=== PATIENT | female | born 1945 | race Caucasian/White ===

== ENCOUNTER → 2016-08-09 | Outpatient (CLI) | payer MEDICARE ==
--- NOTE | 2016-08-09 19:37 | MR ---
MRI of the brain with and without contrast HISTORY: MS follow-up COMPARISON: 04/15/2015 TECHNIQUE: T1-weighted sagittal, T2, FLAIR, and diffusion axial, postcontrast T1 axial and coronal vi ews of the brain are submitted. CONTRAST: 14 mL MultiHance FINDINGS: There is no evidence of acute ischemia. The ventricles, basal cisterns, and sulci overlying the co nvexities are consistent with the patient's age. There is no mass effect or enhancing mass. Changes of mild chronic sinusitis noted. Craniocervical junction maintained. Sella turcica has a norm al appearance. WHITE MATTER: There are proximally 60-70 focal areas of abnormal signal within the white matter bilaterally. The la rgest measures 1.2 cm. No enhancing lesions. There are lesions perpendicular to the ventricular syste m. There is a single callosal lesion. IMPRESSION: 1. No acute intracranial process. 2. Nonspecific white matter changes can be seen with demyelinating process including a mass. The numb er of lesions, size and morphology are stable of previous exam with no new or enhancing lesions.
== END | disposition home or self-care (01) ==
LOC: RADMRIMAIN 17:10
PROVIDERS: ATTEND Psychiatry & Neurology Neurology
DX: G35 Multiple sclerosis (principal)
CPT/HCPCS: 82565; 70553; A9577

== ENCOUNTER → 2017-08-15 | Outpatient (CLI) | payer MEDICARE ==
--- NOTE | 2017-08-15 16:00 | MR ---
EXAMINATION TYPE: MR brain wo/w con DATE OF EXAM: 08/15/2017 COMPARISON: 08/09/2016 HISTORY: Dizziness, Left side weakness, MS TECHNIQUE: Multiplanar, multisequence images of the brain and brainstem is performed without and with IV contras t, utilizing 7 mL intravenous Gadavist . FINDINGS: Diffusion weighted images demonstrate no evidence of a recent infarct or other diffusion ab normality. Mild to moderate generalized degenerative change seen. No midline shift or mass effect. Abnormal sign al within the basal ganglia is nonspecific but suggestive of remote lacunar infarction. Midline structures demonstrate normal morphology. The craniocervical junction appears within normal limits. Post contrast images demonstrate no abnormal enhancement. The dural venous sinuses appear pa tent. WHITE MATTER: There are approximately 60-70 focal areas of abnormal signal within the white matter bi laterally. The largest measures 1.2 cm. No enhancing lesions. There are lesions perpendicular to the ventricular system. There is a single callosal lesion. Lesions appear stable in size, number and morphology. IMPRESSION: 1. No acute intracranial process. 2. Nonspecific white matter changes are stable. Differential diagnosis includes demyelinating process including a multiple sclerosis, remote microvascular ischemia, although other etiologies not exclude d. The number of lesions, size and morphology are stable compared to the previous exam with no new or en hancing lesions.
== END | disposition home or self-care (01) ==
LOC: RADMRIMAIN 14:34
PROVIDERS: ATTEND Psychiatry & Neurology Neurology
DX: G93.9 Disorder of brain, unspecified (principal)
CPT/HCPCS: 70553; A9581

== ENCOUNTER 2018-02-09 16:24 | Emergency (ER) | payer MEDICARE ==
[2018-02-09 16:33] VITALS: RESP 18; TEMP 98.6
--- NOTE | 2018-02-09 17:13 | XR ---
EXAMINATION TYPE: XR wrist complete LT, XR forearm LT DATE OF EXAM: 02/09/2018 CLINICAL HISTORY: Fall injury with pain. TECHNIQUE: Two views of the left forearm are obtained. 4 views of left wrist are acquired. COMPARISON: None. FINDINGS: Demineralization is present. There is acute oblique minimally displaced fracture distal clive physis of left ulna. There is slight distraction and ulnar angulation of distal fracture fragment. Ad jacent radius is intact. There is partial visualization of surgical change in the distal left humerus . The overlying soft tissue appears within normal limits. There is no additional acute fracture or dislocation in the left wrist. Carpal joint spaces are prese rved. Overlying soft tissue is unremarkable. IMPRESSION: There is acute oblique minimally displaced fracture distal diaphysis of left ulna. (Initial encounter closed type post traumatic fracture)
[2018-02-09] MEDS ORDERED: ACETAMINOPHEN TAB 325 MG TAB PO STA (17:14)
--- NOTE | 2018-02-09 17:20 | ED ---
General Adult HPI - General Chief complaint: Extremity Injury, Upper Stated complaint: LEFT ARM INJURY Time Seen by Provider: 02/09/18 16:39 Source: patient, RN notes reviewed Mode of arrival: ambulatory Limitations: no limitations - History of Present Illness Initial comments: 72-year-old female presents to the emergency determine for a chief complaint of left forearm pain. Patient states she was bending down to look under her tractor when she fell in her arm hit the foot peg. Patient states the remainder of her body weight did fall on her left arm. Patient states that after that she was pulling up her pants and heard a crack in her arm. Patient denies any other injuries. Patient did not hit her head during the fall. Patient has a history of multiple sclerosis. Patient has no other complaints at this time including shortness of breath, chest pain, abdominal pain, nausea or vomiting, headache, or visual changes. - Related Data Allergies Allergy/AdvReac Type Severity Reaction Status Date / Time No Known Allergies Allergy Verified 02/09/18 16:28 Review of Systems ROS Statement: Those systems with pertinent positive or pertinent negative responses have been documented in the HPI. ROS Other: All systems not noted in ROS Statement are negative. Past Medical History Additional Past Medical History / Comment(s): MS History of Any Multi-Drug Resistant Organisms: None Reported Past Surgical History: Cholecystectomy Past Psychological History: No Psychological Hx Reported Smoking Status: Never smoker Past Alcohol Use History: None Reported Past Drug Use History: None Reported General Exam Limitations: no limitations General appearance: alert, in no apparent distress Head exam: Present: atraumatic, normocephalic, normal inspection Eye exam: Present: normal appearance. Absent: scleral icterus, conjunctival injection ENT exam: Present: normal exam, mucous membranes moist Neck exam: Present: normal inspection, full ROM. Absent: tenderness, meningismus, lymphadenopathy Respiratory exam: Present: normal lung sounds bilaterally. Absent: respiratory distress, wheezes, rales, rhonchi, stridor Cardiovascular Exam: Present: regular rate, normal rhythm, normal heart sounds. Absent: systolic murmur, diastolic murmur, rubs, gallop, clicks Extremities exam: Present: tenderness (Tenderness to the ulnar aspect of the left mid forearm), normal capillary refill (Capillary refill less than 2 seconds and radial pulse 2+ in the left upper extremity), other (There is minor ecchymosis noted along the ulnar aspect of the mid left forearm. Sensation intact.). Absent: full ROM (Patient has 110 of flexion of the left elbow with full extension. Patient is able to move the wrist but it is painful in her arm. She has about 30 flexion and extension.) Neurological exam: Present: alert, oriented X3, CN II-XII intact Psychiatric exam: Present: normal affect, normal mood Course Vital Signs 02/09/18 16:28 Temperature 98.6 F Pulse Rate 120 H Respiratory 18 Rate Blood Pressure 135/79 O2 Sat by Pulse 98 Oximetry Procedures - Procedures Initial comment: Neurovascular intact before splint application Indication: Left ulnar fracture Type: Sugar tong Wounds: no abrasions or lacerations underneath splint Neurovascular status: patient has sensation and movement of digits extending outside the splint, there is no cyanosis, capillary refill < 2 seconds Follow-up: patient given number for orthopedics and instructed to phone to make an appointment. Patient aware she can return to the Emergency Department if any difficulties. Medical Decision Making - Medical Decision Making 72-year-old female presents to the emergency determine for chief complaint of left forearm pain times one day. Patient states that earlier today she fell on a foot headache of a tractor on her left arm. Patient states her full-body weight then also fell onto her left arm. On exam patient has mild ecchymosis noted of the ulnar aspect of the left forearm. She is able to move the elbow and flex to about 110 and extend fully. Patient is able to flex and extend the wrist about 30. Programmer strength 4 out of 5 in the left upper 70 due to pain. Patient has tenderness of the ulnar left forearm. No tenderness in the elbow. No tenderness in the wrist or hand. No scaphoid tenderness. X-ray shows an acute oblique minimally displaced fracture distal diaphysis of left ulna. There is slight distraction and ulnar angulation of the distal fracture fragment. Radius is intact. Patient was splinted in a sugar tong splint. Neurovascular intact after splint applied. Patient will follow up with orthopedics on Sunday. Patient has [place] at home that she will take for pain. I did offer patient pain medication here in the emergency department which she refused. She states she only wants Tylenol. Patient will return to the emergency Department if she has any worsening symptoms. Disposition Clinical Impression: Left ulnar fracture Disposition: HOME SELF-CARE Condition: Good Instructions: Arm Fracture in Adults (ED) Additional Instructions: Please continue to take your home pain medications. Rest ice and elevate the left arm. Follow-up with orthopedics on Sunday morning. Return to the emergency department if you have any worsening symptoms. Is patient prescribed a controlled substance at d/c from ED?: No Referrals: Honorio Curiel MD [Primary Care Provider] - 1-2 days Elan Garcia MD [STAFF PHYSICIAN] - 1-2 days Time of Disposition: 17:34
[2018-02-09 17:39] VITALS: BP 130/97; PULSE 97
== END 2018-02-09 17:41 | disposition home or self-care (01) ==
LOC: EC 16:24
DX: S52.232A Displaced oblique fracture of shaft of left ulna, initial encounter for closed fracture (principal); V84.9XXA Unspecified occupant of special agricultural vehicle injured in nontraffic accident, initial encounter; Y93.89 Activity, other specified
CPT/HCPCS: 29125; 99283

== ENCOUNTER 2018-11-22 13:32 | Day surgery (SDC) | payer MEDICARE ==
[~2018-11-22 13:32] MED LIST: DEXAMETHASONE SOD PHOSPHATE 10 MG/ML 1 ML VIAL IV ONE; HYDROmorphone 0.5 MG/0.5 ML SYRINGE IVP PRN; LACTATED RINGERS 1,000 ML IV SCH; LIDOCAINE 1% 20 ML VIAL (10MG/ML) FOR IV START INTRADERMA PRN; ONDANSETRON 4 MG/2 ML VIAL IVP ONE; SCOPOLAMINE 1.5MG/72HR PATCH TRANSDERM ONE; ceFAZolin IN SWFI 2 GM/20 ML SYRINGE IVP ONE
[2018-11-22] MEDS ORDERED: MIDAZOLAM (PF) 2 MG/2 ML VIAL IVP ONE (14:17)
--- NOTE | 2018-11-22 14:32 | P.ANPRN ---
Procedure Note - Anesthesia - Nerve Block Performed Right Infraclavicular Single Time Out Performed: Yes Date of Procedure: 11/22/18 Procedure Start Time: 14:16 Procedure Stop Time: 14:20 Location of Patient Procedure: PreOp Indication: Acute Post-Operative Pain, Analgesia, Requested by physician Sedation Type: Sedate with meaningful contact maintained Preparation: Sterile Prep Position: Supine Catheter: None Needle Types: Pajunk Needle Gauge: 21 Technique: Ultrasound Injectate: 0.5% Ropivacaine (see comment for volume) (20cc) Adjunct: Epinephrine (see comment for dilution ratio) (1:200k) Blood Aspirated: No Pain Paresthesia on Injection Noted: No Resistance on Injection: Normal Events: Uneventful and Well Tolerated
[2018-11-22] MEDS ORDERED: PROPOFOL 10 MG/ML 20 ML VIAL IV ONE (15:19)
[2018-11-22] MEDS ORDERED: PHENYLEPHRINE-0.9% NACL SYG 1 MG/10 ML SYRINGE ONE (15:19)
[2018-11-22] MEDS ORDERED: BUPIVACAINE-EPI 0.5%-1:200,000 10 ML VIAL ONE (15:19)
[2018-11-22] MEDS ORDERED: fentaNYL (PF) 50 MCG/ML 2 ML AMP ONE (15:19)
[2018-11-22] MEDS ORDERED: MIDAZOLAM 2 MG/2 ML VIAL ONE (15:19)
[2018-11-22] MEDS ORDERED: BUPIVACAIN-EPI 0.25%-1:200,000 30 ML VIAL SQ ONE ×2 (17:37)
[2018-11-22 18:27] VITALS: BMI 26.2
[2018-11-22 19:42] VITALS: BP 106/68; PULSE 91; RESP 16; TEMP 98.2
--- NOTE | 2018-11-23 11:34 | FL ---
EXAMINATION TYPE: FL guidance operating room, XR hand complete RT DATE OF EXAM: 11/22/2018 CLINICAL HISTORY: Right hand fracture. TECHNIQUE: Fluoroscopy. Intraoperative complete 3 views right hand. COMPARISON: None. FINDINGS: Fluoroscopic guidance was provided during open reduction internal fixation procedure perfo rmed by Dr. Meehan. A total of 49 seconds of fluoroscopic time was utilized during the procedure and 6 spot intraoperative images are acquired. Intraoperative images obtained show placement of a lateral fixating plate through oblique displaced f racture proximal to mid shaft of fifth metacarpal with satisfactory alignment seen after reduction an d fixation. IMPRESSION: As Above.
--- NOTE | 2018-11-26 12:00 | P.OP ---
Date of Procedure: 11/22/18 Preoperative Diagnosis: Displaced, right fifth metacarpal shaft fracture Postoperative Diagnosis: Displaced, right fifth metacarpal shaft fracture with intra-articular extension into the CMC joint Procedure(s) Performed: Open reduction and internal fixation of displaced right fifth metacarpal shaft/intra-articular base fracture Implants: Biomet ALPS 1.5 mm locking plate with locking and cortical screws Anesthesia: MAC, regional, local Surgeon: Aristides Meehan Stone Mason #1: Kary Preciado Estimated Blood Loss (ml): 3 Disposition: observation Indications for Procedure: The patient is a 73-year-old female who was diagnosed with a displaced right fifth metacarpal shaft fracture. Both nonoperative and surgical treatment options were discussed, as well as their respective risks and benefits; the patient expressed understanding and elected to proceed with surgery. Consent forms were signed. The surgical site was confirmed and marked preoperatively. Description of Procedure: The patient was administered a regional nerve block by the anesthesia team and then was brought to the operating suite. The patient was positioned supine with the operative limb on an arm board. All bony prominences were well-padded. Anesthesia was administered uneventfully. Prophylactic IV antibiotics were administered. A tourniquet was placed on the operative arm which was then prepped and draped in standard, sterile fashion. A timeout was performed which confirmed the patient, the operative side, the site and the procedure to be performed: all team members expressed agreement. The limb was exsanguinated with an Esmarch and the tourniquet was inflated. A longitudinal incision was marked over the fifth metacarpal shaft. The skin was sharply incised. Subcutaneous tissues were bluntly divided. Small sensory nerve branches were identified on both sides of the incision. These were carefully mobilized and protected throughout the case. The extensor tendon was mobilized and the fifth metacarpal shaft was exposed. The periosteum was sharply incised and reflected to reveal the fracture site. The fracture pattern was a long oblique, with intra-articular extension into the CMC joint with a small, dorsal butterfly fragment at the metaphysis. The main fracture site at the midshaft level was carefully opened and cleaned of hematoma and fibrous tissue. This was manually reduced and a reduction clamp was placed but this did not adequately stabilize the fracture. Her bone was too soft to permit use of pointed reduction clamps. A 3-0 Vicryl suture was passed around the fracture site and used as a temporary cerclage wire. Good initial reduction was obtained and confirmed on imaging. A 1.5 mm locking plate was selected and cut to the appropriate size. The ECU tendon insertion was partially released to facilitate fracture reduction and plate placement. The plate was bent to fit and then positioned on the bone. This was held in place with K wires. A combination of locking and cortical screws was used to secure the plate to the bone. Her bone quality was suboptimal. One of the central cortical screws failed to achieve purchase and this was replaced with a locking screw. Final x-rays were obtained which revealed satisfactory reduction of the fracture. The metacarpal was then stressed under live fluoroscopy - no motion of the fracture fragments or fixation construct was appreciated. The wound was thoroughly irrigated with normal saline. The ECU insertion was repaired with nonabsorbable sutures. The periosteum was repaired over the plate with interrupted 3-0 Vicryl suture. The tourniquet was released. Good hemostasis was obtained. The incision was closed with a 4-0 nylon sutures. Additional local anesthetic was injected into the perioperative subcutaneous tissues for adjunctive postoperative pain control. A sterile dressing was applied followed by a resting, ulnar gutter plaster splint with the MCP joints free. All sponge, needle and instrument counts were correct at the end of the case. The patient tolerated the procedure well and was taken to the recovery room in stable condition.
== END 2018-11-22 20:00 | disposition home or self-care (01) ==
LOC: OR 13:32 → 1SOBS 17:59 → OR 20:00
PROVIDERS: ATTEND Orthopaedic Surgery
DX: S62.326A Displaced fracture of shaft of fifth metacarpal bone, right hand, initial encounter for closed fracture (principal); W23.0XXA Caught, crushed, jammed, or pinched between moving objects, initial encounter; Y93.H2 Activity, gardening and landscaping; Y92.096 Garden or yard of other non-institutional residence as the place of occurrence of the external cause; K21.9 Gastro-esophageal reflux disease without esophagitis; G35 Multiple sclerosis; I10 Essential (primary) hypertension; E78.2 Mixed hyperlipidemia; F33.0 Major depressive disorder, recurrent, mild; F41.8 Other specified anxiety disorders; N28.1 Cyst of kidney, acquired; Z79.899 Other long term (current) drug therapy; Z82.3 Family history of stroke; Z80.0 Family history of malignant neoplasm of digestive organs
CPT/HCPCS: 26615; 64415; 73130; C1713; J2250 ×2; J1100; J2405; J3010; J2370; J2704; J0690

== ENCOUNTER → 2018-12-24 | Outpatient (CLI) | payer MEDICARE ==
--- NOTE | 2018-12-24 14:26 | BD ---
EXAMINATION TYPE: Axial Bone Density DATE OF EXAM: 12/24/2018 COMPARISON: 2006 CLINICAL HISTORY: osteoporosis Height: 5'1 Weight: 146 FRAX RISK QUESTIONS: History of Fracture in Adulthood: y Secondary Osteoporosis: 3. Menopause before 45: y RISK FACTORS HISTORY OF: Hx fracture: left forearm 2018 Diet low in dairy products/other sources of calcium: y Postmenopausal woman: y MEDICATIONS: Additional Medications: blood pressure, cholesterol, xanax, norco acid reflux Additional History: pt has MS , 19 years EXAM MEASUREMENTS: Bone mineral densitometry was performed using the [employer]. Bone mineral density as measured about the Lumbar spine is: ----- L1-L4(G/cm2): 1.015 T Score Values are as follows: ----- L2: -3.1 ----- L3: -1.9 ----- L4: -0.3 ----- L1-L4: -1.4 Bone mineral density has: Decreased -6.0% since study of: 04/19/2007 Bone mineral density about the R hip (g/cm2): 0.694 Bone mineral density about the L hip (g/cm2): 0.654 T Score values are as follows: -----R Neck: -2.5 -----L Neck: -2.8 -----R Total: -2.7 -----L Total: -2.9 Bone mineral density has: Decreased -13.1% since study of: 04/19/2007 IMPRESSION: Osteoporosis (T Score less than -2.5). There is increased fracture risk and therapy is usually indicated based on age. Re-Screen 1-2 years. NOTE: T-SCORE=SD OF THE YOUNG ADULT MEAN.
== END | disposition home or self-care (01) ==
LOC: RADBDWWP 13:15
PROVIDERS: ATTEND Family Medicine
DX: M81.0 Age-related osteoporosis without current pathological fracture (principal)
CPT/HCPCS: 77080

== ENCOUNTER 2019-01-24 12:12 | Emergency (ER) | payer MEDICARE ==
[2019-01-24 12:29] VITALS: TEMP 98.6
--- NOTE | 2019-01-24 13:14 | ED ---
Weakness HPI - General Chief complaint: Weakness Stated complaint: UTI, frequent falls Time Seen by Provider: 01/24/19 13:07 Source: patient Mode of arrival: ambulatory Limitations: no limitations - History of Present Illness Initial comments: Patient complains of weakness in the legs. She has a history of MS. She has taken no medicines. Nothing makes her symptoms better or worse. She was not doing anything when her symptoms began to get worse. She is having falls. She fell and hit her head while ago. She has no headache, neck pain or stiffness. She has no change in vision or hearing. She states that the past she has had a kidney infection would cause her to have this MS flare. - Related Data Home Medications Medication Instructions Recorded Confirmed Citalopram Hydrobromide [CeleXA] 40 mg PO DAILY 11/20/18 01/24/19 Gabapentin 600 mg PO HS 11/20/18 01/24/19 Losartan-Hctz 50-12.5 mg [Hyzaar 1 tab PO DAILY 11/20/18 01/24/19 50-12.5] Omeprazole [PriLOSEC] 40 mg PO DAILY 11/20/18 01/24/19 Potassium Chloride [Klor-Con 10] 10 meq PO DAILY 11/20/18 01/24/19 Simvastatin [Zocor] 80 mg PO DAILY 11/20/18 01/24/19 ALPRAZolam [Xanax] 0.25 mg PO TID PRN 01/24/19 01/24/19 Calcium Carbonate/Vitamin D3 1 tab PO DAILY 01/24/19 01/24/19 [Calcium 600-Vit D3 400 Caplet] HYDROcodone/APAP 7.5-325MG [[place] 1 tab PO TID PRN 01/24/19 01/24/19 7.5-325] Ibuprofen 800 mg PO TID 01/24/19 01/24/19 Previous Rx's Medication Instructions Recorded methylPREDNISolone Dose Pack 4 mg PO DIRECTED #21 package 01/24/19 [Medrol Dose Pack] Allergies Allergy/AdvReac Type Severity Reaction Status Date / Time No Known Allergies Allergy Verified 01/24/19 12:55 Review of Systems ROS Statement: Those systems with pertinent positive or pertinent negative responses have been documented in the HPI. ROS Other: All systems not noted in ROS Statement are negative. Neurological: Reports: weakness Past Medical History Past Medical History: GERD/Reflux, Hyperlipidemia, Hypertension, Neurologic Disorder Additional Past Medical History / Comment(s): Right 5th metacarpal fx, hand in soft cast, neuropathy, MS History of Any Multi-Drug Resistant Organisms: None Reported Past Surgical History: Cholecystectomy Past Anesthesia/Blood Transfusion Reactions: No Reported Reaction Past Psychological History: No Psychological Hx Reported Smoking Status: Never smoker Past Alcohol Use History: None Reported Past Drug Use History: None Reported - Past Family History Sister(s) Family Medical History: Cancer Son(s) Family Medical History: Deep Vein Thrombosis (DVT) General Exam Limitations: no limitations General appearance: alert, in no apparent distress Head exam: Present: atraumatic, normocephalic, normal inspection Eye exam: Present: normal appearance, PERRL, EOMI. Absent: scleral icterus, conjunctival injection, periorbital swelling ENT exam: Present: normal exam, mucous membranes moist Neck exam: Present: normal inspection. Absent: tenderness, meningismus, lymphadenopathy Respiratory exam: Present: normal lung sounds bilaterally. Absent: respiratory distress, wheezes, rales, rhonchi, stridor Cardiovascular Exam: Present: regular rate, normal rhythm, normal heart sounds. Absent: systolic murmur, diastolic murmur, rubs, gallop, clicks GI/Abdominal exam: Present: soft, normal bowel sounds. Absent: distended, tenderness, guarding, rebound, rigid Extremities exam: Present: normal inspection, full ROM, normal capillary refill. Absent: tenderness, pedal edema, joint swelling, calf tenderness Back exam: Present: normal inspection Neurological exam: Present: alert, oriented X3, CN II-XII intact, abnormal gait Psychiatric exam: Present: normal affect, normal mood Skin exam: Present: warm, dry, intact, normal color. Absent: rash Course Vital Signs 01/24/19 01/24/19 12:26 14:08 Temperature 98.6 F Pulse Rate 88 70 Respiratory 18 16 Rate Blood Pressure 113/69 131/85 O2 Sat by Pulse 99 100 Oximetry Medical Decision Making - Medical Decision Making Patient complained of weakness. Her laboratory workup is unremarkable. I find no evidence of infection at this time. I gave her a dose of IV Solu-Medrol. I offered the patient admission to the hospital with a neurology consult. She states that she needs to go home because she has to take care of her dog. I instructed her to follow-up with her doctor as soon as possible as well as her neurologist. I told her that she should return to the emergency department for further treatment and management if her symptoms worsen or if she develops any other problems or complaints. - Lab Data Result diagrams: 01/24/19 13:01 01/24/19 13:01 Lab Results 01/24/19 01/24/19 01/24/19 Range/Units 13: 13: 13:01 WBC 4.1 (3.8-10.6) k/uL RBC 3.83 (3.80-5.40) m/uL Hgb 11.7 (11.4-16.0) gm/dL Hct 35.3 (34.0-46.0) % MCV 92.3 (80.0-100.0) fL MCH 30.6 (25.0-35.0) pg MCHC 33.1 (31.0-37.0) g/dL RDW 14.3 (11.5-15.5) % Plt Count 171 (150-450) k/uL Neutrophils % 60 % Lymphocytes % 25 % Monocytes % 7 % Eosinophils % 3 % Basophils % 1 % Neutrophils # 2.5 (1.3-7.7) k/uL Lymphocytes # 1.0 (1.0-4.8) k/uL Monocytes # 0.3 (0-1.0) k/uL Eosinophils # 0.1 (0-0.7) k/uL Basophils # 0.0 (0-0.2) k/uL PT (9.0-12.0) sec INR (<1.2) APTT (22.0-30.0) sec Sodium 140 (137-145) mmol/L Potassium 4.4 (3.5-5.1) mmol/L Chloride 104 (98-107) mmol/L Carbon Dioxide 28 (22-30) mmol/L Anion Gap 8 mmol/L BUN 22 H (7-17) mg/dL Creatinine 1.43 H (0.52-1.04) mg/dL Est GFR (CKD-EPI)AfAm 42 (>60 ml/min/1.73 sqM) Est GFR (CKD-EPI)NonAf 37 (>60 ml/min/1.73 sqM) Glucose 90 (74-99) mg/dL Plasma Lactic Acid Santos 1.4 (0.7-2.0) mmol/L Calcium 9.3 (8.4-10.2) mg/dL Magnesium 1.3 L (1.6-2.3) mg/dL Total Bilirubin 1.0 (0.2-1.3) mg/dL AST 25 (14-36) U/L ALT 16 (9-52) U/L Alkaline Phosphatase 57 (38-126) U/L Troponin I (0.000-0.034) ng/mL NT-Pro-B Natriuret Pep pg/mL Total Protein 7.1 (6.3-8.2) g/dL Albumin 4.1 (3.5-5.0) g/dL Urine Color Urine Appearance (Clear) Urine pH (5.0-8.0) Ur Specific Groom (1.001-1.035) Urine Protein (Negative) Urine Glucose (UA) (Negative) Urine Ketones (Negative) Urine Blood (Negative) Urine Nitrite (Negative) Urine Bilirubin (Negative) Urine Urobilinogen (<2.0) mg/dL Ur Leukocyte Esterase (Negative) 01/24/19 01/24/19 01/24/19 Range/Units 13:01 13:01 13:01 WBC (3.8-10.6) k/uL RBC (3.80-5.40) m/uL Hgb (11.4-16.0) gm/dL Hct (34.0-46.0) % MCV (80.0-100.0) fL MCH (25.0-35.0) pg MCHC (31.0-37.0) g/dL RDW (11.5-15.5) % Plt Count (150-450) k/uL Neutrophils % % Lymphocytes % % Monocytes % % Eosinophils % % Basophils % % Neutrophils # (1.3-7.7) k/uL Lymphocytes # (1.0-4.8) k/uL Monocytes # (0-1.0) k/uL Eosinophils # (0-0.7) k/uL Basophils # (0-0.2) k/uL PT 10.7 (9.0-12.0) sec INR 1.0 (<1.2) APTT 25.6 (22.0-30.0) sec Sodium (137-145) mmol/L Potassium (3.5-5.1) mmol/L Chloride (98-107) mmol/L Carbon Dioxide (22-30) mmol/L Anion Gap mmol/L BUN (7-17) mg/dL Creatinine (0.52-1.04) mg/dL Est GFR (CKD-EPI)AfAm (>60 ml/min/1.73 sqM) Est GFR (CKD-EPI)NonAf (>60 ml/min/1.73 sqM) Glucose (74-99) mg/dL Plasma Lactic Acid Santos (0.7-2.0) mmol/L Calcium (8.4-10.2) mg/dL Magnesium (1.6-2.3) mg/dL Total Bilirubin (0.2-1.3) mg/dL AST (14-36) U/L ALT (9-52) U/L Alkaline Phosphatase (38-126) U/L Troponin I <0.012 (0.000-0.034) ng/mL NT-Pro-B Natriuret Pep 153 pg/mL Total Protein (6.3-8.2) g/dL Albumin (3.5-5.0) g/dL Urine Color Urine Appearance (Clear) Urine pH (5.0-8.0) Ur Specific Groom (1.001-1.035) Urine Protein (Negative) Urine Glucose (UA) (Negative) Urine Ketones (Negative) Urine Blood (Negative) Urine Nitrite (Negative) Urine Bilirubin (Negative) Urine Urobilinogen (<2.0) mg/dL Ur Leukocyte Esterase (Negative) 01/24/19 Range/Units 13:01 WBC (3.8-10.6) k/uL RBC (3.80-5.40) m/uL Hgb (11.4-16.0) gm/dL Hct (34.0-46.0) % MCV (80.0-100.0) fL MCH (25.0-35.0) pg MCHC (31.0-37.0) g/dL RDW (11.5-15.5) % Plt Count (150-450) k/uL Neutrophils % % Lymphocytes % % Monocytes % % Eosinophils % % Basophils % % Neutrophils # (1.3-7.7) k/uL Lymphocytes # (1.0-4.8) k/uL Monocytes # (0-1.0) k/uL Eosinophils # (0-0.7) k/uL Basophils # (0-0.2) k/uL PT (9.0-12.0) sec INR (<1.2) APTT (22.0-30.0) sec Sodium (137-145) mmol/L Potassium (3.5-5.1) mmol/L Chloride (98-107) mmol/L Carbon Dioxide (22-30) mmol/L Anion Gap mmol/L BUN (7-17) mg/dL Creatinine (0.52-1.04) mg/dL Est GFR (CKD-EPI)AfAm (>60 ml/min/1.73 sqM) Est GFR (CKD-EPI)NonAf (>60 ml/min/1.73 sqM) Glucose (74-99) mg/dL Plasma Lactic Acid Santos (0.7-2.0) mmol/L Calcium (8.4-10.2) mg/dL Magnesium (1.6-2.3) mg/dL Total Bilirubin (0.2-1.3) mg/dL AST (14-36) U/L ALT (9-52) U/L Alkaline Phosphatase (38-126) U/L Troponin I (0.000-0.034) ng/mL NT-Pro-B Natriuret Pep pg/mL Total Protein (6.3-8.2) g/dL Albumin (3.5-5.0) g/dL Urine Color Yellow Urine Appearance Clear (Clear) Urine pH 7.0 (5.0-8.0) Ur Specific Groom 1.013 (1.001-1.035) Urine Protein Negative (Negative) Urine Glucose (UA) Negative (Negative) Urine Ketones Negative (Negative) Urine Blood Negative (Negative) Urine Nitrite Negative (Negative) Urine Bilirubin Negative (Negative) Urine Urobilinogen 2.0 (<2.0) mg/dL Ur Leukocyte Esterase Negative (Negative) Disposition Clinical Impression: Multiple sclerosis Disposition: HOME SELF-CARE Condition: Good Instructions (If sedation given, give patient instructions): Multiple Sclerosis (DC) Prescriptions: methylPREDNISolone Dose Pack [Medrol Dose Pack] 4 mg PO DIRECTED #21 package Is patient prescribed a controlled substance at d/c from ED?: No Referrals: Honorio Curiel MD [Primary Care Provider] - 1-2 days
[2019-01-24 13:31] LABS: Basophils % (A) 1 %; Eosinophils # (A) 0.1 k/uL (0-0.7); Eosinophils % (A) 3 %; HCT 35.3 % (34.0-46.0); HGB 11.7 gm/dL (11.4-16.0); Lymphocytes % (A) 25 %; MCH 30.6 pg (25.0-35.0); MCHC 33.1 g/dL (31.0-37.0); MCV 92.3 fL (80.0-100.0); Mean Platelet Volume 7.1; Monocytes # (A) 0.3 k/uL (0-1.0); Monocytes % (A) 7 %; Neutrophils # (A) 2.5 k/uL (1.3-7.7); Neutrophils % (A) 60 %; Platelet Count 171 k/uL (150-450); RBC 3.83 m/uL (3.80-5.40); RDW 14.3 % (11.5-15.5); WBC 4.1 k/uL (3.8-10.6)
[2019-01-24 13:37] LABS: Appearance,Urine Clear (Clear); Bilirubin,Urine Negative (Negative); Blood,Urine Negative (Negative); Color,Urine Yellow; Glucose,Urine (UA) Negative (Negative); Ketones,Urine Negative (Negative); Leukocyte Esterase,Urine Negative (Negative); Nitrite,Urine Negative (Negative); Protein,Urine Negative (Negative); Specific Gravity,Urine 1.013 (1.001-1.035)
[2019-01-24 13:40] LABS: Albumin 4.1 g/dL (3.5-5.0); Calcium 9.3 mg/dL (8.4-10.2); Magnesium 1.3 mg/dL (1.6-2.3); Potassium 4.4 mmol/L (3.5-5.1); Total Protein 7.1 g/dL (6.3-8.2)
[2019-01-24 13:42] LABS: Partial Thromboplastin Time 25.6 sec (22.0-30.0); Prothrombin Time 10.7 sec (9.0-12.0)
--- NOTE | 2019-01-24 13:47 | XR ---
EXAMINATION TYPE: XR chest 2V DATE OF EXAM: 01/24/2019 COMPARISON: NONE HISTORY: Weakness TECHNIQUE: Frontal and lateral views of the chest are obtained. FINDINGS: There is no focal air space opacity, pleural effusion, or pneumothorax seen. The cardiac silhouette size is upper limits of normal. The osseous structures are intact. Bridging anterior ost eophytes are seen within the thoracic spine. Diffuse osseous demineralization is present. Cholecystec zachary clips are visualized. IMPRESSION: No acute cardiopulmonary process.
[2019-01-24] MEDS ORDERED: methylPREDNISolone SOD SUCCI 125 MG/2 ML VIAL IV STA (13:57)
[2019-01-24 14:09] VITALS: BP 131/85; PULSE 70; RESP 16
== END 2019-01-24 14:38 | disposition home or self-care (01) ==
LOC: EC 12:12
DX: G35 Multiple sclerosis (principal); R29.6 Repeated falls; G62.9 Polyneuropathy, unspecified; E78.5 Hyperlipidemia, unspecified; I10 Essential (primary) hypertension; K21.9 Gastro-esophageal reflux disease without esophagitis; Z79.1 Long term (current) use of non-steroidal anti-inflammatories (NSAID); Z79.899 Other long term (current) drug therapy; Z91.81 History of falling; Z83.2 Family history of diseases of the blood and blood-forming organs and certain disorders involving the immune mechanism
CPT/HCPCS: 36415; 93005; 83880; 80053; 83605; 83735; 84484; 85025; 85610; 85730; 81003; 71046; 99284; 96374; J2930

== ENCOUNTER 2019-04-16 16:27 | Emergency (ER) | payer OTHER, MEDICARE ==
[2019-04-16 16:41] VITALS: RESP 18
[2019-04-16] MEDS ORDERED: SODIUM CHLORIDE 0.9% 1,000 ML IV STA (16:54)
[2019-04-16] MEDS ORDERED: ACETAMINOPHEN TAB 500 MG TAB PO STA (16:54)
[2019-04-16 17:32] LABS: Basophils % (A) 1 %; Eosinophils # (A) 0.1 k/uL (0-0.7); Eosinophils % (A) 2 %; HCT 33.9 % (34.0-46.0); HGB 11.7 gm/dL (11.4-16.0); Lymphocytes # (A) 1.1 k/uL (1.0-4.8); Lymphocytes % (A) 19 %; MCH 31.8 pg (25.0-35.0); MCHC 34.4 g/dL (31.0-37.0); MCV 92.5 fL (80.0-100.0); Mean Platelet Volume 6.2; Monocytes # (A) 0.3 k/uL (0-1.0); Monocytes % (A) 6 %; Neutrophils % (A) 70 %; Platelet Count 182 k/uL (150-450); RBC 3.67 m/uL (3.80-5.40); RDW 12.8 % (11.5-15.5); WBC 5.7 k/uL (3.8-10.6)
[2019-04-16 17:35] LABS: ALT 18 U/L (9-52); AST 28 U/L (14-36); African American GFR (CKD) 48 (>60 ml/min/1.73 sqM); Albumin 3.9 g/dL (3.5-5.0); Alcohol <10 mg/dL; Alkaline Phosphatase 56 U/L (38-126); Anion Gap 7 mmol/L; Blood Urea Nitrogen 15 mg/dL (7-17); Calcium 9.1 mg/dL (8.4-10.2); Carbon Dioxide 26 mmol/L (22-30); Chloride 105 mmol/L (98-107); Glucose 87 mg/dL (74-99); Partial Thromboplastin Time 25.3 sec (22.0-30.0); Potassium 4.3 mmol/L (3.5-5.1); Prothrombin Time 10.9 sec (9.0-12.0); Sodium 138 mmol/L (137-145); Total Bilirubin 0.8 mg/dL (0.2-1.3)
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
--- NOTE | 2019-04-16 19:27 | XR ---
EXAMINATION TYPE: XR wrist complete LT DATE OF EXAM: 04/16/2019 COMPARISON: 02/09/2018 HISTORY: Wrist pain TECHNIQUE: 4 views FINDINGS: There is old ununited healing fracture distal shaft of the ulna. There is some bridging srikanth karolina. Fracture line is still visible. I see no acute fracture nor dislocation. The carpal bones are in tact. There is osteopenia. Carpal bones show fairly normal joint spaces. IMPRESSION: No acute value the left wrist. No adverse change.
[2019-04-16 20:28] VITALS: BP 130/76; PULSE 85; TEMP 97.7
== END 2019-04-16 19:58 | disposition home or self-care (01) ==
LOC: EC 16:27
DX: M25.532 Pain in left wrist (principal); R07.89 Other chest pain; R10.9 Unspecified abdominal pain; R53.1 Weakness; K21.9 Gastro-esophageal reflux disease without esophagitis; E78.5 Hyperlipidemia, unspecified; I10 Essential (primary) hypertension; G35 Multiple sclerosis; G62.9 Polyneuropathy, unspecified; Z79.82 Long term (current) use of aspirin; Z79.899 Other long term (current) drug therapy; Z90.49 Acquired absence of other specified parts of digestive tract; V43.52XA Car driver injured in collision with other type car in traffic accident, initial encounter; Y93.89 Activity, other specified; Y92.410 Unspecified street and highway as the place of occurrence of the external cause
CPT/HCPCS: 99285; 96360; 36415; 93005; 86900; 86901; 80053; 84484; 85025; 85610; 85730; 86850; 80320; 73110; 72125; 70450; 71260; 74177; Q9967

== ENCOUNTER 2019-04-27 00:58 | Observation (INO) | payer MEDICARE ==
[2019-04-27 01:00] LABS: Basophils # (A) 0.1 k/uL (0-0.2); Basophils % (A) 1 %; Eosinophils # (A) 0.3 k/uL (0-0.7); Eosinophils % (A) 4 %; HGB 10.7 gm/dL (11.4-16.0); Lymphocytes % (A) 16 %; MCH 30.5 pg (25.0-35.0); MCHC 33.3 g/dL (31.0-37.0); MCV 91.6 fL (80.0-100.0); Mean Platelet Volume 6.8; Monocytes # (A) 0.4 k/uL (0-1.0); Monocytes % (A) 7 %; Neutrophils # (A) 4.1 k/uL (1.3-7.7); Neutrophils % (A) 68 %; Platelet Count 197 k/uL (150-450); RDW 13.9 % (11.5-15.5)
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
[2019-04-27 01:10] LABS: Albumin 3.4 g/dL (3.5-5.0); Calcium 8.8 mg/dL (8.4-10.2); Potassium 3.4 mmol/L (3.5-5.1); Total Bilirubin 0.4 mg/dL (0.2-1.3); Total Protein 6.3 g/dL (6.3-8.2)
[2019-04-27 01:13] LABS: INR 1.1 (<1.2); Partial Thromboplastin Time 23.9 sec (22.0-30.0); Prothrombin Time 11.2 sec (9.0-12.0)
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
[2019-04-27 01:32] LABS: Appearance,Urine Clear (Clear); Bilirubin,Urine Negative (Negative); Blood,Urine Negative (Negative); Color,Urine Yellow; Glucose,Urine (UA) Negative (Negative); Ketones,Urine Negative (Negative); Leukocyte Esterase,Urine Small (Negative); Nitrite,Urine Negative (Negative); Protein,Urine Trace (Negative); Urobilinogen,Urine <2.0 mg/dL (<2.0)
[2019-04-27 01:33] LABS: Bacteria,Urine Rare /hpf; Hyaline Casts,Urine 22 /lpf (0-2); Mucus,Urine Rare /hpf; RBC,Urine 4 /hpf (0-5); Squamous Epithelial Cell,Urine 2 /hpf (0-4); WBC,Urine 7 /hpf (0-5)
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
[2019-04-27] MEDS ORDERED: NALOXONE 0.4 MG/ML 1 ML VIAL IV PRN (03:58)
[2019-04-27] MEDS ORDERED: ONDANSETRON 4 MG/2 ML VIAL IVP PRN (03:58)
[2019-04-27] MEDS ORDERED: ALPRAZolam 0.25 MG TAB PO PRN (04:00)
[2019-04-27] MEDS: SODIUM CHLORIDE 0.9% 1,000 ML IV SCH (04:29)
[2019-04-27] MEDS: LOSARTAN-HCTZ 50-12.5 MG 1 EACH TAB PO SCH (08:58)
[2019-04-27] MEDS: PANTOPRAZOLE 40 MG TABLET PO SCH (08:58)
[2019-04-27] MEDS: CHOLECALCIFEROL 1,000 UNIT TAB PO SCH (08:58)
[2019-04-27] MEDS: ATORVASTATIN 40 MG TAB PO SCH (08:58)
[2019-04-27] MEDS: POTASSIUM CHLORIDE ER 10 MEQ TAB.ER.PRT PO SCH (08:58)
[2019-04-27] MEDS: CITALOPRAM HYDROBROMIDE 20 MG TAB PO SCH (08:58)
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
--- NOTE | 2019-04-27 11:38 | XR ---
EXAMINATION TYPE: XR chest 2V DATE OF EXAM: 04/27/2019 HISTORY: pneumothorax. REFERENCE: Previous study of earlier today. FINDINGS: The heart is mildly enlarged. There is vascular congestion and pulmonary edema. There branden nues to be a tiny left apical pneumothorax. IMPRESSION: 1. TINY LEFT APICAL PNEUMOTHORAX. 2. INTERVAL DEVELOPMENT OF CONGESTIVE HEART FAILURE.
--- NOTE | 2019-04-27 12:20 | CT ---
EXAMINATION TYPE: CT lumbar spine wo con DATE OF EXAM: 04/27/2019 11:25 AM COMPARISON: None. HISTORY: Low back pain CT DLP: 1012 mGycm Automated exposure control for dose reduction was used. Unenhanced CT of the lumbar spine was performed. Bone and soft tissue window settings are submitted as well as coronal and sagittal reconstructions. FINDINGS: There is a 6.6 cm exophytic mass arising from the anterior aspect of the upper pole of the left kidney. The gallbladder has been removed. There is atheromatous calcification of the visualized arterial tree. There is partial sacralization of the L5 vertebral body. Vertebral body alignment is maintained. Ther e is a superior endplate infraction of T12 vertebral body. The age of this is not determined but it a ppears chronic. Vertebral body height is otherwise maintained. L1-L2: Intervertebral foramina are well maintained. There is no significant compressive discopathy. T here is minimal hypertrophic change in the facets. L2-3: The intervertebral foramina are well maintained. There is a diffuse disc displacement. There is mild hypertrophic changes within the facets. L3-4: There is severe disc space loss and a vacuum phenomena. There is mild, bilateral intervertebral foraminal narrowing. There is a diffuse disc displacement. There are marked hypertrophic changes in the facets. There is mild to moderate central canal stenosis. L4-5: There is severe disc space loss and a vacuum phenomena. There is bony spurring posteriorly. Thi s is impinging upon the left intervertebral foramina. There is however, bilateral intervertebral fora rashid narrowing. There is moderate to severe central canal stenosis. There are hypertrophic changes i n the facets. L5-S1: No definite abnormality is seen. IMPRESSION: 1. DEGENERATIVE DISC DISEASE MOST MARKED AT L3-4 AND L4-5. 2. VARYING DEGREES OF CENTRAL CANAL COMPROMISE, MOST MARKED AT L4-5. 3. MULTILEVEL INTERVERTEBRAL FORAMINAL NARROWING. 4. 6.6 CM EXOPHYTIC MASS ARISING THE UPPER POLE OF THE LEFT KIDNEY MAY REPRESENT A CYST. ULTRASOUND W OULD BE SUGGESTED. 5. SUPERIOR ENDPLATE INFRACTION OF T12, AGE NOT DETERMINED.
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
[2019-04-27] MEDS: ALPRAZolam 0.25 MG TAB PO SCH (19:50)
[2019-04-27] MEDS: GABAPENTIN 300 MG CAP PO SCH (19:51)
[2019-04-27] MEDS: HYDROcodone/APAP 7.5-325MG 1 EACH TAB PO PRN (23:37)
[2019-04-28] MEDS: SODIUM CHLORIDE 0.9% 1,000 ML IV SCH (04:50)
[2019-04-28] MEDS: CITALOPRAM HYDROBROMIDE 20 MG TAB PO SCH (07:45)
[2019-04-28] MEDS: ATORVASTATIN 40 MG TAB PO SCH (07:45)
[2019-04-28] MEDS: CHOLECALCIFEROL 1,000 UNIT TAB PO SCH (07:45)
[2019-04-28] MEDS: POTASSIUM CHLORIDE ER 10 MEQ TAB.ER.PRT PO SCH (07:45)
[2019-04-28] MEDS: PANTOPRAZOLE 40 MG TABLET PO SCH (07:46)
[2019-04-28] MEDS: LOSARTAN-HCTZ 50-12.5 MG 1 EACH TAB PO SCH (09:25)
--- NOTE | 2019-04-28 10:35 | XR ---
EXAMINATION TYPE: XR chest 1V portable DATE OF EXAM: 04/28/2019 COMPARISON: 04/27/2019 HISTORY: Shortness of breath TECHNIQUE: Single frontal view of the chest is obtained. FINDINGS: There is a stable less than 5% left apical pneumothorax. No overt failure. Left lower lobe consolidation and small effusion. Heart size prominent and stable. Diffuse osteopenia noted. IMPRESSION: 1. Stable less than 5% left apical pneumothorax. 2. Left lower lobe consolidation and pleural effusion. 3. Interstitium appears to be improved relative to the prior exam.
--- NOTE | 2019-04-28 10:54 | US ---
EXAMINATION TYPE: US kidneys/renal and bladder DATE OF EXAM: 04/28/2019 COMPARISON: CT 2018, US 2013 CLINICAL HISTORY: cyst left kidney. Left kidney cyst, exam done portable. EXAM MEASUREMENTS: Right Kidney: 9.0 x 4.6 x 4.6 cm Left Kidney: 10.3 x 4.6 x 4.4 cm Right Kidney: 1.4 x 1.4 x 1.4cm hypoechoic area lateral mid pole Left Kidney: 6.0 x 5.1 x 6.1cm exophytic cyst mid pole Bladder: wnl Bilateral Jets seen: no No hydronephrosis or nephrolithiasis. IMPRESSION: 1. 6.1 cm simple left renal cyst. 2. Hypoechoic nodule in the right kidney is too small to characterize by ultrasound.
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
[2019-04-28] MEDS: HYDROcodone/APAP 7.5-325MG 1 EACH TAB PO PRN (20:36)
[2019-04-28] MEDS: GABAPENTIN 300 MG CAP PO SCH (20:37)
[2019-04-28] MEDS: ALPRAZolam 0.25 MG TAB PO SCH (20:37)
[2019-04-29] MEDS: SODIUM CHLORIDE 0.9% 1,000 ML IV SCH (06:39)
[2019-04-29] MEDS: ATORVASTATIN 40 MG TAB PO SCH (07:41)
[2019-04-29] MEDS: CITALOPRAM HYDROBROMIDE 20 MG TAB PO SCH (07:41)
[2019-04-29] MEDS: LOSARTAN-HCTZ 50-12.5 MG 1 EACH TAB PO SCH (07:41)
[2019-04-29] MEDS: POTASSIUM CHLORIDE ER 10 MEQ TAB.ER.PRT PO SCH (07:41)
[2019-04-29] MEDS: CHOLECALCIFEROL 1,000 UNIT TAB PO SCH (07:41)
[2019-04-29] MEDS: PANTOPRAZOLE 40 MG TABLET PO SCH (07:41)
[2019-04-29 08:33] VITALS: BP 103/59; PULSE 83; RESP 12; TEMP 98.8
--- NOTE | 2019-04-29 10:46 | ECHOF ---
Referral Reason:pleural effusion MEASUREMENTS -------- HEIGHT: 154.9 cm WEIGHT: 58.1 kg BP: 97/61 RVIDd: 3.2 cm (< 3.3) IVSd: 1.2 cm (0.6 - 1.1) LVIDd: 3.7 cm (3.9 - 5.3) LVPWd: 1.3 cm (0.6 - 1.1) IVSs: 1.3 cm LVIDs: 2.1 cm LVPWs: 0.9 cm LAESV Index (A-L): 21.04 ml/m Ao Diam: 3.8 cm (2.0 - 3.7) AV Cusp: 1.7 cm (1.5 - 2.6) MV E Kendall: 0.58 m/s MV DecT: 222 ms MV A Kendall: 0.84 m/s MV E/A Ratio: 0.69 RAP: 5.00 mmHg RVSP: 26.15 mmHg FINDINGS -------- Sinus rhythm. This was a technically difficult study with suboptimal views. There is mild concentric left ventricular hypertrophy. Overall left ventricular systolic function i s normal with, an EF between 55 - 60 %. The diastolic filling pattern is normal for the age of the patient 11.79. The right ventricle is normal in size. Normal LA size by volume 22+/-6 ml/m2. The right atrial size is normal. 5.0mg of Lumason was utilized for enhancement of images Interatrial and interventricular septum intact. The aortic valve was not well visualized. There is no evidence of aortic regurgitation. There is no evidence of aortic stenosis. Mild mitral regurgitation is present. Mild tricuspid regurgitation present. There is no evidence of pulmonary hypertension. The right v entricular systolic pressure, as measured by Doppler, is 26.15mmHg. The pulmonic valve was not well visualized. The aortic root is mildy dilated. IVC Not well visulized. There is a small, generalized pericardial effusion present. CONCLUSIONS -------- 1. Sinus rhythm. 2. This was a technically difficult study with suboptimal views. 3. There is mild concentric left ventricular hypertrophy. 4. Overall left ventricular systolic function is normal with, an EF between 55 - 60 %. 5. The diastolic filling pattern is normal for the age of the patient 11.79 6. The right ventricle is normal in size. 7. Normal LA size by volume 22+/-6 ml/m2. 8. The right atrial size is normal. 9. 5.0mg of Lumason was utilized for enhancement of images 10. Interatrial and interventricular septum intact. 11. The aortic valve was not well visualized. 12. There is no evidence of aortic regurgitation. 13. There is no evidence of aortic stenosis. 14. Mild mitral regurgitation is present. 15. Mild tricuspid regurgitation present. 16. There is no evidence of pulmonary hypertension. 17. The right ventricular systolic pressure, as measured by Doppler, is 26.15mmHg. 18. The pulmonic valve was not well visualized. 19. The aortic root is mildy dilated. 20. IVC Not well visulized. SPRAYER INSECTICIDE: Claire Sweeney RDCS
== END 2019-04-29 13:48 ==
LOC: EC 00:58 → 4SSUR 04:00
PROVIDERS: ADMIT Internal Medicine; ATTEND Internal Medicine
DX: R53.1 Weakness (principal); J93.83 Other pneumothorax; J90 Pleural effusion, not elsewhere classified; I10 Essential (primary) hypertension; G35 Multiple sclerosis; M17.11 Unilateral primary osteoarthritis, right knee; K21.9 Gastro-esophageal reflux disease without esophagitis; I49.1 Atrial premature depolarization; E78.5 Hyperlipidemia, unspecified; G62.9 Polyneuropathy, unspecified; F41.9 Anxiety disorder, unspecified; M51.36 Other intervertebral disc degeneration, lumbar region; M48.061 Spinal stenosis, lumbar region without neurogenic claudication; F33.9 Major depressive disorder, recurrent, unspecified; M81.0 Age-related osteoporosis without current pathological fracture; E55.9 Vitamin D deficiency, unspecified; W18.30XA Fall on same level, unspecified, initial encounter; Y92.009 Unspecified place in unspecified non-institutional (private) residence as the place of occurrence of the external cause; Z79.82 Long term (current) use of aspirin; Z79.83 Long term (current) use of bisphosphonates; Z79.899 Other long term (current) drug therapy; Z87.81 Personal history of (healed) traumatic fracture; Z87.828 Personal history of other (healed) physical injury and trauma; Z91.81 History of falling; Z90.49 Acquired absence of other specified parts of digestive tract; Z80.9 Family history of malignant neoplasm, unspecified; Z82.49 Family history of ischemic heart disease and other diseases of the circulatory system
CPT/HCPCS: 99285; 36415; 93005; 97116; 97162; 97535; 97165; 80053; 83605; 84484; 85025; 85610; 85730; 81001; 73562; 71045; 71046; 76770; 72131; G0378 ×3; C8929; Q9950; 93306

== ENCOUNTER → 2020-04-28 | Outpatient (CLI) | payer MEDICARE ==
--- NOTE | 2020-04-28 20:13 | MR ---
EXAMINATION TYPE: MR brain/cspine wo DATE OF EXAM: 04/28/2020 COMPARISON: 04/15/2015 HISTORY: Frequent falls, MS CONTRAST: Performed utilizing 0 mL intravenous Gadavist gadolinium contrast. TECHNIQUE: Multiplanar, multisequence imaging of the brain is performed on a 3.0 Tayla magnet. Demye linating disease protocol with additional Sagittal Flair sequence is performed. Study is performed wi thin 24 hours of arrival to the hospital. FINDINGS: T2 White Matter Lesions Present : Yes Approximate Number of Lesions: Multiple scattered Locations Identified : Centrum semiovale, periventricular Size of Largest Lesion(s): 1. 1.0 x 0.8 x 1.1 cm. Location: Right posterior centrum semiovale vertex Sequence 501 Image 24 (axi al) and Sequence 601 Image 24 (sagittal). 2. 1.6 x 1.5 x 1.7 cm. Location: Adjacent to the left posterior horn left lateral ventricle Sequenc e 501 Image 19 (axial) and Sequence 601 Image 15 (sagittal). Enhancing Lesion(s) Present: No Change from Prior: The left posterior horn lateral ventricular white matter plaque is enlarged over t he interval. The right centrum semiovale plaque is stable from comparison. A right centrum semiovale frontal lobe plaque has diminished over the interval. Adjacent plaque howev er has enlarged. Diffusion-weighted imaging is performed. No abnormal hyperintensity is present to suggest an acute i ntracranial infarct or acute ischemic change. Ventricles and sulci are appropriate for the patient age. There are no abnormal extra-axial fluid collections. The ventricular system and cisternal spaces are normal in size and appearance. The brain volume is age appropriate. The craniocervical junction ronald ears within normal limits. The dural venous sinuses appear patent. The visualized sinuses are clear. Visualized orbits are unremarkable. IMPRESSION: 1. Multiple plaques within the bilateral deep white matter. Some of these have enlarged over the int erval. No significant increase in number. EXAMINATION TYPE: MR brain/cspine wo DATE OF EXAM: 04/28/2020 COMPARISON: 04/15/2020 HISTORY: Frequent falls, MS CONTRAST: Performed utilizing 0 mL intravenous Gadavist gadolinium contrast. TECHNIQUE: Multiplanar multiecho imaging on a 3.0 Tayla magnet is performed through the cervical spin e. FINDINGS: The craniovertebral junction is normal. Vertebral body alignment is normal. There is a w edilson matter plaque posterior to the C2-C3 posterior spinal cord measuring approximately 0.4 x 2.0 cm. Series 1301, image 9. There is a 0.9 cmr by 0.3 cm more subtle white matter plaque within the spinal cord posterior to the C5-6 level. Disc heights appear preserved. Vertebral body heights are preserved. Alignment is normal. IMPRESSIONS: 1. There may be a couple of new plaques within the cervical spinal cord which can be compatible with multiple sclerosis.
== END | disposition home or self-care (01) ==
LOC: RADMRIMAIN 17:03
PROVIDERS: ATTEND Psychiatry & Neurology Neurology
DX: G35 Multiple sclerosis (principal); R90.82 White matter disease, unspecified
CPT/HCPCS: 70551; 72141

== ENCOUNTER 2020-06-01 11:47 | Inpatient (IN) | payer MEDICARE ==
[2020-06-01] MEDS ORDERED: SODIUM CHLORIDE 0.9% 1,000 ML IV ONE (12:09)
--- NOTE | 2020-06-01 12:14 | ED ---
Fall HPI - General Source: patient, EMS, RN notes reviewed, old records reviewed Mode of arrival: EMS <Judith Brown - Last Filed: 06/01/20 14:23> <Enrike Schultzah Caryl - Last Filed: 06/07/20 19:18> - General Chief Complaint: Fall Stated Complaint: Fall Time Seen by Provider: 06/01/20 11:55 - History of Present Illness Initial Comments: Since 74-year-old female who presents the emergency department today with chief complaint of multiple falls. She has history of MS and thinks she is having a flareup. Patient reports that she fell at 2:00 in the morning and was laying on the ground unable to get up because she was too weak. Patient reports that she was laying on the ground until being able to contact her son and EMS was morning. Patient denies any current chest pain. She complains of some right hip and left shoulder discomfort. Patient is not on blood thinners that she is aware of. (Judith Brown) - Related Data Home Medications Medication Instructions Recorded Confirmed Omeprazole [PriLOSEC] 40 mg PO DAILY 11/20/18 06/01/20 Simvastatin [Zocor] 80 mg PO DAILY 11/20/18 06/01/20 Alendronate Sodium [Fosamax] 70 mg PO MCMAHON 04/16/19 06/01/20 ALPRAZolam [Xanax] 0.25 mg PO TID PRN 04/28/19 06/01/20 Gabapentin 600 mg PO BID 04/28/19 06/01/20 Hydrocodone/Acetaminophen [[place] 1 tab PO TID PRN 04/28/19 06/01/20 7.5-325] Ibuprofen [Motrin] 800 mg PO TID PRN 06/01/20 06/01/20 Losartan Potassium [Cozaar] 50 mg PO DAILY 06/01/20 06/01/20 levETIRAcetam [Keppra] 250 mg PO BID 06/01/20 06/01/20 Previous Rx's Medication Instructions Recorded Cyanocobalamin [Vitamin B-12] 1,000 mcg PO DAILY #30 tablet 06/05/20 Allergies Allergy/AdvReac Type Severity Reaction Status Date / Time morphine Allergy PER PCP Verified 06/01/20 13:39 IV STEROIDS AdvReac Nausea Uncoded 06/01/20 14:49 Review of Systems ROS Other: All systems not noted in ROS Statement are negative. <Judith Brown - Last Filed: 06/01/20 14:23> ROS Other: All systems not noted in ROS Statement are negative. <Nancy Schultz - Last Filed: 06/07/20 19:18> ROS Statement: Those systems with pertinent positive or pertinent negative responses have been documented in the HPI. Past Medical History Past Medical History: GERD/Reflux, Hyperlipidemia, Hypertension, Neurologic Disorder Additional Past Medical History / Comment(s): Right 5th metacarpal fx, hand in soft cast, neuropathy, MS History of Any Multi-Drug Resistant Organisms: None Reported Past Surgical History: Cholecystectomy Additional Past Surgical History / Comment(s): History of right hand surgery. Past Anesthesia/Blood Transfusion Reactions: No Reported Reaction Past Psychological History: No Psychological Hx Reported Past Alcohol Use History: None Reported Past Drug Use History: None Reported - Past Family History Sister(s) Family Medical History: Cancer Son(s) Family Medical History: Deep Vein Thrombosis (DVT) <Judith Brown - Last Filed: 06/01/20 14:23> General Exam Limitations: physical limitation Head exam: Present: atraumatic, normocephalic, normal inspection Eye exam: Present: normal appearance ENT exam: Present: normal exam, mucous membranes moist, other (Patient is in c- collar) Neck exam: Present: normal inspection. Absent: tenderness, meningismus, lymphadenopathy Respiratory exam: Present: normal lung sounds bilaterally. Absent: respiratory distress, wheezes, rales, rhonchi, stridor Cardiovascular Exam: Present: regular rate, normal rhythm, normal heart sounds. Absent: systolic murmur, diastolic murmur, rubs, gallop, clicks GI/Abdominal exam: Present: soft, normal bowel sounds. Absent: distended, tenderness, guarding, rebound, rigid Extremities exam: Present: normal inspection, full ROM, normal capillary refill. Absent: tenderness, pedal edema, joint swelling, calf tenderness Left Shoulder Exam: Present: normal inspection, full ROM, tenderness (over distal clavicle), swelling Upper Arm exam: Present: normal inspection, full ROM Elbow exam: Present: normal inspection, full ROM Forearm Wrist exam: Present: normal inspection, full ROM Right Hip exam: Present: normal inspection, full ROM, tenderness (Status palpation of the greater trochanter) Upper Leg exam: Present: normal inspection, full ROM Lower Leg exam: Present: normal inspection, full ROM Neurovascular tendon exam: Present: no vascular compromise Back exam: Present: normal inspection Neurological exam: Present: alert, oriented X3, CN II-XII intact Psychiatric exam: Present: normal affect, normal mood Skin exam: Present: warm, dry, intact, normal color. Absent: rash <Judith Brown - Last Filed: 06/01/20 14:23> - General Exam Comments Initial Comments: 74-year-old female. Patient appears in moderate discomfort. In a c-collar. (Judith Brown) Course Vital Signs 06/01/20 06/01/20 06/01/20 12:02 14:35 15:15 Temperature 97.8 F Pulse Rate 79 96 95 Respiratory 18 18 18 Rate Blood Pressure 147/68 144/84 136/89 O2 Sat by Pulse 96 97 96 Oximetry 06/01/20 19:05 Temperature 98.9 F Pulse Rate 90 Respiratory 18 Rate Blood Pressure 146/81 O2 Sat by Pulse 95 Oximetry Medical Decision Making - Lab Data Result diagrams: 06/01/20 12:26 06/01/20 12:26 - Radiology Data Radiology results: report reviewed <Judith Brown - Last Filed: 06/01/20 14:23> - Lab Data Result diagrams: 06/05/20 07:08 06/05/20 07:08 <Nancy Schultz - Last Filed: 06/07/20 19:18> - Medical Decision Making 74-year-old female presents emergency department today for evaluation for multiple falls. Concern for MS exacerbation. She fell to the ground and 2:30 in the morning and was too weak to get up. She complains of some left shoulder and muscle aches. Patient labwork was reviewed. She has an elevated creatinine kinase consistent with some mild rhabdomyolysis from laying on the ground. Patient was given IV hydration. She was started on IV steroids her ALLERGY listed is nausea and vomiting. Started for concern for MS exacerbation general weakness. Patient CT brain and C-spine reviewed negative for acute process. Shoulder x-rays reviewed and show a mildly displaced distal clavicle fracture. Pelvis x-ray was otherwise normal. Patient was informed of all these results and I discussed with patient's son. Son states that she may benefit from rehab afterwards that she does live alone at home. I discussed case with Dr. Schultz. (Judith Brown) I was available for consultation in the emergency department. The history and physical exam were done by the midlevel provider. I was consulted for this patients care. I reviewed the case with the midlevel provider and based on their presentation of the patient, I agree with the assessment, medical decision making and plan of care as documented. Chart was dictated using [employer] dictation software. Attempts were made to correct any dictation errors however some typographical errors may persist. Patient was seen during a [facility] of emergency due to the Covid-19 pandemic. (Nancy Schultz) - Lab Data Lab Results 06/01/20 06/01/20 06/01/20 Range/Units 12:26 12:26 12:26 WBC 7.0 (3.8-10.6) k/uL RBC 3.51 L (3.80-5.40) m/uL Hgb 11.8 (11.4-16.0) gm/dL Hct 33.7 L (34.0-46.0) % MCV 96.1 (80.0-100.0) fL MCH 33.7 (25.0-35.0) pg MCHC 35.1 (31.0-37.0) g/dL RDW 13.9 (11.5-15.5) % Plt Count 150 (150-450) k/uL MPV 7.8 Neutrophils % 83 % Lymphocytes % 7 % Monocytes % 7 % Eosinophils % 0 % Basophils % 0 % Neutrophils # 5.8 (1.3-7.7) k/uL Lymphocytes # 0.5 L (1.0-4.8) k/uL Monocytes # 0.5 (0-1.0) k/uL Eosinophils # 0.0 (0-0.7) k/uL Basophils # 0.0 (0-0.2) k/uL PT 11.2 (9.0-12.0) sec INR 1.1 (<1.2) APTT 20.3 L (22.0-30.0) sec Sodium 138 (137-145) mmol/L Potassium 3.7 (3.5-5.1) mmol/L Chloride 108 H (98-107) mmol/L Carbon Dioxide 26 (22-30) mmol/L Anion Gap 4 mmol/L BUN 18 H (7-17) mg/dL Creatinine 1.06 H (0.52-1.04) mg/dL Est GFR (CKD-EPI)AfAm 60 (>60 ml/min/1.73 sqM) Est GFR (CKD-EPI)NonAf 52 (>60 ml/min/1.73 sqM) Glucose 109 H (74-99) mg/dL Calcium 8.4 (8.4-10.2) mg/dL Total Bilirubin 1.2 (0.2-1.3) mg/dL AST 40 H (14-36) U/L ALT 12 (4-34) U/L Alkaline Phosphatase 55 (38-126) U/L Creatine Kinase 1051 H* (30-135) U/L Troponin I (0.000-0.034) ng/mL Total Protein 6.4 (6.3-8.2) g/dL Albumin 3.5 (3.5-5.0) g/dL Urine Color Urine Appearance (Clear) Urine pH (5.0-8.0) Ur Specific [place] (1.001-1.035) Urine Protein (Negative) Urine Glucose (UA) (Negative) Urine Ketones (Negative) Urine Blood (Negative) Urine Nitrite (Negative) Urine Bilirubin (Negative) Urine Urobilinogen (<2.0) mg/dL Ur Leukocyte Esterase (Negative) Urine RBC (0-5) /hpf Urine WBC (0-5) /hpf Ur Squamous Epith Cells (0-4) /hpf Urine Mucus (None) /hpf 06/01/20 06/01/20 Range/Units 12:26 13:03 WBC (3.8-10.6) k/uL RBC (3.80-5.40) m/uL Hgb (11.4-16.0) gm/dL Hct (34.0-46.0) % MCV (80.0-100.0) fL MCH (25.0-35.0) pg MCHC (31.0-37.0) g/dL RDW (11.5-15.5) % Plt Count (150-450) k/uL MPV Neutrophils % % Lymphocytes % % Monocytes % % Eosinophils % % Basophils % % Neutrophils # (1.3-7.7) k/uL Lymphocytes # (1.0-4.8) k/uL Monocytes # (0-1.0) k/uL Eosinophils # (0-0.7) k/uL Basophils # (0-0.2) k/uL PT (9.0-12.0) sec INR (<1.2) APTT (22.0-30.0) sec Sodium (137-145) mmol/L Potassium (3.5-5.1) mmol/L Chloride (98-107) mmol/L Carbon Dioxide (22-30) mmol/L Anion Gap mmol/L BUN (7-17) mg/dL Creatinine (0.52-1.04) mg/dL Est GFR (CKD-EPI)AfAm (>60 ml/min/1.73 sqM) Est GFR (CKD-EPI)NonAf (>60 ml/min/1.73 sqM) Glucose (74-99) mg/dL Calcium (8.4-10.2) mg/dL Total Bilirubin (0.2-1.3) mg/dL AST (14-36) U/L ALT (4-34) U/L Alkaline Phosphatase (38-126) U/L Creatine Kinase (30-135) U/L Troponin I <0.012 (0.000-0.034) ng/mL Total Protein (6.3-8.2) g/dL Albumin (3.5-5.0) g/dL Urine Color Yellow Urine Appearance Clear (Clear) Urine pH 6.0 (5.0-8.0) Ur Specific [place] 1.014 (1.001-1.035) Urine Protein Negative (Negative) Urine Glucose (UA) Negative (Negative) Urine Ketones Negative (Negative) Urine Blood Small H (Negative) Urine Nitrite Negative (Negative) Urine Bilirubin Negative (Negative) Urine Urobilinogen <2.0 (<2.0) mg/dL Ur Leukocyte Esterase Negative (Negative) Urine RBC 1 (0-5) /hpf Urine WBC 2 (0-5) /hpf Ur Squamous Epith Cells 1 (0-4) /hpf Urine Mucus Rare H (None) /hpf 06/01/20 12:16 EKG shows sinus tachycardia with premature supraventricular complexes. Cannot rule out inferior infarct. Age-indeterminate. Ventricular rate of 102 bpm. PA interval is 132 ms. She scientologist is 88 ms. QT QTc is 44/526 ms. (Judith Brown) - Radiology Data CT of the brain and C-spine shows no acute fracture dislocation evident cervical spine. Demineralization multilevel degenerative changes are again seen. No acute intracranial hemorrhage or midline shift is seen. Moderate diffuse cervical atrophy and chronic small vessel ischemic changes are redemonstrated. L shoulder shows osseous structures are markedly demineralized with radiographic sensitivity. No acute fracture evident left shoulder. Monitor severe before meals joint narrowing. Distal acromial morphology is unremarkable. Moderate narrowing at the glenohumeral joint. Partial visualization of the mid distal humerus. Multiple age indeterminate but suspected old anterolateral lateral left mild rib fractures. Acute mildly displaced fracture of the left proximal clavicle was confirmed Chest x-ray shows no acute process of the airspace opacity pleural effusion or pneumothorax. Cardiac silhouette size is normal. Overlying cardiac leads. Aortic tactic. Osseous structures intact. Old left-sided rib fractures noted the fifth and sixth rib pelvis x-ray shows no acute fracture subluxation or dislocation in the pelvis or hip (Judith Brown) Disposition Is patient prescribed a controlled substance at d/c from ED?: No Time of Disposition: 14:34 <Judith Brown - Last Filed: 06/01/20 14:23> <Nancy Schultz - Last Filed: 06/07/20 19:18> Clinical Impression: Multiple falls, Clavicle fracture, MS (multiple sclerosis), Rhabdomyolysis Disposition: ADMITTED IP TO THIS HOSP Condition: Good
[2020-06-01 12:37] LABS: Basophils % (A) 0 %; Eosinophils % (A) 0 %; HCT 33.7 % (34.0-46.0); HGB 11.8 gm/dL (11.4-16.0); Lymphocytes # (A) 0.5 k/uL (1.0-4.8); Lymphocytes % (A) 7 %; MCH 33.7 pg (25.0-35.0); MCHC 35.1 g/dL (31.0-37.0); MCV 96.1 fL (80.0-100.0); Mean Platelet Volume 7.8; Monocytes # (A) 0.5 k/uL (0-1.0); Monocytes % (A) 7 %; Neutrophils # (A) 5.8 k/uL (1.3-7.7); Neutrophils % (A) 83 %; Platelet Count 150 k/uL (150-450); RBC 3.51 m/uL (3.80-5.40); RDW 13.9 % (11.5-15.5)
[2020-06-01 12:47] LABS: Albumin 3.5 g/dL (3.5-5.0); Calcium 8.4 mg/dL (8.4-10.2); Potassium 3.7 mmol/L (3.5-5.1); Total Bilirubin 1.2 mg/dL (0.2-1.3); Total Protein 6.4 g/dL (6.3-8.2)
[2020-06-01 12:54] LABS: INR 1.1 (<1.2); Prothrombin Time 11.2 sec (9.0-12.0)
[2020-06-01 13:02] LABS: Partial Thromboplastin Time 20.3 sec (22.0-30.0)
[2020-06-01 13:34] LABS: Appearance,Urine Clear (Clear); Bilirubin,Urine Negative (Negative); Blood,Urine Small (Negative); Color,Urine Yellow; Glucose,Urine (UA) Negative (Negative); Ketones,Urine Negative (Negative); Leukocyte Esterase,Urine Negative (Negative); Mucus,Urine Rare /hpf; Nitrite,Urine Negative (Negative); Protein,Urine Negative (Negative); RBC,Urine 1 /hpf (0-5); Specific Gravity,Urine 1.014 (1.001-1.035); Squamous Epithelial Cell,Urine 1 /hpf (0-4); Urobilinogen,Urine <2.0 mg/dL (<2.0); WBC,Urine 2 /hpf (0-5)
--- NOTE | 2020-06-01 13:36 | CT ---
EXAMINATION TYPE: CT brain cspine wo con DATE OF EXAM: 06/01/2020 COMPARISON: CT brain and cervical spine April 16, 2019. MRI brain cervical spine April 28, 2020. HISTORY: frequent falls with headache and neck pain. CT DLP: 1346.1 mGycm. Automated Exposure Control for Dose Reduction was Utilized. TECHNIQUE: CT scan of the head and cervical spine are performed without contrast. FINDINGS: There is no acute intracranial hemorrhage or midline shift identified. [id number] d iffuse ventricular and sulcal prominence greatest over the bilateral frontal lobes. Moderate low-atte nuation in the deep and periventricular white matter. No hydrocephalus. The calvarium is intact. The globes are intact and the visualized sinuses are clear. Cervical spine is visualized in its entirety from C1 through upper thoracic levels and redemonstrates straightened alignment without evidence of acute fracture or dislocation. Prevertebral soft tissue appears within normal limits. Osseous structures remain demineralized. The C1-C2 articulation remains within normal limits on the coronal images. Vertebral body heights and disc space heights are mainta ined. Large bridging anterior osteophytes in the thoracic spine are redemonstrated. Spinal canal is p reserved. Axial images should demonstrate multilevel uncovertebral facet degenerative changes contrib uting to multilevel bilateral neural foraminal narrowing. Lung apices show no pneumothorax. Small-siz ed thyroid redemonstrated. Moderate calcified plaque left carotid bulb again seen. There is new acute minimally displaced fracture left proximal clavicle without sternoclavicular joint dislocation . . A scending aortic aneurysm up to 3.9 cm axial image 95 redemonstrated. IMPRESSION: 1. There is no acute fracture or dislocation evident in the cervical spine. Demineralization and mult ilevel degenerative changes again seen. 2. No acute intracranial hemorrhage or midline shift is seen. Moderate diffuse cerebral atrophy and c hronic small vessel ischemic changes redemonstrated. 3. New acute minimally displaced fracture left proximal clavicle coronal image 10 for reference.
--- NOTE | 2020-06-01 14:07 | XR ---
EXAMINATION TYPE: XR shoulder complete LT DATE OF EXAM: 06/01/2020 CLINICAL HISTORY: Pain after fall. TECHNIQUE: Three views of the left shoulder are obtained. COMPARISON: Same day CT cervical spine study.. FINDINGS: Osseous structures are markedly demineralized which is noted to a radiographic sensitivity . There is no acute fracture/dislocation evident in the left shoulder. Moderate to severe narrowing a t the acromioclavicular joint. Distal acromial morphology is unremarkable. Mild to moderate narrowing at the glenohumeral joint. Partial visualization of fixating plate mid to distal humerus. There are multiple age-indeterminate but suspected old anterolateral and lateral left mid rib fractures. Correl ate clinically. Acute mildly displaced fracture left proximal clavicle is confirmed. IMPRESSION: As above.
--- NOTE | 2020-06-01 14:08 | XR ---
EXAMINATION TYPE: XR Hip RT and AP Pelvis DATE OF EXAM: 06/01/2020 COMPARISON: NONE HISTORY: Trauma and pain TECHNIQUE: A single AP view of the pelvis is obtained. Two views of the right hip are obtained. FINDINGS: There is no acute fracture/dislocation evident in the pelvis. The hip and sacroiliac join ts appear symmetric and unremarkable. The overlying soft tissue appears unremarkable. Two views of right hip show no acute fracture or dislocation. No focal lytic or sclerotic lesion see n in the proximal right femur. The overlying soft tissue is unremarkable. Bone mineralization is mi ldly reduced. There are vascular calcifications noted incidentally. Superficial calcifications latera lly within the proximal soft tissues of the right lower extremity may represent phleboliths. Degenera tive disc changes are noted in the visualized spine. IMPRESSION: There is no acute fracture or dislocation in the pelvis or right hip.
--- NOTE | 2020-06-01 14:10 | XR ---
EXAMINATION TYPE: XR chest 1V DATE OF EXAM: 06/01/2020 COMPARISON: Prior chest x-ray 04/28/2019 HISTORY: Trauma and pain TECHNIQUE: Single frontal view of the chest is obtained. FINDINGS: There is no focal air space opacity, pleural effusion, or pneumothorax seen. The cardiac silhouette size is stable. Patient is rotated. There are overlying cardiac leads. Aorta is ectatic. The osseous structures are intact, old left-sided rib fracture noted at the fifth rib, possibly sixth rib. IMPRESSION: No acute process. Additional findings above.
[2020-06-01] MEDS ORDERED: ONDANSETRON 4 MG/2 ML VIAL IVP STA (14:23)
[2020-06-01] MEDS ORDERED: MORPHINE SULFATE 4 MG/ML SYRINGE IV PRN (14:35)
[2020-06-01] MEDS ORDERED: ACETAMINOPHEN TAB 325 MG TAB PO PRN (14:35)
[2020-06-01] MEDS ORDERED: HYDROmorphone 0.5 MG/0.5 ML SYRINGE IVP PRN (14:35)
[2020-06-01] MEDS ORDERED: NALOXONE 0.4 MG/ML 1 ML VIAL IV PRN (14:35)
[2020-06-01] MEDS ORDERED: ONDANSETRON 4 MG/2 ML VIAL IVP PRN (14:35)
[2020-06-01] MEDS: SODIUM CHLORIDE 0.9% 1,000 ML IV SCH (15:14)
[2020-06-01] MEDS ORDERED: HYDROcodone/APAP 7.5-325MG 1 EACH TAB PO PRN (19:26)
[2020-06-01] MEDS ORDERED: ALPRAZolam 0.25 MG TAB PO PRN (19:26)
--- NOTE | 2020-06-01 19:40 | P.HPIM ---
History of Present Illness H&P Date: 06/01/20 Chief Complaint: MS excessive patient, worsening left-sided weakness, multiple falls, hypert 74-year-old female one of Dr. Honorio Curiel's patient with past medical history of multiple sclerosis, hypertension, hyperlipidemia and osteoporosis who had also severe neuropathy and weakness in the left side with history of seizure and treated with Dr. Purvis neurology for the last few years. Patient had 3 falls this last week with generalized trauma with no fracture bone. Was seen in demurs department today not been able to ambulate or walk with worsening pain and discomfort in her left side. Patient has significant worsening multiple sclerosis last time had a flareup and treatment was over 2 years ago. Patient was started on steroid IV we'll consult neurology admit patient to the hospital look for any secondary cause such as an infection like pneumonia or UTI. Review of Systems CONSTITUTIONAL: Well-developed no acute respiratory distress. EYES: No icterus sclerae, no conjunctivitis. EARS, NOSE, MOUTH, THROAT, and FACE: No sore throat, lymphadenopathy, carotid bruits or deformity. RESPIRATORY: No SOB cough or wheezes. CARDIOVASCULAR: No CP, Palpitation, PND, Orthopnea, or angina. GASTROINTESTINAL: No Abd pain, Nausea or vomiting, no Diarrhea or constipation, No GI Bleed, no distention or masses. GENITOURINARY: Negative for Hematuria or UTI, no kidney stones. Significant incontinence INTEGUMENT/BREAST: Negative for any muscular injury with mild osteoarthritis.. Generalized arthralgia and muscle pain. HEMATOLOGIC/LYMPHATIC: Negative for bleed or purpura. MUSCULOSKELTAL: Negative for Myalgia or arthralgia. NEURLOGICAL: No LOC, Sz or syncope, blurred vision dizziness or abnormality significant weakness of the left fifth right side is unknown balance and gait BEHAVIORAL/PSYCH: Negative. ENDOCRINE: Negative. Past Medical History Past Medical History: GERD/Reflux, Hyperlipidemia, Hypertension, Neurologic Disorder Additional Past Medical History / Comment(s): Right 5th metacarpal fx, hand in soft cast, neuropathy, MS History of Any Multi-Drug Resistant Organisms: None Reported Past Surgical History: Cholecystectomy Additional Past Surgical History / Comment(s): History of right hand surgery. Past Anesthesia/Blood Transfusion Reactions: No Reported Reaction Past Psychological History: No Psychological Hx Reported Past Alcohol Use History: None Reported Past Drug Use History: None Reported - Past Family History Sister(s) Family Medical History: Cancer Son(s) Family Medical History: Deep Vein Thrombosis (DVT) Medications and Allergies Home Medications Medication Instructions Recorded Confirmed Type Omeprazole [PriLOSEC] 40 mg PO DAILY 11/20/18 06/01/20 History Simvastatin [Zocor] 80 mg PO DAILY 11/20/18 06/01/20 History Alendronate Sodium [Fosamax] 70 mg PO MCMAHON 04/16/19 06/01/20 History ALPRAZolam [Xanax] 0.25 mg PO TID PRN 04/28/19 06/01/20 History Gabapentin 600 mg PO BID 04/28/19 06/01/20 History Hydrocodone/Acetaminophen [[place] 1 tab PO TID PRN 04/28/19 06/01/20 History 7.5-325] Ibuprofen [Motrin] 800 mg PO TID PRN 06/01/20 06/01/20 History Losartan Potassium [Cozaar] 50 mg PO DAILY 06/01/20 06/01/20 History levETIRAcetam [Keppra] 250 mg PO BID 06/01/20 06/01/20 History Allergies Allergy/AdvReac Type Severity Reaction Status Date / Time morphine Allergy PER PCP Verified 06/01/20 13:39 IV STEROIDS AdvReac Nausea Uncoded 06/01/20 14:49 Physical Exam Vitals: Vital Signs Temp Pulse Resp BP Pulse Ox 06/01/20 19:05 98.9 F 90 18 146/81 95 06/01/20 15:15 95 18 136/89 96 06/01/20 14:35 96 18 144/84 97 06/01/20 12:02 97.8 F 79 18 147/68 96 Intake and Output 06/01/20 06/01/20 06/01/20 06:59 14:59 22:59 Other: Weight 51.256 kg General Appearance: Alert, cooperative, no distress, appears stated age. Neck HEENT: Supple, no lymphadenopathy, no thyroid enlargement, no carotid bruits. Lungs: Clear to auscultation without crackles or wheezes no rhonchi, no deformity. Chest Wall: Chest wall normal expansion with deep inspiration no tenderness and no deformity was found on exam, no costochondral pain or discomfort. Heart: Regular rate and rhythm, S1, S2 normal, no murmur, rub or gallop. Back: Symmetric, no curvature, ROM normal, no CVA tenderness. Abdomen: Soft, non-tender, bowel sounds active all four quadrants, no masses, no organomegaly. Extremities: Extremities normal, atraumatic, no cyanosis or edema. Slight arthritis with scar tissue in the left upper extremity from previous surgery Pulses: 2+ and symmetric. Skin: Skin color, texture, tugor normal, no rashes or lesions. Neurologic: Alert oriented x3 cranial nerves II through XII intact, positive significant weakness in the left upper extremity compared to the right side with slight weakness in the left lower side stronger. Not able to do gait exam Results CBC & Chem 7: 06/01/20 12:06/01/20 12: Labs: Abnormal Lab Results - Last 24 Hours (Table) 06/01/20 06/01/20 06/01/20 Range/Units 12: 12: 12: RBC 3.51 L (3.80-5.40) m/uL Hct 33.7 L (34.0-46.0) % Lymphocytes # 0.5 L (1.0-4.8) k/uL APTT 20.3 L (22.0-30.0) sec Chloride 108 H (98-107) mmol/L BUN 18 H (7-17) mg/dL Creatinine 1.06 H (0.52-1.04) mg/dL Glucose 109 H (74-99) mg/dL AST 40 H (14-36) U/L Creatine Kinase 1051 H* (30-135) U/L Urine Blood (Negative) Urine Mucus (None) /hpf 06/01/20 Range/Units 13:03 RBC (3.80-5.40) m/uL Hct (34.0-46.0) % Lymphocytes # (1.0-4.8) k/uL APTT (22.0-30.0) sec Chloride (98-107) mmol/L BUN (7-17) mg/dL Creatinine (0.52-1.04) mg/dL Glucose (74-99) mg/dL AST (14-36) U/L Creatine Kinase (30-135) U/L Urine Blood Small H (Negative) Urine Mucus Rare H (None) /hpf Thrombosis Risk Factor Assmnt - DVT/VTE Prophylaxis DVT/VTE Prophylaxis: Mechanical Prophylaxis ordered Assessment and Plan Assessment: 1 multiple sclerosis exacerbation: Patient was started on steroid IV continue 250 mg IV every 8 hours and consult neurology for further management patient is currently not on any suppressive agent for MS she is seen neurology as an outpatient with no maintenance dose or course of this point. Continue to look for any secondary reason for MS exacerbation such as an infection. Continue pain control and management. 2 multiple falls with no bony trauma or injury continue to watch and was start PTOT at this point. 3 history of seizure with no flareup or seizure activity continue Keppra 250 mg twice a day. 4 hypertension: Remain on losartan 50 mg daily. 5 hyperlipidemia: Patient should not be on simvastatin 80 mg 2 found with extreme dose specially in her age with a multiple sclerosis will drop the dose to 40 mg at this point and furthermore probably switching it to different type of statin less side effect with muscle pain. 6 chronic neuropathy: Has been on gabapentin 6 in the milligrams twice a day. 7 osteoporosis: Has been on Fosamax along with calcium and vitamin D. 8 GI prophylaxis: Continue patient on pantoprazole 40 mg daily. 9 DVT prophylaxis: Patient will be on heparin 5000 units subcutaneous twice a day. CODE STATUS: Full code. Admit patient to the inpatient service for more than 2 night stay.
[2020-06-01] MEDS: GABAPENTIN 300 MG CAP PO SCH (23:24)
[2020-06-01] MEDS: levETIRAcetam 250 MG TAB PO SCH (23:24)
[2020-06-02] MEDS: SODIUM CHLORIDE 0.9% 1,000 ML IV SCH ×3 (00:41→15:26)
[2020-06-02 06:55] LABS: Glucose,Whole Blood 123 mg/dL (75-99)
[2020-06-02] MEDS: GABAPENTIN 300 MG CAP PO SCH ×2 (08:48→21:22)
[2020-06-02] MEDS: ATORVASTATIN 20 MG TAB PO SCH (08:48)
[2020-06-02] MEDS: LOSARTAN 50 MG TAB PO SCH (08:48)
[2020-06-02] MEDS: PANTOPRAZOLE 40 MG/10 ML VIAL IV SCH (08:49)
[2020-06-02] MEDS ORDERED: NON FORMULARY DRUG (Omeprazole 40 MG Capsule.Dr) PO SCH (09:00)
[2020-06-02] MEDS: levETIRAcetam 250 MG TAB PO SCH ×2 (09:12→21:22)
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
[2020-06-02 11:38] LABS: Glucose,Whole Blood 136 mg/dL (75-99)
--- NOTE | 2020-06-02 15:03 | P.PN ---
Subjective Progress Note Date: 06/02/20 HISTORY OF PRESENT ILLNESS 74-year-old female one of Dr. Honorio Curiel's patient with past medical history of multiple sclerosis, hypertension, hyperlipidemia and osteoporosis who had also severe neuropathy and weakness in the left side with history of seizure and treated with Dr. Purvis neurology for the last few years. Patient had 3 falls this last week with generalized trauma with no fracture bone. Was seen in demurs department today not been able to ambulate or walk with worsening pain and discomfort in her left side. Patient has significant worsening multiple sclerosis last time had a flareup and treatment was over 2 years ago. Patient was started on steroid IV we'll consult neurology admit patient to the hospital look for any secondary cause such as an infection like pneumonia or UTI. 06/02: Patient has been seen by neurology for possible MS exacerbation. He is change Solu-Medrol to 1 g IV piggyback daily for 3-5 days. B12, folate, TSH and vitamin D levels ordered. Consult with PT and OT added. Patient states she is feeling better today. Patient has been afebrile, heart rate 70, blood pressure 5/59, pulse ox 93-97% on room air. Patient normally follows with Dr. Purvis in the outpatient setting. REVIEW OF SYSTEMS CONSTITUTIONAL: Well-developed no acute respiratory distress. Weakness. EYES: No icterus sclerae, no conjunctivitis. EARS, NOSE, MOUTH, THROAT, and FACE: No sore throat, lymphadenopathy, carotid bruits or deformity. RESPIRATORY: No SOB cough or wheezes. CARDIOVASCULAR: No CP, Palpitation, PND, Orthopnea, or angina. GASTROINTESTINAL: No Abd pain, Nausea or vomiting, no Diarrhea or constipation, No GI Bleed, no distention or masses. GENITOURINARY: Negative for Hematuria or UTI, no kidney stones. Significant incontinence INTEGUMENT/BREAST: Negative for any muscular injury with mild osteoarthritis.. Generalized arthralgia and muscle pain. HEMATOLOGIC/LYMPHATIC: Negative for bleed or purpura. MUSCULOSKELTAL: Negative for Myalgia or arthralgia. NEURLOGICAL: No LOC, Sz or syncope, blurred vision dizziness or abnormality significant weakness of the left fifth right side is unknown balance and gait BEHAVIORAL/PSYCH: Negative. ENDOCRINE: Negative. PHYSICAL EXAMINATION General Appearance: Alert, cooperative, no distress, appears stated age. Neck HEENT: Supple, no lymphadenopathy, no thyroid enlargement, no carotid bruits. Lungs: Clear to auscultation without crackles or wheezes no rhonchi, no deformity. Chest Wall: Chest wall normal expansion with deep inspiration no tenderness and no deformity was found on exam, no costochondral pain or discomfort. Heart: Regular rate and rhythm, S1, S2 normal, no murmur, rub or gallop. Back: Symmetric, no curvature, ROM normal, no CVA tenderness. Abdomen: Soft, non-tender, bowel sounds active all four quadrants, no masses, no organomegaly. Extremities: Extremities normal, atraumatic, no cyanosis or edema. Slight arthritis with scar tissue in the left upper extremity from previous surgery Pulses: 2+ and symmetric. Skin: Skin color, texture, tugor normal, no rashes or lesions. Neurologic: Alert oriented x3 cranial nerves II through XII intact, positive significant weakness in the left upper extremity compared to the right side with slight weakness in the left lower side stronger. ASSESSMENT AND PLAN 1 multiple sclerosis exacerbation. Consult with neurology appreciated. Patient's currently on Solu-Medrol 1 g IV piggyback daily for 3-5 days. Blood work ordered for B12, folate, TSH and vitamin D levels. PT and OT consultation. Continue pain control and management. 2 multiple falls with no bony trauma or injury continue to watch and was start PTOT at this point. 3 history of seizure with no flareup or seizure activity continue Keppra 250 mg twice a day. 4 hypertension: Remain on losartan 50 mg daily. 5 hyperlipidemia: Patient should not be on simvastatin 80 mg 2 found with extreme dose specially in her age with a multiple sclerosis will drop the dose to 40 mg at this point and furthermore probably switching it to different type of statin less side effect with muscle pain. 6 chronic neuropathy: Has been on gabapentin 6 in the milligrams twice a day. 7 osteoporosis: Has been on Fosamax along with calcium and vitamin D. 8 GI prophylaxis: Continue patient on pantoprazole 40 mg daily. 9 DVT prophylaxis: Patient will be on heparin 5000 units subcutaneous twice a day. CODE STATUS: Full code. DISCHARGE PLAN Probable subacute rehab. PT and OT consults. Impression and plan of care have been directed as dictated by the signing phys marcia. Purvi Jimenez nurse practitioner acting as scribe for signing physician. Objective - Vital Signs Vital signs: Vital Signs Temp 97.5 F L 12/09/20 07:14 Pulse 69 06/02/20 07:14 Resp 16 06/02/20 07:14 BP 134/79 06/02/20 07:14 Pulse Ox 97 06/02/20 07:14 Intake & Output 06/01/20 06/02/20 06/02/20 18:59 06:59 18:59 Intake Total 1200 Balance 1200 Weight 51.256 kg 51.256 kg Intake: Intake, IV Titration 1200 Amount Sodium Chloride 0.9% 1, 1000 000 ml @ 130 mls/hr IV . Q7H42M JOSE Rx#:[id number] methylPREDNISolone SOD 200 SUCC 250 mg In Sodium Chloride 0.9% 100 ml @ 200 mls/hr IVPB Q6H JOSE Rx#:[id number] Other: # Voids 1 - Labs CBC & Chem 7: 06/01/20 12:26 06/01/20 12:26 Labs: Abnormal Lab Results - Last 24 Hours (Table) 06/01/20 06/01/20 06/01/20 Range/Units 12:26 12:26 12:26 RBC 3.51 L (3.80-5.40) m/uL Hct 33.7 L (34.0-46.0) % Lymphocytes # 0.5 L (1.0-4.8) k/uL APTT 20.3 L (22.0-30.0) sec Chloride 108 H (98-107) mmol/L BUN 18 H (7-17) mg/dL Creatinine 1.06 H (0.52-1.04) mg/dL Glucose 109 H (74-99) mg/dL POC Glucose (mg/dL) (75-99) mg/dL AST 40 H (14-36) U/L Creatine Kinase 1051 H* (30-135) U/L Urine Blood (Negative) Urine Mucus (None) /hpf 06/01/20 06/02/20 Range/Units 13:03 06:53 RBC (3.80-5.40) m/uL Hct (34.0-46.0) % Lymphocytes # (1.0-4.8) k/uL APTT (22.0-30.0) sec Chloride (98-107) mmol/L BUN (7-17) mg/dL Creatinine (0.52-1.04) mg/dL Glucose (74-99) mg/dL POC Glucose (mg/dL) 123 H (75-99) mg/dL AST (14-36) U/L Creatine Kinase (30-135) U/L Urine Blood Small H (Negative) Urine Mucus Rare H (None) /hpf
[2020-06-02 17:06] LABS: Glucose,Whole Blood 127 mg/dL (75-99)
[2020-06-02 20:30] LABS: Glucose,Whole Blood 138 mg/dL (75-99)
[2020-06-03] MEDS: SODIUM CHLORIDE 0.9% 1,000 ML IV SCH ×2 (00:57→05:40)
[2020-06-03 02:56] LABS: Folate, Serum 6.9 ng/mL
[2020-06-03 07:55] LABS: Glucose,Whole Blood 147 mg/dL (75-99)
[2020-06-03] MEDS: GABAPENTIN 300 MG CAP PO SCH ×2 (08:57→22:28)
[2020-06-03] MEDS: LOSARTAN 50 MG TAB PO SCH (08:57)
[2020-06-03] MEDS: levETIRAcetam 250 MG TAB PO SCH ×2 (08:57→22:28)
[2020-06-03] MEDS: ATORVASTATIN 20 MG TAB PO SCH (08:57)
[2020-06-03] MEDS: PANTOPRAZOLE 40 MG/10 ML VIAL IV SCH (08:58)
[2020-06-03] MEDS ORDERED: methylPREDNISolone SOD SUCC 1,000 MG in SODIUM CHLORIDE 0.9% 250 ML IVPB SCH (09:00)
[2020-06-03 10:22] LABS: African American GFR (CKD) 51.9 (60.0-200.0); Albumin 3.8 g/dL (3.80-4.90); Albumin/Globulin Ratio 1.81 (1.60-3.17); Anion Gap 12.4 mmol/L (4.00-12.00); BUN/Creat Ratio 22.5 Ratio (12.00-20.00); Calcium 7.9 mg/dL (8.7-10.3); Carbon Dioxide 19.6 mmol/L (21.6-31.8); Globulin 2.1 g/dL (1.6-3.3); Non-African American GFR(CKD) 44.8 (60.0-200.0); Potassium 3.5 mmol/L (3.5-5.5); Total Protein 5.9 g/dL (6.2-8.2)
--- NOTE | 2020-06-03 11:23 | P.PN ---
Subjective Progress Note Date: 06/03/20 HISTORY OF PRESENT ILLNESS 74-year-old female one of Dr. Honorio Curiel's patient with past medical history of multiple sclerosis, hypertension, hyperlipidemia and osteoporosis who had also severe neuropathy and weakness in the left side with history of seizure and treated with Dr. Purvis neurology for the last few years. Patient had 3 falls this last week with generalized trauma with no fracture bone. Was seen in demurs department today not been able to ambulate or walk with worsening pain and discomfort in her left side. Patient has significant worsening multiple sclerosis last time had a flareup and treatment was over 2 years ago. Patient was started on steroid IV we'll consult neurology admit patient to the hospital look for any secondary cause such as an infection like pneumonia or UTI. 06/02: Patient has been seen by neurology for possible MS exacerbation. He is change Solu-Medrol to 1 g IV piggyback daily for 3-5 days. B12, folate, TSH and vitamin D levels ordered. Consult with PT and OT added. Patient states she is feeling better today. Patient has been afebrile, heart rate 70, blood pressure 5/59, pulse ox 93-97% on room air. Patient normally follows with Dr. Purvis in the outpatient setting. 06/03: Patient started Solu-Medrol on the evening of June 01. This morning, we will change her to sign Medrol 1 g daily as advised by neurology. Patient feels that her strength is improving. She states she has been up to the bathroom without help. Patient complains that she was unable to sleep as her IV was sleeping all night. Patient has been afebrile, heart rate 86, blood pressure 115/71, pulse ox 97% on room air. Repeat blood work reveals CO2 19, potassium 3.5. Blood sugars running between 138 and 147. Anticipate discharge home sosa rrow. Discharge plan for the patient is to return home and son and [id number] help. REVIEW OF SYSTEMS CONSTITUTIONAL: Well-developed no acute respiratory distress. Weakness improving. EYES: No icterus sclerae, no conjunctivitis. EARS, NOSE, MOUTH, THROAT, and FACE: No sore throat, lymphadenopathy, carotid bruits or deformity. RESPIRATORY: No SOB cough or wheezes. CARDIOVASCULAR: No CP, Palpitation, PND, Orthopnea, or angina. GASTROINTESTINAL: No Abd pain, Nausea or vomiting, no Diarrhea or constipation, No GI Bleed, no distention or masses. GENITOURINARY: Negative for Hematuria or UTI, no kidney stones. Significant incontinence INTEGUMENT/BREAST: Negative for any muscular injury with mild osteoarthritis.. Generalized arthralgia and muscle pain. HEMATOLOGIC/LYMPHATIC: Negative for bleed or purpura. MUSCULOSKELTAL: Negative for Myalgia or arthralgia. NEURLOGICAL: No LOC, Sz or syncope, blurred vision dizziness or abnormality significant weakness of the left fifth right side is unknown balance and gait BEHAVIORAL/PSYCH: Negative. ENDOCRINE: Negative. PHYSICAL EXAMINATION General Appearance: Alert, cooperative, no distress, appears stated age. Neck HEENT: Supple, no lymphadenopathy, no thyroid enlargement, no carotid bruits. Lungs: Clear to auscultation without crackles or wheezes no rhonchi, no deformity. Chest Wall: Chest wall normal expansion with deep inspiration no tenderness and no deformity was found on exam, no costochondral pain or discomfort. Heart: Regular rate and rhythm, S1, S2 normal, no murmur, rub or gallop. Back: Symmetric, no curvature, ROM normal, no CVA tenderness. Abdomen: Soft, non-tender, bowel sounds active all four quadrants, no masses, no organomegaly. Extremities: Extremities normal, atraumatic, no cyanosis or edema. Slight arthritis with scar tissue in the left upper extremity from previous surgery Pulses: 2+ and symmetric. Skin: Skin color, texture, tugor normal, no rashes or lesions. Neurologic: Alert oriented x3 cranial nerves II through XII intact, positive weakness in the left upper extremity compared to the right side with slight weakness in the left lower side stronger. ASSESSMENT AND PLAN 1 multiple sclerosis exacerbation. Consult with neurology appreciated. Patient's currently on Solu-Medrol 1 g IV piggyback daily for 3-5 days. Blood work ordered for B12, folate, TSH and vitamin D levels. PT and OT consultation. Continue pain control and management. 2 multiple falls with no bony trauma or injury continue to watch and was start PTOT at this point. 3 history of seizure with no flareup or seizure activity continue Keppra 250 mg twice a day. 4 hypertension: Remain on losartan 50 mg daily. 5 hyperlipidemia: Patient should not be on simvastatin 80 mg 2 found with extreme dose specially in her age with a multiple sclerosis will drop the dose to 40 mg at this point and furthermore probably switching it to different type of statin less side effect with muscle pain. 6 chronic neuropathy: Has been on gabapentin 6 in the milligrams twice a day. 7 osteoporosis: Has been on Fosamax along with calcium and vitamin D. 8 GI prophylaxis: Continue patient on pantoprazole 40 mg daily. 9 DVT prophylaxis: Patient will be on heparin 5000 units subcutaneous twice a day. CODE STATUS: Full code. DISCHARGE PLAN Home with [facility] on Sunday. Impression and plan of care have been directed as dictated by the signing physician. Purvi Jimenez nurse practitioner acting as scribe for signing physician. Objective - Vital Signs Vital signs: Vital Signs Temp 97.8 F 06/03/20 02:08 Pulse 86 06/03/20 02:08 Resp 16 06/03/20 02:08 BP 115/71 06/03/20 02:08 Pulse Ox 97 06/03/20 02:08 Intake & Output 06/02/20 06/03/20 06/03/20 18:59 06:59 18:59 Other: # Voids 1 1 - Labs CBC & Chem 7: 06/01/20 12:26 06/03/20 06:29 Labs: Abnormal Lab Results - Last 24 Hours (Table) 06/02/20 06/02/20 06/02/20 Range/Units 11:29 11:36 17:02 POC Glucose (mg/dL) 136 H 127 H (75-99) mg/dL Vitamin B12 181.0 L (200.0-944.0) pg/mL Vitamin D 25-Hydroxy 9.8 L (30.0-100.0) ng/mL 06/02/20 Range/Units 20:28 POC Glucose (mg/dL) 138 H (75-99) mg/dL Vitamin B12 (200.0-944.0) pg/mL Vitamin D 25-Hydroxy (30.0-100.0) ng/mL
[2020-06-03 11:40] LABS: Glucose,Whole Blood 135 mg/dL (75-99)
[2020-06-03 16:44] LABS: Glucose,Whole Blood 141 mg/dL (75-99)
[2020-06-03] MEDS: CHOLECALCIFEROL 1,000 UNIT TAB PO SCH (17:21)
--- NOTE | 2020-06-03 17:28 | P.PN ---
Subjective Progress Note Date: 06/03/20 The patient was seen at bedside and she says that she feels the somewhat better today compared that to her initial presentation. She stated that the she's been having recurrent falls for the last 1 month. She denies of feeling lightheaded as, dizziness or diplopia. She said she just falls. She had about 5 falls she stated in the last 1 month. She denies any neck pain or back pain associated with this or any focal weakness when this happens. She denies her legs giving out when this happens. Denies any urinary bowel incontinence. She said for the last 1 month she would have a sensation of hot temperature going up her left lower extremity as well as upper extremity prior to the fall episodes. She denies any chest pain palpitation prior to episode. She denies any loss of consciousness with these episodes. She said that she had an MRI of the brain at outpatient where she sees Dr. Purvis and he did an EEG and as she said that he didn't not know the cause of her falls. She said that she is to be on Copaxone the but not any longer since her neurologist felt like her multiple sclerosis is doing better. She said that she was started on the Keppra for seizure prophylaxis. She said that that Dr. Purvis felt like possibly these episodes were seizure. She is on 250 mg 1 tablet twice a day. She said that she does have old weakness over the left side which is chronic but she doesn't use a walker. Upon reviewing the patient's record looks like the patient had MRI of the brain as well as a cervical spine on 04/28/2020 facility and was reported that it's the MRI of the brain was reported as multiple plaque within the bilateral deep white matter. Some of these have enlarged overt interval. No significant increase in number. While the MRI of the cervical spine is reported as there ma y be a couple of new plaques with in the cervical spine cord which can be compatible with multiple sclerosis. From this, I feel the patient probably had the falls are more than 4 weeks. Objective - Vital Signs Vital signs: Vital Signs Temp 99 F 06/03/20 14:00 Pulse 80 06/03/20 14:00 Resp 16 06/03/20 14:00 BP 110/51 06/03/20 14:00 Pulse Ox 95 06/03/20 14:00 Intake & Output 06/02/20 06/03/20 06/03/20 18:59 06:59 18:59 Intake Total 118 Balance 118 Intake: Oral 118 Other: # Voids 1 1 - Exam On examination patient is an elderly female, in no acute distress. Patient is alert and awake oriented to self place and time. Patient is following simple and complex commands. On cranial nerve examination pupils are round and reacting visual sterling are full, extra muscles are intact. Facial sensations normal. Face is symmetric and tongue protrudes the midline. Palatal elevation sensation normal. Hearing is slightly decreased, shoulder shrug normal. Speech is clear with no aphasia or dysarthria. Motor: Gait is assessed and patient had slow cautious steps. She was not swaying towards one side or the other. Muscle strength testing (right/left):Deltoid 5/5-, biceps 5/5-, triceps 5-/4+5-, front desk admin 5/5-. In the lower limbs hip flexion is 5-, knees/ankles and toes are normal bilaterally. Tone is mildly increased bulk of muscles is overall slightly decreased. Cerebellar: No significant dysmetria or ataxia was appreciated with finger to nose or heel to stokes. Sensory touch is equal throughout. Reflexes are brisk. Patient has upgoing bilaterally. - Labs CBC & Chem 7: 06/01/20 12:26 06/03/20 06:29 Labs: Abnormal Lab Results - Last 24 Hours (Table) 06/02/20 06/02/20 06/02/20 Range/Units 11:29 17:02 20:28 Chloride (96-109) mmol/L Carbon Dioxide (21.6-31.8) mmol/L Anion Gap (4.00-12.00) mmol/L Est GFR (CKD-EPI)AfAm (60.0-200.0) Est GFR (CKD-EPI)NonAf (60.0-200.0) BUN/Creatinine Ratio (12.00-20.00) Ratio Glucose (70-110) mg/dL POC Glucose (mg/dL) 127 H 138 H (75-99) mg/dL Calcium (8.7-10.3) mg/dL AST (13-35) U/L Total Protein (6.2-8.2) g/dL Vitamin B12 181.0 L (200.0-944.0) pg/mL Vitamin D 25-Hydroxy 9.8 L (30.0-100.0) ng/mL 06/03/20 06/03/20 06/03/20 Range/Units 06:29 07:53 11:39 Chloride 110 H (96-109) mmol/L Carbon Dioxide 19.6 L (21.6-31.8) mmol/L Anion Gap 12.40 H (4.00-12.00) mmol/L Est GFR (CKD-EPI)AfAm 51.9 L (60.0-200.0) Est GFR (CKD-EPI)NonAf 44.8 L (60.0-200.0) BUN/Creatinine Ratio 22.50 H (12.00-20.00) Ratio Glucose 143 H (70-110) mg/dL POC Glucose (mg/dL) 147 H 135 H (75-99) mg/dL Calcium 7.9 L (8.7-10.3) mg/dL AST 73 H (13-35) U/L Total Protein 5.9 L (6.2-8.2) g/dL Vitamin B12 (200.0-944.0) pg/mL Vitamin D 25-Hydroxy (30.0-100.0) ng/mL Assessment and Plan Assessment: * Recurrent falls, possible MS exacerbation. * Patient has ataxia, left more than right, uncertain new or old finding. * Acute Vitamin B12 deficiency * Mild delirium, likely due to steroids. * Relapsing remitting MS. * Vitamin D deficiency * Possible seizure disorder, on Keppra, controlled. * Left clavicle and rib fractures from previous fall * Osteoporosis. Plan: * Solu-Medrol 1 g IVPB daily for 3-5 days for possible MS exacerbation (today is day #2). I will change Solu-Medrol 1 g daily to 500 mg twice a day, reason for that is the 1gm there is a lot of side effects such as psychosis. * I will get MRI of the brain and the cervical spine with and without to rule out any new lesions. I understand the patient had MRI of the brain about a month ago in our facility. * Patient is not on any disease modifying drug for her multiple sclerosis which I highly recommend that she be and starts on one. She is to be on Copaxone but was discontinued according to the patient because her neurologist felt the she was doing well. May be one of the consideration is for the patient to follow-up in the multiple sclerosis clinic. * Vitamin B12: 181 is low. Therefore, I will START THE PATIENT ON THE VITAMIN B12 1000 G IM DAILY FOR THE NEXT 3 DAYS THEN SWITCH OVER TO BY MOUTH. * serum folate: 6.9 (normal). * TSH: 0.860 (normal) * Vitamin D: 9.8 (low). Will start Vitamin 1000 IU daily. * Patient is on Keppra 250 mg 1 tab twice a day started by her neurologist (Dr. Purvis) for seizure prophylaxis. I feel the dose is low if it is for seizure prophylaxis he should be at least 500 mg 1 tablet twice a day. From the sounds of that the patient states that she does not lose consciousness prior to the falls or after the falls, I highly doubt these are seizures. She said that she had an EEG at at her neurologist clinic and unsure of the finding. * PT OT evaluate gait. Patient may be a candidate for rehab. * The plan was discussed with the patient as well as the patient's nurse. Time with Patient: Greater than 30
[2020-06-03] MEDS: CYANOCOBALAMIN 1,000 MCG/ML 1 ML VIAL IM SCH (17:50)
[2020-06-03 21:14] LABS: Glucose,Whole Blood 143 mg/dL (75-99)
[2020-06-04 07:10] LABS: Glucose,Whole Blood 144 mg/dL (75-99)
[2020-06-04] MEDS: LOSARTAN 50 MG TAB PO SCH (07:11)
[2020-06-04] MEDS: CHOLECALCIFEROL 1,000 UNIT TAB PO SCH (07:11)
[2020-06-04] MEDS: CYANOCOBALAMIN 1,000 MCG/ML 1 ML VIAL IM SCH (07:11)
[2020-06-04] MEDS: GABAPENTIN 300 MG CAP PO SCH ×2 (07:11→21:27)
[2020-06-04] MEDS: ATORVASTATIN 20 MG TAB PO SCH (07:11)
[2020-06-04] MEDS: PANTOPRAZOLE 40 MG TABLET PO SCH (10:13)
[2020-06-04] MEDS: levETIRAcetam 250 MG TAB PO SCH ×2 (10:13→21:28)
--- NOTE | 2020-06-04 12:00 | P.PN ---
Subjective Progress Note Date: 06/04/20 HISTORY OF PRESENT ILLNESS 74-year-old female one of Dr. Honorio Curiel's patient with past medical history of multiple sclerosis, hypertension, hyperlipidemia and osteoporosis who had also severe neuropathy and weakness in the left side with history of seizure and treated with Dr. Purvis neurology for the last few years. Patient had 3 falls this last week with generalized trauma with no fracture bone. Was seen in demurs department today not been able to ambulate or walk with worsening pain and discomfort in her left side. Patient has significant worsening multiple sclerosis last time had a flareup and treatment was over 2 years ago. Patient was started on steroid IV we'll consult neurology admit patient to the hospital look for any secondary cause such as an infection like pneumonia or UTI. 06/02: Patient has been seen by neurology for possible MS exacerbation. He is change Solu-Medrol to 1 g IV piggyback daily for 3-5 days. B12, folate, TSH and vitamin D levels ordered. Consult with PT and OT added. Patient states she is feeling better today. Patient has been afebrile, heart rate 70, blood pressure 5/59, pulse ox 93-97% on room air. Patient normally follows with Dr. Purvis in the outpatient setting. 06/03: Patient started Solu-Medrol on the evening of June 01. This morning, we will change her to sign Medrol 1 g daily as advised by neurology. Patient feels that her strength is improving. She states she has been up to the bathroom without help. Patient complains that she was unable to sleep as her IV was sleeping all night. Patient has been afebrile, heart rate 86, blood pressure 115/71, pulse ox 97% on room air. Repeat blood work reveals CO2 19, potassium 3.5. Blood sugars running between 138 and 147. Anticipate discharge home sos[facility]. Discharge plan for the patient is to return home and son and [id number] help. 06/04: Neurology has changed dosing on Solu-Medrol to 500 mg every 12 hours and this seems to be better for the patient with less side effects. Neurology has also ordered MRI of the brain and cervical spine to rule out any new lesions. He is also recommended disease modifying drug to be considered when she follows up with Dr. Purvis. He has started her on vitamin B12 1000 g IM daily for the next 3 days then oral. Also vitamin D was started. There is also concern regarding dosing of Breath may be low for seizure control and this can also be evaluated by Dr. Purvis in the outpatient setting. She has been afebrile, heart rate 70, blood pressure 146/77, pulse ox 96% on room air. Plan for discharge home tomorrow. REVIEW OF SYSTEMS CONSTITUTIONAL: Well-developed no acute respiratory distress. Weakness improving. No fever. EYES: No icterus sclerae, no conjunctivitis. EARS, NOSE, MOUTH, THROAT, and FACE: No sore throat, lymphadenopathy, carotid bruits or deformity. RESPIRATORY: No SOB cough or wheezes. CARDIOVASCULAR: No CP, Palpitation, PND, Orthopnea, or angina. GASTROINTESTINAL: No Abd pain, Nausea or vomiting, no Diarrhea or constipation, No GI Bleed, no distention or masses. GENITOURINARY: Negative for Hematuria or UTI, no kidney stones. Significant incontinence INTEGUMENT/BREAST: Negative for any muscular injury with mild osteoarthritis.. Generalized arthralgia and muscle pain. HEMATOLOGIC/LYMPHATIC: Negative for bleed or purpura. MUSCULOSKELTAL: Negative for Myalgia or arthralgia. NEURLOGICAL: No LOC, Sz or syncope, blurred vision dizziness or abnormality significant weakness of the left fifth right side is unknown balance and gait BEHAVIORAL/PSYCH: Negative. ENDOCRINE: Negative. PHYSICAL EXAMINATION General Appearance: Alert, cooperative, no distress, appears stated age. Patient is found in bed, she appears to be in no acute distress. Weakness is improving. Neck HEENT: Supple, no lymphadenopathy, no thyroid enlargement, no carotid bruits. Lungs: Clear to auscultation without crackles or wheezes no rhonchi, no deformity. Chest Wall: Chest wall normal expansion with deep inspiration no tenderness and no deformity was found on exam, no costochondral pain or discomfort. Heart: Regular rate and rhythm, S1, S2 normal, no murmur, rub or gallop. Back: Symmetric, no curvature, ROM normal, no CVA tenderness. Abdomen: Soft, non-tender, bowel sounds active all four quadrants, no masses, no organomegaly. Extremities: Extremities normal, atraumatic, no cyanosis or edema. Slight arth ritis with scar tissue in the left upper extremity from previous surgery Pulses: 2+ and symmetric. Skin: Skin color, texture, tugor normal, no rashes or lesions. Neurologic: Alert oriented x3 cranial nerves II through XII intact, positive weakness in the left upper extremity compared to the right side with slight weakness in the left lower side stronger. ASSESSMENT AND PLAN 1 multiple sclerosis exacerbation. Consult with neurology appreciated. Patient's currently on Solu-Medrol 500 mg IV piggyback every 12 hours, vitamin B12 1000 g IM daily for 3 days and then oral, vitamin D, consider disease modifying drug when she follows up with Dr. Purvis. 2 multiple falls with no bony trauma or injury continue to watch and was start PTOT at this point. 3 history of seizure with no flareup or seizure activity continue Keppra 250 mg twice a day. 4 hypertension: Remain on losartan 50 mg daily. 5 hyperlipidemia: Patient should not be on simvastatin 80 mg 2 found with extreme dose specially in her age with a multiple sclerosis will drop the dose to 40 mg at this point and furthermore probably switching it to different type of statin less side effect with muscle pain. 6 chronic neuropathy: Has been on gabapentin 6 in the milligrams twice a day. 7 osteoporosis: Has been on Fosamax along with calcium and vitamin D. 8 GI prophylaxis: Continue patient on pantoprazole 40 mg daily. 9 DVT prophylaxis: Patient will be on heparin 5000 units subcutaneous twice a day. CODE STATUS: Full code. DISCHARGE PLAN Home with [facility] on Sunday Impression and plan of care have been directed as dictated by the signing physician. Purvi Jimenez nurse practitioner acting as scribe for signing physician. Objective - Vital Signs Vital signs: Vital Signs Temp 98.1 F 06/04/20 02:00 Pulse 68 06/04/20 02:00 Resp 16 06/04/20 02:00 BP 136/78 06/04/20 02:00 Pulse Ox 94 L 06/04/20 02:00 Intake & Output 06/03/20 06/04/20 06/04/20 18:59 06:59 18:59 Intake Total 340 Balance 340 Intake: Oral 340 Other: # Voids 2 3 - Labs CBC & Chem 7: 06/01/20 12:26 06/03/20 06:29 Labs: Abnormal Lab Results - Last 24 Hours (Table) 06/03/20 06/03/20 06/03/20 Range/Units 06:29 11:39 16:42 Chloride 110 H (96-109) mmol/L Carbon Dioxide 19.6 L (21.6-31.8) mmol/L Anion Gap 12.40 H (4.00-12.00) mmol/L Est GFR (CKD-EPI)AfAm 51.9 L (60.0-200.0) Est GFR (CKD-EPI)NonAf 44.8 L (60.0-200.0) BUN/Creatinine Ratio 22.50 H (12.00-20.00) Ratio Glucose 143 H (70-110) mg/dL POC Glucose (mg/dL) 135 H 141 H (75-99) mg/dL Calcium 7.9 L (8.7-10.3) mg/dL AST 73 H (13-35) U/L Total Protein 5.9 L (6.2-8.2) g/dL 06/03/20 06/04/20 Range/Units 21:13 07:09 Chloride (96-109) mmol/L Carbon Dioxide (21.6-31.8) mmol/L Anion Gap (4.00-12.00) mmol/L Est GFR (CKD-EPI)AfAm (60.0-200.0) Est GFR (CKD-EPI)NonAf (60.0-200.0) BUN/Creatinine Ratio (12.00-20.00) Ratio Glucose (70-110) mg/dL POC Glucose (mg/dL) 143 H 144 H (75-99) mg/dL Calcium (8.7-10.3) mg/dL AST (13-35) U/L Total Protein (6.2-8.2) g/dL
[2020-06-04 12:06] LABS: Glucose,Whole Blood 115 mg/dL (75-99)
[2020-06-04 16:57] LABS: Glucose,Whole Blood 130 mg/dL (75-99)
--- NOTE | 2020-06-04 18:17 | P.PN ---
Subjective Progress Note Date: 06/04/20 The patient was seen at bedside she said that she's doing much better today compared to her initial presentation. She feels much stronger today compared to her initial presentation. She said that she's been using her walker to get around without any difficulty. She is on the IV steroids 500 mg 1 tab twice a day at. Patient was started on the IV steroids on the June 01 2020 which will make A day #4. Objective - Vital Signs Vital signs: Vital Signs Temp 98.3 F 06/04/20 14:30 Pulse 84 06/04/20 13:13 Resp 18 06/04/20 13:13 BP 123/74 06/04/20 13:13 Pulse Ox 100 06/04/20 13:13 Intake & Output 06/03/20 06/04/20 06/04/20 18:59 06:59 18:59 Intake Total 340 236 Balance 340 236 Intake: Oral 340 236 Other: # Voids 2 3 - Exam On examination patient is an elderly female, in no acute distress. Patient is alert and awake oriented to self place and time. Patient is following simple and complex commands. On cranial nerve examination pupils are round and reacting visual sterling are full, extra muscles are intact. Facial sensations normal. Face is symmetric and tongue protrudes the midline. Palatal elevation sensation normal. Hearing is slightly decreased, shoulder shrug normal. Speech is clear with no aphasia or dysarthria. Motor: Gait is assessed and patient had slow cautious steps. She was not swaying towards one side or the other. Muscle strength testing (right/left):Deltoid 5/5-, biceps 5/5-, triceps 5-/4+5-, busher helper 5/5-. In the lower limbs hip flexion is 5-, knees/ankles and toes are normal bilaterally. Tone is mildly increased bulk of muscles is overall slightly decreased. Cerebellar: No significant dysmetria or ataxia was appreciated with finger to nose or heel to stokes. Sensory touch is equal throughout. Reflexes are brisk. Patient has upgoing bilaterally. - Labs CBC & Chem 7: 06/01/20 12:26 06/03/20 06:29 Labs: Abnormal Lab Results - Last 24 Hours (Table) 06/03/20 06/04/20 06/04/20 Range/Units 21:13 07:09 12:05 POC Glucose (mg/dL) 143 H 144 H 115 H (75-99) mg/dL 06/04/20 Range/Units 16:56 POC Glucose (mg/dL) 130 H (75-99) mg/dL Assessment and Plan Assessment: * Recurrent falls, possible MS exacerbation * Acute Vitamin B12 deficiency * Mild delirium, likely due to steroids. * Relapsing remitting MS. * Vitamin D deficiency * Possible seizure disorder, on Keppra, controlled. * Left clavicle and rib fractures from previous fall * Osteoporosis. Plan: * Solu-Medrol 1 g IVPB daily for 3-5 days for possible MS exacerbation (today is day #4). Continue IV Solu-Medrol 500 mg 1 tablet twice a day. * Pending MRI of the brain and the cervical spine to rule out any new and enhancing lesion. * Patient is not on any disease modifying drug for her multiple sclerosis which I highly recommend that she be and starts on one. * Vitamin B12: 181 is low. Continue VITAMIN B12 1000 G IM DAILY FOR THE NEXT 2 DAYS THEN SWITCH OVER TO BY MOUTH. * serum folate: 6.9 (normal). * TSH: 0.860 (normal) * Vitamin D: 9.8 (low). Continue Vitamin 1000 IU daily. * Patient is on Keppra 250 mg 1 tab twice a day started by her neurologist (Dr. Purvis) for seizure prophylaxis. I feel the dose is low if it is for seizure prophylaxis he should be at least 500 mg 1 tablet twice a day. From the sounds of that the patient states that she does not lose consciousness prior to the falls or after the falls, I highly doubt these are seizures. She said that she had an EEG at at her neurologist clinic and unsure of the finding. * PT OT evaluate gait. Patient may be a candidate for rehab. * Upon discharge the patient needs to follow-up with her neurologist (Dr. Purvis) within 1-2 weeks. The plan was discussed with the patient as well as the patient's nurse. Dr. Huddleston is covering neurology service over this weekend Time with Patient: Less than 30
--- NOTE | 2020-06-04 18:18 | MR ---
EXAMINATION TYPE: MR brain/cspine wo/w DATE OF EXAM: 06/04/2020 COMPARISON: 04/28/2020 HISTORY: Recurrent falls CONTRAST: Performed utilizing 5 mL intravenous Gadavist gadolinium contrast. TECHNIQUE: Multiplanar, multiecho imaging on a 3.0 Tayla magnet is performed through the brain. Stud y is performed within 24 hours of arrival to the hospital. The craniovertebral junction is normal. The pituitary is normal. Diffusion-weighted imaging is performed. No abnormal hyperintensity is present to suggest an acute i ntracranial infarct or acute ischemic change. Patchy infiltrates are present in the periventricular and deep white matter, findings were present pr eviously. Reference lesions right centrum semiovale 1.0 x 0.6 cm. Previous measurement 1.0 x 0.8 cm.Left trilob ar region measuring 2.3 x 1.1 cm. Previous measurement 1.6 x 1.5 cm Ventricles and sulci are appropriate for the patient age. IMPRESSIONS: 1. Patchy periventricular white matter changes, present previously can be related to multiple scleros is. Reference lesions are similar in size. Differential diagnosis includes microvascular ischemic dayna nge. EXAMINATION TYPE: MR brain/cspine wo/w DATE OF EXAM: 06/04/2020 COMPARISON: 04/28/2020 HISTORY: Recurrent falls CONTRAST: Performed utilizing 5 mL intravenous Gadavist gadolinium contrast. TECHNIQUE: Multiplanar multiecho imaging on a 3.0 Tayla magnet is performed through the cervical spin e. FINDINGS: The craniovertebral junction is normal. Vertebral body alignment is normal. Increased signals within the posterior cervical spinal cord posterior to the C3 level measuring 0.9 c m in size. A small area of increased signal is within the spinal cord measuring 0.5 cm posterior to t he C7 level. The upper spinal cord finding appears diminished in size over the interval. A mid cervical spine plaq ue is not visualized currently in the lower cervical spine signal abnormality appears to be new over the interval. No suspicious spinal canal stenosis or neural foraminal stenosis is present. No abnormal enhancement is evident. Vertebral body alignment is normal. IMPRESSIONS: 1. Signal abnormality within the cervical spine. A superior spinal cord signal abnormality is diminis hed in size over the interval with the lower cervical spine abnormality being new. A mid cervical spi ne abnormal signal area has resolved.
[2020-06-04 20:57] LABS: Glucose,Whole Blood 146 mg/dL (75-99)
[2020-06-05 07:25] LABS: Glucose,Whole Blood 139 mg/dL (75-99)
[2020-06-05 07:56] LABS: HCT 32.8 % (34.0-46.0); HGB 10.9 gm/dL (11.4-16.0); MCH 32.9 pg (25.0-35.0); MCHC 33.3 g/dL (31.0-37.0); MCV 98.8 fL (80.0-100.0); Macrocytosis Slight; Mean Platelet Volume 8.5; Platelet Count 176 k/uL (150-450); RBC 3.32 m/uL (3.80-5.40); RDW 14.9 % (11.5-15.5); WBC 6.5 k/uL (3.8-10.6)
[2020-06-05] MEDS: PANTOPRAZOLE 40 MG TABLET PO SCH (09:21)
[2020-06-05] MEDS: GABAPENTIN 300 MG CAP PO SCH (09:21)
[2020-06-05] MEDS: CHOLECALCIFEROL 1,000 UNIT TAB PO SCH (09:21)
[2020-06-05] MEDS: LOSARTAN 50 MG TAB PO SCH (09:21)
[2020-06-05] MEDS: CYANOCOBALAMIN 1,000 MCG/ML 1 ML VIAL IM SCH (09:22)
[2020-06-05] MEDS: ATORVASTATIN 20 MG TAB PO SCH (09:22)
[2020-06-05] MEDS: levETIRAcetam 250 MG TAB PO SCH (09:22)
[2020-06-05 09:31] VITALS: BP 141/81; PULSE 61; RESP 16; TEMP 98.4
[2020-06-05 11:31] LABS: Glucose,Whole Blood 126 mg/dL (75-99)
--- NOTE | 2020-06-05 12:16 | P.DS ---
Providers Date of admission: 06/01/20 14:35 Attending physician: Tito Perry Consults: 06/01/20 14:35 Consult Physician Stat Consulting Provider: Susie Prince Consult Reason/Comments: MS exacerbation, multiple falls Do you want consulting provider notified?: Yes Primary care physician: Honorio Curiel [facility] Course: 74-year-old female one of Dr. Honorio Curiel's patient with past medical history of multiple sclerosis, hypertension, hyperlipidemia and osteoporosis who had also severe neuropathy and weakness in the left side with history of seizure and treated with Dr. Purvis neurology for the last few years. Patient had 3 falls this last week with generalized trauma with no fracture bone. Was seen in demurs department today not been able to ambulate or walk with worsening pain and discomfort in her left side. Patient has significant worsening multiple sclerosis last time had a flareup and treatment was over 2 years ago. Patient was started on steroid IV we'll consult neurology admit patient to the hospital look for any secondary cause such as an infection like pneumonia or UTI. 06/02: Patient has been seen by neurology for possible MS exacerbation. He is change Solu-Medrol to 1 g IV piggyback daily for 3-5 days. B12, folate, TSH and vitamin D levels ordered. Consult with PT and OT added. Patient states she is feeling better today. Patient has been afebrile, heart rate 70, blood pressure 5/59, pulse ox 93-97% on room air. Patient normally follows with Dr. Purvis in the outpatient setting. 06/03: Patient started Solu-Medrol on the evening of June 01. This morning, we will change her to sign Medrol 1 g daily as advised by neurology. Patient feels that her strength is improving. She states she has been up to the bathroom without help. Patient complains that she was unable to sleep as her IV was sleeping all night. Patient has been afebrile, heart rate 86, blood pressure 115/71, pulse ox 97% on room air. Repeat blood work reveals CO2 19, potassium 3.5. Blood sugars running between 138 and 147. Anticipate discharge home tomorrow. Discharge plan for the patient is to return home and son and [id number] help. 06/04: Neurology has changed dosing on Solu-Medrol to 500 mg every 12 hours and this seems to be better for the patient with less side effects. Neurology has also ordered MRI of the brain and cervical spine to rule out any new lesions. He is also recommended disease modifying drug to be considered when she follows up with Dr. Purvis. He has started her on vitamin B12 1000 g IM daily for the next 3 days then oral. Also vitamin D was started. There is also concern regarding dosing of Breath may be low for seizure control and this can also be evaluated by Dr. Purvis in the outpatient setting. She has been afebrile, heart rate 70, blood pressure 146/77, pulse ox 96% on room air. Plan for discharge home tomorrow. 06/05: Patient is ambulatory in room. She is not having any complaints or concerns at this time. Patient is anxious to go home today. She has been afebrile. She will complete her last dose of vitamin B12 prior to discharge. Discharge diagnosis: 1 multiple sclerosis exacerbation. 2 multiple falls with no bony trauma or injury 3 history of seizure with no flareup or seizure activity 4 hypertension: 5 hyperlipidemia: 6 chronic neuropathy: 7 osteoporosis: DISCHARGE DISPOSITION Home with [facility] Impression and plan of care have been directed as dictated by the signing physician. Mirta Harrington nurse practitioner acting as scribe for signing physician. Patient Condition at Discharge: Good Plan - Discharge Summary Discharge Rx Participant: No New Discharge Prescriptions: New Cyanocobalamin [Vitamin B-12] 1,000 mcg PO DAILY #30 tablet Continue Simvastatin [Zocor] 80 mg PO DAILY Omeprazole [PriLOSEC] 40 mg PO DAILY Alendronate Sodium [Fosamax] 70 mg PO MCMAHON ALPRAZolam [Xanax] 0.25 mg PO TID PRN PRN Reason: Anxiety Hydrocodone/Acetaminophen [[place] 7.5-325] 1 tab PO TID PRN PRN Reason: Pain Gabapentin 600 mg PO BID levETIRAcetam [Keppra] 250 mg PO BID Losartan Potassium [Cozaar] 50 mg PO DAILY Ibuprofen [Motrin] 800 mg PO TID PRN PRN Reason: Pain Discharge Medication List Omeprazole [PriLOSEC] 40 mg PO DAILY 11/20/18 [History] Simvastatin [Zocor] 80 mg PO DAILY 11/20/18 [History] Alendronate Sodium [Fosamax] 70 mg PO MCMAHON 04/16/19 [History] ALPRAZolam [Xanax] 0.25 mg PO TID PRN 04/28/19 [History] Gabapentin 600 mg PO BID 04/28/19 [History] Hydrocodone/Acetaminophen [[place] 7.5-325] 1 tab PO TID PRN 04/28/19 [History] Ibuprofen [Motrin] 800 mg PO TID PRN 06/01/20 [History] Losartan Potassium [Cozaar] 50 mg PO DAILY 06/01/20 [History] levETIRAcetam [Keppra] 250 mg PO BID 06/01/20 [History] Cyanocobalamin [Vitamin B-12] 1,000 mcg PO DAILY #30 tablet 06/05/20 [Rx] Follow up Appointment(s)/Referral(s): Noah Purvis DO [STAFF PHYSICIAN] - 2 Weeks Honorio Curiel MD [Primary Care Provider] - 1-2 days Discharge Disposition: HOME SELF-CARE
[2020-06-05 12:33] LABS: African American GFR (CKD) 51.9 (60.0-200.0); Albumin 3.7 g/dL (3.80-4.90); Albumin/Globulin Ratio 1.76 (1.60-3.17); Anion Gap 11.9 mmol/L (4.00-12.00); BUN/Creat Ratio 23.33 Ratio (12.00-20.00); Calcium 7.6 mg/dL (8.7-10.3); Carbon Dioxide 24.1 mmol/L (21.6-31.8); Globulin 2.1 g/dL (1.6-3.3); Non-African American GFR(CKD) 44.8 (60.0-200.0); Potassium 2.9 mmol/L (3.5-5.5); Total Bilirubin 0.9 mg/dL (0.2-1.2); Total Protein 5.8 g/dL (6.2-8.2)
== END 2020-06-05 11:56 | disposition home or self-care (01) | DRG 59 ==
LOC: EC 11:47 → 5NMEDONC 14:35
PROVIDERS: ADMIT Internal Medicine Geriatric Medicine; ATTEND Internal Medicine Geriatric Medicine
DX: G35 Multiple sclerosis (principal); M62.82 Rhabdomyolysis; F05 Delirium due to known physiological condition; K21.9 Gastro-esophageal reflux disease without esophagitis; R29.6 Repeated falls; E78.5 Hyperlipidemia, unspecified; I10 Essential (primary) hypertension; G62.9 Polyneuropathy, unspecified; T38.0X5A Adverse effect of glucocorticoids and synthetic analogues, initial encounter; M81.0 Age-related osteoporosis without current pathological fracture; E55.9 Vitamin D deficiency, unspecified; R56.9 Unspecified convulsions; I49.1 Atrial premature depolarization; E53.8 Deficiency of other specified B group vitamins; R27.0 Ataxia, unspecified; S42.002A Fracture of unspecified part of left clavicle, initial encounter for closed fracture; W19.XXXA Unspecified fall, initial encounter; Z79.899 Other long term (current) drug therapy; Z91.81 History of falling; Z79.83 Long term (current) use of bisphosphonates; Z88.5 Allergy status to narcotic agent; Z88.8 Allergy status to other drugs, medicaments and biological substances; Z90.49 Acquired absence of other specified parts of digestive tract; Z98.890 Other specified postprocedural states; Z82.49 Family history of ischemic heart disease and other diseases of the circulatory system; Z80.9 Family history of malignant neoplasm, unspecified
CPT/HCPCS: 36415; 70450; 70553; 71045; 72125; 72156; 73502; 80053; 81001; 82306; 82550; 82607; 82746; 84443; 84484; 85025; 85027; 85610; 85730; 93005; 96361; 96365; 96366; 96375; 99285

== ENCOUNTER 2023-03-07 11:12 | Inpatient (IN) | payer MEDICARE ==
[2023-03-07] MEDS ORDERED: SODIUM CHLORIDE 0.9% 1,000 ML IV STA (11:55)
[2023-03-07] MEDS ORDERED: fentaNYL (PF) 50 MCG/ML 2 ML AMP IVP STA (11:56)
--- NOTE | 2023-03-07 12:47 | XR ---
EXAMINATION TYPE: XR chest 2V DATE OF EXAM: 03/07/2023 COMPARISON: 06/01/2020 TECHNIQUE: PA and lateral views submitted. HISTORY: Pain FINDINGS: The lungs are clear and there is no pneumothorax, pleural effusion, or focal pneumonia. Heart size normal and no overt failure. Osseous structures demonstrate hypertrophic and degenerative changes of the spine. Postsurgical change involving the humerus. Ectasia of the aorta suspected calcified lymph nodes and hilar. Diffuse osteopenia noted throughout the shoulders. Chronic appearing deformity of th e lateral left rib cage. Mild loss of superior endplate height thoracolumbar junction appears present on prior x-ray of 2019. IMPRESSION: 1. No acute process.
--- NOTE | 2023-03-07 12:48 | XR ---
EXAMINATION TYPE: XR elbow complete LT DATE OF EXAM: 03/07/2023 COMPARISON: NONE HISTORY: Pain FINDINGS: Three views of the elbow demonstrate soft tissue edema centered around elbow. Diffuse osteopenia and postsurgical change involving humerus. There appears to be a cortical step-off in the supracondylar p ortion of the humerus suggestive of an acute fracture. IMPRESSION: 1. Findings suggest acute supracondylar fracture of the humerus with displacement. Correlation with C T scan can be obtained for confirmation and to assess the previous surgical plate.
--- NOTE | 2023-03-07 12:50 | XR ---
EXAMINATION TYPE: XR forearm LT DATE OF EXAM: 03/07/2023 COMPARISON: NONE HISTORY: Pain Two views of the forearm demonstrate soft tissue edema centered around elbow. Diffuse osteopenia and postsurgical change involving humerus. There appears to be a cortical step-off in the supracondylar p ortion of the humerus suggestive of an acute fracture. Chronic deformity of the distal ulna. Radiocar pal joint and first carpometacarpal joint arthropathy. IMPRESSION: 1. Findings suggest acute supracondylar fracture of the humerus with displacement. Correlation with C T scan can be obtained for confirmation and to assess the previous surgical plate.
--- NOTE | 2023-03-07 12:51 | XR ---
EXAMINATION TYPE: XR humerus LT DATE OF EXAM: 03/07/2023 COMPARISON: NONE HISTORY: Pain TECHNIQUE: 2 views submitted. FINDINGS: Two views of the humerus demonstrate soft tissue edema centered around elbow. Diffuse osteopenia and postsurgical change involving humerus. There appears to be a cortical step-off in the supracondylar p ortion of the humerus suggestive of an acute fracture. Chronic appearing rib deformities are noted. A C joint arthropathy. IMPRESSION: 1. Findings suggest acute supracondylar fracture of the humerus with displacement. Correlation with C T scan can be obtained for confirmation and to assess the previous surgical plate.
--- NOTE | 2023-03-07 12:54 | XR ---
EXAMINATION TYPE: XR pelvis AP view DATE OF EXAM: 03/07/2023 COMPARISON: NONE HISTORY: Pain Findings: There is severe degenerative change lower lumbar spine. SI joint arthropathy. Assessment of the right hip is limited due to internal rotation. Chronic appearing deformity of the pubic rami on the right. Concentric narrowing in joint bilaterally with diffuse osteopenia. Vascular calcifications noted. No acute fracture is seen. Visualized bowel gas pattern is nonspecific. IMPRESSION: 1. Assessment the right hip is limited due to internal rotation there is right hip pain recommend CT scan. 2. Chronic appearing deformity of the right pubic rami correlate with point tenderness.
[2023-03-07 13:39] LABS: Basophils % (A) 0 %; Eosinophils % (A) 1 %; HCT 35.9 % (34.0-46.0); HGB 11.9 gm/dL (11.4-16.0); Lymphocytes # (A) 0.7 k/uL (1.0-4.8); Lymphocytes % (A) 11 %; MCH 30.3 pg (25.0-35.0); MCHC 33.2 g/dL (31.0-37.0); MCV 91.3 fL (80.0-100.0); Mean Platelet Volume 7.8; Monocytes # (A) 0.5 k/uL (0-1.0); Monocytes % (A) 7 %; Neutrophils # (A) 5.3 k/uL (1.3-7.7); Neutrophils % (A) 80 %; Platelet Count 147 k/uL (150-450); RBC 3.93 m/uL (3.80-5.40); RDW 14.5 % (11.5-15.5); WBC 6.7 k/uL (3.8-10.6)
[2023-03-07 13:47] LABS: Partial Thromboplastin Time 23.3 sec (22.0-30.0); Prothrombin Time 10.3 sec (9.0-12.0)
[2023-03-07 13:59] LABS: ALT 14 U/L (4-34); African American GFR (CKD) 64 (>60 ml/min/1.73 sqM); Albumin 3.7 g/dL (3.5-5.0); Anion Gap 6 mmol/L; Blood Urea Nitrogen 15 mg/dL (7-17); Calcium 8.8 mg/dL (8.4-10.2); Carbon Dioxide 25 mmol/L (22-30); Chloride 107 mmol/L (98-107); Glucose 107 mg/dL (74-99); Magnesium 1.3 mg/dL (1.6-2.3); Non-African American GFR(CKD) 56 (>60 ml/min/1.73 sqM); Sodium 138 mmol/L (137-145); Total Bilirubin 1.3 mg/dL (0.2-1.3); Total Protein 6.5 g/dL (6.3-8.2)
[2023-03-07 14:02] LABS: Potassium 5.2 mmol/L (3.5-5.1)
[2023-03-07 14:03] LABS: AST 48 U/L (14-36); Alkaline Phosphatase 78 U/L (38-126)
[2023-03-07] MEDS ORDERED: NALOXONE 0.4 MG/ML 1 ML VIAL IV PRN (14:10)
[2023-03-07] MEDS ORDERED: ALPRAZolam 0.25 MG TAB PO PRN (14:12)
[2023-03-07] MEDS ORDERED: IBUPROFEN 800 MG TAB PO PRN (14:12)
[2023-03-07] MEDS ORDERED: HYDROcodone/APAP 7.5-325MG 1 EACH TAB PO PRN (14:12)
[2023-03-07] MEDS ORDERED: MAGNESIUM SULFATE-D5W PMX 1 GM in DEXTROSE/WATER 1 100ML.BAG IVPB ONE (14:34)
--- NOTE | 2023-03-07 14:58 | CT ---
EXAMINATION TYPE: CT elbow LT wo con CT DLP: 568.1 mGycm, Automated exposure control for dose reduction was used. DATE OF EXAM: 03/07/2023 2:38 PM COMPARISON: . Extremity radiograph same day. CLINICAL INDICATION:Female, 77 years old with history of Left distal humerus fracture; PHH, Left elbo w pain post fall. TECHNIQUE: Axial images were obtained of the left elbow . Additional coronal and sagittal reformatte d images and soft tissue and bone window were obtained for review. . Contrast used: On Oral contrast used: None FINDINGS: Comminuted distal humerus fracture with intra-articular extension. Fixation hardware partia lly visualized and appears intact. No definitive fracture line extending along the fixation hardware. Streak artifact and artifact from patient's body limits evaluation. Lucency seen on series 202 image 23 through the olecranon process is also visualized. IMPRESSION: 1. Comminuted right distal humerus superior condylar fracture with intra-articular extension. Evalua tion somewhat limited given patient positioning. 2. Possible olecranon process fracture with curvilinear lucency seen on one image only. Finding coul d represent nutrient foramen.
--- NOTE | 2023-03-07 15:48 | ED ---
General Adult HPI - General Chief complaint: Fall Stated complaint: Fall, no Thinners Time Seen by Provider: 03/07/23 11:25 Source: patient Mode of arrival: EMS Limitations: physical limitation - History of Present Illness Initial comments: Patient is a 77 -year-old female who presents emergency Department after a fall. Patient is a history of MS as well as frequent falls. States she intermittently feels lightheaded. States she was walking when she fell off balance and fell again. Recently fell last year and broke her pelvis on the right as well as fell a few months ago and broke some ribs. Currently is only complaining of left elbow pain. Did not hit her head. Did not lose consciousness. His no other acute complaints or injuries. He does have a walker at baseline. Lives by herself. Is not on blood thinners. Does have a history of prior left humeral repair when she was younger. His no other acute complaints at this time. Presents after fall over concern for injury to her left elbow. - Related Data Home Medications Medication Instructions Recorded Confirmed Omeprazole [PriLOSEC] 40 mg PO DAILY 11/20/18 03/07/23 Simvastatin [Zocor] 80 mg PO DAILY 11/20/18 03/07/23 ALPRAZolam [Xanax] 0.25 mg PO HS 04/28/19 03/07/23 Hydrocodone/Acetaminophen [[place] 1 tab PO TID PRN 04/28/19 03/07/23 7.5-325] Ibuprofen [Motrin] 800 mg PO TID PRN 06/01/20 03/07/23 ALPRAZolam [Xanax] 0.25 mg PO BID PRN 03/07/23 03/07/23 DULoxetine HCL [Cymbalta] 20 mg PO BID 03/07/23 03/07/23 Potassium Chloride ER [K-Dur 10] 10 meq PO DAILY 03/07/23 03/07/23 Allergies Allergy/AdvReac Type Severity Reaction Status Date / Time morphine Allergy PER PCP Verified 03/07/23 13:35 IV STEROIDS AdvReac Nausea Uncoded 03/07/23 13:35 Review of Systems ROS Statement: Those systems with pertinent positive or pertinent negative responses have been documented in the HPI. Review of Systems: CONST: Denies fever EYES: Denies blurry vision ENT: Denies nasal congestion C/V: Denies Chest pain RESP: Denies shortness of breath GI: Denies abdominal pain : Denies dysuria SKIN: Denies rash. MSK: Endorses left elbow pain. NEURO: Denies headache ROS Other: All systems not noted in ROS Statement are negative. Past Medical History Past Medical History: GERD/Reflux, Hyperlipidemia, Hypertension, Neurologic Disorder Additional Past Medical History / Comment(s): Right 5th metacarpal fx, hand in soft cast, neuropathy, MS History of Any Multi-Drug Resistant Organisms: None Reported Past Surgical History: Cholecystectomy Additional Past Surgical History / Comment(s): History of right hand surgery. Past Anesthesia/Blood Transfusion Reactions: No Reported Reaction Past Psychological History: No Psychological Hx Reported Smoking Status: Never smoker Past Alcohol Use History: None Reported Past Drug Use History: None Reported - Past Family History Sister(s) Family Medical History: Cancer Son(s) Family Medical History: Deep Vein Thrombosis (DVT) General Exam - General Exam Comments Initial Comments: General: Appears in mild distress. HEAD: Normal with no signs of head trauma. Negative harrison sign. Negative raccoon eyes. EYES: PERRLA, EOMI, conjunctiva normal, no discharge. Pupils are 2 mm and equal bilaterally. ENT: Hearing grossly intact, normal oropharynx. RESPIRATORY: Clear breath sounds bilaterally. No wheezes, rales, or rhonchi. C/V: Regular rate and rhythm. S1 and S2 auscultated, peripheral pulses 2+ and intact throughout ABD: Abd is soft, nontender, nondistended EXT: Tetanus palpation over the left elbow. No obvious deformity palpated. Reduced range of motion of the left elbow as well. Neurovascular intact in left upper extremity. SKIN: No abrasions or lacerations or skin changes. NEURO: Alert and oriented 4. GCS of 15. Limitations: physical limitation Course Vital Signs 03/07/23 11:24 Temperature 97.6 F Pulse Rate 79 Respiratory 15 Rate Blood Pressure 132/75 O2 Sat by Pulse 97 Oximetry Procedures - Orthopedic Splinting/Casting Injury #1 Side: left Upper Extremity Injury Location: long arm Upper Extremity Immobilizer: posterior splint, sugar tong splint Medical Decision Making - Medical Decision Making Was pt. sent in by a medical professional or institution (, PA, FAUCETS ASSEMBLER, urgent care, hospital, or correction...) When possible be specific @ -No Did you speak to anyone other than the patient for history (EMS, parent, family, police, friend...)? What history was obtained from this source @ -Patient's son is at bedside. After discussion patient's son and patient, patient would like to be admitted for placement as she lives by herself and is unsafe discharge home with a broken elbow. She is walker dependent. Did you review nursing and triage notes (agree or disagree)? Why? @ -I reviewed and agree with nursing and triage notes Were old charts reviewed (outside hosp., previous admission, EMS record, old EKG, old radiological studies, urgent care reports/EKG's, correction records)? Report findings @ -No old charts were reviewed Differential Diagnosis (chest pain, altered mental status, abdominal pain women, abdominal pain men, vaginal bleeding, weakness, fever, dyspnea, syncope, headache, dizziness, GI bleed, back pain, seizure, CVA, palpatations, mental health, musculoskeletal)? @ -Differential Musculoskeletal Muscular strain, contusion, ligament sprain, fracture, arthritis, septic arthritis, bursitis, cellulitis, muscle spasm, nerve compression, DVT, arterial occlusion, herpes zoster, electrolyte abnormality, tumor.... This is not meant to be in all inclusive list EKG interpreted by me (3pts min.). @ -As above X-rays interpreted by me (1pt min.). @ -X-rays of the chest unremarkable for any acute process. X-ray of the pelvis shows the old pubic rami fracture. This is known to the patient. It is 1-year-old. Patient's left upper extremity x-rays reveal a left supracondylar fracture. CT interpreted by me (1pt min.). @ -Pending U/S interpreted by me (1pt. min.). @ -None done What testing was considered but not performed or refused? (CT, X-rays, U/S, labs)? Why? @ -None What meds were considered but not given or refused? Why? @ -None Did you discuss the management of the patient with other professionals (professionals i.e. , PA, FAUCETS ASSEMBLER, lab, RT, psych nurse, social studies department chair, dimension warehouse supervisor, teacher, contract officer, therapeutic case manager)? Give summary @ -Discussed with Esme Elizondo Branch of orthopedics who after discussion believes they may not intervene on this fracture. Recommended medicine admission with them on his consult. He'll order a CT of the left elbow as well. Spoke with Dr. Charlie Jung [facility] accepted the admission. Was smoking cessation discussed for >3mins.? @ -No Was critical care preformed (if so, how long)? @ -No Were there social determinants of health that impacted care today? How? (Homelessness, low income, unemployed, alcoholism, drug addiction, transportation, low edu. Level, literacy, decrease access to med. care, penitentiary, rehab)? @ -No Was there de-escalation of care discussed even if they declined (Discuss DNR or withdrawal of care, Hospice)? DNR status @ -No What co-morbidities impacted this encounter? (DM, HTN, Smoking, COPD, CAD, Cancer, CVA, ARF, Chemo, Hep., AIDS, mental health diagnosis, sleep apnea, morbid obesity)? @ -None Was patient admitted / discharged? Hospital course, mention meds given and route, prescriptions, significant lab abnormalities, going to OR and other pertinent info. @ -Based On the patient's presentation and physical exam, I'm concerned for left elbow injury. We will obtain basic labs, screening EKG, as well as imaging of the chest, pelvis, left arm. She was in agreement this plan. Vital signs within acceptable limits. She'll be given a IV fluid bolus, as well as IV pain medications. Imaging remarkable for left supracondylar fracture of the elbow. There is also a chronic pubic rami fracture on x-ray of the pelvis. Labs remarkable for a hypomagnesemia of 1.3. This was replenished. I updated the patient. Patient was splinted and tolerated the procedure well. I spoke with orthopedics on-call, IMTA elizondo who recommended medicine admitted due to patient's comorbidities he is unsure if surgery will be obtained. Recommend ed CT imaging and he will order to further evaluate the fracture. Is in agreement with this plan. She'll be admitted for Minimal placement, and possible intervention by orthopedics. I spoke with the admitting team, Dr. Araujo who accepted the admission. Undiagnosed new problem with uncertain prognosis? @ -No Drug Therapy requiring intensive monitoring for toxicity (Heparin, Nitro, Insulin, Cardizem)? @ -No Were any procedures done? @ -No Diagnosis/symptom? @ -Fall, left supracondylar fracture, hypomagnesemia Acute, or Chronic, or Acute on Chronic? @ -Acute Uncomplicated (without systemic symptoms) or Complicated (systemic symptoms)? @ -Complicated Side effects of treatment? @ -No Exacerbation, Progression, or Severe Exacerbation? @ -No Poses a threat to life or bodily function? How? (Chest pain, [place], [place], pneumonia, PE, COPD, DKA, ARF, appy, cholecystitis, CVA, Diverticulitis, Homicidal, Suicidal, threat to staff... and all critical care pts) @ -No Diagnosis/symptom? @ -Admitted for placement Acute, or Chronic, or Acute on Chronic? @ -Acute Uncomplicated (without systemic symptoms) or Complicated (systemic symptoms)? @ -Uncomplicated Side effects of treatment? @ -none Exacerbation, Progression, or Severe Exacerbation] @ -no Poses a threat to life or bodily function? @ -no - Lab Data Result diagrams: 03/07/23 13:21 03/07/23 13:21 Lab Results 03/07/23 03/07/23 03/07/23 Range/Units 13:21 13:21 13:21 WBC 6.7 (3.8-10.6) k/uL RBC 3.93 (3.80-5.40) m/uL Hgb 11.9 (11.4-16.0) gm/dL Hct 35.9 (34.0-46.0) % MCV 91.3 (80.0-100.0) fL MCH 30.3 (25.0-35.0) pg MCHC 33.2 (31.0-37.0) g/dL RDW 14.5 (11.5-15.5) % Plt Count 147 L (150-450) k/uL MPV 7.8 Neutrophils % 80 % Lymphocytes % 11 % Monocytes % 7 % Eosinophils % 1 % Basophils % 0 % Neutrophils # 5.3 (1.3-7.7) k/uL Lymphocytes # 0.7 L (1.0-4.8) k/uL Monocytes # 0.5 (0-1.0) k/uL Eosinophils # 0.0 (0-0.7) k/uL Basophils # 0.0 (0-0.2) k/uL PT 10.3 (9.0-12.0) sec INR 1.0 (<1.2) APTT 23.3 (22.0-30.0) sec Sodium 138 (137-145) mmol/L Potassium 5.2 H (3.5-5.1) mmol/L Chloride 107 (98-107) mmol/L Carbon Dioxide 25 (22-30) mmol/L Anion Gap 6 mmol/L BUN 15 (7-17) mg/dL Creatinine 0.99 (0.52-1.04) mg/dL Est GFR (CKD-EPI)AfAm 64 (>60 ml/min/1.73 sqM) Est GFR (CKD-EPI)NonAf 56 (>60 ml/min/1.73 sqM) Glucose 107 H (74-99) mg/dL Calcium 8.8 (8.4-10.2) mg/dL Magnesium 1.3 L (1.6-2.3) mg/dL Total Bilirubin 1.3 (0.2-1.3) mg/dL AST 48 H (14-36) U/L ALT 14 (4-34) U/L Alkaline Phosphatase 78 (38-126) U/L Total Protein 6.5 (6.3-8.2) g/dL Albumin 3.7 (3.5-5.0) g/dL - EKG Data -: EKG Interpreted by Me EKG Comments: 12-lead Electrocardiogram Interpretation Note EKG was reviewed and interpreted by myself. 12-lead ECG performed at 1315 is interpreted by me as revealing normal sinus rhythm at a rate of 84 beats per minute. [place] is normal. RI interval is 174 seconds, QRS durations 102 ms, QTc is 443 ms.. There were no ST or T wave abnormalities to suggest myocardial ischemia or injury. R wave progression across the precordium was satisfactory. By my interpretation this EKG is non-diagnostic for acute ischemia. Disposition Clinical Impression: Fall, Hypomagnesemia, Left supracondylar humerus fracture Disposition: ADMITTED IP TO THIS HOSP Condition: Stable Time of Disposition: 13:55
--- NOTE | 2023-03-07 18:13 | P.HPOR ---
History of Present Illness H&P Date: 03/07/23 Chief Complaint: Left elbow supracondylar fracture Patient is a 77 showed female who was brought to [facility] today for evaluation after a fall. Patient has a history of MS with frequent falls. Patient states that she lost her balance today falling onto her left upper extremity. Patient had immediate pain and discomfort of the left elbow. Upon arrival to the hospital, imaging and lab tests were obtained. Images did demonstrate a highly displaced left supracondylar fracture. I was contacted by the emergency room staff regarding this patient, I was able to review the case with my attending Dr. Poe. Patient was admitted under internal medicine with plan for likely subacute rehab placement, our orthopedic team was then placed on consult. Patient was evaluated both by my attending and myself today in the emergency room. Patient was placed in a well-padded posterior splint to the left upper extremity, she has been utilizing a sling also. Patient has multiple family members with her today at bedside. She is resting comfortably, she does note some minor discomfort in the left elbow with movement. She denies any pain of the bilateral lower extremities or right upper extremity. She denies any headaches, lightheadedness, vision changes, chest pain or shortness of breath at this time. She denies hitting her head during the fall. She denies any numbness or tingling to the left upper extremity at this time. Patient has a history of a fall a few months ago which resulted in some fractures that she's been dealing with on the right-hand side. She denies any previous history to the left wrist. She does have a history of a previous left humerus fracture that involved surgical repair when she was in her early 20s. Review of Systems Constitutional: Reports as per HPI Past Medical History Past Medical History: GERD/Reflux, Hyperlipidemia, Hypertension, Neurologic Disorder Additional Past Medical History / Comment(s): Right 5th metacarpal fx, hand in soft cast, neuropathy, MS History of Any Multi-Drug Resistant Organisms: None Reported Past Surgical History: Cholecystectomy Additional Past Surgical History / Comment(s): History of right hand surgery. Past Anesthesia/Blood Transfusion Reactions: No Reported Reaction Past Psychological History: No Psychological Hx Reported Smoking Status: Never smoker Past Alcohol Use History: None Reported Past Drug Use History: None Reported - Past Family History Sister(s) Family Medical History: Cancer Son(s) Family Medical History: Deep Vein Thrombosis (DVT) Medications and Allergies Home Medications Medication Instructions Recorded Confirmed Type RX: Omeprazole [PriLOSEC] 40 mg PO DAILY 11/20/18 03/07/23 History RX: Simvastatin [Zocor] 80 mg PO DAILY 11/20/18 03/07/23 History RX: ALPRAZolam [Xanax] 0.25 mg PO HS 04/28/19 03/07/23 History RX: Hydrocodone/Acetaminophen 1 tab PO TID PRN 04/28/19 03/07/23 History [Erin 7.5-325] RX: Ibuprofen [Motrin] 800 mg PO TID PRN 06/01/20 03/07/23 History ALPRAZolam [Xanax] 0.25 mg PO BID PRN 03/07/23 03/07/23 History DULoxetine HCL [Cymbalta] 20 mg PO BID 03/07/23 03/07/23 History Potassium Chloride ER [K-Dur 10] 10 meq PO DAILY 03/07/23 03/07/23 History Allergies Allergy/AdvReac Type Severity Reaction Status Date / Time morphine Allergy PER PCP Verified 03/07/23 13:35 IV STEROIDS AdvReac Nausea Uncoded 03/07/23 13:35 Physical Examination Osteopathic Statement: *. No significant issues noted on an osteopathic structural exam other than those noted in the History and Physical/Consult. Left upper extremity: Patient is in a well-padded posterior arm splint that extends from mid humerus down past the elbow and the hand. She is utilizing a sling at this time. Patient is able to wiggle all the fingers with no difficulty. Her sensation to light touch both distal and proximal to the splint are intact. Her cap refill is less than 3 seconds. Patient has no pain with passive range of motion of the shoulder. Gen. orthopedic exam: No point tenderness with palpation throughout the right upper extremity and bilateral lower extremities. Range of motion is intact in all major muscle groups of the right upper extremity and bilateral lower extremities, no focal deficits. Results - Labs Labs: Abnormal Lab Results - Last 24 Hours (Table) 03/07/23 03/07/23 Range/Units 13:21 13:21 Plt Count 147 L (150-450) k/uL Lymphocytes # 0.7 L (1.0-4.8) k/uL Potassium 5.2 H (3.5-5.1) mmol/L Glucose 107 H (74-99) mg/dL Magnesium 1.3 L (1.6-2.3) mg/dL AST 48 H (14-36) U/L H & H 03/07/23 Range/Units 13:21 Hgb 11.9 (11.4-16.0) gm/dL Hct 35.9 (34.0-46.0) % Coagulation 03/07/23 Range/Units 13:21 INR 1.0 (<1.2) Result Diagrams: 03/07/23 13:21 03/07/23 13:21 - Diagnostic results Elbow x-ray: report reviewed, image reviewed (Images and reports reviewed of the left elbow. Images did demonstrate displaced left supracondylar fracture. Previous hardware of the distal humerus remains intact, no obvious lucencies) Elbow CT: report reviewed (Images and reports reviewed of the elbow CT on the left side, images to demonstrate displaced supracondylar fracture.), image reviewed Hip x-ray: report reviewed, image reviewed (Pelvic x-ray demonstrated previous pubic rami fracture on the right-hand side, no acute fractures or dislocations appreciated) Assessment and Plan Assessment: Displaced left elbow supracondylar fracture Status post fall from standing History of frequent falls MS Other medical comorbidities Plan: I was able to discuss the case, this including the physical exam findings and imaging studies with my attending Dr. Poe, he was also able to evaluate the patient today while in the emergency room. Plan is to continue with conservative measures, patient will utilize the posterior arm splint with use of arm sling. I did explain to the patient we would fit her tomorrow for a better arm sling. Recommending ice and elevation of that left upper extremity. Nonweightbearing with the left upper extremity at this time Pain control, recommend use of Tylenol/NSAIDs versus low-dose pain medication if needed DVT prophylaxis per primary medical service We'll continue to follow the patient during hospital stay, recommending follow- up in the outpatient setting in the next 7-10 days for x-ray evaluation Time with Patient: Less than 30
[2023-03-07] MEDS ORDERED: ONDANSETRON 4 MG/2 ML VIAL IVP STA (19:51)
[2023-03-07] MEDS: MORPHINE SULFATE 4 MG/ML SYRINGE IV PRN (20:12)
[2023-03-07] MEDS: HEPARIN SODIUM,PORCINE 5,000 UNIT/ML 1 ML VIAL SQ SCH (21:16)
[2023-03-07] MEDS: ALPRAZolam 0.25 MG TAB PO SCH (21:16)
[2023-03-07] MEDS: DULoxetine HCL 20 MG CAPSULE.DR PO SCH (21:16)
--- NOTE | 2023-03-08 00:30 | P.HPIM ---
History of Present Illness H&P Date: 03/07/23 Chief Complaint: Left elbow pain Patient is a 77-year-old female with a past medical history of hypertension, hyperlipidemia, GERD presents to ER status post fall. Patient states that she has history of [place] and has been having frequent falls. Patient states that she lost her balance and fell on her left side. Patienthaleatha is not taking having left elbow pain since then and presented to ER for evaluation. Otherwise denies any fever or chills. No recent illnesses. Denies any dysuria or hematuria. No cough or sputum production. Chest x-ray showed no acute process. Elbow x-ray showed findings suggestive of acute supracondylar fracture of the humerus with displacement. Correlate with CT scan. X-ray of the forearm and humerus was done. Pelvic x-ray showed Essman the right hip is limited due to internal rotation. If there is right hip pain recommend CT scan. CT of the left elbow showed comminuted distal humerus superior condylar fracture with intra-articular extension. Possible olecranon process fracture with curvilinear lucency seen on 1 mm only. EKG showed sinus rhythm. Review of Systems Constitutional: Patient denies any fever or chills . no Generalized weakness. Abdomen: Patient denied any nausea or vomiting or abd. pain Cardiovascular: Patient denies any chest pain or short of breath no palpitations. Respiratory: patient denied any cough . no sputum production. No shortness of breath Neurologic: Patient denied any numbness or tingling headache. Musculoskeletal: Patient complains of left elbow pain. No other joint swelling or deformity. Skin: Negative Psychiatric: Negative Endocrine: No heat or cold intolerance. No recent weight gain. Genitourinary: No dysuria or hematuria. All other 14 point ROS negative except the above Past Medical History Past Medical History: GERD/Reflux, Hyperlipidemia, Hypertension, Neurologic Disorder Additional Past Medical History / Comment(s): Right 5th metacarpal fx, hand in soft cast, neuropathy, MS History of Any Multi-Drug Resistant Organisms: None Reported Past Surgical History: Cholecystectomy Additional Past Surgical History / Comment(s): History of right hand surgery. Past Anesthesia/Blood Transfusion Reactions: No Reported Reaction Past Psychological History: No Psychological Hx Reported Smoking Status: Never smoker Past Alcohol Use History: None Reported Past Drug Use History: None Reported - Past Family History Sister(s) Family Medical History: Cancer Son(s) Family Medical History: Deep Vein Thrombosis (DVT) Medications and Allergies Home Medications Medication Instructions Recorded Confirmed Type Omeprazole [PriLOSEC] 40 mg PO DAILY 11/20/18 03/07/23 History Simvastatin [Zocor] 80 mg PO DAILY 11/20/18 03/07/23 History ALPRAZolam [Xanax] 0.25 mg PO HS 04/28/19 03/07/23 History Hydrocodone/Acetaminophen [[place] 1 tab PO TID PRN 04/28/19 03/07/23 History 7.5-325] Ibuprofen [Motrin] 800 mg PO TID PRN 06/01/20 03/07/23 History ALPRAZolam [Xanax] 0.25 mg PO BID PRN 03/07/23 03/07/23 History DULoxetine HCL [Cymbalta] 20 mg PO BID 03/07/23 03/07/23 History Potassium Chloride ER [K-Dur 10] 10 meq PO DAILY 03/07/23 03/07/23 History Allergies Allergy/AdvReac Type Severity Reaction Status Date / Time morphine Allergy PER PCP Verified 03/07/23 13:35 IV STEROIDS AdvReac Nausea Uncoded 03/07/23 13:35 Physical Exam Vitals: Vital Signs Temp Pulse Resp BP Pulse Ox 03/07/23 11:24 97.6 F 79 15 132/75 97 Intake and Output 03/07/23 03/07/23 03/07/23 06:59 14:59 22:59 Other: Weight 66.678 kg PHYSICAL EXAMINATION: Patient is lying in the bed comfortably, no acute distress, awake alert and oriented.. HEENT: Normocephalic. Neck is supple. Pupils reactive. Nostrils clear. Oral cavity is moist. Neck reveals no JVD, carotid bruits, or thyromegaly. CHEST EXAMINATION: Trachea is central. Symmetrical expansion. Lung sterling clear to auscultation and percussion. CARDIAC: Normal S1, S2 with no gallops. No murmurs ABDOMEN: Soft. Bowel sounds present. Nontender. No organomegaly. No abdominal bruits. Extremities: reveal no edema. No clubbing or cyanosis Neurologically awake, alert, oriented x3 with well-coordinated movements. No focal deficits noted Skin: No rash or skin lesions. Psychiatric: Coperative. Nonsuicidal, Musculoskeletal: No joint swelling or deformity. Left elbow decreased range of motion. Results CBC & Chem 7: 03/07/23 13:21 03/07/23 13:21 Labs: Abnormal Lab Results - Last 24 Hours (Table) 03/07/23 03/07/23 Range/Units 13:21 13:21 Plt Count 147 L (150-450) k/uL Lymphocytes # 0.7 L (1.0-4.8) k/uL Potassium 5.2 H (3.5-5.1) mmol/L Glucose 107 H (74-99) mg/dL Magnesium 1.3 L (1.6-2.3) mg/dL AST 48 H (14-36) U/L Thrombosis Risk Factor Assmnt - DVT/VTE Prophylaxis DVT/VTE Prophylaxis: Pharmacologic Prophylaxis ordered Assessment and Plan Assessment: Comminuted left distal humerus supracondylar fracture with intra-articular exten christo. Status post fall. History of MS and Prior history of falls. Hypertension Hyperlipidemia Hyperkalemia 5.2 with slight hemolysis. Hypomagnesemia. Replacing. Depression DVT prophylaxis with heparin subcu. Plan: Patient will be continued on pain management. Orthopedic surgery was consulted for evaluation of the supracondylar fracture of the left elbow. Recommended conservative management with posterior arm splint and use of arm sling. Nonweightbearing with left upper extremity at this time. Continue with pain management with Tylenol/NSAIDs Replace magnesium. Continue with home medications and follow-up closely. PT OT will be consulted and patient may need rehab transfer. Time with Patient: Greater than 30
[2023-03-08] MEDS: MORPHINE SULFATE 4 MG/ML SYRINGE IV PRN (02:42)
[2023-03-08] MEDS: ATORVASTATIN 40 MG TAB PO SCH (08:36)
[2023-03-08] MEDS: HEPARIN SODIUM,PORCINE 5,000 UNIT/ML 1 ML VIAL SQ SCH ×2 (08:36→20:41)
[2023-03-08] MEDS: PANTOPRAZOLE 40 MG TABLET PO SCH (08:36)
[2023-03-08] MEDS: DULoxetine HCL 20 MG CAPSULE.DR PO SCH ×2 (08:36→20:41)
[2023-03-08] MEDS: POTASSIUM CHLORIDE ER 10 MEQ TAB.ER.PRT PO SCH (08:36)
[2023-03-08 10:57] LABS: Basophils # (A) 0.05 X 10*3/uL (0.00-0.10); Basophils % (A) 0.9 %; Eosinophils # (A) 0.14 X 10*3/uL (0.04-0.35); Eosinophils % (A) 2.5 %; HCT 34.1 % (37.2-46.3); HGB 11.1 d/dL (12.0-15.0); Lymphocytes # (A) 0.96 X 10*3/uL (0.90-5.00); Lymphocytes % (A) 17.4 %; MCH 30.2 pg (27.0-32.0); MCHC 32.6 d/dL (32.0-37.0); MCV 92.7 FL (80.0-97.0); Monocytes # (A) 0.58 X 10*3/uL (0.20-1.00); Monocytes % (A) 10.5 %; NRBC Per 100 WBC 0 X 10*3/uL (0.00-0.01); Neutrophils # (A) 3.77 X 10*3/uL (1.80-7.70); Neutrophils % (A) 68.5 %; Platelet Count 152 X 10*3/uL (140-440); RBC 3.68 X 10*6/uL (4.10-5.20); RDW 14.5 % (11.5-14.5); WBC 5.51 X 10*3/uL (4.50-10.00)
[2023-03-08 11:10] LABS: Blood Urea Nitrogen 14.4 mg/dL (9.0-27.0); Calcium 8.5 mg/dL (8.7-10.3); Carbon Dioxide 24.9 mmol/L (21.6-31.8); Chloride 107 mmol/L (96-109); Glucose 98 mg/dL (70-110); Potassium 3.5 mmol/L (3.5-5.5); Sodium 142 mmol/L (135-145)
--- NOTE | 2023-03-08 14:53 | P.PN ---
Subjective Progress Note Date: 03/08/23 Principal diagnosis: Left elbow supracondylar fracture patient was evaluated today, she is still in the emergency room, they're working on bed placement. She is utilizing the posterior arm splint with sling. She's having minimal discomfort at this. She has no other orthopedic complaints at this time. Objective - Vital Signs Vital signs: Vital Signs Temp 98.6 F 03/08/23 11:48 Pulse 101 H 03/08/23 11:48 Resp 16 03/08/23 11:48 BP 131/78 03/08/23 11:48 Pulse Ox 93 L 03/08/23 11:48 FiO2 Intake & Output 03/07/23 03/08/23 03/08/23 18:59 06:59 18:59 Weight 66.678 kg 66.678 kg - Exam Left upper extremity: Patient is in a well-padded posterior arm splint that extends from mid humerus down past the elbow and the hand. She is utilizing a sling at this time. Patient is able to wiggle all the fingers with no difficulty. Her sensation to light touch both distal and proximal to the splint are intact. Her cap refill is less than 3 seconds. Patient has no pain with passive range of motion of the shoulder. Gen. orthopedic exam: No point tenderness with palpation throughout the right upper extremity and bilateral lower extremities. Range of motion is intact in all major muscle groups of the right upper extremity and bilateral lower extremities, no focal deficits. - Labs CBC & Chem 7: 03/08/23 07:23 03/08/23 07:23 Labs: Abnormal Lab Results - Last 24 Hours (Table) 03/08/23 03/08/23 Range/Units 07:23 07:23 RBC 3.68 L (4.10-5.20) X 10*6/uL Hgb 11.1 L (12.0-15.0) d/dL Hct 34.1 L (37.2-46.3) % Calcium 8.5 L (8.7-10.3) mg/dL Assessment and Plan Assessment: Minimally displaced left elbow supracondylar fracture Status post fall from standing History of frequent falls MS Other medical comorbidities Plan: Continue conservative measures at this time, no orthopedic surgical intervention recommended at this time New sling was placed on patient today, she can take breaks from this utilizing a pillow under the arm for elevation Recommending ice and elevation of that left upper extremity. Nonweightbearing with the left upper extremity at this time Pain control, recommend use of Tylenol/NSAIDs versus low-dose pain medication if needed DVT prophylaxis per primary medical service Orthopedically patient remains stable, plan for follow-up in the office in 7-10 days for clinical and x-ray evaluation with Dr. Poe Time with Patient: Less than 30
[2023-03-08 17:16] LABS: Appearance,Urine Clear (Clear); Bilirubin,Urine Negative (Negative); Blood,Urine Negative (Negative); Color,Urine Yellow; Glucose,Urine (UA) Negative (Negative); Ketones,Urine Negative (Negative); Leukocyte Esterase,Urine Negative (Negative); Nitrite,Urine Negative (Negative); Protein,Urine Trace (Negative); Specific Gravity,Urine 1.017 (1.001-1.035)
[2023-03-08] MEDS: ALPRAZolam 0.25 MG TAB PO SCH (20:41)
[2023-03-09] MEDS: HEPARIN SODIUM,PORCINE 5,000 UNIT/ML 1 ML VIAL SQ SCH ×2 (08:37→21:15)
[2023-03-09] MEDS: ATORVASTATIN 40 MG TAB PO SCH (08:37)
[2023-03-09] MEDS: PANTOPRAZOLE 40 MG TABLET PO SCH (08:37)
[2023-03-09] MEDS: DULoxetine HCL 20 MG CAPSULE.DR PO SCH ×2 (08:37→21:15)
[2023-03-09] MEDS: POTASSIUM CHLORIDE ER 10 MEQ TAB.ER.PRT PO SCH (08:51)
[2023-03-09] MEDS ORDERED: POTASSIUM CHLORIDE ER 20 MEQ TAB.ER PO STA (09:49)
--- NOTE | 2023-03-09 09:51 | P.PN ---
Subjective Progress Note Date: 03/08/23 Patient is a 77-year-old female with a past medical history of hypertension, hyperlipidemia, GERD presents to ER status post fall. Patient states that she has history of [place] and has been having frequent falls. Patient states that she lost her balance and fell on her left side. Yusef is not taking having left elbow pain since then and presented to ER for evaluation. Otherwise denies any fever or chills. No recent illnesses. Denies any dysuria or hematuria. No cough or sputum production. Chest x-ray showed no acute process. Elbow x-ray showed findings suggestive of acute supracondylar fracture of the humerus with displacement. Correlate with CT scan. X-ray of the forearm and humerus was done. Pelvic x-ray showed Essman the right hip is limited due to internal rotation. If there is right hip pain recommend CT scan. CT of the left elbow showed comminuted distal humerus superior condylar fracture with intra-articular extension. Possible olecranon process fracture with curvilinear lucency seen on 1 mm only. EKG showed sinus rhythm. 03/08/2023 Patient is currently in the ER. Awake alert and oriented. Left elbow pain is better. Patient is on posterior arm splint with sling. Otherwise denied any complaints of chest pain or shortness of breath. No headache or dizziness or lightheadedness. Patient has generalized weakness. PTOT is on board. Continue on pain management. Laboratory data showed there was a 5.5 hemoglobin 11.1 and platelets 152 sodium 1.2 potassium 3.5 chloride 107 bicarb is 24.9 BUN 14.4 and creatinine of 0.9 Neurology was consulted due to frequent falls and history of MS. current medications reviewed. Objective - Vital Signs Vital signs: Vital Signs Temp 96.8 F L 03/09/23 08:11 Pulse 109 H 03/09/23 08:11 Resp 20 03/09/23 08:11 BP 115/73 03/09/23 08:11 Pulse Ox 90 L 03/09/23 09:43 FiO2 Intake & Output 03/08/23 03/09/23 03/09/23 18:59 06:59 18:59 Intake Total 90 Balance 90 Weight 66.678 kg Intake: Oral 90 Other: # Voids 2 2 - Exam PHYSICAL EXAMINATION: Patient is lying in the bed comfortably, no acute distress, awake alert and oriented.. HEENT: Normocephalic. Neck is supple. Pupils reactive. Nostrils clear. Oral cavity is moist. Neck reveals no JVD, carotid bruits, or thyromegaly. CHEST EXAMINATION: Trachea is central. Symmetrical expansion. Lung sterling clear to auscultation and percussion. CARDIAC: Normal S1, S2 with no gallops. No murmurs ABDOMEN: Soft. Bowel sounds present. Nontender. No organomegaly. No abdominal bruits. Extremities: reveal no edema. No clubbing or cyanosis Neurologically awake, alert, oriented x3 with well-coordinated movements. No focal deficits noted Skin: No rash or skin lesions. Psychiatric: Coperative. Nonsuicidal, Musculoskeletal: No joint swelling or deformity. Left elbow decreased range of motion. Arm sling in place. - Labs CBC & Chem 7: 03/08/23 07:23 03/08/23 07:23 Labs: Abnormal Lab Results - Last 24 Hours (Table) 03/08/23 03/08/23 03/08/23 Range/Units 07:23 07:23 16:55 RBC 3.68 L (4.10-5.20) X 10*6/uL Hgb 11.1 L (12.0-15.0) d/dL Hct 34.1 L (37.2-46.3) % Calcium 8.5 L (8.7-10.3) mg/dL Urine Protein Trace H (Negative) Assessment and Plan Assessment: Comminuted left distal humerus supracondylar fracture with intra-articular extension. Status post fall. posterior arm splint and sling in place. History of MS and frequent falls. Prior history of falls. Hypertension Hyperlipidemia Hyperkalemia 5.2 with slight hemolysis. Hypomagnesemia. Replacing. Depression DVT prophylaxis with heparin subcu. Plan: Patient will be continued on pain management. Orthopedic surgery was consulted for evaluation of the supracondylar fracture of the left elbow. Recommended conservative management with posterior arm splint and use of arm sling. Nonweightbearing with left upper extremity at this time. Continue with pain management with Tylenol/NSAIDs Replace magnesium and potassium. Neurology was consulted due to history of MS. Continue with home medications and follow-up closely. PT OT will be consulted and patient may need rehab transfer. Time with Patient: Greater than 30
--- NOTE | 2023-03-09 12:06 | P.CNNES ---
History of Present Illness Consult date: 03/09/23 Requesting physician: Karly Araujo Reason for Consult: MS, increased weakness History of Present Illness: This is a 77-year-old woman with history of relapsing remitting multiple sclerosis who has not been on any disease modifying therapy for 10 years, recurrent falls presented emergency department after a fall. Patient is accompanied with her son and it seems the patient has a recurrent falls and seems worse in the last 2 months according to the son was at bedside. She feels her walking is unsteady. Her neurologist Dr. Purvis has stopped her disease modifying therapy and she used to be on Copaxone and he notified her that she does not need to be on medication. She continues to follow-up with her neurolog ist as an outpatient. She notified them that she was notified that she needs to be on disease modifying therapy that she was notified by somebody else but she did not get any response according to patient. With these falls she is usually awake. She has minimally displaced left humerus supracondylar fracture that was noted s/p splint and sling in place and fracture from fall. Patient denies of any neck pain. She has chronic lower back pain. She does have chronic lower extremity weakness mostly left lower extremity and she walks with a walker. Of note I personally reviewed the patient medical record and she was at [place] but my colleague Dr. Feliciano on May 2020 and his note that the patient had recurrent falls and he felt possible MS exacerbation. He also stated his note that the patient has possible seizures order and was on Keppra which was controlled. Please refer to his note for further details. Upon asking the patient regarding getting history of seizures and her being on Keppra she does not recall that and does not recall having seizures. She stated that she is not on Keppra and unsure if she was on Keppra in the past or not Review of Systems 10 point system was reviewed and pertinent positive and negative as per HPI. Past Medical History Past Medical History: GERD/Reflux, Hyperlipidemia, Hypertension, Neurologic Disorder Additional Past Medical History / Comment(s): Right 5th metacarpal fx, hand in soft cast, neuropathy, MS History of Any Multi-Drug Resistant Organisms: None Reported Past Surgical History: Cholecystectomy Additional Past Surgical History / Comment(s): History of right hand surgery. Past Anesthesia/Blood Transfusion Reactions: No Reported Reaction Past Psychological History: No Psychological Hx Reported Smoking Status: Never smoker Past Alcohol Use History: None Reported Past Drug Use History: None Reported - Past Family History Sister(s) Family Medical History: Cancer Son(s) Family Medical History: Deep Vein Thrombosis (DVT) Medications and Allergies Home Medications Medication Instructions Recorded Confirmed Type Omeprazole [PriLOSEC] 40 mg PO DAILY 11/20/18 03/07/23 History Simvastatin [Zocor] 80 mg PO DAILY 11/20/18 03/07/23 History ALPRAZolam [Xanax] 0.25 mg PO HS 04/28/19 03/07/23 History Hydrocodone/Acetaminophen [Leoti 1 tab PO TID PRN 04/28/19 03/07/23 History 7.5-325] Ibuprofen [Motrin] 800 mg PO TID PRN 06/01/20 03/07/23 History ALPRAZolam [Xanax] 0.25 mg PO BID PRN 03/07/23 03/07/23 History DULoxetine HCL [Cymbalta] 20 mg PO BID 03/07/23 03/07/23 History Potassium Chloride ER [K-Dur 10] 10 meq PO DAILY 03/07/23 03/07/23 History Allergies Allergy/AdvReac Type Severity Reaction Status Date / Time morphine Allergy PER PCP Verified 03/07/23 13:35 IV STEROIDS AdvReac Nausea Uncoded 03/07/23 13:35 Physical Examination - Vital Signs Vital Signs: Vital Signs Temp Pulse Resp BP Pulse Ox 03/09/23 09:43 90 L 03/09/23 08:11 96.8 F L 109 H 20 115/73 93 L 03/09/23 02:00 98.2 F 103 H 18 118/71 90 L 03/08/23 20:42 99 F 107 H 18 164/88 95 03/08/23 16:00 99.2 F 100 16 148/81 90 L 03/08/23 11:48 98.6 F 101 H 16 131/78 93 L Intake and Output 03/08/23 03/09/23 03/09/23 22:59 06:59 14:59 Intake Total 90 Balance 90 Intake: Oral 90 Other: # Voids 2 2 GENERAL: The patient is lying in bed and is not in acute distress. NEUROLOGICAL: Higher mental function: The patient is awake, alert, oriented to self, place and time. Patient is following commands. No aphasia and no neglect. Cranial nerves: The pupils are round, equal and reactive to light. Visual sterling are full to confrontation throughout. Extraocular movement is intact no nystagmus is noted. Facial sensation is normal to touch throughout. The facial strength is normal throughout. Hearing is moderately decreased bilaterally to hand rub. Tongue is midline and moved [id number] without any difficulty. No dysarthria is noted. Shoulder shrug is normal bilaterally. Motor: The strength is limited because of overall condition. He left upper extremity is in sling. Right upper extremity is 5/5. Right lower is 5/5. Left lower extremity is 4+ (old). Cerebellum: Normal finger to nose on right. Sensation: Sensation is normal to touch throughout. Reflexes (right/left): Unable to assess left upper extremity. Otherwise 1+ throughout. Plantars are mute bilaterally. Results - Laboratory Findings CBC and BMP: 03/09/23 11:50 03/09/23 11:50 Abnormal Lab Findings: Abnormal Labs 03/07/23 03/07/23 03/08/23 13:21 13:21 07:23 RBC 3.68 L Hgb 11.1 L Hct 34.1 L Plt Count 147 L Lymphocytes # 0.7 L Potassium 5.2 H Glucose 107 H Calcium Magnesium 1.3 L AST 48 H Urine Protein 03/08/23 03/08/23 07:23 16:55 RBC Hgb Hct Plt Count Lymphocytes # Potassium Glucose Calcium 8.5 L Magnesium AST Urine Protein Trace H Assessment and Plan Assessment: This is a 77-year-old woman with relapsing remitting multiple sclerosis and has been off of disease modifying therapy (Copaxone) by her neurologist about 10 years ago since was told does not need it, who is having recurrent falls who presents because of recent fall and was found to have mild displaced left supracondylar humeral fracture and result has splint with sling. Recurrent falls and unsure if due to exacerbation of her Multiple Sclerosis vs seizure Mild displaced left supracondylar humeral fracture result from fall and result has splint with sling Chief recurrent falls as back at least 2019 according to her previous medical record History of possible seizures per Dr. Prince note in 05/2020 and was on Keppra but patient does not recall having seizure or being on keppra. Residual left lower extremity weakness History of MS and is not on disease modyifying therapy for 10 years per her neurologist recommendation (was on Copaxone) History of recurrent falls Plan: I ordered MRI of the brain and cervical spine with and without to rule out new enhancing lesions or any new lesion that would warrant IV steroids. I ordered a routine EEG because of her recurrent falls to rule any underlying seizure discharges I ordered vitamin B12, hemoglobin A1c, CK level, TSH Ordered orthostatic vitals if the patient can cooperate for that. We'll defer the rest of the medical management to the primary other specialists Recommend the patient to follow-up with a neurologist which she follows up with Dr. Purvis possible consideration of reintroducing the disease modifying therapy The plan was discussed with the patient and her son was at bedside Thank you for consultation. UPDATE: Preliminary routine EEG: Patient has epileptiform discharges over the left temporal region. No seizures noted. We'll start the patient on Keppra 500 mg over 12 hours. I notified the patient about side effects of the the medication of mood/behavioral changes. She does not recall being on Keppra in the past but per Dr. Prince's note it is mentioned that she was on Keppra for possible seizure. Time with Patient: Greater than 30
[2023-03-09 12:19] LABS: Basophils % (A) 0 %; Eosinophils # (A) 0.1 k/uL (0-0.7); Eosinophils % (A) 1 %; HCT 33.3 % (34.0-46.0); Lymphocytes # (A) 0.8 k/uL (1.0-4.8); Lymphocytes % (A) 14 %; MCH 30.9 pg (25.0-35.0); MCV 93.6 fL (80.0-100.0); Mean Platelet Volume 8.1; Monocytes # (A) 0.5 k/uL (0-1.0); Monocytes % (A) 9 %; Neutrophils # (A) 3.9 k/uL (1.3-7.7); Neutrophils % (A) 73 %; Platelet Count 135 k/uL (150-450); RBC 3.56 m/uL (3.80-5.40); RDW 14.5 % (11.5-15.5); WBC 5.4 k/uL (3.8-10.6)
[2023-03-09 12:34] LABS: African American GFR (CKD) 70 (>60 ml/min/1.73 sqM); Anion Gap 3 mmol/L; Blood Urea Nitrogen 19 mg/dL (7-17); Calcium 8.6 mg/dL (8.4-10.2); Carbon Dioxide 29 mmol/L (22-30); Chloride 106 mmol/L (98-107); Creatine Kinase 51 U/L (30-135); Glucose 138 mg/dL (74-99); Non-African American GFR(CKD) 61 (>60 ml/min/1.73 sqM); Sodium 138 mmol/L (137-145)
--- NOTE | 2023-03-09 18:52 | EEG ---
ELECTROENCEPHALOGRAM REPORT CLINICAL HISTORY: This is a 77-year-old woman with recurrent falls. The video EEG is obtained to evaluate for seizure and epileptiform activity. RELEVANT MEDICATIONS: Xanax. EEG TYPE: A routine 21-channel EEG is performed with video using the 10/20 electrode placement system. DESCRIPTION: Wakefulness is obtained. During awake state, the posterior-dominant rhythm consists of [id number] voltage of 8 Hz activity. At times, the background consists of diffuse delta with theta activity. There is no physiological stage II sleep architecture. There is no focal slowing. INTERICTAL AND ICTAL: There are sharp and slow waves over T5/T3 lead. There is no seizure noted during the study. ACTIVATION PROCEDURE: Photic stimulation did not evoke a posterior driving response. There is no abnormality during the photic stimulation. Hyperventilation is not performed. CLINICAL INTERPRETATION: This is an abnormal routine EEG. The background slowing is suggestive of mild encephalopathy. The epileptiform discharges over the left temporal region increase risk for seizure and status epilepticus. Otherwise, there is no focal slowing. There is no seizure noted during the study. Clinical correlation is recommended. MMODL / IJN: [id number] /
[2023-03-09] MEDS: levETIRAcetam 500 MG TAB PO SCH (21:15)
[2023-03-09] MEDS: ALPRAZolam 0.25 MG TAB PO SCH (21:15)
--- NOTE | 2023-03-09 21:56 | P.PN ---
Subjective Progress Note Date: 03/09/23 Patient is a 77-year-old female with a past medical history of hypertension, hyperlipidemia, GERD presents to ER status post fall. Patient states that she has history of CA and has been having frequent falls. Patient states that she lost her balance and fell on her left side. Yusef is not taking having left elbow pain since then and presented to ER for evaluation. Otherwise denies any fever or chills. No recent illnesses. Denies any dysuria or hematuria. No cough or sputum production. Chest x-ray showed no acute process. Elbow x-ray showed findings suggestive of acute supracondylar fracture of the humerus with displacement. Correlate with CT scan. X-ray of the forearm and humerus was done. Pelvic x-ray showed Essman the right hip is limited due to internal rotation. If there is right hip pain recommend CT scan. CT of the left elbow showed comminuted distal humerus superior condylar fracture with intra-articular extension. Possible olecranon process fracture with curvilinear lucency seen on 1 mm only. EKG showed sinus rhythm. 03/08/2023 Patient is currently in the ER. Awake alert and oriented. Left elbow pain is better. Patient is on posterior arm splint with sling. Otherwise denied any complaints of chest pain or shortness of breath. No headache or dizziness or lightheadedness. Patient has generalized weakness. PTOT is on board. Continue on pain management. Laboratory data showed there was a 5.5 hemoglobin 11.1 and platelets 152 sodium 1.2 potassium 3.5 chloride 107 bicarb is 24.9 BUN 14.4 and creatinine of 0.9 Neurology was consulted due to frequent falls and history of MS. 03/09/2023 Patient is currently lying in bed. Awake alert and oriented x3. No complaints of chest pain or shortness of breath. Able to tolerate oral diet. Patient did have a bowel movement today. Otherwise patient is saturating well on room air. Patient still feels very weak. Left arm sling in place. Patient was seen by neurology and had frequent falls thought to be due to possible seizures versus MS exacerbation. Work-up including MRI of the brain and EEG was ordered. Otherwise patient has been afebrile. Laboratory data showed WBC 5.4 hemoglobin 11.0 and platelets 135 BUN 19 and creatinine 0.92 and blood sugar 138. TSH within normal limits. Urinalysis is negative for infection. current medications reviewed. Objective - Vital Signs Vital signs: Vital Signs Temp 99.5 F 03/09/23 18:38 Pulse 102 H 03/09/23 18:38 Resp 20 03/09/23 18:38 BP 122/71 03/09/23 18:38 Pulse Ox 93 L 03/09/23 18:38 FiO2 Intake & Output 03/09/23 03/09/23 03/10/23 06:59 18:59 06:59 Intake Total 830 Balance 830 Intake: Oral 830 Other: # Voids 2 4 # Bowel Movements 1 - Exam PHYSICAL EXAMINATION: Patient is lying in the bed comfortably, no acute distress, awake alert and oriented.. HEENT: Normocephalic. Neck is supple. Pupils reactive. Nostrils clear. Oral cavity is moist. Neck reveals no JVD, carotid bruits, or thyromegaly. CHEST EXAMINATION: Trachea is central. Symmetrical expansion. Lung sterling clear to auscultation and percussion. CARDIAC: Normal S1, S2 with no gallops. No murmurs ABDOMEN: Soft. Bowel sounds present. Nontender. No organomegaly. No abdominal bruits. Extremities: reveal no edema. No clubbing or cyanosis Neurologically awake, alert, oriented x3 with well-coordinated movements. No focal deficits noted Skin: No rash or skin lesions. Psychiatric: Coperative. Nonsuicidal, Musculoskeletal: No joint swelling or deformity. Left elbow decreased range of motion. Arm sling in place. - Labs CBC & Chem 7: 03/09/23 11:50 03/09/23 11:50 Labs: Abnormal Lab Results - Last 24 Hours (Table) 03/09/23 03/09/23 Range/Units 11:50 11:50 RBC 3.56 L (3.80-5.40) m/uL Hgb 11.0 L (11.4-16.0) gm/dL Hct 33.3 L (34.0-46.0) % Plt Count 135 L (150-450) k/uL Lymphocytes # 0.8 L (1.0-4.8) k/uL BUN 19 H (7-17) mg/dL Glucose 138 H (74-99) mg/dL Assessment and Plan Assessment: Comminuted left distal humerus supracondylar fracture with intra-articular extension. Status post fall. posterior arm splint and sling in place. History of MS and frequent falls Could be due to seizures versus MS exacerbation.. Prior history of falls. Hypertension Hyperlipidemia Hyperkalemia 5.2 with slight hemolysis. Hypomagnesemia. Replacing. Depression DVT prophylaxis with heparin subcu. Plan: Patient will be continued on pain management. Orthopedic surgery was consulted for evaluation of the supracondylar fracture of the left elbow. Recommended conservative management with posterior arm splint and use of arm sling. Nonweightbearing with left upper extremity at this time. Continue with pain management with Tylenol/NSAIDs Replaced magnesium and potassium. Patient was seen by neurology and recommends MRI of the brain and also EEG. TSH B12 and folate levels ordered.. Continue with home medications and follow-up closely. PT OT will be consulted and patient may need rehab transfer. Time with Patient: Greater than 30
[2023-03-10] MEDS: PANTOPRAZOLE 40 MG TABLET PO SCH (09:25)
[2023-03-10] MEDS: levETIRAcetam 500 MG TAB PO SCH ×2 (09:25→21:20)
[2023-03-10] MEDS: ATORVASTATIN 40 MG TAB PO SCH (09:25)
[2023-03-10] MEDS: HEPARIN SODIUM,PORCINE 5,000 UNIT/ML 1 ML VIAL SQ SCH ×2 (09:26→21:20)
[2023-03-10] MEDS: POTASSIUM CHLORIDE ER 10 MEQ TAB.ER.PRT PO SCH (09:26)
[2023-03-10] MEDS: DULoxetine HCL 20 MG CAPSULE.DR PO SCH ×2 (09:49→21:48)
[2023-03-10] MEDS ORDERED: CYANOCOBALAMIN 1,000 MCG/ML 1 ML VIAL IM ONE (12:17)
--- NOTE | 2023-03-10 12:18 | P.PN ---
Subjective Progress Note Date: 03/10/23 I am following up with the patient and she feels about the same. Denies of any new neurological issues. Again she does not recall history of seizure disorder or been on Keppra in the past. Objective - Vital Signs Vital signs: Vital Signs Temp 98.6 F 03/10/23 07:58 Pulse 97 03/10/23 07:58 Resp 18 03/10/23 09:00 BP 118/71 03/10/23 07:58 Pulse Ox 97 03/10/23 07:58 FiO2 Intake & Output 03/09/23 03/10/23 03/10/23 18:59 06:59 18:59 Intake Total 830 300 Balance 830 300 Intake: Oral 830 300 Other: Voiding Method Bedside Commode Bedside Commode # Voids 4 2 # Bowel Movements 1 - Exam GENERAL: The patient is lying in bed and is not in acute distress. NEUROLOGICAL: Higher mental function: The patient is awake, alert, oriented to self, place and time. Patient is following commands. No aphasia and no neglect. Cranial nerves: The pupils are round, equal and reactive to light. Visual sterling are full to confrontation throughout. Extraocular movement is intact no nystagmus is noted. Facial sensation is normal to touch throughout. The facial strength is normal throughout. Hearing is moderately decreased bilaterally to hand rub. Tongue is midline and moved [id number] without any difficulty. No dysarthria is noted. Shoulder shrug is normal bilaterally. Motor: The strength is limited because of overall condition. He left upper extremity is in sling. Right upper extremity is 5/5. Right lower is 5/5. Left lower extremity is 4+ (old). Cerebellum: Normal finger to nose on right. Sensation: Sensation is normal to touch throughout. Reflexes (right/left): Unable to assess left upper extremity. Otherwise 1+ throughout. Plantars are mute bilaterally. SOME OF THE WORK-UP DURING THIS HOSPITAL VISIT CONSISTED OF: Folate level is 3.90 Vitamin B12 is 245 ARCHANA globe A1c is 5.4 TSH is 1.310 Routine EEGs abnormal. The background slowing suggestive of mild encephalopathy. The epileptiform discharge over the left temporal region increases risk for seizure and status epilepticus. Otherwise there is no focal slowing. There is no seizure noted during the study. Clinical correlation is recommended. - Labs CBC & Chem 7: 03/09/23 11:50 09/15/23 11:50 Labs: Abnormal Lab Results - Last 24 Hours (Table) 03/09/23 03/09/23 03/09/23 Range/Units 11:50 11:50 11:50 RBC 3.56 L (3.80-5.40) m/uL Hgb 11.0 L (11.4-16.0) gm/dL Hct 33.3 L (34.0-46.0) % Plt Count 135 L (150-450) k/uL Lymphocytes # 0.8 L (1.0-4.8) k/uL BUN 19 H (7-17) mg/dL Glucose 138 H (74-99) mg/dL Folate 3.90 L (4.40-31.00) ng/mL Assessment and Plan Assessment: This is a 77-year-old woman with relapsing remitting multiple sclerosis and has been off of disease modifying therapy (Copaxone) by her neurologist about 10 years ago since was told does not need it, who is having recurrent falls who presents because of recent fall and was found to have mild displaced left supracondylar humeral fracture and result has splint with sling. Recurrent falls and unsure if due to exacerbation of her Multiple Sclerosis vs seizure Mild displaced left supracondylar humeral fracture result from fall and result has splint with sling Folate deficiency (3.9) Borderline normal B12 (245) History of recurrent falls as back at least 2019 according to her previous medical record History of possible seizures per Dr. Prince note in 05/2020 and was on Keppra but patient does not recall having seizure or being on keppra. Residual left lower extremity weakness History of MS and is not on disease modyifying therapy for 10 years per her neurologist recommendation (was on Copaxone) History of recurrent falls Plan: Pending MRI of the brain and cervical spine with and without to rule out new enhancing lesions or any new lesion that would warrant IV steroids. Because of epileptiform discharge over the left temporal, I started her on Ke ppra 500mg bid. For folate deficiency I started the patient on folic acid 1 mg daily For borderline normal vital B12 I started the patient on vitamin B-12 1000 g IM once and after that PO. Recommend within 3 weeks to reevaluate vitamin B12 if continues to be deficient further evaluation of cause. Ordered orthostatic vitals if the patient can cooperate for that. We'll defer the rest of the medical management to the primary other specialists Recommend the patient to follow-up with a neurologist which she follows up with Dr. Purvis possible consideration of reintroducing the disease modifying therapy Will continue to follow. Time with Patient: Less than 30
[2023-03-10] MEDS: FOLIC ACID 1 MG TAB PO SCH (12:40)
[2023-03-10 14:03] VITALS: BMI 26.0
[2023-03-10] MEDS: ALPRAZolam 0.25 MG TAB PO SCH (21:20)
[2023-03-11] MEDS: CYANOCOBALAMIN 500 MCG TAB PO SCH (09:50)
[2023-03-11] MEDS: POTASSIUM CHLORIDE ER 10 MEQ TAB.ER.PRT PO SCH (09:50)
[2023-03-11] MEDS: ATORVASTATIN 40 MG TAB PO SCH (09:50)
[2023-03-11] MEDS: DULoxetine HCL 20 MG CAPSULE.DR PO SCH ×2 (09:50→20:05)
[2023-03-11] MEDS: HEPARIN SODIUM,PORCINE 5,000 UNIT/ML 1 ML VIAL SQ SCH ×2 (09:50→20:05)
[2023-03-11] MEDS: PANTOPRAZOLE 40 MG TABLET PO SCH (09:50)
[2023-03-11] MEDS: FOLIC ACID 1 MG TAB PO SCH (09:50)
[2023-03-11] MEDS: levETIRAcetam 500 MG TAB PO SCH ×2 (09:50→20:05)
--- NOTE | 2023-03-11 11:38 | P.PN ---
Subjective Progress Note Date: 03/11/23 I am following-up with patient and she feels about the same. Still pending MRI's. Objective - Vital Signs Vital signs: Vital Signs Temp 98.7 F 03/11/23 07:49 Pulse 68 03/11/23 07:49 Resp 16 03/11/23 07:49 BP 122/61 03/11/23 07:49 Pulse Ox 95 03/11/23 07:49 FiO2 Intake & Output 03/10/23 03/11/23 03/11/23 18:59 06:59 18:59 Intake Total 200 Output Total 1 1 Balance -1 199 Weight 66.678 kg Intake: Oral 200 Output: Stool 1 1 Other: Voiding Method Bedside Commode Bedside Commode # Voids 3 1 - Exam GENERAL: The patient is lying in bed and is not in acute distress. NEUROLOGICAL: Higher mental function: The patient is awake, alert, oriented to self, place and time. Patient is following commands. No aphasia and no neglect. Cranial nerves: The pupils are round, equal and reactive to light. Visual sterling are full to confrontation throughout. Extraocular movement is intact no nystagmus is noted. Facial sensation is normal to touch throughout. The facial strength is normal throughout. Hearing is moderately decreased bilaterally to hand rub. Tongue is midline and moved [id number] without any difficulty. No dysarthria is noted. Shoulder shrug is normal bilaterally. Motor: The strength is limited because of overall condition. He left upper extremity is in sling. Right upper extremity is 5/5. Right lower is 5/5. Left lower extremity is 4+ (old). Cerebellum: Normal finger to nose on right. Sensation: Sensation is normal to touch throughout. Reflexes (right/left): Unable to assess left upper extremity. Otherwise 1+ throughout. Plantars are mute bilaterally. SOME OF THE WORK-UP DURING THIS HOSPITAL VISIT CONSISTED OF: Folate level is 3.90 Vitamin B12 is 245 ARCHANA globe A1c is 5.4 TSH is 1.310 Routine EEGs abnormal. The background slowing suggestive of mild encephalopathy. The epileptiform discharge over the left temporal region increases risk for seizure and status epilepticus. Otherwise there is no focal slowing. There is no seizure noted during the study. Clinical correlation is recommended. - Labs CBC & Chem 7: 03/09/23 11:50 09/15/23 11:50 Assessment and Plan Assessment: This is a 77-year-old woman with relapsing remitting multiple sclerosis and has been off of disease modifying therapy (Copaxone) by her neurologist about 10 years ago since was told does not need it, who is having recurrent falls who presents because of recent fall and was found to have mild displaced left supracondylar humeral fracture and result has splint with sling. Recurrent falls and unsure if due to exacerbation of her Multiple Sclerosis vs seizure Mild displaced left supracondylar humeral fracture result from fall and result has splint with sling Folate deficiency (3.9) Borderline normal B12 (245) History of recurrent falls as back at least 2019 according to her previous [facility] hospital record History of possible seizures per Dr. Prince note in 05/2020 and was on Keppra but patient does not recall having seizure or being on keppra. Residual left lower extremity weakness History of MS and is not on disease modyifying therapy for 10 years per her neurologist recommendation (was on Copaxone) History of recurrent falls Plan: Pending MRI of the brain and cervical spine with and without to rule out new enhancing lesions or any new lesion that would warrant IV steroids. Because of epileptiform discharge over the left temporal, I started her on Keppra 500mg bid. It seems per Dr. Prince's note from past (05/2020) she has history of Possible seizure and was on Keppra in past but she does not recall. For folate deficiency I started the patient on folic acid 1 mg daily For borderline normal vital B12 I started the patient on vitamin B-12 1000 g IM once and after that PO. Recommend within 3 weeks to reevaluate vitamin B12 if continues to be deficient further evaluation of cause. Ordered orthostatic vitals if the patient can cooperate for that. We'll defer the rest of the medical management to the primary other specialists Recommend the patient to follow-up with a neurologist which she follows up with Dr. Purvis possible consideration of reintroducing the disease modifying therapy Will continue to follow. Dr. Prince will start neurology service tomorrow A.M. Time with Patient: Less than 30
[2023-03-11] MEDS: ALPRAZolam 0.25 MG TAB PO SCH (20:06)
--- NOTE | 2023-03-12 02:59 | P.PN ---
Subjective Progress Note Date: 03/11/23 Patient is a 77-year-old female with a past medical history of hypertension, hyperlipidemia, GERD presents to ER status post fall. Patient states that she has history of [place] and has been having frequent falls. Patient states that she lost her balance and fell on her left side. Yusef is not taking having left elbow pain since then and presented to ER for evaluation. Otherwise denies any fever or chills. No recent illnesses. Denies any dysuria or hematuria. No cough or sputum production. Chest x-ray showed no acute process. Elbow x-ray showed findings suggestive of acute supracondylar fracture of the humerus with displacement. Correlate with CT scan. X-ray of the forearm and humerus was done. Pelvic x-ray showed Essman the right hip is limited due to internal rotation. If there is right hip pain recommend CT scan. CT of the left elbow showed comminuted distal humerus superior condylar fracture with intra-articular extension. Possible olecranon process fracture with curvilinear lucency seen on 1 mm only. EKG showed sinus rhythm. 03/08/2023 Patient is currently in the ER. Awake alert and oriented. Left elbow pain is better. Patient is on posterior arm splint with sling. Otherwise denied any complaints of chest pain or shortness of breath. No headache or dizziness or lightheadedness. Patient has generalized weakness. PTOT is on board. Continue on pain management. Laboratory data showed there was a 5.5 hemoglobin 11.1 and platelets 152 sodium 1.2 potassium 3.5 chloride 107 bicarb is 24.9 BUN 14.4 and creatinine of 0.9 Neurology was consulted due to frequent falls and history of MS. 03/09/2023 Patient is currently lying in bed. Awake alert and oriented x3. No complaints of chest pain or shortness of breath. Able to tolerate oral diet. Patient did have a bowel movement today. Otherwise patient is saturating well on room air. Patient still feels very weak. Left arm sling in place. Patient was seen by neurology and had frequent falls thought to be due to possible seizures versus MS exacerbation. Work-up including MRI of the brain and EEG was ordered. Otherwise patient has been afebrile. Laboratory data showed WBC 5.4 hemoglobin 11.0 and platelets 135 BUN 19 and creatinine 0.92 and blood sugar 138. TSH within normal limits. Urinalysis is negative for infection. current medications reviewed. Objective - Vital Signs Vital signs: Vital Signs Temp 98.5 F 03/11/23 14:03 Pulse 107 H 03/11/23 14:03 Resp 19 03/11/23 14:03 BP 105/67 03/11/23 14:03 Pulse Ox 93 L 03/11/23 14:03 FiO2 Intake & Output 03/11/23 03/11/23 03/12/23 06:59 18:59 06:59 Intake Total 200 Output Total 1 Balance 199 Intake: Oral 200 Output: Stool 1 Other: Voiding Method Bedside Commode Bedside Commode # Voids 1 3 # Bowel Movements 1 - Exam PHYSICAL EXAMINATION: Patient is lying in the bed comfortably, no acute distress, awake alert and oriented.. HEENT: Normocephalic. Neck is supple. Pupils reactive. Nostrils clear. Oral cavity is moist. Neck reveals no JVD, carotid bruits, or thyromegaly. CHEST EXAMINATION: Trachea is central. Symmetrical expansion. Lung sterling clear to auscultation and percussion. CARDIAC: Normal S1, S2 with no gallops. No murmurs ABDOMEN: Soft. Bowel sounds present. Nontender. No organomegaly. No abdominal bruits. Extremities: reveal no edema. No clubbing or cyanosis Neurologically awake, alert, oriented x3 with well-coordinated movements. No focal deficits noted Skin: No rash or skin lesions. Psychiatric: Coperative. Nonsuicidal, Musculoskeletal: No joint swelling or deformity. Left elbow decreased range of motion. Arm sling in place. - Labs CBC & Chem 7: 03/09/23 11:50 03/09/23 11:50 Assessment and Plan Assessment: Comminuted left distal humerus supracondylar fracture with intra-articular extension. Status post fall. posterior arm splint and sling in place. History of MS and frequent falls Could be due to seizures versus MS exacerbation.. Prior history of falls. Hypertension Hyperlipidemia Hyperkalemia 5.2 with slight hemolysis. Hypomagnesemia. Replacing. Depression DVT prophylaxis with heparin subcu. Plan: Patient will be continued on pain management. Orthopedic surgery was consulted for evaluation of the supracondylar fracture of the left elbow. Recommended conservative management with posterior arm splint and use of arm sling. Nonweightbearing with left upper extremity at this time. Continue with pain management with Tylenol/NSAIDs Replaced magnesium and potassium. Patient was seen by neurology and recommends MRI of the brain and also EEG. TSH B12 and folate levels ordered.. Continue with home medications and follow-up closely. PT OT will be consulted and patient may need rehab transfer.
--- NOTE | 2023-03-12 02:59 | P.PN ---
Subjective Progress Note Date: 03/10/23 Patient is a 77-year-old female with a past medical history of hypertension, hyperlipidemia, GERD presents to ER status post fall. Patient states that she has history of [place] and has been having frequent falls. Patient states that she lost her balance and fell on her left side. Yusef is not taking having left elbow pain since then and presented to ER for evaluation. Otherwise denies any fever or chills. No recent illnesses. Denies any dysuria or hematuria. No cough or sputum production. Chest x-ray showed no acute process. Elbow x-ray showed findings suggestive of acute supracondylar fracture of the humerus with displacement. Correlate with CT scan. X-ray of the forearm and humerus was done. Pelvic x-ray showed Essman the right hip is limited due to internal rotation. If there is right hip pain recommend CT scan. CT of the left elbow showed comminuted distal humerus superior condylar fracture with intra-articular extension. Possible olecranon process fracture with curvilinear lucency seen on 1 mm only. EKG showed sinus rhythm. 03/08/2023 Patient is currently in the ER. Awake alert and oriented. Left elbow pain is better. Patient is on posterior arm splint with sling. Otherwise denied any complaints of chest pain or shortness of breath. No headache or dizziness or lightheadedness. Patient has generalized weakness. PTOT is on board. Continue on pain management. Laboratory data showed there was a 5.5 hemoglobin 11.1 and platelets 152 sodium 1.2 potassium 3.5 chloride 107 bicarb is 24.9 BUN 14.4 and creatinine of 0.9 Neurology was consulted due to frequent falls and history of MS. 03/09/2023 Patient is currently lying in bed. Awake alert and oriented x3. No complaints of chest pain or shortness of breath. Able to tolerate oral diet. Patient did have a bowel movement today. Otherwise patient is saturating well on room air. Patient still feels very weak. Left arm sling in place. Patient was seen by neurology and had frequent falls thought to be due to possible seizures versus MS exacerbation. Work-up including MRI of the brain and EEG was ordered. Otherwise patient has been afebrile. Laboratory data showed WBC 5.4 hemoglobin 11.0 and platelets 135 BUN 19 and creatinine 0.92 and blood sugar 138. TSH within normal limits. Urinalysis is negative for infection. current medications reviewed. Objective - Vital Signs Vital signs: Vital Signs Temp 99.1 F 03/10/23 14:35 Pulse 110 H 03/10/23 14:35 Resp 18 03/10/23 14:35 BP 97/60 03/10/23 14:35 Pulse Ox 92 L 03/10/23 14:35 FiO2 Intake & Output 03/10/23 03/10/23 03/11/23 06:59 18:59 06:59 Intake Total 300 Output Total 1 Balance 300 -1 Weight 66.678 kg Intake: Oral 300 Output: Stool 1 Other: Voiding Method Bedside Commode Bedside Commode # Voids 2 3 - Exam PHYSICAL EXAMINATION: Patient is lying in the bed comfortably, no acute distress, awake alert and oriented.. HEENT: Normocephalic. Neck is supple. Pupils reactive. Nostrils clear. Oral cavity is moist. Neck reveals no JVD, carotid bruits, or thyromegaly. CHEST EXAMINATION: Trachea is central. Symmetrical expansion. Lung sterling clear to auscultation and percussion. CARDIAC: Normal S1, S2 with no gallops. No murmurs ABDOMEN: Soft. Bowel sounds present. Nontender. No organomegaly. No abdominal bruits. Extremities: reveal no edema. No clubbing or cyanosis Neurologically awake, alert, oriented x3 with well-coordinated movements. No focal deficits noted Skin: No rash or skin lesions. Psychiatric: Coperative. Nonsuicidal, Musculoskeletal: No joint swelling or deformity. Left elbow decreased range of motion. Arm sling in place. - Labs CBC & Chem 7: 03/09/23 11:50 03/09/23 11:50 Labs: Abnormal Lab Results - Last 24 Hours (Table) 03/09/23 Range/Units 11:50 Folate 3.90 L (4.40-31.00) ng/mL Assessment and Plan Assessment: Comminuted left distal humerus supracondylar fracture with intra-articular extension. Status post fall. posterior arm splint and sling in place. History of MS and frequent falls Could be due to seizures versus MS exacerbation.. Prior history of falls. Hypertension Hyperlipidemia Hyperkalemia 5.2 with slight hemolysis. Hypomagnesemia. Replacing. Depression DVT prophylaxis with heparin subcu. Plan: Patient will be continued on pain management. Orthopedic surgery was consulted for evaluation of the supracondylar fracture of the left elbow. Recommended conservative management with posterior arm splint and use of arm sling. Nonweightbearing with left upper extremity at this time. Continue with pain management with Tylenol/NSAIDs Replaced magnesium and potassium. Patient was seen by neurology and recommends MRI of the brain and also EEG. TSH B12 and folate levels ordered.. Continue with home medications and follow-up closely. PT OT will be consulted and patient may need rehab transfer.
[2023-03-12] MEDS: POTASSIUM CHLORIDE ER 10 MEQ TAB.ER.PRT PO SCH (07:54)
[2023-03-12] MEDS: levETIRAcetam 500 MG TAB PO SCH ×2 (07:54→20:34)
[2023-03-12] MEDS: HEPARIN SODIUM,PORCINE 5,000 UNIT/ML 1 ML VIAL SQ SCH ×2 (07:54→20:34)
[2023-03-12] MEDS: PANTOPRAZOLE 40 MG TABLET PO SCH (07:54)
[2023-03-12] MEDS: FOLIC ACID 1 MG TAB PO SCH (07:54)
[2023-03-12] MEDS: CYANOCOBALAMIN 500 MCG TAB PO SCH (07:54)
[2023-03-12] MEDS: DULoxetine HCL 20 MG CAPSULE.DR PO SCH ×2 (07:54→20:34)
[2023-03-12] MEDS: ATORVASTATIN 40 MG TAB PO SCH (07:55)
[2023-03-12 10:52] LABS: Basophils # (A) 0.04 X 10*3/uL (0.00-0.10); Basophils % (A) 0.7 %; Eosinophils % (A) 1.8 %; HCT 31.7 % (37.2-46.3); HGB 9.9 d/dL (12.0-15.0); Lymphocytes # (A) 1.15 X 10*3/uL (0.90-5.00); Lymphocytes % (A) 20.8 %; MCH 29.2 pg (27.0-32.0); MCHC 31.2 d/dL (32.0-37.0); MCV 93.5 FL (80.0-97.0); Mean Platelet Volume 11.5 FL (9.5-12.2); Monocytes # (A) 0.46 X 10*3/uL (0.20-1.00); Monocytes % (A) 8.3 %; NRBC Per 100 WBC 0 X 10*3/uL (0.00-0.01); Neutrophils # (A) 3.78 X 10*3/uL (1.80-7.70); Neutrophils % (A) 68.2 %; Platelet Count 166 X 10*3/uL (140-440); RBC 3.39 X 10*6/uL (4.10-5.20); RDW 14.4 % (11.5-14.5); WBC 5.54 X 10*3/uL (4.50-10.00)
[2023-03-12 11:15] LABS: Blood Urea Nitrogen 17.1 mg/dL (9.0-27.0); Calcium 8.8 mg/dL (8.7-10.3); Chloride 105 mmol/L (96-109); Glucose 96 mg/dL (70-110); Potassium 4.6 mmol/L (3.5-5.5); Sodium 141 mmol/L (135-145)
[2023-03-12] MEDS: TETRAHYDROZOLINE 0.05% OPHTH DROPS 15 ML BTL BOTH EYES PRN ×2 (13:37→20:37)
--- NOTE | 2023-03-12 14:25 | MR ---
EXAMINATION TYPE: MR brain/cspine wo/w DATE OF EXAM: 03/12/2023 1:43 PM CLINICAL INDICATION:Female, 77 years old with history of recurrent falls, hx of MS; PHH, Recurrent fa lls, hx of MS. COMPARISON: 06/04/2020. 06/01/2020 TECHNIQUE: Multi planar, multi sequence imaging was performed through the brain including: T1, T2, Inversion rec overy, Diffusion weighted imaging, and gradient echo imaging. No gadolinium was given. Multi planar, multi sequence imaging was performed utilizing: T1-weighted, T2-weighted, and turbo inv ersion recovery imaging of the cervical spine. IV Contrast: 6.5 cc Gadavist FINDINGS: Mild motion artifact throughout the brain. Cerebral atrophy and with proportional dilation of ventricular system. Patchy areas and scattered foc i of high T2 signal intensity are seen within the periventricular white matter. Some of the white mat ter changes are perpendicular to the lateral ventricles. Midline structures show no abnormality. Diff usion-weighted imaging shows no evidence of restricted diffusion. The susceptibility weighted images microhemorrhage in the right frontal lobe centrum semiovale with punctate focus of blooming artifact. Additional area seen within the right occipital lobe. No abnormal postcontrast enhancement. The bone marrow signal is within normal limits. Paranasal sinuses and mastoid air cells: No significant paranasal sinus disease. Visualized orbits: Bilaterally aphakia Alignment: The cervical vertebral bodies have preserved heights. Alignment is within Bones: Bone signal is within normal limits. No abnormal bone marrow edema on inversion recovery seque nces. No abnormal postcontrast enhancement. Cord: Motion artifact limits evaluation of the cord, there is increased cord signal at the level of C 3 which is seen on 05/06/2022. Area at the level of C2 inferior endplates of C3 measures up to 9 mm w hich is similar prior. No abnormal postcontrast enhancement. Discs: Multilevel disc desiccation is present. C2-C3: No significant disc pathology. The spinal canal is patent. No neural foraminal stenosis. C3-C4: No significant disc pathology. The spinal canal is patent. Bilateral facet and uncovertebral joint arthropathy are present with mild bilateral neural foraminal stenosis. C4-C5: No significant disc pathology. The spinal canal is patent. Bilateral facet and uncovertebral joint arthropathy are present with moderate bilateral neural foraminal stenosis. C5-C6: No significant disc pathology. The spinal canal is patent. Bilateral facet and uncovertebral joint arthropathy are present with moderate to severe right and moderate left neural foraminal stenos is. C6-C7: No significant disc pathology. The spinal canal is patent. Bilateral facet and uncovertebral joint arthropathy are present with moderate mild left neural foraminal stenosis. C7-T1: No significant disc pathology. The spinal canal is patent. No neural foraminal stenosis. Other: None. IMPRESSION: Cervical spine: 1. Similar appearing cord signal changes at the level of C3 which are poorly visualized due to motion . Square signal seen at the level of C7 not well appreciated on this exam. No additional areas of abn ormal cord signal visualized. 2. No evidence for disc herniation or significant spinal canal stenosis. 3. Mild disc degeneration with associated osteoarthritic changes. Brain: 1. No evidence of intracranial mass or acute/subacute infarct. 2. Moderate white matter changes seen throughout the brain some of which are orthogonal to the latera l ventricles. Findings compatible with patient's history of multiple sclerosis. No evidence for enhan cement or restricted diffusion to suggest active demyelination.
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
[2023-03-12] MEDS: ALPRAZolam 0.25 MG TAB PO SCH (20:34)
--- NOTE | 2023-03-13 02:42 | P.PN ---
Subjective Progress Note Date: 03/12/23 Patient is a 77-year-old female with a past medical history of hypertension, hyperlipidemia, GERD presents to ER status post fall. Patient states that she has history of HI and has been having frequent falls. Patient states that she lost her balance and fell on her left side. Yusef is not taking having left elbow pain since then and presented to ER for evaluation. Otherwise denies any fever or chills. No recent illnesses. Denies any dysuria or hematuria. No cough or sputum production. Chest x-ray showed no acute process. Elbow x-ray showed findings suggestive of acute supracondylar fracture of the humerus with displacement. Correlate with CT scan. X-ray of the forearm and humerus was done. Pelvic x-ray showed Essman the right hip is limited due to internal rotation. If there is right hip pain recommend CT scan. CT of the left elbow showed comminuted distal humerus superior condylar fracture with intra-articular extension. Possible olecranon process fracture with curvilinear lucency seen on 1 mm only. EKG showed sinus rhythm. 03/08/2023 Patient is currently in the ER. Awake alert and oriented. Left elbow pain is better. Patient is on posterior arm splint with sling. Otherwise denied any complaints of chest pain or shortness of breath. No headache or dizziness or lightheadedness. Patient has generalized weakness. PTOT is on board. Continue on pain management. Laboratory data showed there was a 5.5 hemoglobin 11.1 and platelets 152 sodium 1.2 potassium 3.5 chloride 107 bicarb is 24.9 BUN 14.4 and creatinine of 0.9 Neurology was consulted due to frequent falls and history of MS. current medications reviewed. 03/09/2023 Patient is seen and evaluated in follow-up today with son at the bedside. Patient does have left arm in a sling and reports the pain is currently controlled. Patient with significant weakness awaiting PT/OT therapy evaluation. Neurology also following and is ordering MRI for further evaluation. 03/12/2023 She was seen and evaluated in follow-up today currently sitting up in the chair. Patient has been working with physical therapy and continues with weakness and will be going to [facility] on discharge. Awaiting insurance authorization. Patient also scheduled for MRI this morning with neurology following. Patient is currently afebrile with no reported chest pain or shortness of breath. Patient is tolerating diet with no reported nausea or vomiting. Needs encouragement with oral intake. Social work following and has submitted for insurance authorization which is currently pending. Review of systems: Constitutional: No reports of fatigue, fever, or chills Cardiovascular: No reports of chest pain or palpitations Respiratory: No reports of shortness of breath or cough GI: No reports of nausea, vomiting, or diarrhea : No reports of dysuria or retention Neurovascular: reports of generalized weakness some left upper extremity pain All medications have been reviewed PHYSICAL EXAMINATION: Patient is sitting up in the chair, awake alert and oriented.. Well-developed well-nourished HEENT: Normocephalic. Neck is supple. Pupils reactive. Nostrils clear. Oral cavity is moist. Neck reveals no JVD, carotid bruits, or thyromegaly. CHEST EXAMINATION: Trachea is central. Symmetrical expansion. Lung sterling clear to auscultation and percussion. CARDIAC: S1, S2 are muffled ABDOMEN: Soft. Obese. Bowel sounds present. Nontender. No organomegaly. No abdominal bruits. Extremities: reveal no edema. No clubbing or cyanosis, left upper extremity in a sling Neurologically awake, alert, oriented x3 with well-coordinated movements. No focal deficits noted. Diffusely weak Skin: No rash or skin lesions. Psychiatric: Cooperative. Non-suicidal Musculoskeletal: No joint swelling or deformity. Left elbow decreased range of motion. Arm sling in place. Assessment: Comminuted left distal humerus supracondylar fracture with intra-articular extension. Status post fall. posterior arm splint and sling in place. History of MS and frequent falls. Prior history of falls. Hypertension Hyperlipidemia Hyperkalemia 5.2 with slight hemolysis. Hypomagnesemia. Replaced History of Depression DVT prophylaxis with heparin subcu. GI prophylaxis No code Plan: Patient will be continued on pain management. Orthopedic surgery evaluated for the supracondylar fracture of the left elbow. Recommended conservative m anagement with posterior arm splint and use of arm sling. Nonweightbearing with left upper extremity at this time. Continue with pain management with Tylenol/NSAIDs Neurology following and has ordered MRI of the brain/cervical spine which is currently pending. Patient follows with Dr. Purvis in the outpatient setting as her neurologist and will need follow-up Social work following as well working on discharge planning the ECF and has submitted for insurance authorization which is pending Due to multiple complex medical issues, prognosis is guarded Possible discharge in 24 hours to ECF The impression and plan of care has been dictated by Jocelyne Luis, Nurse Practitioner as directed. Dr. Cristóbal MD I have performed a history and examination and MDM of this patient, discussed the same with the dictator, and agree with the dictator's assessment and plan as written ,documented as a scribe. Based on total visit time, I have performed more than 50% of the visit. Objective - Vital Signs Vital signs: Vital Signs Temp 98.4 F 03/12/23 11:55 Pulse 94 03/12/23 11:55 Resp 17 03/12/23 11:55 BP 120/73 03/12/23 11:55 Pulse Ox 95 03/12/23 11:55 FiO2 Intake & Output 03/11/23 03/12/23 03/12/23 18:59 06:59 18:59 Intake Total 600 Balance 600 Intake: Oral 600 Other: Voiding Method Bedside Commode Bedside Commode Bedside Commode Diaper Incontinent # Voids 3 1 2 # Bowel Movements 1 - Labs CBC & Chem 7: 03/12/23 06:14 03/12/23 06:14 Labs: Abnormal Lab Results - Last 24 Hours (Table) 03/12/23 03/12/23 Range/Units 06:14 06:14 RBC 3.39 L (4.10-5.20) X 10*6/uL Hgb 9.9 L (12.0-15.0) d/dL Hct 31.7 L (37.2-46.3) % MCHC 31.2 L (32.0-37.0) d/dL Est GFR (CKD-EPI) 58 L (>=60)
[2023-03-13] MEDS: FOLIC ACID 1 MG TAB PO SCH (09:21)
[2023-03-13] MEDS: HEPARIN SODIUM,PORCINE 5,000 UNIT/ML 1 ML VIAL SQ SCH (09:21)
[2023-03-13] MEDS: levETIRAcetam 500 MG TAB PO SCH (09:21)
[2023-03-13] MEDS: CYANOCOBALAMIN 500 MCG TAB PO SCH (09:21)
[2023-03-13] MEDS: PANTOPRAZOLE 40 MG TABLET PO SCH (09:21)
[2023-03-13] MEDS: POTASSIUM CHLORIDE ER 10 MEQ TAB.ER.PRT PO SCH (09:21)
[2023-03-13] MEDS: DULoxetine HCL 20 MG CAPSULE.DR PO SCH (09:21)
[2023-03-13] MEDS: ATORVASTATIN 40 MG TAB PO SCH (09:21)
[2023-03-13 12:15] VITALS: BP 114/73; PULSE 105; RESP 18; TEMP 98.2
--- NOTE | 2023-03-13 13:09 | P.DS ---
Providers Date of admission: 03/07/23 14:11 Expected date of discharge: 03/13/23 Attending physician: Karly Araujo Consults: 03/07/23 14:10 Consult Physician Routine Consulting Provider: Alphonse Poe Consult Reason/Comments: left supracondylar fracture Do you want consulting provider notified?: Yes 03/08/23 17:23 Consult Physician Routine Consulting Provider: Berry Stafford Consult Reason/Comments: MS, increased weakness Do you want consulting provider notified?: Yes Primary care physician: Honorio Curiel [place] [facility] Course: Final diagnosis Comminuted left distal humerus supracondylar fracture with intra-articular extension. Status post fall. posterior arm splint and sling in place. History of MS and frequent falls. Prior history of falls. Hypertension Hyperlipidemia Hyperkalemia 5.2 with slight hemolysis. Improved Hypomagnesemia. Replaced History of Depression DVT prophylaxis with heparin subcu. GI prophylaxis No code Discharge disposition Patient is being discharged in a stable condition with guarded prognosis to [facility]. Patient will follow-up with Dr. Honorio Curiel in the outpatient setting upon discharge. Patient is to continue with [facility] and close outpatient follow-up with neurology Dr. Purvis as scheduled. Patient to follow- up with orthopedics outpatient as well. Total time taken is greater than 35 minutes. Hospital course This is a 77-year-old female who was recently admitted with weakness and falls being closely monitored. Patient underwent neurological workup including MRI as patient has not had one in the last 3-4 years with no new enhancing lesions noted. Findings are consistent with MS. Patient also with conservative management of the left upper extremity from a fall and evaluated by orthopedics recommending partial casting with continued sling and follow-up outpatient in the next 2-3 weeks. Patient with continued weakness has been having progressive weakness over the last few weeks and more frequent falls was evaluated by physical therapy recommending rehab and patient is agreeable. Patient has been accepted at [facility] and insurance authorization was obtained. Please refer to other consultation notes for further HPI. Patient is cleared for discharge today. Currently no reports of chest pain, shortness of breath, or palpitations. Patient is afebrile. No reports of nausea or vomiting and patient is tolerating diet. Patient will be going to [facility] today. Physical exam: Gen: This is a 77 rolled female who is awake, alert and oriented 3, well- developed, well-nourished HEENT: Head is atraumatic, normocephalic. Pupils equal, round. Sclerae is anicteric. NECK: Supple. No JVD. No lymphadenopathy. No thyromegaly. LUNGS: Clear to auscultation. No wheezes or rhonchi. No intercostal retractions. HEART: Regular rate and rhythm. No murmur. ABDOMEN: Soft. Bowel sounds are present. No masses. No tenderness. EXTREMITIES: No pedal edema. No calf tenderness. Left arm currently in sling, positive pulses with cap refill less than 3 and able to move all fingers NEUROLOGICAL: Patient is awake, alert and oriented x3. Cranial nerves 2 through 12 are grossly intact. Please refer to medication reconciliation sheet for a list of medications. The impression and plan of care has been dictated by Jocelyne Luis, Nurse Practitioner as directed. Dr. Cristóbal MD I have performed a history and examination and MDM of this patient, discussed the same with the dictator, and agree with the dictator's assessment and plan as written ,documented as a scribe. Based on total visit time, I have performed more than 50% of the visit. Patient Condition at Discharge: Stable Plan - Discharge Summary New Discharge Prescriptions: New levETIRAcetam [Keppra] 500 mg PO Q12HR tab Folic Acid 1 mg PO DAILY tab Heparin Sodium,Porcine (1 ml) [Heparin Sodium] 5,000 unit SQ Q12HR each HYDROcodone/APAP 7.5-325MG [[place] 7.5-325] 1 each PO TID PRN #6 tab PRN Reason: Pain Tetrahydrozoline 0.05% Ophth [Visine Eye Drops] 1 drops BOTH EYES QID PRN ml PRN Reason: Eye Irritation Cyanocobalamin [Vitamin B-12] 1,000 mcg PO DAILY tab ALPRAZolam [Xanax] 0.25 mg PO HS #2 tab Continue Simvastatin [Zocor] 80 mg PO DAILY Omeprazole [PriLOSEC] 40 mg PO DAILY Ibuprofen [Motrin] 800 mg PO TID PRN PRN Reason: Pain DULoxetine HCL [Cymbalta] 20 mg PO BID Potassium Chloride ER [K-Dur 10] 10 meq PO DAILY ALPRAZolam [Xanax] 0.25 mg PO BID PRN #4 tab PRN Reason: Anxiety Discontinued ALPRAZolam [Xanax] 0.25 mg PO HS Hydrocodone/Acetaminophen [[place] 7.5-325] 1 tab PO TID PRN PRN Reason: Pain Discharge Medication List Omeprazole [PriLOSEC] 40 mg PO DAILY 11/20/18 [History] Simvastatin [Zocor] 80 mg PO DAILY 11/20/18 [History] Ibuprofen [Motrin] 800 mg PO TID PRN 06/01/20 [History] DULoxetine HCL [Cymbalta] 20 mg PO BID 03/07/23 [History] Potassium Chloride ER [K-Dur 10] 10 meq PO DAILY 03/07/23 [History] ALPRAZolam [Xanax] 0.25 mg PO BID PRN #4 tab 03/13/23 [Rx] ALPRAZolam [Xanax] 0.25 mg PO HS #2 tab 03/13/23 [Rx] Cyanocobalamin [Vitamin B-12] 1,000 mcg PO DAILY tab 03/13/23 [Rx] Folic Acid 1 mg PO DAILY tab 03/13/23 [Rx] HYDROcodone/APAP 7.5-325MG [[place] 7.5-325] 1 each PO TID PRN #6 tab 03/13/23 [Rx] Heparin Sodium,Porcine (1 ml) [Heparin Sodium] 5,000 unit SQ Q12HR each 03/13/23 [Rx] Tetrahydrozoline 0.05% Ophth [Visine Eye Drops] 1 drops BOTH EYES QID PRN ml 03/13/23 [Rx] levETIRAcetam [Keppra] 500 mg PO Q12HR tab 03/13/23 [Rx] Follow up Appointment(s)/Referral(s): Alphonse Poe DO [Doctor of Osteopathic Medicine] - 1 Week Noah Purvis DO [STAFF PHYSICIAN] - 1 Week Activity/Diet/Wound Care/Special Instructions: Patient is going to ECF Activity as tolerated Follow-up with your neurologist Dr. Purvis in 1-2 weeks Follow-up orthopedics outpatient Orthopedic discharge instructions: 1. Utilize arm sling 2. Ice and elevate the left upper extremity 3. Nonweightbearing left upper extremity 4. Do not remove splint, keep intact, keep clean and dry while showering 5. Plan for follow up at [facility] in [address] Poe, contact office with any questions [phone] Discharge Disposition: TRANSFER TO SNF/ECF
== END 2023-03-13 13:27 | DRG 101 ==
LOC: EC 11:12 → 6NMEDSUR 14:11 → 5NMEDONC 15:27 → 1SOBS 03-08 15:17 → 5NMEDONC 03-09 16:29
PROVIDERS: ADMIT Internal Medicine; ATTEND Internal Medicine
PROC: 4A10X4Z Monitoring of Central Nervous Electrical Activity, External Approach (ICD-10-PCS; principal; 2023-03-09)
DX: R56.9 Unspecified convulsions (principal); S42.422A Displaced comminuted supracondylar fracture without intercondylar fracture of left humerus, initial encounter for closed fracture; S32.599A Other specified fracture of unspecified pubis, initial encounter for closed fracture; G35 Multiple sclerosis; E83.42 Hypomagnesemia; E78.5 Hyperlipidemia, unspecified; I10 Essential (primary) hypertension; E87.5 Hyperkalemia; R29.6 Repeated falls; E53.8 Deficiency of other specified B group vitamins; G89.29 Other chronic pain; M54.50 Low back pain, unspecified; Z91.81 History of falling; K21.9 Gastro-esophageal reflux disease without esophagitis; M19.90 Unspecified osteoarthritis, unspecified site; W01.0XXA Fall on same level from slipping, tripping and stumbling without subsequent striking against object, initial encounter; Z79.899 Other long term (current) drug therapy; I25.2 Old myocardial infarction; Z88.5 Allergy status to narcotic agent; Z90.49 Acquired absence of other specified parts of digestive tract; Z87.81 Personal history of (healed) traumatic fracture
CPT/HCPCS: 36415; 70553; 71046; 72156; 72170; 80048; 80053; 81003; 82550; 82607; 82746; 83036; 83735; 84443; 85025; 85610; 85730; 93005; 94760; 95816; 96361; 96365; 96372; 96375; 96376; 99285

== ENCOUNTER 2023-05-10 21:47 | Emergency (ER) | payer MEDICARE ==
[2023-05-10] MEDS ORDERED: KETOROLAC 15 MG/ML 1 ML VIAL IM STA (22:22)
[2023-05-10] MEDS ORDERED: LIDOCAINE 2%-EPI 1:100,000 20 ML VIAL SQ STA (22:23)
--- NOTE | 2023-05-10 22:24 | ED ---
Fall HPI - General Chief Complaint: Fall Stated Complaint: Fall Time Seen by Provider: 05/10/23 21:59 Source: EMS Mode of arrival: EMS - History of Present Illness Initial Comments: 77-year-old female with a past medical history for MS presenting to the ED with a chief complaint of fall. She notes history of MS however notes that she is still ambulatory with assistance of her cane. Today, states that she was walking to bed when she she either got tripped on the carpet or a cord causing her to fall forward and hit the left side of her forehead on a TV stand. There was no LOC at this time. Patient denies blood thinners use. Now notes headache. Denies any other injury at this time. There is no light headedness, dizziness, chest pain, or shortness of breath preceding the fall. No other complaints. - Related Data Home Medications Medication Instructions Recorded Confirmed Omeprazole [PriLOSEC] 40 mg PO DAILY 11/20/18 03/07/23 Simvastatin [Zocor] 80 mg PO DAILY 11/20/18 03/07/23 Ibuprofen [Motrin] 800 mg PO TID PRN 06/01/20 03/07/23 DULoxetine HCL [Cymbalta] 20 mg PO BID 03/07/23 03/07/23 Potassium Chloride ER [K-Dur 10] 10 meq PO DAILY 03/07/23 03/07/23 Previous Rx's Medication Instructions Recorded ALPRAZolam [Xanax] 0.25 mg PO BID PRN #4 tab 03/13/23 ALPRAZolam [Xanax] 0.25 mg PO HS #2 tab 03/13/23 Cyanocobalamin [Vitamin B-12] 1,000 mcg PO DAILY tab 03/13/23 Folic Acid 1 mg PO DAILY tab 03/13/23 HYDROcodone/APAP 7.5-325MG [[place] 1 each PO TID PRN #6 tab 03/13/23 7.5-325] Heparin Sodium,Porcine (1 ml) 5,000 unit SQ Q12HR each 03/13/23 [Heparin Sodium] Tetrahydrozoline 0.05% Ophth 1 drops BOTH EYES QID PRN ml 03/13/23 [Visine Eye Drops] levETIRAcetam [Keppra] 500 mg PO Q12HR tab 09/19/23 Allergies Allergy/AdvReac Type Severity Reaction Status Date / Time morphine Allergy PER PCP Verified 05/10/23 21:54 IV STEROIDS AdvReac Nausea Uncoded 05/10/23 21:54 Review of Systems ROS Statement: Those systems with pertinent positive or pertinent negative responses have been documented in the HPI. ROS Other: All systems not noted in ROS Statement are negative. Past Medical History Past Medical History: GERD/Reflux, Hyperlipidemia, Hypertension, Neurologic Disorder Additional Past Medical History / Comment(s): Right 5th metacarpal fx, hand in soft cast, neuropathy, MS History of Any Multi-Drug Resistant Organisms: None Reported Past Surgical History: Cholecystectomy Additional Past Surgical History / Comment(s): History of right hand surgery. Past Anesthesia/Blood Transfusion Reactions: No Reported Reaction Past Psychological History: No Psychological Hx Reported Smoking Status: Never smoker Past Alcohol Use History: None Reported Past Drug Use History: None Reported - Past Family History Sister(s) Family Medical History: Cancer Son(s) Family Medical History: Deep Vein Thrombosis (DVT) General Exam Limitations: physical limitation (wearing A cervical collar) General appearance: alert, in no apparent distress Head exam: Present: other (No harrison sign or raccoon eyes. Patient does have approximately 3 cm laceration on the left side of her forehead.) Respiratory exam: Present: normal lung sounds bilaterally Cardiovascular Exam: Present: regular rate, normal rhythm GI/Abdominal exam: Present: soft Extremities exam: Present: other (Per patient, full active range of motion for her with history of MS and weakness of bilateral upper lower extremities. ) Neurological exam: Present: alert, oriented X3 Skin exam: Present: warm, dry Course Vital Signs 05/10/23 21:51 Temperature 98.5 F Pulse Rate 102 H Respiratory 20 Rate Blood Pressure 108/75 O2 Sat by Pulse 95 Oximetry Procedures - Laceration Laceration #1 Indication: laceration Site: face Size (cm): 3 Description: linear Anesthetic Used: lidocaine 2%, with epi Anesthesia Technique: local infiltration Amount (mls): 2 Pre-repair: wound explored, irrigated extensively Size of Sutures: 6-0 Number of Sutures: 5 Technique: simple, interrupted Patient Tolerated Procedure: well, no complications Medical Decision Making - Medical Decision Making Was pt. sent in by a medical professional or institution (, PA, BOAT CAMP OPERATOR, urgent care, hospital, or [place] health care facility...) When possible be specific @ -No Did you speak to anyone other than the patient for history (EMS, parent, family, police, friend...)? What history was obtained from this source @ -No Did you review nursing and triage notes (agree or disagree)? Why? @ -I reviewed and agree with nursing and triage notes Were old charts reviewed (outside hosp., previous admission, EMS record, old EKG, old radiological studies, urgent care reports/EKG's, [place] health care facility records)? Report findings @ -No old charts were reviewed Differential Diagnosis (chest pain, altered mental status, abdominal pain women, abdominal pain men, vaginal bleeding, weakness, fever, dyspnea, syncope, headache, dizziness, GI bleed, back pain, seizure, CVA, palpatations, mental health, musculoskeletal)? @ -Acute traumatic hemorrhage, acute fracture. This not meant to be an all inclusive list. EKG interpreted by me (3pts min.). @ -None X-rays interpreted by me (1pt min.). @ -None done CT interpreted by me (1pt min.). @ -CT brain and C-spine interpreted by me showing no evidence of bleed, fracture, acute finding. U/S interpreted by me (1pt. min.). @ -None done What testing was considered but not performed or refused? (CT, X-rays, U/S, labs)? Why? @ -None What meds were considered but not given or refused? Why? @ -None Did you discuss the management of the patient with other professionals (professionals i.e. , PA, BOAT CAMP OPERATOR, lab, RT, psych nurse, social services director, stage settings painter, teacher, animal park code enforcement officer, family independence case manager)? Give summary @ -No Was smoking cessation discussed for >3mins.? @ -No Was critical care preformed (if so, how long)? @ -No Were there social determinants of health that impacted care today? How? (Homelessness, low income, unemployed, alcoholism, drug addiction, transportation, low edu. Level, literacy, decrease access to med. care, custodial, rehab)? @ -No Was there de-escalation of care discussed even if they declined (Discuss DNR or withdrawal of care, Hospice)? DNR status @ -No What co-morbidities impacted this encounter? (DM, HTN, Smoking, COPD, CAD, Cancer, CVA, ARF, Chemo, Hep., AIDS, mental health diagnosis, sleep apnea, morbid obesity)? @ -None Was patient admitted / discharged? Hospital course, mention meds given and route, prescriptions, significant lab abnormalities, going to OR and other pertinent info. @ -Discharge 77-year-old female presenting to the ED status post mechanical fall with head injury. No LOC. None on blood thinners. CT brain C-spine showed no acute findings. Patient reported no other injuries. Patient did sustain a laceration to her forehead. This was repaired. For further details please see procedure note. This was covered in bacitracin. Discharged home in stable condition. Discussed return precautions patient family who verbalized route. Undiagnosed new problem with uncertain prognosis? @ -No Drug Therapy requiring intensive monitoring for toxicity (Heparin, Nitro, Insulin, Cardizem)? @ -No Were any procedures done? @ -Yes Diagnosis/symptom? @ -s/p mechanical fall, head injury Acute, or Chronic, or Acute on Chronic? @ -Acute Uncomplicated (without systemic symptoms) or Complicated (systemic symptoms)? @ -Uncomplicated Side effects of treatment? @ -No Exacerbation, Progression, or Severe Exacerbation? @ -No Poses a threat to life or bodily function? How? (Chest pain, [place], [place], pneumonia, PE, COPD, DKA, ARF, appy, cholecystitis, CVA, Diverticulitis, Homicidal, Suicidal, threat to staff... and all critical care pts) @ -No Disposition Clinical Impression: Laceration Disposition: HOME SELF-CARE Condition: Good Instructions (If sedation given, give patient instructions): Fall Prevention for Older Adults (ED) Additional Instructions: Please return to the Emergency Department if symptoms worsen or any other c oncerns. Please return in 4-5 days for suture removal. Monitor for signs of infection. Is patient prescribed a controlled substance at d/c from ED?: No Referrals: Tito Curiel MD [Primary Care Provider] - 1-2 days Time of Disposition: 01:52
--- NOTE | 2023-05-11 00:49 | CT ---
EXAM: CT Head Without Intravenous Contrast CLINICAL HISTORY: ITS.REASON CT Reason: s/p fall r/o bleed TECHNIQUE: Axial computed tomography images of the head/brain without intravenous contrast. CTDI is 45.2 mGy and DLP is 1031 mGy-cm. This CT exam was performed using one or more of the following dose reduction techniques: automated exposure control, adjustment of the mA and/or kV according to patient size, and/or use of iterative reconstruction technique. COMPARISON: No relevant prior studies available. FINDINGS: Brain: No intracranial hemorrhage. Atrophy and chronic microvascular ischemic changes. Ventricles: Unremarkable. Bones/joints: Unremarkable. No fracture. Soft tissues: Posterior scalp contusion. Sinuses: No acute sinusitis. Mastoid air cells: Unremarkable as visualized. IMPRESSION: 1. No intracranial hemorrhage. 2. Posterior scalp contusion. EXAM: CT Cervical Spine Without Intravenous Contrast CLINICAL HISTORY: ITS.REASON CT Reason: s/p fall r/o bleed TECHNIQUE: Axial computed tomography images of the cervical spine without intravenous contrast. CTDI is 8.1 mGy and DLP is 235.5 mGy-cm. This CT exam was performed using one or more of the following dose reduction techniques: automated exposure control, adjustment of the mA and/or kV according to patient size, and/or use of iterative reconstruction technique. COMPARISON: No relevant prior studies available. FINDINGS: Vertebrae: No acute fracture. Soft tissues: Unremarkable. IMPRESSION: No acute fracture.
[2023-05-11 02:32] VITALS: BP 111/67; PULSE 82; RESP 16; TEMP 98
== END 2023-05-11 02:12 | disposition home or self-care (01) ==
LOC: EC 21:47
DX: S01.81XA Laceration without foreign body of other part of head, initial encounter (principal); K21.9 Gastro-esophageal reflux disease without esophagitis; E78.5 Hyperlipidemia, unspecified; I10 Essential (primary) hypertension; Z79.899 Other long term (current) drug therapy; Z88.5 Allergy status to narcotic agent; Z88.8 Allergy status to other drugs, medicaments and biological substances; W01.10XA Fall on same level from slipping, tripping and stumbling with subsequent striking against unspecified object, initial encounter
CPT/HCPCS: 72125; 70450; 99285; 96372; 12013; J1885

== ENCOUNTER → 2024-03-21 | Day surgery (SDC) | payer MEDICARE ==
--- NOTE | 2024-03-20 13:26 | P.GSHP ---
History of Present Illness H&P Date: 03/20/24 Chief Complaint: Melanoma 78-year-old female recently diagnosed with locally metastatic right upper extremity melanoma. Patient with history of multiple sclerosis. Ambulates with a walker. Patient met with oncology. Stage IIIc melanoma currently. Patient is starting immunotherapy at this time. 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 Melanoma stage 3C, 3 lymph nodes removed, keytruda immune therapy q 3 weeks. last seizure 03/2023 (Electric disruption looses balanace) History of Any Multi-Drug Resistant Organisms: None Reported Past Surgical History: Cholecystectomy Additional Past Surgical History / Comment(s): History of right hand surgery. left arm surgery Past Anesthesia/Blood Transfusion Reactions: No Reported Reaction Smoking Status: Never smoker - Past Family History Sister(s) Family Medical History: Cancer Son(s) Family Medical History: Deep Vein Thrombosis (DVT) Medications and Allergies Home Medications Medication Instructions Recorded Confirmed Type Omeprazole [PriLOSEC] 40 mg PO DAILY 11/20/18 03/17/24 History Simvastatin [Zocor] 80 mg PO DAILY 11/20/18 03/17/24 History Ibuprofen [Motrin] 800 mg PO TID PRN 06/01/20 03/17/24 History DULoxetine HCL [Cymbalta] 20 mg PO BID 03/07/23 03/17/24 History ALPRAZolam [Xanax] 0.25 mg PO BID PRN #4 tab 03/13/23 03/17/24 Rx Folic Acid 1 mg PO DAILY tab 03/13/23 03/17/24 Rx HYDROcodone/APAP 7.5-325MG [[place] 1 each PO TID PRN #6 tab 03/13/23 03/17/24 Rx 7.5-325] Tetrahydrozoline 0.05% Ophth 1 drops BOTH EYES QID PRN ml 03/13/23 03/17/24 Rx [Visine Eye Drops] levETIRAcetam [Keppra] 500 mg PO Q12HR tab 03/13/23 03/17/24 Rx ALPRAZolam [Xanax] 0.5 mg PO HS 03/17/24 03/17/24 History Unk Keytruda 1 bag IV Q21D 03/17/24 03/17/24 History Allergies Allergy/AdvReac Type Severity Reaction Status Date / Time morphine Allergy PER PCP Verified 03/17/24 11:03 IV STEROIDS AdvReac Nausea Uncoded 03/17/24 11:03 Surgical - Exam Physical exam: General: Well-developed, well-nourished HEENT: Normocephalic, sclerae nonicteric Abdomen: Nontender, nondistended Extremities: No edema, right upper extremity surgical sites noted Neuro: Alert and oriented Assessment and Plan (1) Melanoma Narrative/Plan: Will proceed with Port-A-Cath placement. Risks of bleeding, infection, DVT, pneumothorax, catheter malfunction, anesthesia related complications were discussed. The patient understands and wishes to proceed. Status: Acute Code(s): C43.9 - MALIGNANT MELANOMA OF SKIN, UNSPECIFIED SNOMED Code(s): 411084861
[~2024-03-21] MED LIST changes: +ACETAMINOPHEN TAB 325 MG TAB PO PRN; -DEXAMETHASONE SOD PHOSPHATE 10 MG/ML 1 ML VIAL IV ONE; -HYDROmorphone 0.5 MG/0.5 ML SYRINGE IVP PRN; -LACTATED RINGERS 1,000 ML IV SCH; +LIDOCAINE 1% (10MG/ML) FOR IV START INTRADERMA PRN; -LIDOCAINE 1% 20 ML VIAL (10MG/ML) FOR IV START INTRADERMA PRN; +LIDOCAINE 1% INJ 10MG/ML (20 ML MDV) ONE; +MIDAZOLAM 2 MG/2 ML VIAL ONE; +NALOXONE 0.4 MG/ML 1 ML VIAL IV PRN; -ONDANSETRON 4 MG/2 ML VIAL IVP ONE; +PHENYLEPHRINE 10 MG/ML VIAL ONE; +PROPOFOL 10 MG/ML 20 ML VIAL IV ONE; +Pre Op ABX Message 1 EACH MISC MISCELLANE ONE; -SCOPOLAMINE 1.5MG/72HR PATCH TRANSDERM ONE; -ceFAZolin IN SWFI 2 GM/20 ML SYRINGE IVP ONE; +fentaNYL (PF) 50 MCG/ML 2 ML AMP IV PRN; +fentaNYL (PF) 50 MCG/ML 2 ML AMP ONE
[2024-03-21] MEDS: IV FLUID CONTINUATION 1,000 ML IV ONE (07:05)
[2024-03-21] MEDS: ONDANSETRON 4 MG/2 ML VIAL IVP ONE (07:13)
[2024-03-21] MEDS: LACTATED RINGERS 1,000 ML IV SCH (07:13)
[2024-03-21] MEDS: FAMOTIDINE 20 MG/2 ML VIAL IV STA (07:16)
[2024-03-21] MEDS: LIDOCAINE 1% INJ 10MG/ML (20 ML MDV) SQ ONE ×3 (07:50→07:55)
--- NOTE | 2024-03-21 08:30 | P.OP ---
Date of Procedure: 03/21/24 Procedure(s) Performed: PREOPERATIVE DIAGNOSIS: Melanoma POSTOPERATIVE DIAGNOSIS: Same PROCEDURE: Port-A-Cath placement with fluoroscopic and ultrasound guidance SURGEON: Altagracia EBL: 5 cc ANESTHESIA: General COMPLICATIONS: None OPERATIVE PROCEDURE: Patient was brought and placed on the operative table in the supine position. The patient was placed under general anesthesia at that time. The chest and neck were prepped and draped in usual sterile fashion. The ultrasound probe was used to identify the location of the right internal jugular vein. The skin was localized with lidocaine. The Seldinger needle was advanced into the IJ under ultrasound guidance. The wire was advanced through the needle under fluoroscopic guidance into the superior vena cava. A port pocket was created in the right infraclavicular location. The catheter was tunneled from the wire entrance site to the port pocket. The port was then connected to the catheter. The dilator introducer was threaded over the guidewire. The guidewire and dilator were then removed. The catheter was advanced through the introducer and introducer was then removed. The tip was seen to be in the right atrial junction via fluoroscopy. A picture of the radiograph showing the tip of the catheter was taken. Port was flushed with both saline and a Hep-Lock solution. There was good flow both in and out of the port. The port was sutured in underlying tissues using 3-0 silk sutures. The subcutaneous tissues were reapproximated using 3-0 Vicryl sutures and the skin at both locations using 4-0 Monocryl sutures. Skin glue and sterile dressings then applied. DISPOSITION: Stable to recovery room
[2024-03-21 08:42] VITALS: TEMP 97.1
[2024-03-21 09:43] VITALS: BP 135/71; PULSE 80; RESP 12
--- NOTE | 2024-03-21 09:58 | XR ---
EXAMINATION TYPE: XR chest 1V portable DATE OF EXAM: 03/21/2024 COMPARISON: 03/07/2023 HISTORY: Ulcerative Mediport TECHNIQUE: Single frontal view of the chest is obtained. FINDINGS: Surgical clips axilla. Mediport seen with the tip overlying the SVC. No sizable pneumothor ax. Limited inspiration. There is atherosclerotic change and ectasia the aorta. No sizable pleural ef fusion. Osteopenia, degenerative changes spine and arthropathy of the shoulders. Left-sided rib defor mities suggest prior trauma. IMPRESSION: Mediport catheter placement with no sizable pneumothorax. Tip of the catheter at the lev el of the SVC. [facility], , 03/21/2024 8:50 AM
--- NOTE | 2024-03-31 16:26 | FL ---
EXAMINATION TYPE: FL guided central line placemt DATE OF EXAM: 03/21/2024 8:17 AM COMPARISON: Pre Operative Images if available both CT/MRI or plain film CLINICAL INDICATION: Female, 78 years old with history of C43.60 MELANOMA; TECHNIQUE: FL guided central line placemt, multiple fluoroscopic images provided for procedure. Total fluoroscopy time: 4 seconds Total submitted images to PACS: 2 DAP: 0.4032 mGym2 Gycm2 uGym2 cGycm2 or equivalent. FINDINGS: Fluoroscopic imaging for Port-A-Cath insertion, no evidence for pneumothorax. Multilevel degeneration changes of the spine. Surgical clips project over the right axilla. IMPRESSION: 1. No evidence for intraoperative complication. 2. Please see the operative/procedural note for further details. [facility], , 03/31/2024 4:23 PM
== END ==
LOC: OR 06:14
PROVIDERS: ATTEND Surgery
DX: C43.60 Malignant melanoma of unspecified upper limb, including shoulder
CPT/HCPCS: 71045; 77001

== ENCOUNTER 2024-05-30 13:54 | Emergency (ER) | payer MEDICARE ==
--- NOTE | 2024-05-30 15:21 | ED ---
Fall HPI - General Chief Complaint: Fall Stated Complaint: Fall, head injury, hand injury Time Seen by Provider: 05/30/24 14:10 Source: patient, RN notes reviewed Mode of arrival: wheelchair - History of Present Illness Initial Comments: This is a 78-year-old female with history of MS presenting to the emergency department for chief complaint of fall. Patient states that she was ambulating out to her car when she used a friend's cane instead of her walker when she tripped over her foot and fell injuring bilateral hands and onto her face. Patient denies loss of consciousness at the time of the injury. She denies presyncopal symptoms before the time of the event stating that she tripped over her feet. Family at bedside states that this occurs frequently for the patient as she is weak on her feet due to the diagnosis of MS. Is endorsing pain of bilateral hands and of her nasal bridge. States she is up-to-date on her tetanus vaccination. No other acute complaints at this time. - Related Data Home Medications Medication Instructions Recorded Confirmed Omeprazole [PriLOSEC] 40 mg PO DAILY 11/20/18 03/21/24 Simvastatin [Zocor] 80 mg PO DAILY 11/20/18 03/21/24 Ibuprofen [Motrin] 800 mg PO TID PRN 06/01/20 03/21/24 DULoxetine HCL [Cymbalta] 20 mg PO BID 03/07/23 03/21/24 ALPRAZolam [Xanax] 0.5 mg PO HS 03/17/24 03/21/24 Unk Keytruda 1 bag IV Q21D 03/17/24 03/21/24 Previous Rx's Medication Instructions Recorded ALPRAZolam [Xanax] 0.25 mg PO BID PRN #4 tab 03/13/23 Folic Acid 1 mg PO DAILY tab 03/13/23 HYDROcodone/APAP 7.5-325MG [[place] 1 each PO TID PRN #6 tab 03/13/23 7.5-325] Tetrahydrozoline 0.05% Ophth 1 drops BOTH EYES QID PRN ml 03/13/23 [Visine Eye Drops] levETIRAcetam [Keppra] 500 mg PO Q12HR tab 03/13/23 Allergies Allergy/AdvReac Type Severity Reaction Status Date / Time morphine Allergy PER PCP Verified 05/30/24 14:12 IV STEROIDS AdvReac Nausea Uncoded 05/30/24 14:12 Review of Systems ROS Statement: Those systems with pertinent positive or pertinent negative responses have been documented in the HPI. ROS Other: All systems not noted in ROS Statement are negative. 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 Melanoma stage 3C, 3 lymph nodes removed, keytruda immune therapy q 3 weeks. last seizure 03/2023 (Electric disruption looses balanace) History of Any Multi-Drug Resistant Organisms: None Reported Past Surgical History: Cholecystectomy, Orthopedic Surgery Additional Past Surgical History / Comment(s): History of right hand surgery. left arm surgery Past Anesthesia/Blood Transfusion Reactions: No Reported Reaction Past Psychological History: Anxiety, Depression Smoking Status: Never smoker Past Alcohol Use History: None Reported Past Drug Use History: None Reported - Past Family History Sister(s) Family Medical History: Cancer Son(s) Family Medical History: Deep Vein Thrombosis (DVT) General Exam Limitations: no limitations Expanded Head exam: Present: abrasion (nasal bridge, left superior), contusion (left superior) Eye exam: Present: normal appearance, PERRL, EOMI. Absent: scleral icterus, conjunctival injection, periorbital swelling Neck exam: Present: normal inspection. Absent: tenderness, meningismus, lymphadenopathy Respiratory exam: Present: normal lung sounds bilaterally. Absent: respiratory distress, wheezes, rales, rhonchi, stridor Cardiovascular Exam: Present: regular rate, normal rhythm, normal heart sounds. Absent: systolic murmur, diastolic murmur, rubs, gallop, clicks GI/Abdominal exam: Present: soft, normal bowel sounds. Absent: distended, tenderness, guarding, rebound, rigid Extremities exam: Present: normal inspection, full ROM, normal capillary refill, other (bilateral hand distal ecchymosis and edema of metacarpal-phalngeal joints, no active bleeding). Absent: tenderness, pedal edema, joint swelling, calf tenderness Neurological exam: Present: alert, oriented X3, CN II-XII intact Course Vital Signs 05/30/24 05/30/24 14:12 16:54 Temperature 97.6 F 98.0 F Pulse Rate 95 86 Respiratory 18 19 Rate Blood Pressure 112/78 155/89 O2 Sat by Pulse 95 98 Oximetry Medical Decision Making - Medical Decision Making Was pt. sent in by a medical professional or institution ([facility], ENTERTAINMENT MUSICIAN, urgent care, hospital, or shelter...) When possible be specific @ -No Did you speak to anyone other than the patient for history (EMS, parent, family, police, friend...)? What history was obtained from this source @ -No Did you review nursing and triage notes (agree or disagree)? Why? @ -I reviewed and agree with nursing and triage notes Were old charts reviewed (outside hosp., previous admission, EMS record, old EKG, old radiological studies, urgent care reports/EKG's, shelter records)? Report findings @ -No old charts were reviewed Differential Diagnosis (chest pain, altered mental status, abdominal pain women, abdominal pain men, vaginal bleeding, weakness, fever, dyspnea, syncope, headache, dizziness, GI bleed, back pain, seizure, CVA, palpatations, mental health, musculoskeletal)? @ -Intracranial hemorrhage, subarachnoid hemorrhage, cervical spine fracture, hand fracture, concussion, contusion, this list is not all inclusive EKG interpreted by me (3pts min.). @ -None X-rays interpreted by me (1pt min.). @ -X-ray of bilateral hands reveals no acute osseous pathology CT interpreted by me (1pt min.). @ - CT of the brain, C-spine, and facial bones reveals no acute intracranial process with no acute facial bone fracture no evidence of cervical spine fracture and a soft tissue swelling of the nose with soft tissue contusion of the left forehead U/S interpreted by me (1pt. min.). @ -None done What testing was considered but not performed or refused? (CT, X-rays, U/S, labs)? Why? @ -None What meds were considered but not given or refused? Why? @ -None Did you discuss the management of the patient with other professionals (professionals i.e. [facility], ENTERTAINMENT MUSICIAN, lab, RT, psych nurse, social and human services assistant, financial planning adviser, teacher, commercial loan officer, case monitor)? Give summary @ -No Was smoking cessation discussed for >3mins.? @ -No Was critical care preformed (if so, how long)? @ -No Were there social determinants of health that impacted care today? How? (Homelessness, low income, unemployed, alcoholism, drug addiction, transportation, low edu. Level, literacy, decrease access to med. care, skilled nursing, rehab)? @ -No Was there de-escalation of care discussed even if they declined (Discuss DNR or withdrawal of care, Hospice)? DNR status @ -No What co-morbidities impacted this encounter? (DM, HTN, Smoking, COPD, CAD, Cancer, CVA, ARF, Chemo, Hep., AIDS, mental health diagnosis, sleep apnea, morbid obesity)? @ -None Was patient admitted / discharged? Hospital course, mention meds given and route, prescriptions, significant lab abnormalities, going to OR and other pertinent info. @ -Discharge. 78-year-old female presenting after a fall. Patient noted to have bruising to the forehead with mild abrasions over the anterior nasal bridge. Vitals are stable. Patient was offered pain medication was declined. Imaging including CT of the brain and C-spine, facial bones, x-ray bilateral hands no acute osseous abnormality. Recommend patient continue to ice and use Tylenol Motrin as needed for pain relief. Discussed with Dr. Wilkins Undiagnosed new problem with uncertain prognosis? @ -No Drug Therapy requiring intensive monitoring for toxicity (Heparin, Nitro, Insulin, Cardizem)? @ -No Were any procedures done? @ -No Diagnosis/symptom? @ -fall, contusion, skin abrasion Acute, or Chronic, or Acute on Chronic? @ -acute Uncomplicated (without systemic symptoms) or Complicated (systemic symptoms)? @ -uncomplicated Side effects of treatment? @ -No Exacerbation, Progression, or Severe Exacerbation? @ -No Poses a threat to life or bodily function? How? (Chest pain, [place], [place], pneumonia, PE, COPD, DKA, ARF, appy, cholecystitis, CVA, Diverticulitis, Homicidal, Suicidal, threat to staff... and all critical care pts) @ -No Disposition Clinical Impression: Fall, Contusion, Skin abrasion Disposition: HOME SELF-CARE Condition: Good Instructions (If sedation given, give patient instructions): Fall Prevention for Older Adults (ED) Additional Instructions: Please return to the Emergency Department if symptoms worsen or any other concerns. Is patient prescribed a controlled substance at d/c from ED?: No Referrals: Honorio Curiel MD [Primary Care Provider] - 1-2 days Time of Disposition: 15:48
--- NOTE | 2024-05-30 15:38 | CT ---
EXAMINATION TYPE: CT brain cspine wo con, CT facial bones wo con CT DLP: combined 967.5 mGycm, Automated exposure control for dose reduction was used. DATE OF EXAM: 05/30/2024 3:26 PM COMPARISON: MRI brain C-spine 03/12/2023, 06/04/2020, CT brain C-spine 05/10/2023, 06/01/2020 CLINICAL INDICATION:Female, 78 years old with history of fall; Fall with facial trauma, no thinners. TECHNIQUE: Brain: Multiple axial CT images of the brain were obtained without IV contrast. Cspine: Axial CT images from the skull base to the inferior aspect of T2 we obtained without intraven ous contrast. Coronal and sagittal reformatted images were also reviewed. Facial bones; axial CT images of the facial bones were obtained without contrast and soft tissue and bone windows. Coronal and sagittal reformatted images were also reviewed. FINDINGS: Brain: Extra-axial spaces: No abnormal extra-axial fluid collections. Ventricular system: Within normal limits Cerebral parenchyma: Cerebral atrophy. No acute intraparenchymal hemorrhage or mass effect. The schumacher -white junction is well differentiated. Scattered hypoattenuating areas are seen within the periventr icular and subcortical white matter. Nonspecific left basal ganglia calcification. Cerebellum: Unremarkable. Mass effect: No evidence of midline shift. Intracranial vasculature: Atherosclerotic calcifications of the intracranial vessels. Soft tissues: Small left forehead soft tissue contusion. Calvarium: No depressed skull fracture. Paranasal sinuses and mastoid air cells: Clear. Visualized orbits: Bilateral aphakia Cervical spine: Fracture: None. Osseous structures: Multilevel degenerative disc disease changes with disc space narrowing and endpla te sclerosis. Vertebral alignment: Within normal limits. Spinal canal/Neural Foramina: No evidence of significant spinal canal narrowing. No evidence for sign ificant neural foraminal stenosis. Neck soft tissues: Prevertebral soft tissues are within normal limits. Other: The airway is patent. Linear scarring within the left apex. Bilateral carotid bulb calcificati ons. The anterior chest wall IJ Mediport catheter. Facial Bones: There is no evidence of fracture, subluxation, dislocation. Small left forehead soft tissue contusion . Soft tissue swelling of the nose. The orbital contents are unremarkable. Bilateral aphakia. The tem poral-mandibular joints appear symmetric. The visualized portion of the paranasal sinuses appear silva r. IMPRESSION: 1. No acute intracranial process. 2. Nonspecific white matter changes, likely secondary to chronic small vessel ischemic disease. 3. No acute facial bone fracture. 4. Soft tissue swelling of the nose with small left forehead soft tissue contusion. 5. No evidence of cervical spine fracture. 6. Mild multilevel degenerative disc disease. [facility], , 05/30/2024 3:36 PM
--- NOTE | 2024-05-30 15:45 | XR ---
EXAMINATION TYPE: XR hand complete bilateral DATE OF EXAM: 05/30/2024 3:26 PM COMPARISON: 03/07/2023 CLINICAL INDICATION: Female, 78 years old with history of fall, pain; PHH, pain TECHNIQUE: XR hand complete bilateral 3 views were obtained of each hand. FINDINGS: Right: Normal alignment of the visualized joints. No acute osseous pathology is identified. No evid ence of soft tissue swelling. Multifocal degeneration changes with joint space narrowing and osteophy te formation. fixation hardware involving the fifth metacarpal appears intact. Left:Right: Normal alignment of the visualized joints. No acute osseous pathology is identified. No evidence of soft tissue swelling. Multifocal degeneration changes with joint space narrowing and ost eophyte formation. IMPRESSION: 1. No acute osseous pathology. 2. 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 [facility], , 05/30/2024 3:42 PM
[2024-05-30] MEDS: BACITRACIN OINT 1 EACH PACKET TOPICAL ONE (16:54)
[2024-05-30 17:02] VITALS: BP 155/89; PULSE 86; RESP 19; TEMP 98
== END 2024-05-30 17:02 | disposition home or self-care (01) ==
LOC: EC 13:54
DX: S00.83XA Contusion of other part of head, initial encounter (principal); Z88.5 Allergy status to narcotic agent; Z88.8 Allergy status to other drugs, medicaments and biological substances; W01.0XXA Fall on same level from slipping, tripping and stumbling without subsequent striking against object, initial encounter
CPT/HCPCS: 70450; 70486; 72125; 99284

== ENCOUNTER 2024-07-08 16:36 | Observation (INO) | payer MEDICARE ==
--- NOTE | 2024-07-08 17:20 | ED ---
General Adult HPI - General Chief complaint: Nausea/Vomiting/Diarrhea Stated complaint: NVD Time Seen by Provider: 07/08/24 16:55 Source: patient, RN notes reviewed, old records reviewed Mode of arrival: EMS Limitations: no limitations - History of Present Illness Initial comments: Is a 78-year-old female who presents to the emergency department complaining of nausea vomiting diarrhea. Patient states this started yesterday and continues today. Patient denies any recent antibiotic use. Patient denies any fever chills. Patient denies any abdominal pain. Patient does states she has had a dry cough for the last 2 days as well. Patient denies any chest pain or difficulty breathing. Patient denies any back pain. Patient denies any dysuria hematuria urinary frequency. - Related Data Home Medications Medication Instructions Recorded Confirmed Omeprazole [PriLOSEC] 40 mg PO DAILY 11/20/18 03/21/24 Simvastatin [Zocor] 80 mg PO DAILY 11/20/18 03/21/24 Ibuprofen [Motrin] 800 mg PO TID PRN 06/01/20 03/21/24 DULoxetine HCL [Cymbalta] 20 mg PO BID 03/07/23 03/21/24 ALPRAZolam [Xanax] 0.5 mg PO HS 03/17/24 03/21/24 Unk Keytruda 1 bag IV Q21D 03/17/24 03/21/24 Previous Rx's Medication Instructions Recorded ALPRAZolam [Xanax] 0.25 mg PO BID PRN #4 tab 03/13/23 Folic Acid 1 mg PO DAILY tab 03/13/23 HYDROcodone/APAP 7.5-325MG [[place] 1 each PO TID PRN #6 tab 03/13/23 7.5-325] Tetrahydrozoline 0.05% Ophth 1 drops BOTH EYES QID PRN ml 03/13/23 [Visine Eye Drops] levETIRAcetam [Keppra] 500 mg PO Q12HR tab 03/13/23 Allergies Allergy/AdvReac Type Severity Reaction Status Date / Time morphine Allergy PER PCP Verified 07/08/24 16:56 IV STEROIDS AdvReac Nausea Uncoded 07/08/24 16:56 Review of Systems ROS Statement: Those systems with pertinent positive or pertinent negative responses have been documented in the HPI. ROS Other: All systems not noted in ROS Statement are negative. 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 Melanoma stage 3C, 3 lymph nodes removed, keytruda immune therapy q 3 weeks. last seizure 03/2023 (Electric disruption looses balanace) History of Any Multi-Drug Resistant Organisms: None Reported Past Surgical History: Cholecystectomy, Orthopedic Surgery Additional Past Surgical History / Comment(s): History of right hand surgery. left arm surgery Past Anesthesia/Blood Transfusion Reactions: No Reported Reaction Past Psychological History: Anxiety, Depression Smoking Status: Never smoker Past Alcohol Use History: None Reported Past Drug Use History: None Reported - Past Family History Sister(s) Family Medical History: Cancer Son(s) Family Medical History: Deep Vein Thrombosis (DVT) General Exam - General Exam Comments Initial Comments: GENERAL: Patient is well-developed and well-nourished. Patient is nontoxic and well- hydrated and is in mild distress. ENT: Neck is soft and supple. No significant lymphadenopathy is noted. Oropharynx is clear. Moist mucous membranes. Neck has full range of motion without eliciting any pain. EYES: The sclera were anicteric and conjunctiva were pink and moist. Extraocular movements were intact and pupils were equal round and reactive to light. Eyelids were unremarkable. PULMONARY: Unlabored respirations. Good breath sounds bilaterally. No audible rales rhonc hi or wheezing was noted. CARDIOVASCULAR: There is a regular rate and rhythm without any murmurs gallops or rubs. ABDOMEN: Soft and nontender with normal bowel sounds. SKIN: Skin is clear with no lesions or rashes and otherwise unremarkable. NEUROLOGIC: Patient is alert and oriented x3. Cranial nerves II through XII are grossly intact. Motor and sensory are also intact. Normal speech, volume and content. Symmetrical smile. MUSCULOSKELETAL: Normal extremities with adequate strength and full range of motion. LYMPHATICS: No significant lymphadenopathy is noted PSYCHIATRIC: Normal psychiatric evaluation. Limitations: no limitations Course Vital Signs 07/08/24 07/08/24 07/08/24 16:51 18:37 18:53 Temperature 100.4 F H 98.9 F Pulse Rate 119 H 82 80 Pulse Rate [ Sitting Conservation Educator] Pulse Rate [ Standing Conservation Educator ] Pulse Rate [ Supine Conservation Educator] Respiratory 16 18 18 Rate Blood Pressure 96/62 83/52 94/54 Blood Pressure [Left Arm Sitting] Blood Pressure [Left Arm Standing] Blood Pressure [Left Arm Supine] O2 Sat by Pulse 94 L 95 97 Oximetry 07/08/24 07/08/24 19:12 19:39 Temperature Pulse Rate 80 Pulse Rate [ 92 Sitting Conservation Educator] Pulse Rate [ 97 Standing Conservation Educator ] Pulse Rate [ 84 Supine Conservation Educator] Respiratory 18 Rate Blood Pressure 97/57 Blood Pressure 108/74 [Left Arm Sitting] Blood Pressure 105/72 [Left Arm Standing] Blood Pressure 107/62 [Left Arm Supine] O2 Sat by Pulse 97 Oximetry Medical Decision Making - Medical Decision Making Was pt. sent in by a medical professional or institution (, AD, CRIMINAL PROFILER, urgent care, hospital, or jail...) When possible be specific @ -No Did you speak to anyone other than the patient for history (EMS, parent, family, police, friend...)? What history was obtained from this source @ -No Did you review nursing and triage notes (agree or disagree)? Why? @ -I reviewed and agree with nursing and triage notes Were old charts reviewed (outside hosp., previous admission, EMS record, old EKG, old radiological studies, urgent care reports/EKG's, jail records)? Report findings @ -No old charts were reviewed Differential Diagnosis? @ -Gastritis, acute viral syndrome, acute diarrhea, gastroenteritis, this is not an all-inclusive list EKG interpreted by me (3pts min.). @ -As above X-rays interpreted by me (1pt min.). @ -Chest x-ray shows no acute abnormality CT interpreted by me (1pt min.). @ -None done U/S interpreted by me (1pt. min.). @ -None done What testing was considered but not performed or refused? (CT, X-rays, U/S, labs)? Why? @ -None What meds were considered but not given or refused? Why? @ -None Did you discuss the management of the patient with other professionals (professionals i.e. , AD, CRIMINAL PROFILER, lab, RT, psych nurse, social services specialist, tray drier operator, teacher, navy senior officer, registered nurse hh case manager)? Give summary @ -I spoke with Dr. Curiel he agreed to admit the patient admit the patient I wrote admitting orders Was smoking cessation discussed for >3mins.? @ -No Was critical care preformed (if so, how long)? @ -No Were there social determinants of health that impacted care today? How? (Homelessness, low income, unemployed, alcoholism, drug addiction, transportation, low edu. Level, literacy, decrease access to med. care, usp, rehab)? @ -No Was there de-escalation of care discussed even if they declined (Discuss DNR or withdrawal of care, Hospice)? DNR status @ -No What co-morbidities impacted this encounter? (DM, HTN, Smoking, COPD, CAD, C ancer, CVA, ARF, Chemo, Hep., AIDS, mental health diagnosis, sleep apnea, morbid obesity)? @ -None Was patient admitted / discharged? Hospital course, mention meds given and route, prescriptions, significant lab abnormalities, going to OR and other pertinent info. @ -Patient was given Zofran Lomotil in the emergency department and some IV fluids. Patient's blood pressure was slightly low and she was feeling very lightheaded and almost passed out patient was given 500 cc of normal saline. She was feeling better but because of the low potassium and the low blood pressure even though it has responded to fluids patient will be kept overnight. Undiagnosed new problem with uncertain prognosis? @ -No Drug Therapy requiring intensive monitoring for toxicity (Heparin, Nitro, Insulin, Cardizem)? @ -No Were any procedures done? @ -No Diagnosis/symptom? @ -Gastroenteritis Acute, or Chronic, or Acute on Chronic? @ -Acute Uncomplicated (without systemic symptoms) or Complicated (systemic symptoms)? @ -Complicated Side effects of treatment? @ -No Exacerbation, Progression, or Severe Exacerbation? @ -No Poses a threat to life or bodily function? How? (Chest pain, USA, NM, pneumonia, PE, COPD, DKA, ARF, appy, cholecystitis, CVA, Diverticulitis, Homicidal, Suicidal, threat to staff... and all critical care pts) @ -Yes this could lead to dehydration and a syncopal episode. Diagnosis/symptom? @ -Hypokalemia Acute, or Chronic, or Acute on Chronic? @ -Acute Uncomplicated (without systemic symptoms) or Complicated (systemic symptoms)? @ -Complicated Side effects of treatment? @ -None Exacerbation, Progression, or Severe Exacerbation] @ -No Poses a threat to life or bodily function? @ -No - Lab Data Result diagrams: 07/08/24 17:07 07/08/24 17:07 Lab Results 07/08/24 07/08/24 07/08/24 Range/Units 17:07 17:07 17:07 WBC 5.1 (3.8-10.6) k/uL RBC 3.79 L (3.80-5.40) m/uL Hgb 11.4 (11.4-16.0) gm/dL Hct 32.6 L (34.0-46.0) % MCV 86.0 (80.0-100.0) fL MCH 30.2 (25.0-35.0) pg MCHC 35.1 (31.0-37.0) g/dL RDW 13.0 (11.5-15.5) % Plt Count 137 L (150-450) k/uL MPV 7.6 Neutrophils % 79 % Lymphocytes % 8 % Monocytes % 9 % Eosinophils % 1 % Basophils % 0 % Neutrophils # 4.1 (1.3-7.7) k/uL Lymphocytes # 0.4 L (1.0-4.8) k/uL Monocytes # 0.5 (0-1.0) k/uL Eosinophils # 0.1 (0-0.7) k/uL Basophils # 0.0 (0-0.2) k/uL Sodium 137 (137-145) mmol/L Potassium 2.7 L* (3.5-5.1) mmol/L Chloride 100 (98-107) mmol/L Carbon Dioxide 28 (22-30) mmol/L Anion Gap 9 mmol/L BUN 26 H (7-17) mg/dL Creatinine 1.43 H (0.52-1.04) mg/dL Est GFR (CKD-EPI)AfAm 41 (>60 ml/min/1.73 sqM) Est GFR (CKD-EPI)NonAf 35 (>60 ml/min/1.73 sqM) Glucose 110 H (74-99) mg/dL Calcium 8.4 (8.4-10.2) mg/dL Total Bilirubin 1.0 (0.2-1.3) mg/dL AST 25 (14-36) U/L ALT 10 (4-34) U/L Alkaline Phosphatase 76 (38-126) U/L Total Protein 6.1 L (6.3-8.2) g/dL Albumin 3.5 (3.5-5.0) g/dL Influenza Type A (PCR) Not Detected (Not Detectd) Influenza Type B (PCR) Not Detected (Not Detectd) RSV (PCR) Not Detected (Not Detectd) SARS-CoV-2 (PCR) Not Detected (Not Detectd) Disposition Clinical Impression: Gastroenteritis Disposition: ADMITTED IP TO THIS [facility] Referrals: Tito Curiel MD [Primary Care Provider] - 1-2 days Time of Disposition: 20:34
[2024-07-08 17:28] LABS: Basophils % (A) 0 %; Eosinophils # (A) 0.1 k/uL (0-0.7); Eosinophils % (A) 1 %; HCT 32.6 % (34.0-46.0); HGB 11.4 gm/dL (11.4-16.0); Lymphocytes # (A) 0.4 k/uL (1.0-4.8); Lymphocytes % (A) 8 %; MCH 30.2 pg (25.0-35.0); MCHC 35.1 g/dL (31.0-37.0); Mean Platelet Volume 7.6; Monocytes # (A) 0.5 k/uL (0-1.0); Monocytes % (A) 9 %; Neutrophils # (A) 4.1 k/uL (1.3-7.7); Neutrophils % (A) 79 %; Platelet Count 137 k/uL (150-450); RBC 3.79 m/uL (3.80-5.40); WBC 5.1 k/uL (3.8-10.6)
[2024-07-08] MEDS: SODIUM CHLORIDE 0.9% 500 ML 500 ML IV ONE ×2 (17:33→18:40)
[2024-07-08] MEDS: ACETAMINOPHEN TAB 500 MG TAB PO STA (17:34)
[2024-07-08] MEDS: DIPHENOX-ATROP 2.5-0.025 MG 1 EACH TAB PO STA (17:34)
[2024-07-08 17:38] LABS: ALT 10 U/L (4-34); AST 25 U/L (14-36); African American GFR (CKD) 41 (>60 ml/min/1.73 sqM); Albumin 3.5 g/dL (3.5-5.0); Alkaline Phosphatase 76 U/L (38-126); Anion Gap 9 mmol/L; Blood Urea Nitrogen 26 mg/dL (7-17); Calcium 8.4 mg/dL (8.4-10.2); Carbon Dioxide 28 mmol/L (22-30); Chloride 100 mmol/L (98-107); Glucose 110 mg/dL (74-99); Non-African American GFR(CKD) 35 (>60 ml/min/1.73 sqM); Sodium 137 mmol/L (137-145); Total Protein 6.1 g/dL (6.3-8.2)
[2024-07-08] MEDS: ONDANSETRON 4 MG/2 ML VIAL IVP STA (17:49)
[2024-07-08 18:01] LABS: Influenza A Not Detected (Not Detectd); Influenza B Not Detected (Not Detectd); RSV Not Detected (Not Detectd)
[2024-07-08 18:02] LABS: Potassium 2.7 mmol/L (3.5-5.1)
--- NOTE | 2024-07-08 18:05 | XR ---
EXAMINATION TYPE: XR chest 2V DATE OF EXAM: 07/08/2024 5:59 PM COMPARISON: 03/21/2024 CLINICAL INDICATION: Female, 78 years old with history of Difficulty breathing , TECHNIQUE: XR chest 2V view(s) obtained. FINDINGS: The heart size is upper limits of normal. The pulmonary vasculature is normal. The lungs are clear. May be some increased hilar nodularity. This could be related to underlying mas ses or pulmonary vascular markings. Consider follow-up with CT when the patient is stable. Catheter is present on the right with the tip in the superior vena cava region. IMPRESSION: 1. There may be some mild increasing perihilar nodularity which may be related to vascularity. Underl geneva mass is not excluded, consider follow-up CT. [facility], , 07/08/2024 6:03 PM
[2024-07-08] MEDS: POTASSIUM CHLORIDE 10 MEQ in WATER FOR INJECTION 1 100ML.BAG IVPB STA (18:19)
[2024-07-08] MEDS: POTASSIUM CHLORIDE ER 20 MEQ TAB.ER PO STA (18:20)
[2024-07-08] MEDS: SODIUM CHLORIDE 0.9% 1,000 ML IV ONE (21:20)
[2024-07-09 08:18] LABS: Basophils % (A) 1 %; Eosinophils # (A) 0.1 k/uL (0-0.7); Eosinophils % (A) 2 %; HCT 32.8 % (34.0-46.0); HGB 10.6 gm/dL (11.4-16.0); Lymphocytes # (A) 0.7 k/uL (1.0-4.8); Lymphocytes % (A) 24 %; MCH 28.2 pg (25.0-35.0); MCHC 32.2 g/dL (31.0-37.0); MCV 87.4 fL (80.0-100.0); Mean Platelet Volume 8.1; Monocytes # (A) 0.4 k/uL (0-1.0); Monocytes % (A) 13 %; Neutrophils # (A) 1.6 k/uL (1.3-7.7); Neutrophils % (A) 57 %; Platelet Count 130 k/uL (150-450); RBC 3.76 m/uL (3.80-5.40); WBC 2.8 k/uL (3.8-10.6)
[2024-07-09 08:19] LABS: ALT 9 U/L (4-34); AST 28 U/L (14-36); African American GFR (CKD) 39 (>60 ml/min/1.73 sqM); Albumin 3.2 g/dL (3.5-5.0); Albumin/Globulin Ratio 1.3; Alkaline Phosphatase 63 U/L (38-126); Anion Gap 7 mmol/L; Blood Urea Nitrogen 27 mg/dL (7-17); Calcium 8.1 mg/dL (8.4-10.2); Carbon Dioxide 27 mmol/L (22-30); Chloride 105 mmol/L (98-107); Globulin 2.5 g/dL; Glucose 85 mg/dL (74-99); Non-African American GFR(CKD) 34 (>60 ml/min/1.73 sqM); Potassium 3.4 mmol/L (3.5-5.1); Sodium 139 mmol/L (137-145); Total Bilirubin 0.8 mg/dL (0.2-1.3); Total Protein 5.7 g/dL (6.3-8.2)
[2024-07-09] MEDS ORDERED: HYDROcodone/APAP 7.5-325MG 1 EACH TAB PO PRN (10:33)
[2024-07-09] MEDS: levETIRAcetam 500 MG TAB PO SCH (11:41)
[2024-07-09] MEDS: PANTOPRAZOLE 40 MG TABLET PO SCH (11:41)
[2024-07-09] MEDS: ENOXAPARIN 40 MG/0.4 ML SYRINGE SQ SCH (11:41)
[2024-07-09] MEDS: GABAPENTIN 300 MG CAP PO SCH (11:41)
[2024-07-09] MEDS: DULoxetine HCL 20 MG CAPSULE.DR PO SCH (11:41)
[2024-07-09] MEDS: LACTATED RINGERS 1,000 ML IV SCH (16:58)
--- NOTE | 2024-07-09 17:36 | P.HPIM ---
History of Present Illness H&P Date: 07/09/24 Chief Complaint: Diarrhea I am rounding for Dr. Tito Curiel, who is unwell Pleasant 78-year-old patient who follows with Dr. Reinaldo Curiel. Chronic medical conditions include GERD, hyperlipidemia, hypertension, seizure disorder, neuropathy to the hands. Diagnosed with melanoma stage IIIc. Had it removed from her left face and also 3 lymph nodes were removed. Currently receiving Keytruda. Patient does follow with Dr. Gallo. Patient now presents with multiple loose bowel movements for 3 days. No abdominal pain. Watery. No fever no chills. No abdominal pain. Has had 3 bowel movements today. Appetite is fair. Has a right chest port. Does feel weak and tired. Review of systems: GEN.: Tired EYES: None HEENT: Left facial stitches NECK: None RESPIRATORY: None CARDIOVASCULAR: None GASTROINTESTINAL: As above GENITOURINARY: None MUSCULOSKELETAL: Joint pains LYMPHATICS: None HEMATOLOGICAL: None PSYCHIATRY: None NEUROLOGICAL: None Social history [facility]. No smoking or alcohol. Does use a walker. Physical examination: VITAL SIGNS: 100.4, 119, 16, 96 x 62, 94% room air upon presentation GENERAL: BMI 26.5, laying in bed awake a bit tired. EYES: Pupils equal. Conjunctiva shai l. HEENT: External appearance of nose and ears normal, oral cavity grossly normal. Along incision her left cheek with stitches NECK: JVD not raised; masses not palpable. HEART: First and second heart sounds are normal; no edema. LUNGS: Respiratory rate normal; clear to auscultation. ABDOMEN: Soft, nontender, liver spleen not palpable, no masses palpable. PSYCH: Alert and oriented x3; mood and affect shai l. MUSCULOSKELETAL:No Clubbing/cyanosis;muscles-grossly intact. OA NEUROLOGICAL: Cranial nerves grossly intact; no facial asymmetry, power and sensation grossly intact. LYMPHATICS: No lymph nodes palpable in the axilla and neck INVESTIGATIONS, reviewed in the clinical context: July 09, 2024: White count 2.8 hemoglobin 10.6 platelets 130 sodium 139 potassium 3.4 p.o. 27 creatinine 1.48 Influenza type A, type B, RSV, COVID-19: Not detected July 08: White count 5.1 hemoglobin 11.4 platelets 137 potassium 2.7 BUN 26 creatinine 1.43 Chest x-ray film personally reviewed by me-maybe some mild increasing perihilar nodularity. Catheter present on the right. Previous labs: Creatinine 1.January Assessment plan: -Acute diarrhea the patient is receiving Keytruda. Has had low-grade fever. Multiple loose bowel movements for last 3 days. No abdominal pain. Tachycardic. Given patient's immunosuppressed state and diarrhea for 3 days will follow closely. Rule out C. difficile. Liquid diet. IV fluids -GERD Prilosec -Hyperlipidemia Crestor 5 mg nightly -Mild pancytopenia -Severe hypokalemia from diarrhea, replace potassium -Abnormal kidney function. Creatinine 1.43. IV hydration recheck potassium tomorrow. Check UA -Epilepsy disorder Keppra 5 mg every 12. Last seizure activity over 2 years ago -Multiple sclerosis with neuropathy -Melanoma stage IIIc with a mass removed from the left cheek. 3 lymph nodes were removed. Currently getting Keytruda. Follows with Dr. Gallo. Keytruda -Has a right chest wall port Care was discussed with patient. Questions answered. 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 Melanoma stage 3C, 3 lymph nodes removed, keytruda immune therapy q 3 weeks. last seizure 03/2023 (Electric disruption looses balanace) History of Any Multi-Drug Resistant Organisms: None Reported Past Surgical History: Cholecystectomy, Orthopedic Surgery Additional Past Surgical History / Comment(s): History of right hand surgery. left arm surgery Past Anesthesia/Blood Transfusion Reactions: No Reported Reaction Past Psychological History: Anxiety, Depression Smoking Status: Never smoker Past Alcohol Use History: None Reported Past Drug Use History: None Reported - Past Family History Sister(s) Family Medical History: Cancer Son(s) Family Medical History: Deep Vein Thrombosis (DVT) Medications and Allergies Home Medications Medication Instructions Recorded Confirmed Type Omeprazole [PriLOSEC] 40 mg PO DAILY 11/20/18 07/08/24 History Ibuprofen [Motrin] 800 mg PO TID PRN 06/01/20 07/08/24 History DULoxetine HCL [Cymbalta] 20 mg PO DAILY 03/07/23 07/08/24 History levETIRAcetam [Keppra] 500 mg PO Q12HR tab 03/13/23 07/08/24 Rx ALPRAZolam [Xanax] 0.5 mg PO HS 03/17/24 07/08/24 History Gabapentin 600 mg PO BID 07/08/24 07/08/24 History HYDROcodone/APAP 7.5-325MG [[place] 1 tab PO TID PRN 07/08/24 07/08/24 History 7.5-325] Rosuvastatin Calcium [Crestor] 5 mg PO HS 07/08/24 07/08/24 History Allergies Allergy/AdvReac Type Severity Reaction Status Date / Time morphine Allergy PER PCP Verified 07/08/24 20:52 IV STEROIDS AdvReac Nausea Uncoded 07/08/24 16:56 Physical Exam Vitals: Vital Signs Temp Pulse Pulse Pulse Pulse Resp BP 07/09/24 06:26 71 18 106/53 07/09/24 03:05 71 16 108/56 07/08/24 21:24 91 20 93/60 07/08/24 19:39 92 97 84 07/08/24 19:12 80 18 97/57 07/08/24 18:53 80 18 94/54 07/08/24 18:37 98.9 F 82 18 83/52 07/08/24 16:51 100.4 F H 119 H 16 96/62 BP BP BP Pulse Ox 07/09/24 06:26 97 07/09/24 03:05 96 07/08/24 21:24 98 07/08/24 19:39 108/74 105/72 107/62 07/08/24 19:12 97 07/08/24 18:53 97 07/08/24 18:37 95 07/08/24 16:51 94 L Intake and Output 07/08/24 07/09/24 07/09/24 22:59 06:59 14:59 Other: Weight 65.771 kg Results CBC & Chem 7: 07/09/24 07:34 07/09/24 07:34 Labs: Abnormal Lab Results - Last 24 Hours (Table) 01/14/25 01/14/25 01/15/25 Range/Units 17:07 17:07 07:34 WBC 2.8 L (3.8-10.6) k/uL RBC 3.79 L 3.76 L (3.80-5.40) m/uL Hgb 10.6 L (11.4-16.0) gm/dL Hct 32.6 L 32.8 L (34.0-46.0) % Plt Count 137 L 130 L (150-450) k/uL Lymphocytes # 0.4 L 0.7 L (1.0-4.8) k/uL Potassium 2.7 L* (3.5-5.1) mmol/L BUN 26 H (7-17) mg/dL Creatinine 1.43 H (0.52-1.04) mg/dL Glucose 110 H (74-99) mg/dL Calcium (8.4-10.2) mg/dL Total Protein 6.1 L (6.3-8.2) g/dL Albumin (3.5-5.0) g/dL 07/09/24 Range/Units 07:34 WBC (3.8-10.6) k/uL RBC (3.80-5.40) m/uL Hgb (11.4-16.0) gm/dL Hct (34.0-46.0) % Plt Count (150-450) k/uL Lymphocytes # (1.0-4.8) k/uL Potassium 3.4 L (3.5-5.1) mmol/L BUN 27 H (7-17) mg/dL Creatinine 1.48 H (0.52-1.04) mg/dL Glucose (74-99) mg/dL Calcium 8.1 L (8.4-10.2) mg/dL Total Protein 5.7 L (6.3-8.2) g/dL Albumin 3.2 L (3.5-5.0) g/dL
[2024-07-09] MEDS: ALPRAZolam 0.5 MG TAB PO SCH (20:33)
[2024-07-09] MEDS: ATORVASTATIN 10 MG TAB PO SCH (20:33)
[2024-07-10 07:24] LABS: Basophils % (A) 1 %; Eosinophils # (A) 0.1 k/uL (0-0.7); Eosinophils % (A) 4 %; HCT 30.6 % (34.0-46.0); HGB 10.3 gm/dL (11.4-16.0); Lymphocytes # (A) 0.7 k/uL (1.0-4.8); Lymphocytes % (A) 25 %; MCH 29.7 pg (25.0-35.0); MCHC 33.8 g/dL (31.0-37.0); MCV 87.9 fL (80.0-100.0); Mean Platelet Volume 7.7; Monocytes # (A) 0.2 k/uL (0-1.0); Monocytes % (A) 8 %; Neutrophils # (A) 1.6 k/uL (1.3-7.7); Neutrophils % (A) 59 %; Platelet Count 134 k/uL (150-450); RBC 3.49 m/uL (3.80-5.40); RDW 12.9 % (11.5-15.5); WBC 2.6 k/uL (3.8-10.6)
[2024-07-10 07:49] LABS: African American GFR (CKD) 44 (>60 ml/min/1.73 sqM); Anion Gap 5 mmol/L; Blood Urea Nitrogen 19 mg/dL (7-17); Calcium 8.3 mg/dL (8.4-10.2); Carbon Dioxide 29 mmol/L (22-30); Chloride 103 mmol/L (98-107); Glucose 88 mg/dL (74-99); Non-African American GFR(CKD) 38 (>60 ml/min/1.73 sqM); Sodium 137 mmol/L (137-145)
[2024-07-10] MEDS ORDERED: Potassium Replacement Protocol 1 EACH MISC MISCELLANE PRN (08:48)
[2024-07-10] MEDS: ENOXAPARIN 30 MG/0.3 ML SYRINGE SQ SCH (09:45)
[2024-07-10] MEDS: POTASSIUM CHLORIDE ER 20 MEQ TAB.ER PO SCH (09:46)
--- NOTE | 2024-07-10 18:45 | P.PN ---
Progress Note - Text Progress Note Date: 07/10/24 Chief Complaint: Diarrhea I am rounding for Dr. Tito Curiel, who is unwell Pleasant 78-year-old patient who follows with Dr. Reinaldo Curiel. Chronic medical conditions include GERD, hyperlipidemia, hypertension, seizure disorder, neuropathy to the hands. Diagnosed with melanoma stage IIIc. Had it removed from her left face and also 3 lymph nodes were removed. Currently receiving Keytruda. Patient does follow with Dr. Gallo. Patient now presents with multiple loose bowel movements for 3 days. No abdominal pain. Watery. No fever no chills. No abdominal pain. Has had 3 bowel movements today. Appetite is fair. Has a right chest port. Does feel weak and tired. July 10: Diarrhea much better. Only 1 bowel movement today. On full liquid diet. Advance to soft diet. Feeling much better. No abdominal pain. Increase activity. If continues to do well discharge tomorrow. Active Medications Hydrocodone Bitart/Acetaminophen (Hydrocodone/Apap 7.5-325mg 1 Each Tab) 1 each PO TID PRN PRN Reason: Pain Alprazolam (Alprazolam 0.5 Mg Tab) 0.5 mg PO HS [facility] Last Admin: 07/09/24 20:33 Dose: 0.5 mg Atorvastatin Calcium (Atorvastatin 10 Mg Tab) 10 mg PO HS [facility] Last Admin: 07/09/24 20:33 Dose: 10 mg Duloxetine HCl (Duloxetine Hcl 20 Mg Capsule.) 20 mg PO DAILY [facility] Last Admin: 07/10/24 09:45 Dose: 20 mg Enoxaparin Sodium (Enoxaparin 30 Mg/0.3 Ml Syringe) 30 mg SQ DAILY [facility] Last Admin: 07/10/24 09:45 Dose: 30 mg Gabapentin (Gabapentin 300 Mg Cap) 600 mg PO BID [facility] Last Admin: 07/10/24 09:45 Dose: 600 mg Lactated Ringer's (Lactated Ringers) 1,000 mls @ 100 mls/hr IV .Q10H [facility] Last Admin: 07/10/24 12:18 Dose: Not Given Levetiracetam (Levetiracetam 500 Mg Tab) 500 mg PO Q12HR [facility] Last Admin: 07/10/24 09:45 Dose: 500 mg Miscellaneous Information (Potassium Replacement Protocol 1 Each Misc) 1 each MISCELLANE DAILY PRN; Protocol PRN Reason: Per Protocol Pantoprazole Sodium (Pantoprazole 40 Mg Tablet) 40 mg PO AC-BRKFST JOSE Last Admin: 07/10/24 06:00 Dose: 40 mg Social history Lives at [facility]. No smoking or alcohol. Does use a walker. Physical examination: VITAL SIGNS: 98.3, 81, 18, 94 x 56, 97% room air GENERAL: BMI 26.5, laying in bed comfortable EYES: Pupils equal. Conjunctiva shai l. HEENT: External appearance of nose and ears normal, oral cavity grossly normal. Along incision her left cheek with stitches NECK: JVD not raised; masses not palpable. HEART: First and second heart sounds are normal; no edema. LUNGS: Respiratory rate normal; clear to auscultation. ABDOMEN: Soft, nontender, liver spleen not palpable, no masses palpable. PSYCH: Alert and oriented x3; mood and affect shai l. MUSCULOSKELETAL:No Clubbing/cyanosis;muscles-grossly intact. OA INVESTIGATIONS, reviewed in the clinical context: July 10: White count 2.6 hemoglobin 10.3 platelets 134 potassium 3 BUN 19 creatinine 1.35 July 09, 2024: White count 2.8 hemoglobin 10.6 platelets 130 sodium 139 potas sium 3.4 p.o. 27 creatinine 1.48 Influenza type A, type B, RSV, COVID-19: Not detected July 08: White count 5.1 hemoglobin 11.4 platelets 137 potassium 2.7 BUN 26 creatinine 1.43 Chest x-ray film personally reviewed by me-maybe some mild increasing perihilar nodularity. Catheter present on the right. Previous labs: Creatinine 1.January Assessment plan: -Acute diarrhea the patient is receiving Keytruda. Has had low-grade fever. Multiple loose bowel movements for last 3 days. No abdominal pain. Tachycardic.: Much better Only 1 bowel movement today Given patient's immunosuppressed state and diarrhea for 3 days will follow closely. Rule out C. difficile. Tolerated liquid diet. Advance to soft bland -GERD Prilosec -Hyperlipidemia Crestor 5 mg nightly -Mild pancytopenia -Severe hypokalemia from diarrhea, replace potassium -Abnormal kidney function. Creatinine 1.43. IV hydration recheck potassium tomorrow. Check UA -Epilepsy disorder Keppra 5 mg every 12. Last seizure activity over 2 years ago -Multiple sclerosis with neuropathy -Melanoma stage IIIc with a mass removed from the left cheek. 3 lymph nodes were removed. Currently getting Keytruda. Follows with Dr. Gallo. Keytruda -Has a right chest wall port Discussed with patient. Doing better. Increase activity. Advance to soft bland diet. Hopefully discharge tomorrow. 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 Melanoma stage 3C, 3 lymph nodes removed, keytruda immune therapy q 3 weeks. last seizure 03/2023 (Electric disruption looses balanace) History of Any Multi-Drug Resistant Organisms: None Reported Past Surgical History: Cholecystectomy, Orthopedic Surgery Additional Past Surgical History / Comment(s): History of right hand surgery. left arm surgery Past Anesthesia/Blood Transfusion Reactions: No Reported Reaction Past Psychological History: Anxiety, Depression Smoking Status: Never smoker Past Alcohol Use History: None Reported Past Drug Use History: None Reported
[2024-07-11 06:12] LABS: African American GFR (CKD) 45 (>60 ml/min/1.73 sqM); Anion Gap 5 mmol/L; Blood Urea Nitrogen 18 mg/dL (7-17); Calcium 8.8 mg/dL (8.4-10.2); Carbon Dioxide 29 mmol/L (22-30); Chloride 106 mmol/L (98-107); Glucose 88 mg/dL (74-99); Non-African American GFR(CKD) 39 (>60 ml/min/1.73 sqM); Potassium 3.7 mmol/L (3.5-5.1); Sodium 140 mmol/L (137-145)
[2024-07-11 07:53] VITALS: BP 109/66; PULSE 83; RESP 16; TEMP 99.1
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
== END 2024-07-11 11:47 | disposition home or self-care (01) ==
LOC: EC 16:36 → OBSVTOIN 20:36 → 5NMEDONC 20:36 → INTOOBSV 20:36 → 5NMEDONC 21:06 → 6NMEDSUR 07-09 15:54
PROVIDERS: ADMIT Family Medicine; ATTEND Family Medicine
DX: R19.7 Diarrhea, unspecified (principal); R50.9 Fever, unspecified; R00.0 Tachycardia, unspecified; D61.818 Other pancytopenia; E87.6 Hypokalemia; R94.4 Abnormal results of kidney function studies; G40.909 Epilepsy, unspecified, not intractable, without status epilepticus; G35 Multiple sclerosis; K21.9 Gastro-esophageal reflux disease without esophagitis; E78.5 Hyperlipidemia, unspecified; F41.9 Anxiety disorder, unspecified; F32.A Depression, unspecified; I12.9 Hypertensive chronic kidney disease with stage 1 through stage 4 chronic kidney disease, or unspecified chronic kidney disease; N18.30 Chronic kidney disease, stage 3 unspecified; Z85.820 Personal history of malignant melanoma of skin; Z79.899 Other long term (current) drug therapy; Z88.5 Allergy status to narcotic agent
CPT/HCPCS: 96372 ×3; 96361; 96365; 96375; 99285; 36415; 80053 ×2; 80048 ×2; 84132; 85025 ×3; 87324; 87636; 71046; G0378 ×4; J2405; J1650 ×3; J3480

== ENCOUNTER 2024-11-11 17:59 | Emergency (ER) | payer MEDICARE ==
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
[2024-11-11 19:06] VITALS: RESP 19
--- NOTE | 2024-11-11 19:51 | CT ---
EXAMINATION TYPE: CT brain cspine wo con, CT facial bones wo con CT DLP: 894.8 (accession [id number]), 690.8 (accession [id number]) mGycm, Automated exposure control for dose reduction was used. DATE OF EXAM: 11/11/2024 7:39 PM COMPARISON: CT Brain and cspine facial bones 05/30/2024 CLINICAL INDICATION:Female, 79 years old with history of fall; fall, right orbital contusion (accessi on [id number]), right orbital contusion (accession [id number]) TECHNIQUE: Brain: Multiple axial CT images of the brain were obtained without IV contrast. Cspine: Axial CT images from the skull base to the inferior aspect of T2 we obtained without intraven ous contrast. Coronal and sagittal reformatted images were also reviewed. Facial bones; axial CT images of the facial bones were obtained without contrast and soft tissue and bone windows. Coronal and sagittal reformatted images were also reviewed. FINDINGS: Brain: Extra-axial spaces: No abnormal extra-axial fluid collections. Ventricular system: Within normal limits Cerebral parenchyma: Cerebral atrophy. No acute intraparenchymal hemorrhage or mass effect. The schumacher -white junction is well differentiated. Scattered hypoattenuating areas are seen within the periventr icular and subcortical white matter. Nonspecific left basal ganglia calcification. Cerebellum: Unremarkable. Mass effect: No evidence of midline shift. Intracranial vasculature: Atherosclerotic calcifications of the intracranial vessels. Soft tissues: Small right periorbital soft tissue hematoma Calvarium: No depressed skull fracture. Paranasal sinuses and mastoid air cells: Clear. Visualized orbits: Bilateral aphakia Cervical spine: Fracture: None. Osseous structures: Multilevel degenerative disc disease changes with disc space narrowing and endpla te sclerosis. Degenerative changes of the right sternoclavicular joint. Vertebral alignment: Within normal limits. Spinal canal/Neural Foramina: No evidence of significant spinal canal narrowing. No evidence for sign ificant neural foraminal stenosis. Neck soft tissues: Prevertebral soft tissues are within normal limits. Other: The airway is patent. Linear scarring within the left apex. New left apex 8 mm groundglass nod ule. Additional new upper right lung lobe 9 mm groundglass nodule. Bilateral carotid bulb calcificati ons. The anterior chest wall IJ Mediport catheter. Facial Bones: There is no evidence of fracture, subluxation, dislocation. Small right periorbital soft tissue hemat jeaneth.The orbital contents are unremarkable. Bilateral aphakia. The temporal-mandibular joints appear s ymmetric. The visualized portion of the paranasal sinuses appear clear. IMPRESSION: 1. No acute intracranial process. 2. Nonspecific white matter changes, likely secondary to chronic small vessel ischemic disease. 3. No acute facial bone fracture. 4. Small right periorbital soft tissue hematoma. 5. No evidence of cervical spine fracture. 6. Mild multilevel degenerative disc disease of the cervical spine. 7. Development of bilateral upper lobe groundglass nodules which may represent an infectious/inflamm atory process. According to Fleischner criteria, follow-up CT chest in 3-6 months is recommended. [facility], , 11/11/2024 7:48 PM
[2024-11-11 21:01] VITALS: BP 120/66; PULSE 81; TEMP 97.8
== END 2024-11-11 21:19 | disposition home or self-care (01) ==
LOC: EC 17:59
DX: S00.11XA Contusion of right eyelid and periocular area, initial encounter (principal); Z88.5 Allergy status to narcotic agent; Z88.8 Allergy status to other drugs, medicaments and biological substances; W01.0XXA Fall on same level from slipping, tripping and stumbling without subsequent striking against object, initial encounter
CPT/HCPCS: 70450; 70486; 72125; 99284

== ENCOUNTER 2024-12-16 14:20 | Observation (INO) | payer MEDICARE ==
--- NOTE | 2024-12-16 15:02 | ED ---
General Adult HPI <Mali Skaggs - Last Filed: 12/16/24 15:01> - General Source: patient, RN notes reviewed Limitations: no limitations <Oleg Wooten - Last Filed: 12/16/24 21:23> - General Stated complaint: Shortness of breath Time Seen by Provider: 12/16/24 15:01 - History of Present Illness Initial comments: Quick note: 79-year-old female presented the ER for evaluation of fatigue. Patient states she has a history of multiple sclerosis and lymph node cancer not currently on chemotherapy or radiation. She follows up with Dr. Milan. Patient reports today she believes she may have been overheated and became mildly dizzy. She states given her medical history she called 911 for further evaluation. (Mali Skaggs) Patient is a 79-year-old female presenting to the emergency department with concerns for dyspnea. Patient states symptoms are with exertion. No dyspnea at rest. No significant cough. No upper respiratory symptoms. No fever. Patient has mild nausea. Patient does have history of recent chemotherapy discontinued 3 weeks ago for lymphoma. Symptoms have been present for 2 to 3 days. No leg edema or calf pain. No chest pain. (Oleg Wooten) - Related Data Home Medications Medication Instructions Recorded Confirmed Omeprazole [PriLOSEC] 40 mg PO DAILY 11/20/18 12/16/24 DULoxetine HCL [Cymbalta] 20 mg PO BID 03/07/23 12/16/24 Gabapentin 600 mg PO BID 07/08/24 12/16/24 HYDROcodone/APAP 7.5-325MG [[place] 1 tab PO Q8HR 07/08/24 12/16/24 7.5-325] Rosuvastatin Calcium [Crestor] 5 mg PO DAILY 07/08/24 12/16/24 ALPRAZolam [Xanax] 0.5 mg PO BID 12/16/24 12/16/24 Ibuprofen [Motrin] 800 mg PO Q8H 12/16/24 12/16/24 Mometasone 0.1% Cream 1 applic TOPICAL TID 12/16/24 12/16/24 Potassium Chloride ER [K-Dur 10] 10 meq PO DAILY 12/16/24 12/16/24 Previous Rx's Medication Instructions Recorded levETIRAcetam [Keppra] 500 mg PO Q12HR tab 03/13/23 Allergies Allergy/AdvReac Type Severity Reaction Status Date / Time morphine Allergy PER PCP Verified 12/16/24 19:25 IV STEROIDS AdvReac Nausea Uncoded 12/16/24 15:11 Review of Systems ROS Other: All systems not noted in ROS Statement are negative. <Mali Skaggs - Last Filed: 12/16/24 15:01> ROS Other: All systems not noted in ROS Statement are negative. Constitutional: Denies: fever Eyes: Denies: eye pain ENT: Denies: ear pain Respiratory: Reports: as per HPI, dyspnea. Denies: cough Cardiovascular: Denies: chest pain Endocrine: Reports: fatigue Gastrointestinal: Denies: abdominal pain Musculoskeletal: Denies: back pain Neurological: Denies: weakness <Oleg Wooten - Last Filed: 12/16/24 21:23> ROS Statement: Those systems with pertinent positive or pertinent negative responses have been documented in the HPI. 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 Melanoma stage 3C, 3 lymph nodes removed, keytruda immune therapy q 3 weeks. last seizure 03/2023 (Electric disruption looses balanace) History of Any Multi-Drug Resistant Organisms: None Reported Past Surgical History: Cholecystectomy, Orthopedic Surgery Additional Past Surgical History / Comment(s): History of right hand surgery. left arm surgery Past Anesthesia/Blood Transfusion Reactions: No Reported Reaction Past Psychological History: Anxiety, Depression Smoking Status: Never smoker Past Alcohol Use History: None Reported Past Drug Use History: None Reported - Past Family History Sister(s) Family Medical History: Cancer Son(s) Family Medical History: Deep Vein Thrombosis (DVT) <Mali Skaggs - Last Filed: 12/16/24 15:01> General Exam <Mali Skaggs - Last Filed: 12/16/24 15:01> Limitations: no limitations General appearance: alert Head exam: Present: normocephalic Eye exam: Present: normal appearance Neck exam: Present: normal inspection Respiratory exam: Present: normal lung sounds bilaterally. Absent: respiratory distress, wheezes, rales, decreased breath sounds Cardiovascular Exam: Present: regular rate, normal rhythm GI/Abdominal exam: Present: soft. Absent: tenderness Extremities exam: Present: normal inspection. Absent: pedal edema, calf tender ness Neurological exam: Present: alert Psychiatric exam: Present: normal affect, normal mood Skin exam: Present: normal color <Oleg Wooten - Last Filed: 12/16/24 21:23> - General Exam Comments Initial Comments: Visual Physical Exam Vital signs reviewed General: Well-appearing, nontoxic, no acute distress. Head: Normocephalic, atraumatic Eyes: PERRLA, EOMI ENT: Airway patent Chest: Nonlabored breathing Skin: No visual rash, normal skin tone Neuro: Alert and oriented 3 Musculoskeletal: No gross abnormalities (Mali Skaggs) Course Vital Signs 12/16/24 12/16/24 15:07 19:25 Temperature 97.6 F Pulse Rate 94 95 Respiratory 22 18 Rate Blood Pressure 98/69 93/76 O2 Sat by Pulse 98 98 Oximetry EKG Findings - EKG Results: EKG: interpreted by ERMD, sinus rhythm, normal axis, normal QRS, normal ST/T <Oleg Wooten - Last Filed: 12/16/24 21:23> Medical Decision Making <Mali Skaggs - Last Filed: 12/16/24 15:01> - Lab Data Result diagrams: 12/16/24 16:12 12/16/24 16:12 <Oleg Wooten - Last Filed: 12/16/24 21:23> - Medical Decision Making I performed the quick note portion of this chart. Electronically signed by Mali Skaggs PA-C (Mali Skaggs) Was pt. sent in by a medical professional or institution ([facility], [employer], urgent care, hospital, or assisted...) When possible be specific @ -No Did you speak to anyone other than the patient for history (EMS, parent, family, police, friend...)? What history was obtained from this source @ -No Did you review nursing and triage notes (agree or disagree)? Why? @ -I reviewed and agree with nursing and triage notes Were old charts reviewed (outside hosp., previous admission, EMS record, old EKG, old radiological studies, urgent care reports/EKG's, assisted records)? Report findings @ -No old charts were reviewed Differential Diagnosis (chest pain, altered mental status, abdominal pain women, abdominal pain men, vaginal bleeding, weakness, fever, dyspnea, syncope, headache, dizziness, GI bleed, back pain, seizure, CVA, palpatations, mental health, musculoskeletal)? @ -Differential Dyspnea: Coronary syndrome, arrhythmia, tamponade, asthma, COPD, pulmonary embolism, pneumonia, pneumothorax, pulmonary effusion, anaphylaxis, diabetic ketoacidosis, flailed chest, pulmonary contusion, diaphragmatic rupture, anemia, neuromuscular, this is not meant to be an all-inclusive list. EKG interpreted by me (3pts min.). @ -As above X-rays interpreted by me (1pt min.). @ -Chest x-ray shows no acute process CT interpreted by me (1pt min.). @ -None done U/S interpreted by me (1pt. min.). @ -None done What testing was considered but not performed or refused? (CT, X-rays, U/S, labs)? Why? @ -None What meds were considered but not given or refused? Why? @ -None Did you discuss the management of the patient with other professionals (prof sonyas i.e. , PA, [employer], lab, RT, psych nurse, manager social media, network engineer administrator, teacher, staff electronic warfare officer, field nurse case manager)? Give summary @ -No Was smoking cessation discussed for >3mins.? @ -No Was critical care preformed (if so, how long)? @ -No Were there social determinants of health that impacted care today? How? (Homelessness, low income, unemployed, alcoholism, drug addiction, transportation, low edu. Level, literacy, decrease access to med. care, custodial, rehab)? @ -No Was there de-escalation of care discussed even if they declined (Discuss DNR or withdrawal of care, Hospice)? DNR status @ - What co-morbidities impacted this encounter? (DM, HTN, Smoking, COPD, CAD, Cancer, CVA, ARF, Chemo, Hep., AIDS, mental health diagnosis, sleep apnea, morbid obesity)? @ -None Was patient admitted / discharged? Hospital course, mention meds given and route, prescriptions, significant lab abnormalities, going to OR and other pertinent info. @ -Patient presents with exertional dyspnea. Patient has elevated D-dimer. Considered CT scan however renal function is too poor. Patient will be admitted for further evaluation and VQ scan ordered. Admission orders written. Patient is updated on results and plan. Undiagnosed new problem with uncertain prognosis? @ -No Drug Therapy requiring intensive monitoring for toxicity (Heparin, Nitro, Insulin, Cardizem)? @ -No Were any procedures done? @ -No Diagnosis/symptom? @ -Exertional dyspnea Acute, or Chronic, or Acute on Chronic? @ -Acute Uncomplicated (without systemic symptoms) or Complicated (systemic symptoms)? @ -Default Side effects of treatment? @ -No Exacerbation, Progression, or Severe Exacerbation? @ -No Poses a threat to life or bodily function? How? (Chest pain, USA, OR, pneumonia, PE, COPD, DKA, ARF, appy, cholecystitis, CVA, Diverticulitis, Homicidal, Suicidal, threat to staff... and all critical care pts) @ -No (Oleg Wooten) - Lab Data Lab Results 12/16/24 12/16/24 12/16/24 Range/Units 16:12 16:12 16:54 WBC 7.25 (4.50-10.00) 10*3/uL RBC 4.12 (4.10-5.20) 10*6/uL Hgb 11.9 L (12.0-15.0) g/dL Hct 35.8 L (37.2-46.3) % MCV 86.9 (80.0-97.0) fL MCH 28.9 (27.0-32.0) pg MCHC 33.2 (32.0-37.0) g/dL Plt Count 230 (140-440) 10*3/uL MPV 9.7 (9.5-12.2) fL Immature Gran % (Auto) 0.3 % Neutrophils % 75.4 % Lymphocytes % 16.7 % Monocytes % 5.2 % Eosinophils % 1.7 % Basophils % 0.7 % Immature Gran # 0.02 (0.00-0.04) 10*3/uL Neutrophils # 5.47 (1.80-7.70) 10*3/uL Lymphocytes # 1.21 (0.90-5.00) 10*3/uL Monocytes # 0.38 (0.20-1.00) 10*3/uL Eosinophils # 0.12 (0.04-0.35) 10*3/uL Basophils # 0.05 (0.00-0.10) 10*3/uL Sodium 142 (137-145) mmol/L Potassium 3.3 L (3.5-5.1) mmol/L Chloride 105 (98-107) mmol/L Carbon Dioxide 27 (22-30) mmol/L Anion Gap 10 mmol/L BUN 27 H (7-17) mg/dL Creatinine 2.13 H (0.52-1.04) mg/dL Est GFR (CKD-EPI)AfAm 25 (>60 ml/min/1.73 sqM) Est GFR (CKD-EPI)NonAf 22 (>60 ml/min/1.73 sqM) Glucose 110 H (74-99) mg/dL Plasma Lactic Acid Santos (0.7-2.0) mmol/L Calcium 9.9 (8.4-10.2) mg/dL Magnesium 1.9 (1.6-2.3) mg/dL Total Bilirubin 0.9 (0.2-1.3) mg/dL AST 28 (14-36) U/L ALT 10 (4-34) U/L Alkaline Phosphatase 108 (38-126) U/L Troponin I (0.000-0.034) ng/mL NT-Pro-B Natriuret Pep 190 pg/mL Total Protein 7.3 (6.3-8.2) g/dL Albumin 4.4 (3.5-5.0) g/dL 12/16/24 12/16/24 Range/Units 18:42 18:42 WBC (4.50-10.00) 10*3/uL RBC (4.10-5.20) 10*6/uL Hgb (12.0-15.0) g/dL Hct (37.2-46.3) % MCV (80.0-97.0) fL MCH (27.0-32.0) pg MCHC (32.0-37.0) g/dL Plt Count (140-440) 10*3/uL MPV (9.5-12.2) fL Immature Gran % (Auto) % Neutrophils % % Lymphocytes % % Monocytes % % Eosinophils % % Basophils % % Immature Gran # (0.00-0.04) 10*3/uL Neutrophils # (1.80-7.70) 10*3/uL Lymphocytes # (0.90-5.00) 10*3/uL Monocytes # (0.20-1.00) 10*3/uL Eosinophils # (0.04-0.35) 10*3/uL Basophils # (0.00-0.10) 10*3/uL Sodium (137-145) mmol/L Potassium (3.5-5.1) mmol/L Chloride (98-107) mmol/L Carbon Dioxide (22-30) mmol/L Anion Gap mmol/L BUN (7-17) mg/dL Creatinine (0.52-1.04) mg/dL Est GFR (CKD-EPI)AfAm (>60 ml/min/1.73 sqM) Est GFR (CKD-EPI)NonAf (>60 ml/min/1.73 sqM) Glucose (74-99) mg/dL Plasma Lactic Acid Santos 1.7 (0.7-2.0) mmol/L Calcium (8.4-10.2) mg/dL Magnesium (1.6-2.3) mg/dL Total Bilirubin (0.2-1.3) mg/dL AST (14-36) U/L ALT (4-34) U/L Alkaline Phosphatase (38-126) U/L Troponin I <0.012 (0.000-0.034) ng/mL NT-Pro-B Natriuret Pep pg/mL Total Protein (6.3-8.2) g/dL Albumin (3.5-5.0) g/dL Disposition <Mali Skaggs - Last Filed: 12/16/24 15:01> Is patient prescribed a controlled substance at d/c from ED?: No Time of Disposition: 21:23 <Oleg Wooten - Last Filed: 12/16/24 21:23> Clinical Impression: Exertional dyspnea Disposition: ADMITTED IP TO THIS HOSP Referrals: Honorio Curiel MD [Primary Care Provider] - 1-2 days
[2024-12-16 16:24] LABS: Basophils # (A) 0.05 10*3/uL (0.00-0.10); Basophils % (A) 0.7 %; Eosinophils # (A) 0.12 10*3/uL (0.04-0.35); Eosinophils % (A) 1.7 %; HCT 35.8 % (37.2-46.3); HGB 11.9 g/dL (12.0-15.0); Lymphocytes # (A) 1.21 10*3/uL (0.90-5.00); Lymphocytes % (A) 16.7 %; MCH 28.9 pg (27.0-32.0); MCHC 33.2 g/dL (32.0-37.0); MCV 86.9 fL (80.0-97.0); Mean Platelet Volume 9.7 fL (9.5-12.2); Monocytes # (A) 0.38 10*3/uL (0.20-1.00); Monocytes % (A) 5.2 %; Neutrophils # (A) 5.47 10*3/uL (1.80-7.70); Neutrophils % (A) 75.4 %; Platelet Count 230 10*3/uL (140-440); RBC 4.12 10*6/uL (4.10-5.20); RDW 13.5 % (11.5-14.5); WBC 7.25 10*3/uL (4.50-10.00)
[2024-12-16 16:37] LABS: ALT 10 U/L (4-34); AST 28 U/L (14-36); African American GFR (CKD) 25 (>60 ml/min/1.73 sqM); Albumin 4.4 g/dL (3.5-5.0); Alkaline Phosphatase 108 U/L (38-126); Anion Gap 10 mmol/L; Blood Urea Nitrogen 27 mg/dL (7-17); Calcium 9.9 mg/dL (8.4-10.2); Carbon Dioxide 27 mmol/L (22-30); Chloride 105 mmol/L (98-107); Glucose 110 mg/dL (74-99); Non-African American GFR(CKD) 22 (>60 ml/min/1.73 sqM); Potassium 3.3 mmol/L (3.5-5.1); Sodium 142 mmol/L (137-145); Total Bilirubin 0.9 mg/dL (0.2-1.3); Total Protein 7.3 g/dL (6.3-8.2)
--- NOTE | 2024-12-16 17:30 | XR ---
EXAMINATION TYPE: XR chest 2V DATE OF EXAM: 12/16/2024 5:17 PM COMPARISON: Chest radiograph dated 07/08/2024. CLINICAL INDICATION: Female, 79 years old with history of wm; [facility] TECHNIQUE: XR chest 2V Frontal and lateral views of the chest. FINDINGS: Lungs/Pleura: There is no evidence of pleural effusion, focal consolidation, or pneumothorax. Pulmonary vascularity: Unremarkable. Heart/mediastinum: Cardiomediastinal silhouette is unremarkable. Musculoskeletal: No acute osseous pathology. Old left-sided rib fracture deformities. Other findings: None Lines/Tubes: Right-sided chest wall central venous catheter with distal catheter tip overlying the mid/distal SVC. IMPRESSION: No acute cardiopulmonary disease/process. [facility], , 12/16/2024 5:28 PM
[2024-12-16 18:11] LABS: Magnesium 1.9 mg/dL (1.6-2.3)
[2024-12-16 21:13] LABS: Prothrombin Time 11.3 sec (10.0-12.5)
[2024-12-16 21:20] LABS: Partial Thromboplastin Time 21.9 sec (22.0-30.0)
[2024-12-16] MEDS ORDERED: ACETAMINOPHEN TAB 325 MG TAB PO PRN (21:23)
[2024-12-16] MEDS ORDERED: NALOXONE 0.4 MG/ML 1 ML VIAL IV PRN (21:23)
[2024-12-16 22:04] LABS: Appearance,Urine Clear (Clear); Bilirubin,Urine Negative (Negative); Blood,Urine Small (Negative); Color,Urine Light Yellow; Glucose,Urine (UA) Negative (Negative); Ketones,Urine Negative (Negative); Leukocyte Esterase,Urine Moderate (Negative); Nitrite,Urine Negative (Negative); Protein,Urine Negative (Negative); RBC,Urine 10 /hpf (0-5); Specific Gravity,Urine 1.014 (1.001-1.035); Squamous Epithelial Cell,Urine 2 /hpf (0-4); Urobilinogen,Urine <2.0 mg/dL (<2.0); WBC,Urine 4 /hpf (0-5)
[2024-12-16] MEDS: HYDROcodone/APAP 7.5-325MG 1 EACH TAB PO SCH (22:31)
[2024-12-16] MEDS: SODIUM CHLORIDE 0.9% 1,000 ML IV SCH (22:32)
[2024-12-17 06:38] LABS: Basophils # (A) 0.07 10*3/uL (0.00-0.10); Basophils % (A) 1.2 %; Eosinophils # (A) 0.13 10*3/uL (0.04-0.35); Eosinophils % (A) 2.2 %; HGB 10.2 g/dL (12.0-15.0); Lymphocytes # (A) 1.18 10*3/uL (0.90-5.00); Lymphocytes % (A) 19.8 %; MCH 28.8 pg (27.0-32.0); MCHC 32.9 g/dL (32.0-37.0); MCV 87.6 fL (80.0-97.0); Mean Platelet Volume 10.2 fL (9.5-12.2); Monocytes # (A) 0.42 10*3/uL (0.20-1.00); Monocytes % (A) 7.1 %; Neutrophils # (A) 4.14 10*3/uL (1.80-7.70); Neutrophils % (A) 69.5 %; Platelet Count 211 10*3/uL (140-440); RBC 3.54 10*6/uL (4.10-5.20); RDW 13.4 % (11.5-14.5); WBC 5.95 10*3/uL (4.50-10.00)
[2024-12-17 07:05] LABS: ALT 9 U/L (4-34); AST 26 U/L (14-36); African American GFR (CKD) 31 (>60 ml/min/1.73 sqM); Albumin 3.7 g/dL (3.5-5.0); Alkaline Phosphatase 93 U/L (38-126); Anion Gap 10 mmol/L; Blood Urea Nitrogen 27 mg/dL (7-17); Calcium 9.1 mg/dL (8.4-10.2); Carbon Dioxide 23 mmol/L (22-30); Chloride 108 mmol/L (98-107); Glucose 101 mg/dL (74-99); Magnesium 1.7 mg/dL (1.6-2.3); Non-African American GFR(CKD) 27 (>60 ml/min/1.73 sqM); Sodium 141 mmol/L (137-145); Total Bilirubin 0.9 mg/dL (0.2-1.3); Total Protein 6.2 g/dL (6.3-8.2)
[2024-12-17] MEDS: GABAPENTIN 300 MG CAP PO SCH ×2 (09:08→21:22)
[2024-12-17] MEDS: PANTOPRAZOLE 40 MG TABLET PO SCH (09:08)
[2024-12-17] MEDS: ATORVASTATIN 10 MG TAB PO SCH (09:08)
[2024-12-17] MEDS: POTASSIUM CHLORIDE ER 10 MEQ TAB.ER.PRT PO SCH (09:08)
--- NOTE | 2024-12-17 09:08 | NM ---
EXAMINATION TYPE: NM pul vent and perfuse DATE OF EXAM: 12/17/2024 CLINICAL INDICATION: Female, 79 years old with history of dyspnea; shortness of breath COMPARISON: 12/16/2024 chest radiograph TECHNIQUE: Utilizing inhalation of 64.4 mCi Tc 99m DTPA aerosol and intravenous injection of 5.13 mC i of Tc 99m MAA, ventilation and perfusion images are acquired post injection in multiple projections . FINDINGS: Small fixed perfusion defect left apex. Otherwise, normal radiotracer distribution is noted in the coco ngs. There is no evidence of mismatched defects. IMPRESSION: Borderline low probability for pulmonary embolus by PIOPED criteria. [facility], Workstation: [facility], 12/17/2024 9:06 AM
[2024-12-17] MEDS: levETIRAcetam 500 MG TAB PO SCH (09:09)
[2024-12-17] MEDS: ALPRAZolam 0.5 MG TAB PO SCH (09:09)
[2024-12-17] MEDS: ONDANSETRON 4 MG/2 ML VIAL IVP PRN (09:19)
[2024-12-17] MEDS: DULoxetine HCL 20 MG CAPSULE.DR PO SCH (10:13)
[2024-12-17] MEDS: POTASSIUM CHLORIDE ER 20 MEQ TAB.ER PO SCH (13:17)
--- NOTE | 2024-12-17 16:15 | P.HPIM ---
History of Present Illness H&P Date: 12/17/24 This is a pleasant 79-year-old female with medical history significant for gastroesophageal reflux disease, hypertension, hyperlipidemia, seizure disorder, peripheral neuropathy, melanoma. Patient presented to the hospital with complaints of fatigue, dizziness and lightheadedness. This has been ongoing over the past few days. Denies any chest pain. Denies shortness of breath. No dysuria. No fever/chills or recent illness. States she oral intake hasnt been very good. [place] [facility] Her chest x-ray on admission reveals no acute cardiopulmonary process. EKG reveals normal sinus rhythm her blood work on admission reveals a D-dimer of 1.82, sodium level of 3.3 BUN of 27 creatinine of 2.13. Patient received saline running at 75 mL/h and her renal function has improved with a BUN of 27 and a creatinine of 1.79. Troponin level has been negative. Patient underwent pulmonary perfusion test which shows low probability for pulmonary embolism. She is currently on room air. REVIEW OF SYSTEMS: CONSTITUTIONAL: No fever, no malaise, no fatigue. HEENT: No recent visual problems or hearing problems. Denied any sore throat. CARDIOVASCULAR: No chest pain, orthopnea, PND, no palpitations, no syncope. PULMONARY: No shortness of breath, no cough, no hemoptysis. GASTROINTESTINAL: No diarrhea, no nausea, no vomiting, no abdominal pain. NEUROLOGICAL: No headaches, no weakness, no numbness. HEMATOLOGICAL: Denies any bleeding or petechiae. GENITOURINARY: Denies any burning micturition, frequency, or urgency. MUSCULOSKELETAL/RHEUMATOLOGICAL: Denies any joint pain, swelling, or any muscle pain. ENDOCRINE: Denies any polyuria or polydipsia. The rest of the 14-point review of systems is negative. PHYSICAL EXAMINATION: GENERAL: The patient is alert and oriented x3, not in any acute distress. Well developed, well nourished. HEENT: Pupils are round and equally reacting to light. EOMI. No scleral icterus. No conjunctival pallor. Normocephalic, atraumatic. No pharyngeal erythema. No thyromegaly. CARDIOVASCULAR: S1 and S2 present. No murmurs, rubs, or gallops. PULMONARY: Chest is clear to auscultation, no wheezing or crackles. ABDOMEN: Soft, nontender, nondistended, normoactive bowel sounds. No palpable organomegaly. MUSCULOSKELETAL: No joint swelling or deformity. EXTREMITIES: No cyanosis, clubbing, or pedal edema. NEUROLOGICAL: Gross neurological examination did not reveal any focal deficits. SKIN: No rashes. Assessment Fatigue dizziness and lightheadedness Acute kidney injury, prerenal dehydration History of multiple sclerosis Melanoma stage IIIc with lymphadenopathy on Keytruda in the past as well as surgical resection of facial melenoma and 3 lymph nodes Gastroesophageal reflux disease Hypertension Hyperlipidemia Seizure disorder maintained on Keppra Peripheral neuropathy Plan next Continue normal saline at 75 mls/hr Monitor renal function Cut back on the dose of gabapentin to 300 twice daily because of the renal dysfunction PT OT consultation and discharge planning possible NAZIA. The impression and plan of care has been dictated by Jennie Rm, Nurse Practitioner as directed. Dr. Bertha MD I have performed a history and physical examination and medical decision making of this patient, discussed the same with the dictator, and agree with the dictators assessment and plan as written, documented as a scribe. Based on total visit time, I have performed more than 50% of this visit. 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 Melanoma stage 3C, 3 lymph nodes removed, keytruda immune therapy last dose was 3 weeks ago. last seizure 03/2023 (Electric disruption looses balanace) History of Any Multi-Drug Resistant Organisms: None Reported Past Surgical History: Cholecystectomy, Orthopedic Surgery Additional Past Surgical History / Comment(s): History of right hand surgery. left arm surgery Past Anesthesia/Blood Transfusion Reactions: No Reported Reaction Smoking Status: Never smoker - Past Family History Sister(s) Family Medical History: Cancer Son(s) Family Medical History: Deep Vein Thrombosis (DVT) Medications and Allergies Home Medications Medication Instructions Recorded Confirmed Type Omeprazole [PriLOSEC] 40 mg PO DAILY 11/20/18 12/16/24 History DULoxetine HCL [Cymbalta] 20 mg PO BID 03/07/23 12/16/24 History levETIRAcetam [Keppra] 500 mg PO Q12HR tab 03/13/23 12/16/24 Rx Gabapentin 600 mg PO BID 07/08/24 12/16/24 History HYDROcodone/APAP 7.5-325MG [[place] 1 tab PO Q8HR 07/08/24 12/16/24 History 7.5-325] Rosuvastatin Calcium [Crestor] 5 mg PO DAILY 07/08/24 12/16/24 History ALPRAZolam [Xanax] 0.5 mg PO BID 12/16/24 12/16/24 History Ibuprofen [Motrin] 800 mg PO Q8H 12/16/24 12/16/24 History Mometasone 0.1% Cream 1 applic TOPICAL TID 12/16/24 12/16/24 History Potassium Chloride ER [K-Dur 10] 10 meq PO DAILY 12/16/24 12/16/24 History Allergies Allergy/AdvReac Type Severity Reaction Status Date / Time morphine Allergy PER PCP Verified 12/16/24 19:25 IV STEROIDS AdvReac Nausea Uncoded 12/16/24 15:11 Physical Exam Vitals: Vital Signs Temp Pulse Pulse Pulse Resp BP BP 12/17/24 08:45 97.4 F L 54 L 16 108/71 12/17/24 07:29 88 16 96/51 12/17/24 05:02 88 16 96/51 12/17/24 00:00 98.2 F 98 16 121/66 12/16/24 19:25 95 18 93/76 12/16/24 15:07 97.6 F 94 22 98/69 Pulse Ox 12/17/24 08:45 96 12/17/24 07:29 99 12/17/24 05:02 94 L 12/17/24 00:00 93 L 12/16/24 19:25 98 12/16/24 15:07 98 Intake and Output 12/16/24 12/17/24 12/17/24 22:59 06:59 14:59 Other: Voiding Method Bedside Commode # Voids 2 Weight 58.967 kg 58.967 kg Results CBC & Chem 7: 12/17/24 05:39 12/17/24 05:39 Labs: Abnormal Lab Results - Last 24 Hours (Table) 12/16/24 12/16/24 12/16/24 Range/Units 16:12 16:12 20:43 RBC (4.10-5.20) 10*6/uL Hgb 11.9 L (12.0-15.0) g/dL Hct 35.8 L (37.2-46.3) % APTT 21.9 L (22.0-30.0) sec D-Dimer 1.82 H (<0.60) mg/L FEU Potassium 3.3 L (3.5-5.1) mmol/L Chloride (98-107) mmol/L BUN 27 H (7-17) mg/dL Creatinine 2.13 H (0.52-1.04) mg/dL Glucose 110 H (74-99) mg/dL Total Protein (6.3-8.2) g/dL Urine Blood (Negative) Ur Leukocyte Esterase (Negative) Urine RBC (0-5) /hpf 12/16/24 12/17/24 12/17/24 Range/Units 21:48 05:39 05:39 RBC 3.54 L (4.10-5.20) 10*6/uL Hgb 10.2 L (12.0-15.0) g/dL Hct 31.0 L (37.2-46.3) % APTT (22.0-30.0) sec D-Dimer (<0.60) mg/L FEU Potassium 3.0 L (3.5-5.1) mmol/L Chloride 108 H (98-107) mmol/L BUN 27 H (7-17) mg/dL Creatinine 1.79 H (0.52-1.04) mg/dL Glucose 101 H (74-99) mg/dL Total Protein 6.2 L (6.3-8.2) g/dL Urine Blood Small H (Negative) Ur Leukocyte Esterase Moderate H (Negative) Urine RBC 10 H (0-5) /hpf Thrombosis Risk Factor Assmnt - Choose All That Apply Any of the Below Risk Factors Present?: No Other Risk Factors: Yes Each Risk Factor Represents 3 Points: Age 75 years or older Other congenital or acquired thrombophilia - If yes, enter type in comment: No Thrombosis Risk Factor Assessment Total Risk Factor Score: 3 Thrombosis Risk Factor Assessment Level: Moderate Risk Assessment and Plan Time with Patient: Less than 30
[2024-12-17] MEDS: HEPARIN SODIUM,PORCINE 5,000 UNIT/ML 1 ML VIAL SQ SCH (21:22)
[2024-12-18] MEDS ORDERED: ALPRAZolam 0.25 MG TAB PO PRN (14:29)
[2024-12-18 15:05] LABS: African American GFR (CKD) 34 (>60 ml/min/1.73 sqM); Anion Gap 7 mmol/L; Blood Urea Nitrogen 23 mg/dL (7-17); Calcium 8.2 mg/dL (8.4-10.2); Carbon Dioxide 19 mmol/L (22-30); Chloride 112 mmol/L (98-107); Glucose 111 mg/dL (74-99); Non-African American GFR(CKD) 29 (>60 ml/min/1.73 sqM); Potassium 3.8 mmol/L (3.5-5.1); Sodium 138 mmol/L (137-145)
--- NOTE | 2024-12-18 22:15 | P.PN ---
Subjective Progress Note Date: 12/18/24 This is a pleasant 79-year-old female with medical history significant for gastroesophageal reflux disease, hypertension, hyperlipidemia, seizure disorder, peripheral neuropathy, melanoma. Patient presented to the hospital with complaints of fatigue, dizziness and lightheadedness. This has been ongoing over the past few days. Denies any chest pain. Denies shortness of breath. No dysuria. No fever/chills or recent illness. States she oral intake hasnt been very good. Does live by herself at [facility]. Her chest x-ray on admission reveals no acute cardiopulmonary process. EKG reveals normal sinus rhythm her blood work on admission reveals a D-dimer of 1.82, sodium level of 3.3 BUN of 27 creatinine of 2.13. Patient received saline running at 75 mL/h and her renal function has improved with a BUN of 27 and a creatinine of 1.79. Troponin level has been negative. Patient underwent pulmonary perfusion test which shows low probability for pulmonary embolism. She is currently on room a ir. 12/18/2024 Patient is seen in follow-up today and reports to feeling lethargic continues to be weak and awaiting to be evaluated by physical therapy with social work following working on possible ECF on discharge. Patient normally lives at [facility] although patient is concerned she is extremely weak and family is concerned as well. Patient with AMBIKA and dehydration showing some improvement and creatinine is improved at 1.66 from 1.79 yesterday. Potassium was replaced and is currently 3.8 today. Will continue gentle hydration and follow-up on repeat labs. Encouraged increased activity as tolerated. Currently awaiting insurance authorization for ECF. Review of systems:No reports of fatigue, no fever, or chills Cardiovascular: No reports of chest pain or palpitations Respiratory: No reports of shortness of breath or cough GI: No reports of nausea, vomiting, or diarrhea : No reports of dysuria or retention Neurovascular: reports of generalized weakness All medications have been reviewed PHYSICAL EXAMINATION: GENERAL: The patient is alert and oriented x3, not in any acute distress. Well developed, well nourished. Elderly appearing HEENT: Pupils are round and equally reacting to light. EOMI. No scleral icterus. No conjunctival pallor. Normocephalic, atraumatic. No pharyngeal erythema. No thyromegaly. CARDIOVASCULAR: S1 and S2 muffled PULMONARY: Chest is clear to auscultation, no wheezing or crackles. ABDOMEN: Soft, nontender, nondistended, normoactive bowel sounds. No palpable organomegaly. MUSCULOSKELETAL: No joint swelling or deformity. EXTREMITIES: No cyanosis, clubbing, or pedal edema. NEUROLOGICAL: Gross neurological examination did not reveal any focal deficits. Diffusely weak SKIN: No rashes. Assessment: Fatigue dizziness and lightheadedness, possibly secondary to acute dehydration with acute kidney injury Acute kidney injury, prerenal dehydration, improving with gentle hydration History of multiple sclerosis Melanoma stage IIIc with lymphadenopathy on Keytruda in the past as well as surgical resection of facial melenoma and 3 lymph nodes Gastroesophageal reflux disease Hypertension Hyperlipidemia Seizure disorder maintained on Keppra Peripheral neuropathy GI prophylaxis DVT prophylaxis Full code Plan: Continue normal saline at 50 mls/hr with creatinine improving will follow-up on repeat labs in the a.m. PT OT evaluated the patient recommending rehab and patient does report she feels weak and has had recent hospitalization. Family is concerned about her safety as she currently resides at [facility]. Social work following will be submitting for insurance authorization to ECF Possible discharge planning to ECF in the next 24 hours. The impression and plan of care has been dictated by Jocelyne Luis, Nurse Practitioner as directed. Dr. Bertha MD I have performed a history and physical examination and medical decision making of this patient, discussed the same with the dictator, and agree with the dictators assessment and plan as written, documented as a scribe. Based on total visit time, I have performed more than 50% of this visit. Objective - Vital Signs Vital signs: Vital Signs Temp 98.2 F 12/18/24 07:20 Pulse 79 12/18/24 07:20 Resp 16 12/18/24 07:20 BP 94/58 12/18/24 07:20 Pulse Ox 93 L 12/18/24 07:20 FiO2 Intake & Output 12/17/24 12/18/24 12/18/24 18:59 06:59 18:59 Intake Total 200 Balance 200 Intake: Oral 200 Other: Voiding Method Bedside Commode # Voids 1 1 # Bowel Movements 1 - Labs CBC & Chem 7: 12/17/24 05:39 12/18/24 14:36
[2024-12-19 01:20] VITALS: RESP 16
[2024-12-19 10:39] LABS: Blood Urea Nitrogen 21.6 mg/dL (9.0-27.0); Calcium 7.7 mg/dL (8.7-10.3); Carbon Dioxide 21.8 mmol/L (21.6-31.8); Chloride 113 mmol/L (96-109); Glucose 94 mg/dL (70-110); Potassium 3.6 mmol/L (3.5-5.5); Sodium 141 mmol/L (135-145)
--- NOTE | 2024-12-19 14:17 | P.DS ---
Providers Date of admission: 12/16/24 21:25 Expected date of discharge: 12/19/24 Attending physician: Andrade Ambrocio Primary care physician: Honorio Curiel [facility] Course: Final diagnosis Fatigue dizziness and lightheadedness, secondary to acute dehydration with acute kidney injury Acute kidney injury, prerenal azotemia, dehydration, improved and trending down History of multiple sclerosis Melanoma stage IIIc with lymphadenopathy was on Keytruda in the past as well as surgical resection of facial melenoma and 3 lymph nodes, Keytruda has been discontinued per oncology for now and patient has not been taking for over 3 weeks Gastroesophageal reflux disease Hypertension Hyperlipidemia Seizure disorder maintained on Keppra Peripheral neuropathy GI prophylaxis DVT prophylaxis Full code Discharge disposition Patient is being discharged in a stable condition with guarded prognosis to [facility]. Patient will follow-up with Dr. Honorio Curiel in the outpatient setting upon discharge. Patient is to continue with repeat labs to monitor kidney functions including CBC, CMP, magnesium in 2 to 3 days. Total time taken is greater than 35 minutes. Hospital course This is a 79-year-old female who was recently admitted with generalized weakness and fatigue with dizziness and lightheadedness being closely monitored maintained on gentle hydration. Patient likely with acute dehydration and kidney injury which is improving and diuretics remain on hold. Patient current creatinine is 1.6 with a sodium of 141 and potassium is 3.6 improving and recommend repeat labs including CBC, CMP, magnesium in 2 to 3 days. Patient with generalized weakness and fatigue was evaluated by physical therapy recommending rehab and patient has been accepted at [facility]. Patient has received insurance authorization and will be going today. Patient had been taking Keytruda with oncology in the outpatient setting although patient was having some itching with concerns of possible allergic reaction and has been held for over 3 weeks. Patient is agreeable to withhold this medication while at [facility] and will follow-up with oncology once discharged from rehab. Currently no reports of chest pain, shortness of breath, or palpitations. Patient is afebrile. No reports of nausea or vomiting and patient is tolerating diet. Patient will be discharged to [facility] today. High risk for readmissions given significant comorbidities. Physical exam: Gen: This is a 79-year-old female who is awake, alert and oriented x 3, well- developed, elderly appearing HEENT: Head is atraumatic, normocephalic. Pupils equal, round. Sclerae is anicteric. NECK: Supple. No JVD. No lymphadenopathy. No thyromegaly. LUNGS: Diminished breath sounds bilaterally otherwise clear to auscultation. No wheezes or rhonchi. No intercostal retractions. HEART: S1, S2 are muffled ABDOMEN: Soft. Thin. Bowel sounds are present. No masses. No tenderness. EXTREMITIES: No pedal edema. No calf tenderness. NEUROLOGICAL: Patient is awake, alert and oriented x3. Cranial nerves 2 through 12 are grossly intact. Diffusely weak Please refer to medication reconciliation sheet for a list of medications. The impression and plan of care has been dictated by Jocelyne Luis, Nurse Practitioner as directed. Dr. Bertha MD I have performed a history and examination and MDM of this patient, discussed the same with the dictator, and agree with the dictator's assessment and plan as written ,documented as a scribe. Based on total visit time, I have performed more than 50% of the visit. Patient Condition at Discharge: Stable Plan - Discharge Summary Discharge Rx Participant: No New Discharge Prescriptions: New Heparin Sodium,Porcine (1 ml) [Heparin Sodium] 5,000 unit SQ Q12HR each ALPRAZolam [Xanax] 0.25 mg PO BID PRN #6 tab PRN Reason: Anxiety Atorvastatin [Lipitor] 10 mg PO DAILY tab Gabapentin [Neurontin] 300 mg PO BID cap Acetaminophen Tab [Tylenol] 650 mg PO Q6HR PRN tab PRN Reason: Mild Pain Or Fever > 100.5 Continue Omeprazole [PriLOSEC] 40 mg PO DAILY DULoxetine HCL [Cymbalta] 20 mg PO BID levETIRAcetam [Keppra] 500 mg PO Q12HR tab Mometasone 0.1% Cream 1 applic TOPICAL TID Potassium Chloride ER [K-Dur 10] 10 meq PO DAILY Changed HYDROcodone/APAP 7.5-325MG [[place] 7.5-325] 1 tab PO Q8HR PRN #4 tab PRN Reason: Pain Discontinued Rosuvastatin Calcium [Crestor] 5 mg PO DAILY Gabapentin 600 mg PO BID Ibuprofen [Motrin] 800 mg PO Q8H ALPRAZolam [Xanax] 0.5 mg PO BID Discharge Medication List Omeprazole [PriLOSEC] 40 mg PO DAILY 05/29/19 [History] DULoxetine HCL [Cymbalta] 20 mg PO BID 03/07/23 [History] levETIRAcetam [Keppra] 500 mg PO Q12HR tab 03/13/23 [Rx] Mometasone 0.1% Cream 1 applic TOPICAL TID 12/16/24 [History] Potassium Chloride ER [K-Dur 10] 10 meq PO DAILY 12/16/24 [History] ALPRAZolam [Xanax] 0.25 mg PO BID PRN #6 tab 12/19/24 [Rx] Acetaminophen Tab [Tylenol] 650 mg PO Q6HR PRN tab 12/19/24 [Rx] Atorvastatin [Lipitor] 10 mg PO DAILY tab 12/19/24 [Rx] Gabapentin [Neurontin] 300 mg PO BID cap 12/19/24 [Rx] HYDROcodone/APAP 7.5-325MG [[place] 7.5-325] 1 tab PO Q8HR PRN #4 tab 12/19/24 [Rx] Heparin Sodium,Porcine (1 ml) [Heparin Sodium] 5,000 unit SQ Q12HR each 12/19/24 [Rx] Follow up Appointment(s)/Referral(s): Honorio Curiel MD [Primary Care Provider] - 1-2 days Activity/Diet/Wound Care/Special Instructions: Patient is going to [facility] on the [address] [facility] as tolerated Follow-up with repeat CBC, CMP, magnesium in 2 to 3 days Continue with current medications Discharge Disposition: TRANSFER TO SNF/ECF
[2024-12-19 15:53] VITALS: BP 91/57; PULSE 87; TEMP 97.8
== END 2024-12-19 15:05 ==
LOC: EC 14:20 → 6NMEDSUR 21:25 → OBSVTOIN 21:26 → INTOOBSV 21:26 → 6NMEDSUR 12-17 06:30
PROVIDERS: ADMIT Hospitalist; ATTEND Hospitalist
DX: N17.9 Acute kidney failure, unspecified (principal); R53.83 Other fatigue; R42 Dizziness and giddiness; E86.0 Dehydration; G35 Multiple sclerosis; K21.9 Gastro-esophageal reflux disease without esophagitis; E78.5 Hyperlipidemia, unspecified; I10 Essential (primary) hypertension; G62.9 Polyneuropathy, unspecified; F41.9 Anxiety disorder, unspecified; F32.A Depression, unspecified; G40.909 Epilepsy, unspecified, not intractable, without status epilepticus; Z85.72 Personal history of non-Hodgkin lymphomas; Z85.820 Personal history of malignant melanoma of skin; Z79.899 Other long term (current) drug therapy; Z88.5 Allergy status to narcotic agent
CPT/HCPCS: 96361 ×2; 96372 ×3; 96374; 99285; 36415; 93005; 97530 ×2; 97161; 97166; 85379; 83880; 80053 ×2; 80048 ×2; 83605; 83735 ×2; 84484 ×2; 85025 ×2; 85610; 85730; 81001; 71046; 78582; G0378 ×4; A9540; A9567; J1644 ×3; J2405; 96360

== ENCOUNTER 2025-01-06 10:53 | Inpatient (IN) | payer MEDICARE ==
--- NOTE | 2025-01-06 11:38 | ED ---
General Adult HPI - General Chief complaint: Fall Stated complaint: Fall Time Seen by Provider: 01/06/25 10:58 Source: patient, EMS, RN notes reviewed, old records reviewed Mode of arrival: EMS - History of Present Illness Initial comments: 79-year-old female presenting status post fall at home. Patient states she tripped on a rug falling onto her left side. She complained of generalized pain but focal pain in the left elbow. Uncertain if she hit her head. No loss consciousness but the patient was unable to get up and the fall occurred at approximately 5 PM yesterday. She was brought to the emergency department at 11 AM today. She was placed in a c-collar by paramedics. She denies chest or abdominal pain. Denies lower extremity pain or swelling. - Related Data Home Medications Medication Instructions Recorded Confirmed Omeprazole [PriLOSEC] 40 mg PO DAILY 11/20/18 01/06/25 DULoxetine HCL [Cymbalta] 20 mg PO BID 03/07/23 01/06/25 Potassium Chloride ER [K-Dur 10] 10 meq PO DAILY 12/16/24 01/06/25 ALPRAZolam [Xanax] 0.5 mg PO BID PRN 01/06/25 01/06/25 Gabapentin 600 mg PO BID 01/06/25 01/06/25 HYDROcodone/APAP 7.5-325MG [[place] 1 tab PO BID PRN 01/06/25 01/06/25 7.5-325] Rosuvastatin Calcium 5 mg PO DAILY 01/06/25 01/06/25 levETIRAcetam [Keppra] 500 mg PO BID 01/06/25 01/06/25 Allergies Allergy/AdvReac Type Severity Reaction Status Date / Time morphine Allergy PER PCP Verified 01/06/25 12:38 IV STEROIDS AdvReac Nausea Uncoded 01/06/25 12:38 Review of Systems ROS Statement: Those systems with pertinent positive or pertinent negative responses have been documented in the HPI. ROS Other: All systems not noted in ROS Statement are negative. 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 Melanoma stage 3C, 3 lymph nodes removed, keytruda immune therapy last dose was 3 weeks ago. last seizure 03/2023 (Electric disruption looses balanace) History of Any Multi-Drug Resistant Organisms: None Reported Past Surgical History: Cholecystectomy, Orthopedic Surgery Additional Past Surgical History / Comment(s): History of right hand surgery. left arm surgery Past Anesthesia/Blood Transfusion Reactions: No Reported Reaction Past Psychological History: Anxiety, Depression Smoking Status: Never smoker - Past Family History Sister(s) Family Medical History: Cancer Son(s) Family Medical History: Deep Vein Thrombosis (DVT) General Exam General appearance: alert, in no apparent distress Head exam: Present: atraumatic, normocephalic Eye exam: Present: normal appearance, PERRL ENT exam: Present: mucous membranes dry Neck exam: Present: normal inspection, other (C-collar in place). Absent: tenderness Respiratory exam: Present: normal lung sounds bilaterally. Absent: respiratory distress, wheezes, rales Cardiovascular Exam: Present: regular rate, normal rhythm GI/Abdominal exam: Present: soft. Absent: distended, tenderness, guarding Extremities exam: Present: full ROM, tenderness (Left elbow) Neurological exam: Present: alert, oriented X3, CN II-XII intact Psychiatric exam: Present: normal affect, normal mood Skin exam: Present: warm, dry, intact, normal color Course Vital Signs 01/06/25 10:54 Temperature 97.6 F Pulse Rate 92 Respiratory 17 Rate Blood Pressure 137/84 O2 Sat by Pulse 96 Oximetry Medical Decision Making - Medical Decision Making Was pt. sent in by a medical professional or institution (, PA, HOME DEMONSTRATION AGENT, urgent care, hospital, or fpc...) When possible be specific @ -No Did you speak to anyone other than the patient for history (EMS, parent, family, police, friend...)? What history was obtained from this source @ -No Did you review nursing and triage notes (agree or disagree)? Why? @ -I reviewed and agree with nursing and triage notes Were old charts reviewed (outside hosp., previous admission, EMS record, old EKG, old radiological studies, urgent care reports/EKG's, fpc records)? Report findings @ -No old charts were reviewed Differential Diagnosis (chest pain, altered mental status, abdominal pain women, abdominal pain men, vaginal bleeding, weakness, fever, dyspnea, syncope, headache, dizziness, GI bleed, back pain, seizure, CVA, palpatations, mental health, musculoskeletal)? @ -Not applicable EKG interpreted by me (3pts min.). @ -Sinus rhythm rate of 93, ID interval 161, QRS duration 105, QTc [address] segment elevation. X-rays interpreted by me (1pt min.). @ -X-rays of the chest, pelvis and elbow are negative for traumatic injury. Chest x-ray does show cardiomegaly and pulmonary vascular congestion CT interpreted by me (1pt min.). @ -CT brain is negative for intracranial hemorrhage, CT cervical spine negative for fracture or subluxation. U/S interpreted by me (1pt. min.). @ -None done What testing was considered but not performed or refused? (CT, X-rays, U/S, labs)? Why? @ -None What meds were considered but not given or refused? Why? @ -None Did you discuss the management of the patient with other professionals (professionals i.e. , PA, HOME DEMONSTRATION AGENT, lab, RT, psych nurse, elementary school social worker, laborer concrete paving, teacher, catapult and arresting gear officer, outsole caser)? Give summary @ -EMH. Was smoking cessation discussed for >3mins.? @ -No Was critical care preformed (if so, how long)? @ -No Were there social determinants of health that impacted care today? How? (Homelessness, low income, unemployed, alcoholism, drug addiction, transportation, low edu. Level, literacy, decrease access to med. care, mcfp, rehab)? @ -No Was there de-escalation of care discussed even if they declined (Discuss DNR or withdrawal of care, Hospice)? DNR status @ -No What co-morbidities impacted this encounter? (DM, HTN, Smoking, COPD, CAD, Ca ncer, CVA, ARF, Chemo, Hep., AIDS, mental health diagnosis, sleep apnea, morbid obesity)? @ -None Was patient admitted / discharged? Hospital course, mention meds given and route, prescriptions, significant lab abnormalities, going to OR and other pertinent info. @ -[79-year-old who presents for evaluation of fall and inability to stand. Patient had a prolonged downtime and appears dehydrated upon arrival. She had complained mainly of left elbow pain. This showed previous surgical changes w ithout acute fracture and there was good range of motion at the elbow. Patient did receive also chest x-ray and pelvis x-ray as well as CT brain and cervical spine these were negative for traumatic injury. Patient had a mildly elevated CK. She has a urinalysis ordered but has been unable to give a sample. Her son states that she had a similar fall several weeks ago and was placed in [facility] for rehabilitation. She has a significant fall risk. Will be observed for generalized weakness and multiple falls. Undiagnosed new problem with uncertain prognosis? @ -No Drug Therapy requiring intensive monitoring for toxicity (Heparin, Nitro, Insulin, Cardizem)? @ -No Were any procedures done? @ -No Diagnosis/symptom? @ -Dehydration, multiple falls, debility Acute, or Chronic, or Acute on Chronic? @ -[Acute on chronic Uncomplicated (without systemic symptoms) or Complicated (systemic symptoms)? @ -Default Side effects of treatment? @ -No Exacerbation, Progression, or Severe Exacerbation? @ -No Poses a threat to life or bodily function? How? (Chest pain, USA, CT, pneumonia, PE, COPD, DKA, ARF, appy, cholecystitis, CVA, Diverticulitis, Homicidal, Suicidal, threat to staff... and all critical care pts) @Yes, fall risk in the elderly - Lab Data Result diagrams: 01/06/25 12:51 01/06/25 12:51 Lab Results 01/06/25 01/06/25 01/06/25 Range/Units 12:51 12:51 12:51 WBC 12.44 H (4.50-10.00) 10*3/uL RBC 4.27 (4.10-5.20) 10*6/uL Hgb 12.4 (12.0-15.0) g/dL Hct 37.4 (37.2-46.3) % MCV 87.6 (80.0-97.0) fL MCH 29.0 (27.0-32.0) pg MCHC 33.2 (32.0-37.0) g/dL Plt Count 221 (140-440) 10*3/uL MPV 10.3 (9.5-12.2) fL Immature Gran % (Auto) 0.4 % Neutrophils % 85.5 % Lymphocytes % 6.8 % Monocytes % 6.6 % Eosinophils % 0.2 % Basophils % 0.5 % Immature Gran # 0.05 H (0.00-0.04) 10*3/uL Neutrophils # 10.64 H (1.80-7.70) 10*3/uL Lymphocytes # 0.84 L (0.90-5.00) 10*3/uL Monocytes # 0.82 (0.20-1.00) 10*3/uL Eosinophils # 0.03 L (0.04-0.35) 10*3/uL Basophils # 0.06 (0.00-0.10) 10*3/uL Differential Comment P PT 11.8 (10.0-12.5) sec INR 1.1 (<1.2) APTT 17.7 L (22.0-30.0) sec Sodium 140 (137-145) mmol/L Potassium 3.9 (3.5-5.1) mmol/L Chloride 99 (98-107) mmol/L Carbon Dioxide 24 (22-30) mmol/L Anion Gap 17 mmol/L BUN 29 H (7-17) mg/dL Creatinine 1.52 H (0.52-1.04) mg/dL Est GFR (CKD-EPI)AfAm 38 (>60 ml/min/1.73 sqM) Est GFR (CKD-EPI)NonAf 33 (>60 ml/min/1.73 sqM) Glucose 109 H (74-99) mg/dL Calcium 9.8 (8.4-10.2) mg/dL Total Bilirubin 1.4 H (0.2-1.3) mg/dL AST 40 H (14-36) U/L ALT 13 (4-34) U/L Alkaline Phosphatase 113 (38-126) U/L Creatine Kinase 394 H (30-135) U/L Total Protein 7.3 (6.3-8.2) g/dL Albumin 4.3 (3.5-5.0) g/dL Disposition Clinical Impression: Fall, Multiple falls, Dehydration Disposition: ADMITTED IP TO THIS HOSP Condition: Stable Is patient prescribed a controlled substance at d/c from ED?: No Referrals: Chuy Milan MD [STAFF PHYSICIAN] - 1-2 days Time of Disposition: 14:17
[2025-01-06] MEDS: SODIUM CHLORIDE 0.9% 1,000 ML IV ONE (12:56)
[2025-01-06 13:16] LABS: Basophils # (A) 0.06 10*3/uL (0.00-0.10); Basophils % (A) 0.5 %; Eosinophils # (A) 0.03 10*3/uL (0.04-0.35); Eosinophils % (A) 0.2 %; HCT 37.4 % (37.2-46.3); HGB 12.4 g/dL (12.0-15.0); Lymphocytes # (A) 0.84 10*3/uL (0.90-5.00); Lymphocytes % (A) 6.8 %; MCH 29.0 pg (27.0-32.0); MCHC 33.2 g/dL (32.0-37.0); MCV 87.6 fL (80.0-97.0); Monocytes # (A) 0.82 10*3/uL (0.20-1.00); Monocytes % (A) 6.6 %; Neutrophils # (A) 10.64 10*3/uL (1.80-7.70); Neutrophils % (A) 85.5 %; Platelet Count 221 10*3/uL (140-440); RBC 4.27 10*6/uL (4.10-5.20); RDW 13.5 % (11.5-14.5); WBC 12.44 10*3/uL (4.50-10.00)
[2025-01-06 13:20] LABS: ALT 13 U/L (4-34); AST 40 U/L (14-36); African American GFR (CKD) 38 (>60 ml/min/1.73 sqM); Albumin 4.3 g/dL (3.5-5.0); Alkaline Phosphatase 113 U/L (38-126); Anion Gap 17 mmol/L; Blood Urea Nitrogen 29 mg/dL (7-17); Calcium 9.8 mg/dL (8.4-10.2); Carbon Dioxide 24 mmol/L (22-30); Chloride 99 mmol/L (98-107); Creatine Kinase 394 U/L (30-135); Glucose 109 mg/dL (74-99); Non-African American GFR(CKD) 33 (>60 ml/min/1.73 sqM); Potassium 3.9 mmol/L (3.5-5.1); Sodium 140 mmol/L (137-145); Total Protein 7.3 g/dL (6.3-8.2)
[2025-01-06 13:26] LABS: INR 1.1 (<1.2); Prothrombin Time 11.8 sec (10.0-12.5)
[2025-01-06 13:33] LABS: Partial Thromboplastin Time 17.7 sec (22.0-30.0)
--- NOTE | 2025-01-06 13:43 | CT ---
EXAMINATION TYPE: CT brain edel wo con DATE OF EXAM: 01/06/2025 COMPARISON: 11/11/2024 CLINICAL INDICATION: Female, 79 years old with history of fall; [facility], FALL TECHNIQUE: CT scan of the head and cervical spine are performed without contrast. CT DLP: 1197.[address] CTDI: mGy Automated exposure control for dose reduction was used. Findings: Head CT: Ventricles, basal cisterns and sulci over convexities are mildly enlarged consistent with mild atroph y. There is marked diffuse decreased density in the periventricular white matter consistent with metal furrer hadley ischemic white matter demyelination. There is small focus of adjacent left basal ganglia. There are tiny remote lacunar infarcts in the le ft basal ganglia, in the right external capsule, right hein radiata and midbrain. There is no mass effect or shift of midline structures. There is no acute intra or extra-axial hemorr rob. Posterior fossa including the brainstem, fourth ventricle and cerebellar pontine angles are grossly n ormal. The intraorbital contents appear normal and symmetric. Visualized paranasal sinuses are well aerated. CT cervical spine: Craniovertebral junction relationships and prevertebral soft tissues are normal. The cervical vertebral segments are normal in height and alignment and there is no fracture subluxati on. There is mild degenerative disease at C5-6 and C6-7 levels. There is minimal degenerative change of t he facet joints and joints of the lower cervical spine There is no bony encroachment of the neural foramina or cervical canal. The paraspinal soft tissues unremarkable. IMPRESSION: 1. Head CT: No acute bleed or mass effect. Senescent changes as described above including marked isch emic white matter demyelination multiple small remote lacunar infarcts as described above. 2. CT cervical spine: No acute trauma. Mild degenerative changes in the mid and lower cervical spine [facility], Workstation: [facility], 01/06/2025 1:40 PM
--- NOTE | 2025-01-06 13:48 | XR ---
EXAMINATION TYPE: XR pelvis AP view DATE OF EXAM: 01/06/2025 1:43 PM COMPARISON: 03/07/2023 CLINICAL INDICATION: Female, 79 years old with history of fall; pain [facility] TECHNIQUE: XR pelvis AP view, examined in a single projection. FINDINGS: There is no evidence of fracture or dislocation. There is no soft tissue abnormality. No a bnormal calcifications are present. The spine appears intact. The hips appear intact. No significant degeneration. Remote right inferior pubic ramus fracture. Degeneration changes hips with osteophyte f ormation and joint space narrowing. At this course of the arterial vasculature. IMPRESSION: No acute osseous pathology. Mild degeneration changes of the hip. [facility], , 01/06/2025 1:46 PM
--- NOTE | 2025-01-06 13:49 | XR ---
EXAMINATION TYPE: XR chest 1V portable DATE OF EXAM: 01/06/2025 1:43 PM COMPARISON: Chest radiographs from 12/16/2024 CLINICAL INDICATION: Female, 79 years old with history of fall; [facility] TECHNIQUE: XR chest 1V portable Frontal view of the chest. FINDINGS: Lungs/Pleura: There is no evidence of pleural effusion, focal consolidation, or pneumothorax. Pulmonary vascularity: Pulmonary vascular congestion. Heart/mediastinum: Cardiomediastinal silhouette is enlarged. Musculoskeletal: No acute osseous pathology. Other findings: None Lines/Tubes: Mewlwd-d-Sxma projecting over the right hemithorax with distal tip at the cavoatrial junction. IMPRESSION: Cardiomegaly and mild pulmonary vascular congestion. Correlate with BNP for congestive heart failure. [facility], , 01/06/2025 1:47 PM
--- NOTE | 2025-01-06 13:51 | XR ---
EXAMINATION TYPE: XR elbow limited LT DATE OF EXAM: 01/06/2025 1:43 PM COMPARISON: None CLINICAL INDICATION: Female, 79 years old with history of fall/pain; [facility], pain TECHNIQUE: XR elbow limited LT; elbow was examined in AP, lateral, and oblique projections. FINDINGS: Fixation hardware in the distal humerus appears intact. The elbow appears intact. No eviden ce of any acute osseous pathology, joint dislocation, or soft tissue swelling is noted. No evidence of joint effusion is present. IMPRESSION: 1. No evidence of acute fracture. 2. Fixation hardware appears intact. [facility], , 01/06/2025 1:48 PM
[2025-01-06 14:50] LABS: Bacteria,Urine Few /hpf; Bilirubin,Urine Negative (Negative); Blood,Urine Trace (Negative); Color,Urine Light Yellow; Glucose,Urine (UA) Negative (Negative); Ketones,Urine Negative (Negative); Leukocyte Esterase,Urine Moderate (Negative); Mucus,Urine Rare /hpf; Nitrite,Urine Negative (Negative); PH, Urine 6.5 (5.0-8.0); Protein,Urine Negative (Negative); RBC,Urine 11 /hpf (0-5); Specific Gravity,Urine 1.016 (1.001-1.035); Squamous Epithelial Cell,Urine 10 /hpf (0-4); Urobilinogen,Urine 2.0 mg/dL (<2.0); WBC,Urine 26 /hpf (0-5)
[2025-01-06] MEDS ORDERED: NALOXONE 0.4 MG/ML 1 ML VIAL IV PRN (15:41)
[2025-01-06] MEDS ORDERED: ALPRAZolam 0.5 MG TAB PO PRN (20:14)
[2025-01-06] MEDS: HYDROcodone/APAP 7.5-325MG 1 EACH TAB PO PRN (20:56)
[2025-01-07 07:50] LABS: Basophils # (A) 0.07 X 10*3/uL (0.00-0.10); Basophils % (A) 0.9 %; Eosinophils # (A) 0.18 X 10*3/uL (0.04-0.35); Eosinophils % (A) 2.4 %; HCT 34.8 % (37.2-46.3); HGB 11.4 g/dL (12.0-15.0); Immature Grans, Automated 0.30 %; Lymphocytes # (A) 0.93 X 10*3/uL (0.90-5.00); Lymphocytes % (A) 12.3 %; MCH 29.5 pg (27.0-32.0); MCHC 32.8 g/dL (32.0-37.0); MCV 89.9 FL (80.0-97.0); Monocytes # (A) 0.56 X 10*3/uL (0.20-1.00); Monocytes % (A) 7.4 %; NRBC Per 100 WBC 0 X 10*3/uL (0.00-0.01); Neutrophils # (A) 5.81 X 10*3/uL (1.80-7.70); Neutrophils % (A) 76.7 %; Platelet Count 208 X 10*3/uL (140-440); RBC 3.87 X 10*6/uL (4.10-5.20); RDW 13.9 % (11.5-14.5); WBC 7.57 X 10*3/uL (4.50-10.00)
[2025-01-07 08:01] LABS: Anion Gap 13.40 mmol/L (4.00-12.00); BUN/Creat Ratio 16.15 Ratio (12.00-20.00); Blood Urea Nitrogen 21.0 mg/dL (9.0-27.0); Calcium 8.7 mg/dL (8.7-10.3); Carbon Dioxide 23.6 mmol/L (21.6-31.8); Chloride 105 mmol/L (96-109); Glucose 97 mg/dL (70-110); Potassium 3.3 mmol/L (3.5-5.5); Sodium 142 mmol/L (135-145)
--- NOTE | 2025-01-07 13:44 | P.HPIM ---
History of Present Illness 79-year-old female came in after a fall because of generalized weakness she fell to the side patient does not have any focal weakness patient is elderly thin built female. Patient was unable to get up. Patient was placed on a c-collar presently removed. Patient had a chest x-ray elbow x-ray head cervical spine CT pelvic x-ray did not show any fracture except for some degenerative changes. Chest x-ray was read as pulmonary congestion although I reviewed the chest x-ray my suspicion is low that patient has pulmonary edema patient is lying flat saturating well. Patient has not any fever chills nausea vomiting. REVIEW OF SYSTEMS: All other systems are negative except those mentioned in the HPI PHYSICAL EXAMINATION: GENERAL: The patient is alert and oriented x3, not in any acute distress. Thin build female HEENT: Pupils are round and equally reacting to light. EOMI. No scleral icterus. No conjunctival pallor. Normocephalic, atraumatic. No pharyngeal erythema. No thyromegaly. CARDIOVASCULAR: S1 and S2 present. No murmurs, rubs, or gallops. PULMONARY: Chest is clear to auscultation, no wheezing or crackles. ABDOMEN: Soft, nontender, nondistended, normoactive bowel sounds. No palpable organomegaly. MUSCULOSKELETAL: No joint swelling or deformity. EXTREMITIES: No cyanosis, clubbing, or pedal edema. NEUROLOGICAL: Gross neurological examination did not reveal any focal deficits. SKIN: No rashes. Labs and imaging data was reviewed by me. Assessment and plan Falls: Secondary to generalized weakness from age-related muscle atrophy. Physical therapy Occupational Therapy evaluation patient probably will need to go to subacute rehab. My suspicion is low for congestive heart failure will obtain a proBNP - Seizure disorder for which patient is on Keppra - Polypharmacy will try and avoid benzodiazepines., Patient is also on opiates gabapentin. 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 Melanoma stage 3, keytruda immune therapy. last seizure 03/2023 History of Any Multi-Drug Resistant Organisms: None Reported Past Surgical History: Cholecystectomy, Orthopedic Surgery Additional Past Surgical History / Comment(s): History of right hand surgery. left arm surgery, lymph nodes R arm Past Anesthesia/Blood Transfusion Reactions: No Reported Reaction Past Psychological History: Anxiety, Depression Smoking Status: Never smoker Past Alcohol Use History: None Reported Past Drug Use History: None Reported - Past Family History Sister(s) Family Medical History: Cancer Son(s) Family Medical History: Deep Vein Thrombosis (DVT) Medications and Allergies Home Medications Medication Instructions Recorded Confirmed Type Omeprazole [PriLOSEC] 40 mg PO DAILY 11/20/18 01/06/25 History DULoxetine HCL [Cymbalta] 20 mg PO BID 03/07/23 01/06/25 History Potassium Chloride ER [K-Dur 10] 10 meq PO DAILY 12/16/24 01/06/25 History ALPRAZolam [Xanax] 0.5 mg PO BID PRN 01/06/25 01/06/25 History Gabapentin 600 mg PO BID 01/06/25 01/06/25 History HYDROcodone/APAP 7.5-325MG [[place] 1 tab PO BID PRN 01/06/25 01/06/25 History 7.5-325] Rosuvastatin Calcium 5 mg PO DAILY 01/06/25 01/06/25 History levETIRAcetam [Keppra] 500 mg PO BID 01/06/25 01/06/25 History Allergies Allergy/AdvReac Type Severity Reaction Status Date / Time morphine Allergy PER PCP Verified 01/06/25 12:38 IV STEROIDS AdvReac Nausea Uncoded 01/06/25 12:38 Physical Exam Vitals: Vital Signs Temp Pulse Pulse Resp BP BP Pulse Ox 01/07/25 13:41 97.7 F 113 H 18 90/65 01/07/25 07:43 96.0 F L 101 H 18 95/67 01/07/25 01:00 98 F 98 16 111/73 94 L 01/06/25 20:10 98 01/06/25 19:56 97.7 F 86 16 120/77 96 01/06/25 18:31 78 17 136/91 99 01/06/25 16:50 87 18 159/87 96 01/06/25 14:18 81 16 157/85 96 Intake and Output 01/06/25 01/07/25 01/07/25 22:59 06:59 14:59 Other: Voiding Method Bedpan Diaper Incontinent # Voids 3 Weight 58.967 kg Results CBC & Chem 7: 01/07/25 05:09 01/07/25 05:09 Labs: Abnormal Lab Results - Last 24 Hours (Table) 01/06/25 01/06/25 01/07/25 Range/Units 12:51 14:40 05:09 RBC 3.87 L (4.10-5.20) X 10*6/uL Hgb 11.4 L (12.0-15.0) g/dL Hct 34.8 L (37.2-46.3) % Neutrophils # 10.64 H (1.80-7.70) 10*3/uL Lymphocytes # 0.84 L (0.90-5.00) 10*3/uL Eosinophils # 0.03 L (0.04-0.35) 10*3/uL Potassium (3.5-5.5) mmol/L Anion Gap (4.00-12.00) mmol/L Est GFR (CKD-EPI) (>=60) Urine Appearance Cloudy H (Clear) Urine Blood Trace H (Negative) Ur Leukocyte Esterase Moderate H (Negative) Urine RBC 11 H (0-5) /hpf Urine WBC 26 H (0-5) /hpf Ur Squamous Epith Cells 10 H (0-4) /hpf Urine Bacteria Few H (None) /hpf Urine Mucus Rare H (None) /hpf 01/07/25 Range/Units 05:09 RBC (4.10-5.20) X 10*6/uL Hgb (12.0-15.0) g/dL Hct (37.2-46.3) % Neutrophils # (1.80-7.70) 10*3/uL Lymphocytes # (0.90-5.00) 10*3/uL Eosinophils # (0.04-0.35) 10*3/uL Potassium 3.3 L (3.5-5.5) mmol/L Anion Gap 13.40 H (4.00-12.00) mmol/L Est GFR (CKD-EPI) 42 L (>=60) Urine Appearance (Clear) Urine Blood (Negative) Ur Leukocyte Esterase (Negative) Urine RBC (0-5) /hpf Urine WBC (0-5) /hpf Ur Squamous Epith Cells (0-4) /hpf Urine Bacteria (None) /hpf Urine Mucus (None) /hpf Thrombosis Risk Factor Assmnt - Choose All That Apply Any of the Below Risk Factors Present?: Yes Other Risk Factors: Yes Each Risk Factor Represents 2 Points: Malignancy Each Risk Factor Represents 3 Points: Age 75 years or older Other congenital or acquired thrombophilia - If yes, enter type in comment: No Thrombosis Risk Factor Assessment Total Risk Factor Score: 5 Thrombosis Risk Factor Assessment Level: High Risk
[2025-01-07] MEDS: GABAPENTIN 300 MG CAP PO SCH (20:12)
[2025-01-07] MEDS: levETIRAcetam 500 MG TAB PO SCH (20:13)
[2025-01-08] MEDS: ATORVASTATIN 10 MG TAB PO SCH (08:52)
[2025-01-08] MEDS: PANTOPRAZOLE 40 MG TABLET PO SCH (08:52)
--- NOTE | 2025-01-08 17:30 | P.DS ---
Providers Date of admission: 01/06/25 15:42 Attending physician: Davon Lopez MD Consults: 01/07/25 10:47 Consult Physician Routine Consulting Provider: Azul Milan Consult Reason/Comments: known patient Do you want consulting provider notified?: Already Contacted Primary care physician: Honorio Curiel Hospital Course: Discharge Diagnosis: Falls secondary to generalized weakness from age-related muscle atrophy Seizure disorder on Keppra Polypharmacy Hypertension GERD Depression anxiety Hospital Course: 79-year-old female came in after a fall because of generalized weakness she fell to the side patient does not have any focal weakness patient is elderly thin built female. Patient was unable to get up. Patient was placed on a c-collar presently removed. Patient had a chest x-ray elbow x-ray head cervical spine CT pelvic x-ray did not show any fracture except for some degenerative changes. Chest x-ray was read as pulmonary congestion although I reviewed the chest x-ray my suspicion is low that patient has pulmonary edema patient is lying flat saturating well. Patient has not any fever chills nausea vomiting. While in the hospital patient underwent various imaging including CT head which showed no acute bleed or mass effect as well as CT cervical spine which showed no acute trauma. Patient also underwent x-ray of the pelvis which showed no acute osseous pathology mild degeneration changes of the hip. Patient also underwent elbow x-ray which showed no evidence of acute fracture, fixation hardware appears intact. Patient also received chest x-ray which showed cardiomegaly and mild mild pulmonary vascular congestion. Patient was maintained on her home medications for chronic conditions including seizure disorder hypertension and GERD and anxiety and depression. While admitted the patient was monitored and she was feeling well at time of discharge. Patient is hemodynamically stable for discharge to acute rehab facility. Patient is advised to follow-up with her PCP in 1 to 2 weeks. Pt seen and examined at bedside: No significant overnight events, no current complaints or concerns in the patient. Vital signs reveiwed and stable: General: non toxic, no distress, appears at stated age, normal weight Derm: no unusual rashes/lesions, warm Head: atraumatic, normocephalic, symmetric Eyes: EOMI, no lid lag, anicteric sclera, pupils equal round reactive to light ENT: Nose and ears atraumatic Neck: No cervical lymphadenopathy, trachea midline, supple Mouth: no lip lesion, mucus membranes moist Cardiovascular: S1S2 reg, no murmur, positive dorsalis pedis pulse bilateral, no edema Lungs: Decreased air entry bilaterally, no rhonchi, no rales, no accessory muscle use Abdominal: soft, nontender to palpation, no guarding Ext: muscle strength 5 out of 5 in all 4 extremities grossly, no gross muscle atrophy, no contractures, Psych: Alert, oriented, appropriate affect A total of greater than 30 minutes were spent preparing this complex discarge summary. Patient was discharged on 01/08/2025. Patient Condition at Discharge: Stable Plan - Discharge Summary Discharge Rx Participant: No New Discharge Prescriptions: Continue Omeprazole [PriLOSEC] 40 mg PO DAILY DULoxetine HCL [Cymbalta] 20 mg PO BID ALPRAZolam [Xanax] 0.5 mg PO BID PRN PRN Reason: Anxiety Rosuvastatin Calcium 5 mg PO DAILY Potassium Chloride ER [K-Dur 10] 10 meq PO DAILY levETIRAcetam [Keppra] 500 mg PO BID HYDROcodone/APAP 7.5-325MG [[place] 7.5-325] 1 tab PO BID PRN PRN Reason: Pain Gabapentin 600 mg PO BID Discharge Medication List Omeprazole [PriLOSEC] 40 mg PO DAILY 11/20/18 [History] DULoxetine HCL [Cymbalta] 20 mg PO BID 03/07/23 [History] Potassium Chloride ER [K-Dur 10] 10 meq PO DAILY 12/16/24 [History] ALPRAZolam [Xanax] 0.5 mg PO BID PRN 01/06/25 [History] Gabapentin 600 mg PO BID 01/06/25 [History] HYDROcodone/APAP 7.5-325MG [[place] 7.5-325] 1 tab PO BID PRN 01/06/25 [History] Rosuvastatin Calcium 5 mg PO DAILY 01/06/25 [History] levETIRAcetam [Keppra] 500 mg PO BID 01/06/25 [History] Follow up Appointment(s)/Referral(s): Chuy Milan MD [STAFF PHYSICIAN] - 1-2 days Honorio Curiel MD [Primary Care Provider] - 1 Week Patient Instructions/Handouts: Weakness (DC) Discharge Disposition: TRANSFER TO SNF/ECF
[2025-01-08 19:43] LABS: Ferritin 68.6 ng/mL (10.0-291.0); Iron 24.0 UG/DL (50-170); Total Iron Binding Capacity 290.0 UG/DL (228-460); Vitamin B12 223.0 pg/mL (200.0-944.0)
--- NOTE | 2025-01-08 21:58 | P.CONS ---
History of Present Illness - Reason for Consult Consult date: 01/08/25 melanoma Requesting physician: Jennie Rm - Chief Complaint fall - History of Present Illness Patient is a 79 year old famale with a history of melanoma, who follows with Dr. Derian Milan. She presented with an enlarhing lesion on her R forearm, she stated lesion was like a "blood blister" and enlarged rapidly in 6 months. She had shave Bx on 11/27/23 revealing superficially spreading malignant melanoma. The patient was referred to [facility] clinic, seen by surgical oncology, had wide excision and SLNB on 01/09/24 revealing Breslow's depth of 6.6 mm, juan david level V. Margins all negative. SLNB + (3 of 3) largest 1.2 mm. She was later re-evaluated by surgical oncology, R axillary LND offered, but not accepted by patient. Adjuvant treatment recommended with Keytruda, completing cycle 12 on 11/26/24. Patient has been reporting falls and intermittent dizziness, Brain MRI and PET CT scheduled at last f/u. Patient presented to the hospital for mechanical fall. Patient denies loss of consciousness. She believes she was on the ground overnight. Has been having progressing weakness as well as intermittent dizziness and falls at home. On admit CT brain and C-spine showed no acute bleed or mass effect. CT cervical spine showed no acute trauma or acute fractures. UA suspicious for UTI, urine culture pending. WBC 7.5, hemoglobin 11.4, MCV 89.9. Platelets 1 8000. Creatinine 1.3, GFR 42. Bilirubin 1.4, CK elevated at 394. 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 Melanoma stage 3, keytruda immune therapy. last seizure 03/2023 History of Any Multi-Drug Resistant Organisms: None Reported Past Surgical History: Cholecystectomy, Orthopedic Surgery Additional Past Surgical History / Comment(s): History of right hand surgery. left arm surgery, lymph nodes R arm Past Anesthesia/Blood Transfusion Reactions: No Reported Reaction Past Psychological History: Anxiety, Depression Smoking Status: Never smoker Past Alcohol Use History: None Reported Past Drug Use History: None Reported - Past Family History Sister(s) Family Medical History: Cancer Son(s) Family Medical History: Deep Vein Thrombosis (DVT) Medications and Allergies Home Medications Medication Instructions Recorded Confirmed Type Omeprazole [PriLOSEC] 40 mg PO DAILY 11/20/18 01/06/25 History DULoxetine HCL [Cymbalta] 20 mg PO BID 03/07/23 01/06/25 History Potassium Chloride ER [K-Dur 10] 10 meq PO DAILY 12/16/24 01/06/25 History ALPRAZolam [Xanax] 0.5 mg PO BID PRN 01/06/25 01/06/25 History Gabapentin 600 mg PO BID 01/06/25 01/06/25 History HYDROcodone/APAP 7.5-325MG [[place] 1 tab PO BID PRN 01/06/25 01/06/25 History 7.5-325] Rosuvastatin Calcium 5 mg PO DAILY 01/06/25 01/06/25 History levETIRAcetam [Keppra] 500 mg PO BID 01/06/25 01/06/25 History Allergies Allergy/AdvReac Type Severity Reaction Status Date / Time morphine Allergy PER PCP Verified 01/06/25 12:38 IV STEROIDS AdvReac Nausea Uncoded 01/06/25 12:38 Physical Exam Vitals: Vital Signs Temp Pulse Resp BP Pulse Ox 01/08/25 07:33 97.4 F L 95 20 99/67 93 L 01/08/25 01:59 98.1 F 94 16 92/60 93 L 01/07/25 18:48 99.0 F 110 H 18 111/70 95 01/07/25 13:41 97.7 F 113 H 18 90/65 Intake and Output 01/07/25 01/08/25 01/08/25 22:59 06:59 14:59 Output Total 100 Balance -100 Output: Urine 100 Other: Voiding Method Bedpan Diaper Incontinent # Voids 1 1 # Bowel Movements 1 - Constitutional General appearance: average body habitus, no acute distress - EENT Eyes: anicteric sclerae, EOMI ENT: hearing grossly normal - Respiratory breathing is even and unlabored - Cardiovascular skin warm and dry - Gastrointestinal General gastrointestinal: soft, no tenderness - Integumentary Integumentary: no cyanotic - Musculoskeletal Musculoskeletal: generalized weakness - Psychiatric Psychiatric: A&O x's 3 Results CBC & Chem 7: 01/07/25 05:09 01/07/25 05:09 Labs: Microbiology - Last 24 Hours (Table) 01/06/25 14:40 Urine Culture - Preliminary Urine,Voided Assessment and Plan (1) Dehydration Current Visit: Yes Status: Acute Code(s): E86.0 - DEHYDRATION SNOMED Code(s): 63841391 (2) Fall Current Visit: Yes Status: Acute Code(s): W19.XXXA - UNSPECIFIED FALL, INITIAL ENCOUNTER SNOMED Code(s): 2503108 (3) Melanoma Current Visit: No Status: Acute Priority: Medium Code(s): C43.9 - MALIGNANT MELANOMA OF SKIN, UNSPECIFIED SNOMED Code(s): 432873669 Plan: Fall: Patient presented to the hospital for mechanical fall. Patient denies loss of consciousness. Has been having progressing weakness as well as intermittent dizziness and falls at home. -On admit CT brain and C-spine showed no acute bleed or mass effect. CT cervical spine showed no acute fracture -Brain MRI ordered Anemia: History of МАРИЯ -Hemoglobin 11.4, MCV 89.9. Platelets 208,000. -Nutritional syudies obtained -Continue to monitor CBC Melanoma: -Oncology history as dictated in the HPI -Adjuvant treatment recommended with Keytruda, completing cycle 12 on 11/26/24. -At last visit, Brain MRI and PET CT were ordered. PET CT will be rescheduled and brain MRI will be obtained during this admission -Clinic f/u upon discharge Doctor attests: I performed a history and physical examination of this patient, developed impression and plan of care. Discussed with dictator. I agree with dictators note, documented as a scribe.
[2025-01-09] MEDS ORDERED: SODIUM FERRIC GLUCONAT-SUCROSE 125 MG in SODIUM CHLORIDE 0.9% 100 ML IVPB SCH (14:00)
--- NOTE | 2025-01-09 15:25 | P.PN ---
Subjective Progress Note Date: 01/09/25 79-year-old female came in after a fall because of generalized weakness she fell to the side patient does not have any focal weakness patient is elderly thin built female. Patient was unable to get up. Patient was placed on a c-collar presently removed. Patient had a chest x-ray elbow x-ray head cervical spine CT pelvic x-ray did not show any fracture except for some degenerative changes. C hest x-ray was read as pulmonary congestion although I reviewed the chest x-ray my suspicion is low that patient has pulmonary edema patient is lying flat saturating well. Patient has not any fever chills nausea vomiting. Subjective: 01/09/2025: Patient seen at bedside. No significant overnight events. No complaints or concerns today. Pertinent positives and negatives discussed above, a complete review of systems was preformed and all the other sytems were negative. Vitals Signs Reveiwed. GENERAL: The patient is alert and oriented x3, not in any acute distress. Thin build female HEENT: Pupils are round and equally reacting to light. EOMI. No scleral icterus. No conjunctival pallor. Normocephalic, atraumatic. No pharyngeal erythema. No thyromegaly. CARDIOVASCULAR: S1 and S2 present. No murmurs, rubs, or gallops. PULMONARY: Chest is clear to auscultation, no wheezing or crackles. ABDOMEN: Soft, nontender, nondistended, normoactive bowel sounds. No palpable organomegaly. MUSCULOSKELETAL: No joint swelling or deformity. EXTREMITIES: No cyanosis, clubbing, or pedal edema. NEUROLOGICAL: Gross neurological examination did not reveal any focal deficits. SKIN: No rashes. Data Reveiwed Today: Patient Labs: No new labs Imaging: No new imaging Assesment and Plan: Falls: Secondary to generalized weakness from age-related muscle atrophy. Physical therapy Occupational Therapy evaluation patient probably will need to go to subacute rehab. My suspicion is low for congestive heart failure will obtain a proBNP - Patient had CT cervical spine and CT brain which were within normal limits, oncology ordered brain MRI which will be done tomorrow (01/10), assuming that scan come back within normal limits patient will be discharged to acute rehab facility - Anemia: History of МАРИЯ, iron studies obtained receiving IV iron now - Seizure disorder for which patient is on Keppra - Polypharmacy will try and avoid benzodiazepines., Patient is also on opiates gabapentin. - Hypertension patient is presently hypotensive not any medications - Gastroesophageal reflux disease - Depression and anxiety will continue SSRI we will discontinue benzodiazepines DVT prophylaxis: Lovenox low-dose F none E IV iron N heart healthy diet DVT ppx: SCDs GI ppx: Protonix 40 mg p.o. AC with breakfast Code Status: Full code Anticipated discharge place: Acute rehab Anticipated discharge time: Likely tomorrow (01/10) Objective - Vital Signs Vital signs: Vital Signs Temp 98.9 F 01/09/25 12:24 Pulse 95 01/09/25 12:24 Resp 16 01/09/25 12:24 BP 90/59 01/09/25 12:24 Pulse Ox 94 L 01/09/25 12:24 FiO2 Intake & Output 01/08/25 01/09/25 01/09/25 18:59 06:59 18:59 Output Total 200 175 Balance -200 -175 Output: Urine 200 175 Other: Voiding Method Bedpan Bedpan Diaper Diaper Diaper Incontinent Incontinent Incontinent External Catheter External Catheter External Catheter # Voids 1 - Labs CBC & Chem 7: 01/07/25 05:09 01/07/25 05:09 Labs: Abnormal Lab Results - Last 24 Hours (Table) 01/08/25 Range/Units 12:38 Iron 24 L (50-170) UG/DL % Saturation 8.28 L (12.00-45.00) Microbiology - Last 24 Hours (Table) 01/06/25 14:40 Urine Culture - Final Urine,Voided
[2025-01-09] MEDS: CYANOCOBALAMIN 1,000 MCG/ML 1 ML VIAL IM SCH (15:51)
[2025-01-09] MEDS: SODIUM FERRIC GLUCONAT-SUCROSE 125 MG in SODIUM CHLORIDE 0.9% 100 ML IVPB SCH (15:51)
--- NOTE | 2025-01-09 18:47 | MR ---
EXAMINATION TYPE: MR brain wo/w con DATE OF EXAM: 01/09/2025 6:36 PM COMPARISON: 03/12/2023. CLINICAL INDICATION: Female, 79 years old with history of dizziness, falls, hx melanoma, Dizziness, F alls, Hx Melanoma, Hx MS TECHNIQUE: Multi planar, multi sequence imaging was performed through the brain including: T1, T2, In version recovery, susceptibility weighted imaging and gradient echo imaging and Diffusion weighted im aging. The patient was then given intravenous contrast and multi planar, T1 fat-saturation images wer e obtained. IV Contrast: 6 mL Gadobutrol FINDINGS: The schumacher-white junctions, ventricular system, basal cisterns appear unremarkable. Diffusion-weighted imaging shows no evidence of restricted diffusion to suggest acute/subacute infarct. Intracranial ar terial flow voids are maintained. Midline structures show no abnormality. Scattered foci of high T2 s ignal intensity are seen within the periventricular white matter. The susceptibility weighted images do not reveal any evidence for micro-hemorrhage. After administration of gadolinium, no abnormal enha ncement is seen. The bone marrow signal is within normal limits. Paranasal sinuses and mastoid air cells: No significant paranasal sinus disease. Visualized orbits: Bilateral aphakia IMPRESSION: 1. No evidence of intracranial mass, acute/subacute infarct, or abnormal enhancement. 2. Nonspecific white matter changes, likely related to small vessel ischemic disease. [facility], , 01/09/2025 6:44 PM
--- NOTE | 2025-01-10 14:44 | P.PN ---
Subjective Progress Note Date: 01/10/25 79-year-old female came in after a fall because of generalized weakness she fell to the side patient does not have any focal weakness patient is elderly thin built female. Patient was unable to get up. Patient was placed on a c-collar presently removed. Patient had a chest x-ray elbow x-ray head cervical spine CT pelvic x-ray did not show any fracture except for some degenerative changes. Chest x-ray was read as pulmonary congestion although I reviewed the chest x-ray my suspicion is low that patient has pulmonary edema patient is lying flat saturating well. Patient has not any fever chills nausea vomiting. Subjective: 01/09/2025: Patient seen at bedside. No significant overnight events. No complaints or concerns today. 01/10/2025: Patient seen at bedside, no significant overnight events. Patient states she is feeling well, is hoping to be able to leave soon for acute rehab. No other complaints or concerns at this time. Pertinent positives and negatives discussed above, a complete review of systems was preformed and all the other sytems were negative. Vitals Signs Reveiwed. GENERAL: The patient is alert and oriented x3, not in any acute distress. Thin build female HEENT: Pupils are round and equally reacting to light. EOMI. No scleral icterus. No conjunctival pallor. Normocephalic, atraumatic. No pharyngeal erythema. No thyromegaly. CARDIOVASCULAR: S1 and S2 present. No murmurs, rubs, or gallops. PULMONARY: Chest is clear to auscultation, no wheezing or crackles. ABDOMEN: Soft, nontender, nondistended, normoactive bowel sounds. No palpable organomegaly. MUSCULOSKELETAL: No joint swelling or deformity. EXTREMITIES: No cyanosis, clubbing, or pedal edema. NEUROLOGICAL: Gross neurological examination did not reveal any focal deficits. SKIN: No rashes. Data Reveiwed Today: Patient Labs: No new labs Imaging: MRI brain showed no evidence of intracranial mass, acute/subacute infarct, or abnormal enhancement, nonspecific white matter changes like related to small vessel ischemic disease Assesment and Plan: Falls: Secondary to generalized weakness from age-related muscle atrophy. Physical therapy Occupational Therapy evaluation patient probably will need to go to subacute rehab. My suspicion is low for congestive heart failure will obtain a proBNP -MRI brain unremarkable, patient is awaiting authorization for acute rehab - Patient had CT cervical spine and CT brain which were within normal limits - Anemia: History of МАРИЯ, iron studies obtained receiving IV iron now - Seizure disorder for which patient is on Keppra - Polypharmacy will try and avoid benzodiazepines., Patient is also on opiates gabapentin. - Hypertension patient is presently hypotensive not any medications - Gastroesophageal reflux disease - Depression and anxiety will continue SSRI we will discontinue benzodiazepines F none E IV iron N heart healthy diet DVT ppx: SCDs GI ppx: Protonix 40 mg p.o. AC with breakfast Code Status: Full code Anticipated discharge place: Acute rehab Anticipated discharge time: Pending authorization for acute rehab Objective - Vital Signs Vital signs: Vital Signs Temp 98.0 F 01/10/25 11:59 Pulse 91 01/10/25 11:59 Resp 16 01/10/25 11:59 BP 115/69 01/10/25 11:59 Pulse Ox 95 01/10/25 11:59 FiO2 Intake & Output 01/09/25 01/10/25 01/10/25 18:59 06:59 18:59 Intake Total 1160 790 720 Output Total 400 350 Balance 760 440 720 Intake: Oral 1160 510 720 Tube Feeding 280 Output: Urine 400 350 Other: Voiding Method Diaper Diaper Diaper Incontinent External Catheter Incontinent External Catheter External Catheter # Voids 1 - Labs CBC & Chem 7: 01/07/25 05:09 01/07/25 05:09
--- NOTE | 2025-01-10 15:36 | P.PN ---
Subjective Progress Note Date: 01/10/25 Principal diagnosis: Stage IIIC melanoma - Afebrile, no acute events overnight - Brain MRI was negative for intracranial metastases - Clinically, she is feeling improved compared to admission with regards to weakness and denies any new signs or symptoms Objective - Vital Signs Vital signs: Vital Signs Temp 98.0 F 01/10/25 11:59 Pulse 91 01/10/25 11:59 Resp 16 01/10/25 11:59 BP 115/69 01/10/25 11:59 Pulse Ox 95 01/10/25 11:59 FiO2 Intake & Output 01/09/25 01/10/25 01/10/25 18:59 06:59 18:59 Intake Total 1160 790 720 Output Total 400 350 Balance 760 440 720 Intake: Oral 1160 510 720 Tube Feeding 280 Output: Urine 400 350 Other: Voiding Method Diaper Diaper Diaper Incontinent External Catheter Incontinent External Catheter External Catheter # Voids 1 - Constitutional General appearance: Present: cooperative, no acute distress - EENT Eyes: Present: EOMI - Respiratory Details: Nonlabored breathing - Cardiovascular Details: Warm and well-perfused - Gastrointestinal General gastrointestinal: Present: soft. Absent: distended - Integumentary Integumentary: Present: pale. Absent: rash - Neurologic Neurologic Comment(s): Decreased mobility on the left upper and lower extremities compared to the right - Psychiatric Psychiatric: Present: A&O x's 3 - Labs CBC & Chem 7: 01/07/25 05:09 01/07/25 05:09 Assessment and Plan (1) Iron deficiency anemia Current Visit: Yes Status: Acute Code(s): D50.9 - IRON DEFICIENCY ANEMIA, UNSPECIFIED SNOMED Code(s): 56417016 (2) Vitamin B12 deficiency anemia Current Visit: Yes Status: Acute Code(s): D51.9 - VITAMIN B12 DEFICIENCY ANEMIA, UNSPECIFIED SNOMED Code(s): 28128379 (3) Malignant melanoma, stage IIIC Current Visit: Yes Status: Acute Code(s): C43.9 - MALIGNANT MELANOMA OF SKIN, UNSPECIFIED SNOMED Code(s): 260273437 (4) Fall Current Visit: Yes Status: Acute Code(s): W19.XXXA - UNSPECIFIED FALL, INITIAL ENCOUNTER SNOMED Code(s): 9252674 Plan: Fall: Patient presented to the hospital for mechanical fall. Patient denies loss of consciousness. Has been having progressing weakness as well as intermittent dizziness and falls at home. -On admit CT brain and C-spine showed no acute bleed or mass effect. CT cervical spine showed no acute fracture -Brain MRI revealed no intracranial metastases -Workup inpatient was consistent with iron and vitamin B12 deficiencies, possibly contributing to weakness leading to her mechanical fall. It is unclear if her history of multiple sclerosis could also be contributing -Iron and vitamin B12 supplementation have been started and notes improvement since admission -Plan for discharge to subacute rehab on 01/12/2025 Iron and vitamin B12 anemia: -Workup in patient was consistent with iron and vitamin B12 deficiency -This could be due to poor oral intake -IV iron and intramuscular vitamin B12 have been started -We will follow-up on iron and vitamin B12 studies outpatient in clinic Stage IIIc melanoma: -Oncology history as dictated in the HPI -Adjuvant treatment recommended with Keytruda, completing cycle 12 on 11/26/24 -Brain MRI on 01/09/2025 was negative for intracranial metastases -We will reschedule PET/CT outpatient and will likely have to be performed after she is discharged from [facility] -Follow-up with her primary oncologist Dr. Chuy Milan is scheduled for 01/27/2025 at 1 PM Azul Milan MD
[2025-01-10] MEDS ORDERED: Potassium Replacement Protocol 1 EACH MISC MISCELLANE PRN (16:21)
[2025-01-10] MEDS: POTASSIUM CHLORIDE ER 20 MEQ TAB.ER PO SCH (16:56)
[2025-01-11] MEDS: POTASSIUM CHLORIDE ER 20 MEQ TAB.ER PO SCH (03:44)
--- NOTE | 2025-01-12 05:06 | P.PN ---
Subjective Progress Note Date: 01/11/25 79-year-old female came in after a fall because of generalized weakness she fell to the side patient does not have any focal weakness patient is elderly thin built female. Patient was unable to get up. Patient was placed on a c-collar presently removed. Patient had a chest x-ray elbow x-ray head cervical spine CT pelvic x-ray did not show any fracture except for some degenerative changes. Chest x-ray was read as pulmonary congestion although I reviewed the chest x-ray my suspicion is low that patient has pulmonary edema patient is lying flat saturating well. Patient has not any fever chills nausea vomiting. Subjective: 01/09/2025: Patient seen at bedside. No significant overnight events. No complaints or concerns today. 01/10/2025: Patient seen at bedside, no significant overnight events. Patient states she is feeling well, is hoping to be able to leave soon for acute rehab. No other complaints or concerns at this time. 01/11/2025 Patient is seen in follow-up today lethargic although arousable. Patient continues to be weak and will be reevaluated by physical therapy on Sunday and discuss further with case management regarding discharge planning to [facility]. Currently awaiting insurance authorization. Potassium was low at 3.2 and replaced and is currently 4.3. Encouraged to increase activity as tolerated with sitting up in the chair more frequently. Encouraged oral intake Review of systems: Constitutional: No reports of fatigue, fever, or chills Cardiovascular: No reports of chest pain or palpitations Respiratory: No reports of shortness of breath or cough GI: No reports of nausea, vomiting, or diarrhea : No reports of dysuria or retention Neurovascular: reports of generalized weakness All medications have been reviewed Pertinent positives and negatives discussed above, a complete review of systems was preformed and all the other sytems were negative. Vitals Signs Reveiwed. Physical exam: GENERAL: The patient is asleep although arousable, alert and oriented x3, not in any acute distress. Well-developed, thin built, elderly appearing HEENT: Pupils are round and equally reacting to light. EOMI. No scleral icterus. No conjunctival pallor. Normocephalic, atraumatic. No pharyngeal erythema. No thyromegaly. CARDIOVASCULAR: S1 and S2 muffled PULMONARY: Diminished breath sounds bilaterally otherwise chest is clear to auscultation, no wheezing or crackles. ABDOMEN: Soft, thin, nontender, nondistended, normoactive bowel sounds. No palpable organomegaly. MUSCULOSKELETAL: No joint swelling or deformity. EXTREMITIES: No cyanosis, clubbing, or pedal edema. NEUROLOGICAL: Gross neurological examination did not reveal any focal deficits. Diffusely weak SKIN: No rashes. Imaging: MRI brain showed no evidence of intracranial mass, acute/subacute infarct, or abnormal enhancement, nonspecific white matter changes like related to small vessel ischemic disease Assessment and Plan: Falls: Secondary to generalized weakness from age-related muscle atrophy. -Physical therapy Occupational Therapy has evaluated the patient recommending subacute rehab. Will require updated PT/OT therapy notes with plans on going to [facility]. Currently awaiting insurance authorization -MRI brain unremarkable - Patient had CT cervical spine and CT brain which were within normal limits Hypokalemia, replaced and improved Anemia: History of МАРИЯ, iron studies obtained receiving IV iron now Seizure disorder history for which patient is on Keppra Polypharmacy history, will try and avoid benzodiazepines., Patient is also on opiates gabapentin. Hypertension, patient is presently hypotensive not any medications Gastroesophageal reflux disease Depression and anxiety history, will continue SSRI we will discontinue benzodiazepines DVT ppx: SCDs GI ppx: Protonix Full code Plan: Patient did have falls with generalized weakness initially evaluated by physical therapy recommending rehab and patient is agreeable. Currently awaiting insurance authorization and will follow-up with case management on Sunday regarding discharge planning Patient evaluated by oncology with history of stage III melanoma and will follow-up outpatient with oncology once discharged from ECF. Patient is agreeable to no oncological care during rehab. Encouraged oral intake and frequent meals Patient with iron deficiency anemia has received iron this admission, will follow-up on repeat labs Home medications reviewed and resumed as appropriate, recommend avoiding benzodiazepines and narcotic use Will likely need updated PT/OT therapy notes ask PT/OT therapy to evaluate the patient on Sunday possible discharge planning in the next 24 hours to [facility] Due to multiple complex medical issues, overall prognosis is guarded The impression and plan of care has been dictated by Jocelyne Luis, Nurse Practitioner as directed. Dr. Josue MD I have performed a history and examination and MDM of this patient, discussed the same with the dictator, and agree with the dictator's assessment and plan as written ,documented as a scribe. Based on total visit time, I have performed more than 50% of the visit. Objective - Vital Signs Vital signs: Vital Signs Temp 99.1 F 01/11/25 07:17 Pulse 98 01/11/25 07:17 Resp 16 01/11/25 07:17 BP 96/62 01/11/25 07:17 Pulse Ox 92 L 01/11/25 07:17 FiO2 Intake & Output 01/10/25 01/11/25 01/11/25 18:59 06:59 18:59 Intake Total 2460 300 356 Output Total 1200 325 Balance 1260 -25 356 Intake: Oral 2460 356 Other 300 Output: Urine 1200 325 Other: Voiding Method Diaper External Catheter Incontinent External Catheter - Labs CBC & Chem 7: 01/07/25 05:09 01/11/25 07:38 Labs: Abnormal Lab Results - Last 24 Hours (Table) 01/08/25 01/10/25 01/10/25 Range/Units 12:38 15:28 20:09 Potassium 3.1 L 3.2 L (3.5-5.1) mmol/L Methylmalonic Acid 0.60 H (<0.40) umol/L
[2025-01-12 08:14] LABS: Basophils # (A) 0.05 10*3/uL (0.00-0.10); Basophils % (A) 1.2 %; Eosinophils # (A) 0.25 10*3/uL (0.04-0.35); Eosinophils % (A) 5.8 %; HCT 28.5 % (37.2-46.3); Lymphocytes # (A) 1.08 10*3/uL (0.90-5.00); Lymphocytes % (A) 25.1 %; MCH 29.7 pg (27.0-32.0); MCHC 33.3 g/dL (32.0-37.0); MCV 89.1 fL (80.0-97.0); Monocytes # (A) 0.41 10*3/uL (0.20-1.00); Monocytes % (A) 9.5 %; Neutrophils # (A) 2.51 10*3/uL (1.80-7.70); Neutrophils % (A) 58.2 %; Platelet Count 168 10*3/uL (140-440); RBC 3.20 10*6/uL (4.10-5.20); RDW 13.4 % (11.5-14.5); WBC 4.31 10*3/uL (4.50-10.00)
[2025-01-12 08:16] LABS: HGB 9.5 g/dL (12.0-15.0)
[2025-01-12 10:58] LABS: Anion Gap 10.20 mmol/L (4.00-12.00); BUN/Creat Ratio 19.54 Ratio (12.00-20.00); Blood Urea Nitrogen 25.4 mg/dL (9.0-27.0); Calcium 9.0 mg/dL (8.7-10.3); Carbon Dioxide 23.8 mmol/L (21.6-31.8); Chloride 106 mmol/L (96-109); Glucose 96 mg/dL (70-110); Magnesium 1.1 mg/dL (1.5-2.4); Potassium 3.9 mmol/L (3.5-5.5); Sodium 140 mmol/L (135-145)
[2025-01-12 15:26] VITALS: BP 102/68; PULSE 80; RESP 17; TEMP 97.6
--- NOTE | 2025-01-12 15:51 | P.DS ---
Providers Date of admission: 01/06/25 15:42 Expected date of discharge: 01/12/25 Attending physician: Davon Lopez MD Consults: 01/07/25 10:47 Consult Physician Routine Consulting Provider: Azul Milan Consult Reason/Comments: known patient Do you want consulting provider notified?: Already Contacted Primary care physician: [facility] Hospital Course: Discharge Diagnosis: Falls secondary to generalized weakness from age-related muscle atrophy Seizure disorder on Keppra Polypharmacy Hypertension GERD Depression anxiety History of stage III melanoma, not currently receiving any active oncological treatment History of iron deficiency anemia, has received IV iron during hospitalization GI prophylaxis DVT prophylaxis Full code Hospital Course: 79-year-old female came in after a fall because of generalized weakness she fell to the side patient does not have any focal weakness patient is elderly thin built female. Patient was unable to get up. Patient was placed on a c-collar presently removed. Patient had a chest x-ray elbow x-ray head cervical spine CT pelvic x-ray did not show any fracture except for some degenerative changes. Chest x-ray was read as pulmonary congestion although I reviewed the chest x-ray my suspicion is low that patient has pulmonary edema patient is lying flat saturating well. Patient has not any fever chills nausea vomiting. While in the hospital patient underwent various imaging including CT head which showed no acute bleed or mass effect as well as CT cervical spine which showed no acute trauma. Patient also underwent x-ray of the pelvis which showed no acute osseous pathology mild degeneration changes of the hip. Patient also underwent elbow x-ray which showed no evidence of acute fracture, fixation hardware appears intact. Patient also received chest x-ray which showed cardiomegaly and mild mild pulmonary vascular congestion. Patient was maintained on her home medications for chronic conditions including seizure disorder hypertension and GERD and anxiety and depression. While admitted the patient was monitored and she was feeling well at time of discharge. Patient is hemodynamically stable for discharge to acute rehab facility. Patient is advised to follow-up with her PCP in 1 to 2 weeks. 01/12/2025 Pt seen and examined at bedside: No significant overnight events, no current complaints or concerns in the patient. Patient has received insurance authorization and will be going to [facility] on the [address]. Patient is agreeable. Patient to follow-up with oncology outpatient once discharged from [facility]. Patient has not been taking Keytruda and is agreeable to no oncological care during ECF. Physical exam: Gen: This is a 79-year-old female who is awake, alert and oriented x 3, thin built, elderly appearing, well-developed HEENT: Head is atraumatic, normocephalic. Pupils equal, round. Sclerae is anicteric. NECK: Supple. No JVD. No lymphadenopathy. No thyromegaly. LUNGS: Diminished breath sounds bilaterally otherwise clear to auscultation. No wheezes or rhonchi. No intercostal retractions. HEART: S1, S2 are muffled ABDOMEN: Soft. Thin. Bowel sounds are present. No masses. No tenderness. EXTREMITIES: No pedal edema. No calf tenderness. NEUROLOGICAL: Patient is awake, alert and oriented x3. Cranial nerves 2 through 12 are grossly intact. Generalized weakness Please refer to medication reconciliation sheet for a list of medications. The impression and plan of care has been dictated by Jocelyne Luis, Nurse Practitioner as directed. Dr. Van MD I have performed a history and examination and MDM of this patient, discussed the same with the dictator, and agree with the dictator's assessment and plan as written ,documented as a scribe. Based on total visit time, I have performed more than 50% of the visit. Patient Condition at Discharge: Fair Plan - Discharge Summary Discharge Rx Participant: No New Discharge Prescriptions: Continue Omeprazole [PriLOSEC] 40 mg PO DAILY DULoxetine HCL [Cymbalta] 20 mg PO BID ALPRAZolam [Xanax] 0.5 mg PO BID PRN PRN Reason: Anxiety Rosuvastatin Calcium 5 mg PO DAILY Potassium Chloride ER [K-Dur 10] 10 meq PO DAILY levETIRAcetam [Keppra] 500 mg PO BID HYDROcodone/APAP 7.5-325MG [Sharon 7.5-325] 1 tab PO BID PRN PRN Reason: Pain Gabapentin 600 mg PO BID Discharge Medication List Omeprazole [PriLOSEC] 40 mg PO DAILY 11/20/18 [History] DULoxetine HCL [Cymbalta] 20 mg PO BID 03/07/23 [History] Potassium Chloride ER [K-Dur 10] 10 meq PO DAILY 12/16/24 [History] ALPRAZolam [Xanax] 0.5 mg PO BID PRN 01/06/25 [History] Gabapentin 600 mg PO BID 01/06/25 [History] HYDROcodone/APAP 7.5-325MG [Sharon 7.5-325] 1 tab PO BID PRN 01/06/25 [History] Rosuvastatin Calcium 5 mg PO DAILY 01/06/25 [History] levETIRAcetam [Keppra] 500 mg PO BID 01/06/25 [History] Follow up Appointment(s)/Referral(s): Chuy Milan MD [STAFF PHYSICIAN] - 1-2 days Honorio Curiel MD [Primary Care Provider] - 1 Week Patient Instructions/Handouts: Weakness (DC)
== END 2025-01-12 16:29 | DRG 558 ==
LOC: EC 10:53 → 5NMEDONC 15:42 → OBSVTOIN 15:43 → 5NMEDONC 18:24
PROVIDERS: ADMIT Internal Medicine; ATTEND Internal Medicine
DX: M62.59 Muscle wasting and atrophy, not elsewhere classified, multiple sites (principal); C43.9 Malignant melanoma of skin, unspecified; D50.9 Iron deficiency anemia, unspecified; D51.9 Vitamin B12 deficiency anemia, unspecified; E78.5 Hyperlipidemia, unspecified; G40.909 Epilepsy, unspecified, not intractable, without status epilepticus; F32.A Depression, unspecified; I10 Essential (primary) hypertension; R74.8 Abnormal levels of other serum enzymes; I95.9 Hypotension, unspecified; E86.0 Dehydration; E87.6 Hypokalemia; F41.9 Anxiety disorder, unspecified; K21.9 Gastro-esophageal reflux disease without esophagitis; R29.6 Repeated falls; Z79.899 Other long term (current) drug therapy; Z88.5 Allergy status to narcotic agent; Z88.8 Allergy status to other drugs, medicaments and biological substances; Z91.81 History of falling
CPT/HCPCS: 36415; 70450; 70553; 71045; 72125; 72170; 80048; 80053; 81001; 82550; 82607; 82728; 82747; 83540; 83550; 83735; 83880; 83921; 84132; 85025; 85610; 85730; 87086; 93005; 96360; 96361; 99285